=== PATIENT | female | born 1965 | race Caucasian/White ===

== ENCOUNTER 2021-06-24 15:58 | Inpatient (IN) | payer MEDICARE ==
[~2021-06-24] VITALS: Ht 157.5 cm; Wt 73.2 kg
[~2021-06-24 15:58] MED LIST: ETOMIDATE IV SOLN 20 MG/10 ML VIAL IV ONE; ROCURONIUM 10 MG/ML 5 ML SYRINGE IV ONE
[2021-06-24] MEDS ORDERED: LORazepam INJ 2 MG/ML (ATIVAN) VIAL IVP ONE ×3 (16:30→20:45)
[2021-06-24] MEDS ORDERED: LACTATED RINGERS 1,000 ML IV ONE (16:30)
[2021-06-24] MEDS ORDERED: NS IV 1000 ML 1,000 ML IV SCH (16:45)
[2021-06-24] MEDS ORDERED: RT-ALBUTEROL/IPRATROPIUM 3 ML (DUONEB) VIAL INH ONE ×2 (16:45→17:45)
[2021-06-24 16:52] LABS: ALBUMIN 3.7 GM/DL (3.2-4.5); CHLORIDE 104 MMOL/L (98-107); POTASSIUM 4.1 MMOL/L (3.6-5.0); SODIUM 138 MMOL/L (135-145)
[2021-06-24 16:53] LABS: CALCIUM 9.1 MG/DL (8.5-10.1)
[2021-06-24 16:53] LABS: ABG BASE EXCESS 0.5 MMOL/L (-2.5-2.5); ABG OXYGEN SATURATION 94 % (94-100); ABG PCO2 54 MMHG (35-45); ABG PO2 81 MMHG (79-93); ABG TCO2 27.9 MMOL/L (21.0-31.0)
[2021-06-24 16:54] LABS: PROTHROMBIN TIME PATIENT 13.2 SEC (12.2-14.7)
[2021-06-24 16:55] LABS: GLUCOSE 92 MG/DL (70-105); TOTAL PROTEIN 7.7 GM/DL (6.4-8.2)
[2021-06-24 16:56] LABS: BILIRUBIN,TOTAL 0.5 MG/DL (0.1-1.0); CARBON DIOXIDE 20 MMOL/L (21-32)
[2021-06-24] MEDS ORDERED: LORazepam INJ 2 MG/ML (ATIVAN) VIAL ONE (16:57)
[2021-06-24 16:58] LABS: ALKALINE PHOSPHATASE 190 U/L (40-136); CREATININE SERUM 0.55 MG/DL (0.60-1.30); GFR ESTIMATED 116
[2021-06-24 16:59] LABS: BUN/CREATININE RATIO 9
[2021-06-24 17:01] LABS: ALANINE AMINOTRANSFERASE 52 U/L (0-55); CREATINE KINASE 99 U/L (29-168)
[2021-06-24 17:02] LABS: ALLENS TEST POS; INSPIRED O2 2L; PATIENT TEMP 36.6; VENTILATOR NO
--- NOTE | 2021-06-24 17:05 | Diagnostic Imaging Report ---
CHEST 1 VIEW, AP/PA ONLY Indication: Sepsis Comparison: None available. Findings: Ill-defined opacities are present in the right lung base. No pleural effusion or pneumothorax. Normal cardiomediastinal silhouette. Impression: 1. Right basilar ill-defined opacities could be due to pneumonia or aspiration in the appropriate setting. Dictated by: Dictated on workstation # [id number]
[2021-06-24 17:18] LABS: VALPROIC ACID < 2.0 UG/ML (50.0-100.0)
[2021-06-24 17:20] LABS: BASOPHILS # (AUTO) 0.1 10^3/uL (0.0-0.1); BASOPHILS % (AUTO) 0 % (0-10); EOSINOPHILS # (AUTO) 0.1 10^3/uL (0.0-0.3); EOSINOPHILS % (AUTO) 0 % (0-10); HEMATOCRIT 47 % (35-52); LYMPHOCYTES % (AUTO) 7 % (12-44); MEAN CORPUSCULAR HEMOGLOBIN 29 pg (25-34); MEAN CORPUSCULAR HGB CONC 32 g/dL (32-36); MEAN CORPUSCULAR VOLUME 90 fL (80-99); MEAN PLATELET VOLUME 10.4 fL (9.0-12.2); MONOCYTES # (AUTO) 1.6 10^3/uL (0.0-1.0); MONOCYTES % (AUTO) 11 % (0-12); NEUTROPHILS # (AUTO) 11.2 10^3/uL (1.8-7.8); NEUTROPHILS % (AUTO) 80 % (42-75); PLATELET COUNT 358 10^3/uL (130-400); WHITE BLOOD COUNT 13.9 10^3/uL (4.3-11.0)
[2021-06-24] MEDS ORDERED: CEFEPIME INJECTION 1,000 MG in NS (IVPB) 50 ML IV ONE (17:30)
[2021-06-24] MEDS ORDERED: ONDANSETRON 4 MG/2 ML (SDV) Z0FRAN IVP ONE ×2 (17:30→19:45)
[2021-06-24] MEDS ORDERED: RT-ALBUTEROL SULF 2.5 MG/3 ML PRE-MIX VIAL INH STA (17:34)
[2021-06-24] MEDS ORDERED: MEROPENEM 1,000 MG in NS (IVPB) 100 ML IV ONE (17:45)
[2021-06-24] MEDS ORDERED: methylPREDNISolone 125 MG (Solu-MEDROL) VIAL IVP ONE (17:45)
[2021-06-24 18:17] LABS: LYMPHOCYTES % (MANUAL) 8 %; MONOCYTES % (MANUAL) 12 %; NEUTROPHILS % (MANUAL) 80 %; RBC MORPH NORMAL
--- NOTE | 2021-06-24 18:24 | ED General ---
General Chief Complaint: Neurological Problems Stated Complaint: SOB, LETHERGY Nursing Triage Note: ARRIVES VIA EMS FROM [facility]. IS STATES SHE WAS BEING TREATED FOR A RESPIRITORY ILLNESS WHEN SHE BEGAN SEIZING. PATIENT IS KNOWN TO HAVE A HISTORY OF SEIZURE. PATIENT STATES SHE HAS BEEN ILL FOR A WEEK AND A HALF. Source of Information: Patient, EMS, Family, Old Records Exam Limitations: No Limitations (CRISTINA DE LA TORRE MD) History of Present Illness Date Seen by Provider: Jun 24, 2021 Time Seen by Provider: 16:18 Initial Comments This is a 55-year-old woman presents to the emergency department via EMS from the [facility] clinic where she was being seen for shortness of breath, productive cough, and claustrophobia. She has a known history of seizure disorder and has had multiple brief seizures by the time of my examination. reports she has had increasing difficulty with her breathing over the past month. She has also had some type of esophageal issue for which she has seen an ENT recently in [place]. They are not able to elaborate any further on that situation. She does have COPD and smokes. She is quite wheezy on examination and has coarse breath sounds as well. Mental status is waxing and waning due to postictal state after the seizures. Patient has not had any fevers according to her . COVID- 19 and influenza swabs done at the clinic were negative. Reportedly chest x-ray was concerning for pneumonia. Patient complains of nausea. A DuoNeb treatment was given at the clinic but she is still wheezy. (CRISTINA DE LA TORRE MD) Initial Comments PT ALSO HAS HISTORY OF P.E. AND WAS ON A BLOOD THINNER FOR ABOUT A YEAR, BUT HAS BEEN OFF BLOOD THINNERS FOR A COUPLE OF YEARS. PCP: [facility]. OPERATIONS EXAMINER FRANCESCO BRIDGES (ARELIS MONTES DO) Allergies and Home Medications Allergies Coded Allergies: Penicillins (Verified Allergy, Severe, Anaphylaxis, 06/24/21) erythromycin base (Verified Allergy, Unknown, 06/24/21) Patient Home Medication List Home Medication List Reviewed: Yes (CRISTINA DE LA TORRE MD) Review of Systems Review of Systems Constitutional: no symptoms reported EENTM: no symptoms reported Respiratory: see HPI Cardiovascular: no symptoms reported Gastrointestinal: see HPI Genitourinary: no symptoms reported : No Musculoskeletal: no symptoms reported Skin: no symptoms reported Psychiatric/Neurological: See HPI Hematologic/Lymphatic: No Symptoms Reported Immunological/Allergic: no symptoms reported (CRISTINA DE LA TORRE MD) Past Pmuvwky-Eprnac-Frjvvw Hx Patient Social History Tobacco Use?: Yes Tobacco type used: Cigarettes Substance use?: Yes Substance type: Marijuana Alcohol Use?: No (CRISTINA DE LA TORRE MD) Past Medical History Surgeries: Yes Hysterectomy Respiratory: Yes Asthma, COPD Cardiac: Yes Hypertension Neurological: Yes (Reflex sympathetic dystrophy of the right arm) Headaches /Migraines, Seizure Disorder : No Genitourinary: No Gastrointestinal: Yes (Dysphagia) Musculoskeletal: No Endocrine: No HEENT: No Cancer: No Psychosocial: Yes (History of polysubstance abuse) Anxiety, Depression (CRISTINA DE LA TORRE MD) Pulmonary Embolism (ARELIS MONTES DO) Physical Exam Vital Signs Vital Signs - First Documented (ARELIS MONTES DO) Vital Signs Capillary Refill : Less Than 3 Seconds (CRISTINA DE LA TORRE MD) Height, Weight, BMI Height: '" Weight: lbs. oz. kg; 34.00 BMI Method: General Appearance: WD/WN, Mild Distress (Intermittently groaning) HEENT: PERRL/EOMI, Normal ENT Inspection Neck: Normal Inspection Respiratory: No Accessory Muscle Use, No Respiratory Distress, Rhonci, Wheezing Cardiovascular: No Edema, No Murmur, Tachycardia Gastrointestinal: Normal Bowel Sounds, Non Tender, Soft Extremity: Normal Inspection, No Pedal Edema Neurologic/Psychiatric: Other (Intermittently alert and able to answer some questions. Moves all extremities. Several seizures lasting less than 1 minute.) Skin: Normal Color, Warm/Dry (CRISTINA DE LA TORRE MD) Focused Exam Sepsis Stage: Sepsis Possible Source: Pulmonary Lactate Level 06/24/21 17:00: Lactic Acid Level 1.35 (ARELIS MONTES DO) Time of Focused Exam: 19:00 Respiratory: Accessory Muscle Use, Respiratory Distress, Wheezing Cardiovascular: No JVD, No Murmur, Normal Peripheral Pulses, Tachycardia Capillary Refill: Less Than 3 Seconds Skin: normal color, warm/dry Lactic Acid Level Laboratory Tests Test 06/24/21 17:00 Lactic Acid Level 1.35 MMOL/L (0.50-2.00) (ARELIS MONTES DO) Within 3hrs of presentation: Admin fluids, Admin ABX, Blood cultures prior to ABX's, Focus exam, Lactate level (ARELIS MONTES DO) Progress/Results/Core Measures Suspected Sepsis SIRS Temperature: Pulse: 125 Respiratory Rate: 20 Laboratory Tests 06/24/21 17:00: White Blood Count 13.9H Blood Pressure 194 /116 Mean: 142 06/24/21 17:00: Lactic Acid Level 1.35 Laboratory Tests 06/24/21 16:33: Creatinine 0.55L, INR Comment 1.0, Total Bilirubin 0.5 06/24/21 17:00: Platelet Count 358 (CRISTINA DE LA TORRE MD) Results/Orders Lab Results Laboratory Tests Test 06/24/21 16:33 06/24/21 16:50 06/24/21 17:00 06/24/21 20:00 Range/Units Prothrombin Time 13.2 12.2-14.7 SEC INR Comment 1.0 0.8-1.4 Activated Partial Thromboplast Time 27 24-35 SEC D-Dimer 5.03 H 0.00-0.49 UG/ML Sodium Level 138 135-145 MMOL/L Potassium Level 4.1 3.6-5.0 MMOL/L Chloride Level 104 98-107 MMOL/L Carbon Dioxide Level 20 L 21-32 MMOL/L Anion Gap 14 5-14 MMOL/L Blood Urea Nitrogen 5 L 7-18 MG/DL Creatinine 0.55 L 0.60-1.30 MG/DL Estimat Glomerular Filtration Rate 116 BUN/Creatinine Ratio 9 Glucose Level 92 70-105 MG/DL Calcium Level 9.1 8.5-10.1 MG/DL Corrected Calcium 9.3 8.5-10.1 MG/DL Total Bilirubin 0.5 0.1-1.0 MG/DL Aspartate Amino Transf (AST/SGOT) 29 5-34 U/L Alanine Aminotransferase (ALT/SGPT) 52 0-55 U/L Alkaline Phosphatase 190 H 40-136 U/L Total Creatine Kinase 99 29-168 U/L C-Reactive Protein High Sensitivity 11.84 H 0.00-0.50 MG/DL Total Protein 7.7 6.4-8.2 GM/DL Albumin 3.7 3.2-4.5 GM/DL Procalcitonin 0.06 <0.10 NG/ML Valproic Acid (Depakene) Level < 2.0 L 50.0-100.0 UG/ML Serum Alcohol < 10 < 10 <10 MG/DL Influenza Type A (RT-PCR) Not Detected Not Detecte Influenza Type B (RT-PCR) Not Detected Not Detecte SARS-CoV-2 RNA (RT-PCR) Not Detected Not Detecte Blood Gas Puncture Site RRAD Blood Gas Patient Temperature 36.6 Arterial Blood pH 7.30 *L 7.37-7.43 Arterial Blood Partial Pressure CO2 54 H 35-45 MMHG Arterial Blood Partial Pressure O2 81 79-93 MMHG Arterial Blood HCO3 26 23-27 MMOL/L Arterial Blood Total CO2 27.9 21.0-31.0 MMOL/L Arterial Blood Oxygen Saturation 94 94-100 % Arterial Blood Base Excess 0.5 -2.5-2.5 MMOL/L Jim Test POS Blood Gas Ventilator Setting NO Blood Gas Inspired Oxygen 2L White Blood Count 13.9 H 4.3-11.0 10^3/uL Red Blood Count 5.17 H 3.80-5.11 10^6/uL Hemoglobin 15.0 11.5-16.0 g/dL Hematocrit 47 35-52 % Mean Corpuscular Volume 90 80-99 fL Mean Corpuscular Hemoglobin 29 25-34 pg Mean Corpuscular Hemoglobin Concent 32 32-36 g/dL Red Cell Distribution Width 13.7 10.0-14.5 % Platelet Count 358 130-400 10^3/uL Mean Platelet Volume 10.4 9.0-12.2 fL Immature Granulocyte % (Auto) 1 % Neutrophils (%) (Auto) 80 H 42-75 % Lymphocytes (%) (Auto) 7 L 12-44 % Monocytes (%) (Auto) 11 0-12 % Eosinophils (%) (Auto) 0 0-10 % Basophils (%) (Auto) 0 0-10 % Neutrophils # (Auto) 11.2 H 1.8-7.8 10^3/uL Lymphocytes # (Auto) 1.0 1.0-4.0 10^3/uL Monocytes # (Auto) 1.6 H 0.0-1.0 10^3/uL Eosinophils # (Auto) 0.1 0.0-0.3 10^3/uL Basophils # (Auto) 0.1 0.0-0.1 10^3/uL Immature Granulocyte # (Auto) 0.1 0.0-0.1 10^3/uL Neutrophils % (Manual) 80 % Lymphocytes % (Manual) 8 % Monocytes % (Manual) 12 % Blood Morphology Comment NORMAL Lactic Acid Level 1.35 0.50-2.00 MMOL/L Troponin I < 0.028 <0.028 NG/ML B-Type Natriuretic Peptide 14.0 <100.0 PG/ML Triglycerides Level 89 <150 MG/DL Urine Color YELLOW Urine Clarity CLEAR Urine pH 6.0 5-9 Urine Specific [place] <=1.005 1.016-1.022 Urine Protein 1+ H NEGATIVE Urine Glucose (UA) NEGATIVE NEGATIVE Urine Ketones NEGATIVE NEGATIVE Urine Nitrite NEGATIVE NEGATIVE Urine Bilirubin NEGATIVE NEGATIVE Urine Urobilinogen 0.2 < = 1.0 MG/DL Urine Leukocyte Esterase NEGATIVE NEGATIVE Urine RBC (Auto) TRACE-I H NEGATIVE Urine RBC RARE /HPF Urine WBC NONE /HPF Urine Crystals PRESENT H /LPF Urine Amorphous Sediment RARE LOLA URATES H /LPF Urine Bacteria TRACE /HPF Urine Casts NONE /LPF Urine Mucus NEGATIVE /LPF Urine Culture Indicated CULTURE PENDING Urine Opiates Screen NEGATIVE NEGATIVE Urine Oxycodone Screen NEGATIVE NEGATIVE Urine Methadone Screen NEGATIVE NEGATIVE Urine Propoxyphene Screen NEGATIVE NEGATIVE Urine Barbiturates Screen NEGATIVE NEGATIVE Ur Tricyclic Antidepressants Screen NEGATIVE NEGATIVE Urine Phencyclidine Screen NEGATIVE NEGATIVE Urine Amphetamines Screen NEGATIVE NEGATIVE Urine Methamphetamines Screen NEGATIVE NEGATIVE Urine Benzodiazepines Screen POSITIVE H NEGATIVE Urine Cocaine Screen NEGATIVE NEGATIVE Urine Cannabinoids Screen POSITIVE H NEGATIVE Test 06/24/21 20:03 Range/Units Blood Gas Puncture Site L RAD Blood Gas Patient Temperature 36.7 Arterial Blood pH 7.28 *L 7.37-7.43 Arterial Blood Partial Pressure CO2 58 H 35-45 MMHG Arterial Blood Partial Pressure O2 232 H 79-93 MMHG Arterial Blood HCO3 26 23-27 MMOL/L Arterial Blood Total CO2 28.2 21.0-31.0 MMOL/L Arterial Blood Oxygen Saturation 99 94-100 % Arterial Blood Base Excess 0.4 -2.5-2.5 MMOL/L Jim Test YES-POS Blood Gas Ventilator Setting YES Blood Gas Inspired Oxygen 60% (ARA,ARELIS K DO) My Orders Orders - ARA,ARELIS K DO Catheter(Urinary) Insert & Ass (06/24/21 18:59) Arterial Blood Gas (06/24/21 19:39) Ondansetron Injection (Zofran Injectio (06/24/21 19:45) Ondansetron Injection (Zofran Injectio (06/24/21 19:42) Iohexol Injection (Omnipaque 350 Mg/Ml 1 (06/24/21 20:00) Received Contrast (Hold Metformin- Contr (06/24/21 20:00) Ns (Ivpb) (Sodium Chloride 0.9% Ivpb Bag (06/24/21 20:00) Chest 1 View, Ap/Pa Only (06/24/21 19:50) Ng Tube Insert & Assessment (06/24/21 19:50) Propofol Drip (Icu) (Diprivan Drip (Icu) (06/24/21 19:48) Propofol Drip (Icu) (Diprivan Drip (Icu) (06/24/21 20:00) Sedation Communication Q48H (06/24/21 19:51) Alcohol (06/24/21 20:04) (ARELIS MONTES DO) Medications Given in ED Current Medications Medications Dose Ordered Sig/Mary Route Start Time Stop Time Status Last Admin Dose Admin Albuterol/ Ipratropium 3 ml ONCE ONCE INH 06/24/21 16:45 06/24/21 16:46 DC 06/24/21 17:04 3 ML Albuterol/ Ipratropium 3 ml ONCE ONCE INH 06/24/21 17:45 06/24/21 17:46 DC 06/24/21 18:04 3 ML Iohexol 100 ml ONCE ONCE IV 06/24/21 20:00 06/24/21 20:01 DC 06/24/21 19:51 100 ML Lactated Ringer's 1,000 ml @ 0 mls/hr Q0M ONCE IV 06/24/21 16:30 06/24/21 16:31 DC 06/24/21 16:39 1,000 MLS/HR Lorazepam 1 mg ONCE ONCE IVP 06/24/21 16:30 06/24/21 16:31 DC 06/24/21 16:35 1 MG Lorazepam 2 mg STK-MED ONCE .ROUTE 06/24/21 16:57 06/24/21 17:00 DC 06/24/21 17:03 1 MG Meropenem 1000 mg/ Sodium Chloride 100 ml @ 200 mls/hr ONCE ONCE IV 06/24/21 17:45 06/24/21 18:14 DC 06/24/21 17:39 200 MLS/HR Methylprednisolone Sodium Succinate 125 mg ONCE ONCE IVP 06/24/21 17:45 06/24/21 17:46 DC 06/24/21 17:39 125 MG Ondansetron HCl 8 mg ONCE ONCE IVP 06/24/21 17:30 06/24/21 17:31 DC 06/24/21 17:26 8 MG Ondansetron HCl 8 mg ONCE ONCE IVP 06/24/21 19:45 06/24/21 19:46 DC 06/24/21 19:48 8 MG Sodium Chloride 100 ml ONCE ONCE IV 06/24/21 20:00 06/24/21 20:01 DC 06/24/21 19:51 80 ML (ARELIS MONTES DO) Vital Signs/I&O 06/24/21 06/24/21 06/24/21 06/24/21 15:58 15:58 18:06 19:53 Temp 36.6 Pulse 125 121 Resp 20 B/P (MAP) 194/116 (142) 158/92 Pulse Ox 96 96 95 O2 Delivery Nasal Cannula Nasal Cannula Nasal Cannula O2 Flow Rate 2.00 2.00 4.00 06/24/21 20:07 Pulse 125 B/P (MAP) 176/110 (ARELIS MONTES DO) Vital Signs/I&O Capillary Refill : Less Than 3 Seconds (CRISTINA DE LA TORRE MD) Blood Pressure Mean: 142 Progress Note #1: Time: 18:30 Progress Note Patient was treated with Ativan 1 mg x 2 for seizures. This did not completely resolve the seizures and Keppra was also administered and a 500 mg IV bolus. She has not seized since the Keppra infusion. Probable pneumonia was evident on the chest x-ray and antibiotic treatment with meropenem was started. Patient stated she had an anaphylactic reaction to penicillin. Patient has persistent wheezing and increased work of breathing after a DuoNeb treatment. An hour-long treatment is now being administered. I reviewed patient's medical chart from the clinic with Dr. Pascual. There was notation of a PE previously in 2019. A D- dimer was therefore added to her work-up here. D-dimer was significantly elevated and CT angiogram is pending. We are also going to scan her head while in the CT department due to her altered mental status and increasing seizure activity. Repeat Covid and influenza test were performed and were both negative. A liter of IV fluid was infused. Zofran was given for nausea. Progress Note #2: Time: 18:51 Progress Note She has had no further seizures since Keppra. Patient still has significant increased work of breathing and expiratory phase after her hour-long nebulizer treatment. I have instructed staff to try BiPAP when she returns from CT. Patient has not tolerated masks, blood pressure cuffs, etc. and rips them off. She may not tolerate BiPAP. Report has been given to Dr. Montes and care is being transitioned. CT angiogram of the chest is pending. I am including the abdomen due to her history of esophageal problems and dysphagia. (CRISTINA DE LA TORRE MD) Progress Note : Progress Note ASSUMED CARE OF PATIENT AT SHIFT CHANGE. PT IS SEMI-SEDATED AT THIS TIME, WITH LABORED BREATHING. O2 SATS 92-93% ON O2 DISCUSSED WITH PT'S REGARDING TRIAL OF BIPAP--HE DOES NOT THINK SHE WILL TOLERATE IT, SHE DOES NOT LIKE ANYTHING OVER HER FACE AND SHE HAD DIFFICULTY EVEN WITH NEB TREATMENT. HE IS AGREEABLE TO INTUBATION AND GIVES CONSENT. PT HAS RECEIVED MEROPENEM AND SOLU MEDROL PRIOR TO MY ARRIVAL, WELL ATIVAN AND KEPPRA. OF NOTE, PT HAD REPORTED TO NURSE THAT SHE HAD NOT BEEN TAKING HER SEIZURE MEDICATION FOR UNKNOWN LENGTH OF TIME, "JUST DIDN'T FEEL GOOD" SO SHE SIMPLY DID NOT TAKE ANY OF HER MEDICATIONS. REPORTS TO ME THAT SHE TYPICALLY DOES NOT GO TO THE DR AND DOES NOT ALWAYS TAKE HER MEDICATIONS. 1935--ON RETURN FROM CT, PT GOT OUT OF WHEELCHAIR, REFUSED TO GET INTO BED, TRYING TO LEAVE, WALKED TO BATHROOM, HAS RIPPED OUT IV, TAKEN OFF O2, RIPPED OFF BP CUFF AND TELEMETERY LEADS. PT DRY HEAVING. PT ASSISTED BACK TO BED--O2 SAT 70-72% ON ROOM AIR AND PT IS VERY DYSPNEIC AND HAS CIRCUMORAL CYANOSIS. DIFFUSE WHEEZING--RIGHT >> LEFT. PT IS NOT TALKING AND IS COMBATIVE AND NOT FOLLOWING COMMANDS. PLACED ON OXIMASK AT 15L AND O2 SATS UP TO 99%, AND PREPARED FOR INTUBATION GIVEN ZOFRAN FOR DRY HEAVING. 2044--PT WITH SOME AGITATION, BITING TUBE, BP AND HEART RATE UP. ATIVAN GIVEN, WELL FENTANYL AND PROPOFOL DRIP INCREASED. PT SEDATED, BP DOWN TO 120'S/70'S, HR DOWN TO 100. O2 SAT 99-100% ON VENT. . (ARELIS MONTES DO) ECG Initial ECG Impression Date: Jun 24, 2021 Initial ECG Impression Time: 17:44 Initial ECG Rate: 122 Initial ECG Rhythm: S.Tach Comment Sinus tachycardia with no ST elevation or depression. No abnormal intervals or axis deviation. (CRISTINA DE LA TORRE MD) Diagnostic Imaging Diagonstic Imaging: Xray Plain Films/CT/US/NM/MRI: chest Comments Chest x-ray reviewed by me and report reviewed. See report below: NAME: ESSIE CHARLES [facility] REC#: [id number] PT STATUS: REG ER : 1965 PHYSICIAN: CRISTINA DE LA OTRRE MD ADMIT DATE: 06/24/21/ER Signed Date of Exam:06/24/21 CHEST 1 VIEW, AP/PA ONLY Indication: Sepsis Comparison: None available. Findings: Ill-defined opacities are present in the right lung base. No pleural effusion or pneumothorax. Normal cardiomediastinal silhouette. Impression: 1. Right basilar ill-defined opacities could be due to pneumonia or aspiration in the appropriate setting. Dictated by: Dictated on workstation # [id number] Dict: 06/24/211702 Trans: 06/24/211802 [facility] [id number] Interpreted by: URSULA MCGUIRE MD Electronically signed by: URSULA MCGUIRE MD 06/24/211802 (CRISTINA DE LA TORRE MD) Comments CT HEAD---PER RADIOLOGIST REPORT AT 2013 FINDINGS: The exam demonstrates significant motion artifact, and was repeated. There is no midline shift or mass effect. The sulci and ventricles appear normal. No acute intracranial hemorrhage is seen. The calvarium appears intact. There is no CT evidence of acute territorial ischemia. The visualized paranasal sinuses are clear. IMPRESSION: 1. No acute intracranial hemorrhage or CT evidence of acute territorial ischemia. CT CHEST ANGIOGRAM/ABDOMEN-PELVIS--PER RADIOLOGIST REPORT AT 2015-- FINDINGS: CTA CHEST: The pulmonary arteries are suboptimally opacified due to motion artifact and decreased contrast. The pulmonary arteries appear diagnostic centrally and at the proximal lobar level. No filling defect is seen to indicate a pulmonary embolus. The heart is normal in size. There is no evidence of right heart strain. There is mild aortic atherosclerosis but the aorta is normal in caliber. There is no pericardial effusion. There are a few prominent mediastinal lymph nodes, with a marker node in the aortopulmonary window measuring up to 1.5 cm in short axis. No axillary adenopathy is seen. There is a small left pleural effusion. There are airspace opacities in the lungs bilaterally, particularly the anterior lungs. There is a nodular density in the anterior right upper lobe measuring 9 mm (image 56 series 2). There is another somewhat nodular density in the left lower lobe which measures 2 cm (image 74 series 2). These are likely related to infection, but follow-up is recommended. No pneumothorax is seen. No acute osseous abnormality is seen. There are old left-sided rib fractures. CT ABDOMEN: The aorta is normal in caliber. There is mild atherosclerosis with no dissection. The liver, spleen, pancreas, adrenal glands, and kidneys demonstrate no acute abnormality. Visible bowel loops are nondistended without obstruction. No free fluid or free air is seen. No acute osseous abnormality is seen. IMPRESSION: 1. Suboptimal examination but no pulmonary embolus is seen. 2. Bilateral pulmonary opacities, likely due to infection. There are nodular densities bilaterally, which are likely secondary to the infection but neoplasm is not excluded, and follow-up CT 6 weeks following resolution of symptoms is recommended. 3. Small left pleural effusion. 4. Mildly prominent lymph nodes in the mediastinum, likely reactive. 5. No acute abnormality is seen in the abdomen. POST INTUBATION CXR--PER RADIOLOGIST REPORT AT 2104 FINDINGS: The endotracheal tube is about 3.5 cm above the fidel. Cervical spine fusion hardware is noted. An enteric tube is seen crossing the [id number]. There are diffuse bilateral interstitial opacities with bibasilar airspace opacities. The cardiac silhouette is normal in size. There is no significant pleural effusion or pneumothorax. IMPRESSION: 1. The endotracheal tube is about 3.5 cm above the fidel. 2. Bilateral pulmonary opacities, may be due to infection or edema. I ALSO NOTE THAT OG TUBE APPEARS TO BE IN STOMACH Reviewed: Reviewed by Me (ARELIS MONTES DO) Departure Communication (Admissions) 2015--SPOKE WITH DR. PASCUAL, ACCEPTS PT FOR ADMIT. 2020--CALLED E-ICU, PHYSICIAN WILL CALL BACK 2014--SPOKE WITH 3-ICU PHYSICIAN/REPORT GIVEN . RECOMMENDATIONS NOTED. (ARELIS MONTES DO) Impression Primary Impression: Seizures Additional Impressions: Right lower lobe pneumonia Qualified Codes: J18.9 - Pneumonia, unspecified organism COPD exacerbation Elevated d-dimer Acute respiratory failure HTN (hypertension) Non-compliance Sepsis Marijuana use Disposition: ADMITTED INPATIENT Condition: Stable Admissions Decision to Admit Reason: Admit from ER (General) Decision to Admit/Date: Jun 24, 2021 Time/Decision to Admit Time: 20:20 (ARELIS MONTES DO) Copy Copies To 1: HANSA PASCUAL MD, JOSHUA T MD Jun 24, 2021 18:24 ARELIS MONTES DO Jun 24, 2021 19:03
[2021-06-24] MEDS ORDERED: ONDANSETRON 4 MG/2 ML (SDV) Z0FRAN ONE (19:42)
[2021-06-24] MEDS ORDERED: PROPOFOL DRIP (ICU) 100 ML IV ONE (19:48)
[2021-06-24] MEDS: PROPOFOL DRIP (ICU) 100 ML IV SCH ×2 (19:53→23:12)
[2021-06-24] MEDS ORDERED: NS 100 ML (IVPB) BAG IV ONE (20:00)
[2021-06-24] MEDS ORDERED: HOLD METFORMIN - RECEIVED CONTRAST 20 ML VIAL IV SCH (20:00)
[2021-06-24] MEDS ORDERED: IOHEXOL 350 MG/ML 100 ML (OMNIPAQUE 350) VIAL IV ONE (20:00)
[2021-06-24 20:04] LABS: ABG BASE EXCESS 0.4 MMOL/L (-2.5-2.5); ABG OXYGEN SATURATION 99 % (94-100); ABG PCO2 58 MMHG (35-45); ABG PO2 232 MMHG (79-93); ABG TCO2 28.2 MMOL/L (21.0-31.0); ALLENS TEST YES-POS; INSPIRED O2 60%; VENTILATOR YES
[2021-06-24 20:05] LABS: ABG PH 7.28 (7.37-7.43); PATIENT TEMP 36.7
[2021-06-24 20:06] LABS: BILIRUBIN,URINE NEGATIVE (NEGATIVE); CLARITY,URINE CLEAR; COLOR,URINE YELLOW; GLUCOSE, URINE (UA) NEGATIVE (NEGATIVE); KETONES,URINE NEGATIVE (NEGATIVE); LEUKOCYTE ESTERASE ,URINE NEGATIVE (NEGATIVE); NITRITE,URINE NEGATIVE (NEGATIVE); PROTEIN,URINE 1+ (NEGATIVE)
--- NOTE | 2021-06-24 20:08 | Diagnostic Imaging Report ---
PROCEDURE: CT head without contrast. TECHNIQUE: Multiple contiguous axial images were obtained through the brain without the use of intravenous contrast. Auto Exposure Controls were utilized during the CT exam to meet ALARA standards for radiation dose reduction. INDICATION: Altered mental status, seizures. COMPARISON: None FINDINGS: The exam demonstrates significant motion artifact, and was repeated. There is no midline shift or mass effect. The sulci and ventricles appear normal. No acute intracranial hemorrhage is seen. The calvarium appears intact. There is no CT evidence of acute territorial ischemia. The visualized paranasal sinuses are clear. IMPRESSION: 1. No acute intracranial hemorrhage or CT evidence of acute territorial ischemia. Dictated by: Dictated on workstation # [id number]
--- NOTE | 2021-06-24 20:14 | Diagnostic Imaging Report ---
PROCEDURE: CT angiography of the abdomen and chest with and without contrast. TECHNIQUE: After intravenous administration of contrast, thin section axial CT angiography of the abdomen and chest were obtained. 3D MIP reformats were provided. Auto Exposure Controls were utilized during the CT exam to meet ALARA standards for radiation dose reduction. INDICATION: Shortness of air, elevated D-dimer, history of PE. COMPARISON: None FINDINGS: CTA CHEST: The pulmonary arteries are suboptimally opacified due to motion artifact and decreased contrast. The pulmonary arteries appear diagnostic centrally and at the proximal lobar level. No filling defect is seen to indicate a pulmonary embolus. The heart is normal in size. There is no evidence of right heart strain. There is mild aortic atherosclerosis but the aorta is normal in caliber. There is no pericardial effusion. There are a few prominent mediastinal lymph nodes, with a marker node in the aortopulmonary window measuring up to 1.5 cm in short axis. No axillary adenopathy is seen. There is a small left pleural effusion. There are airspace opacities in the lungs bilaterally, particularly the anterior lungs. There is a nodular density in the anterior right upper lobe measuring 9 mm (image 56 series 2). There is another somewhat nodular density in the left lower lobe which measures 2 cm (image 74 series 2). These are likely related to infection, but follow-up is recommended. No pneumothorax is seen. No acute osseous abnormality is seen. There are old left-sided rib fractures. CT ABDOMEN: The aorta is normal in caliber. There is mild atherosclerosis with no dissection. The liver, spleen, pancreas, adrenal glands, and kidneys demonstrate no acute abnormality. Visible bowel loops are nondistended without obstruction. No free fluid or free air is seen. No acute osseous abnormality is seen. IMPRESSION: 1. Suboptimal examination but no pulmonary embolus is seen. 2. Bilateral pulmonary opacities, likely due to infection. There are nodular densities bilaterally, which are likely secondary to the infection but neoplasm is not excluded, and follow-up CT 6 weeks following resolution of symptoms is recommended. 3. Small left pleural effusion. 4. Mildly prominent lymph nodes in the mediastinum, likely reactive. 5. No acute abnormality is seen in the abdomen. Dictated by: Dictated on workstation # [id number]
--- NOTE | 2021-06-24 20:23 | Diagnostic Imaging Report ---
HISTORY: Intubation COMPARISON: Radiograph from the same day. TECHNIQUE: Frontal view of the chest. FINDINGS: The endotracheal tube is about 3.5 cm above the fidel. Cervical spine fusion hardware is noted. An enteric tube is seen crossing the [id number]. There are diffuse bilateral interstitial opacities with bibasilar airspace opacities. The cardiac silhouette is normal in size. There is no significant pleural effusion or pneumothorax. IMPRESSION: 1. The endotracheal tube is about 3.5 cm above the fidel. 2. Bilateral pulmonary opacities, may be due to infection or edema. Dictated by: Dictated on workstation # [id number]
[2021-06-24 20:28] LABS: AMPHETAMINE SCREEN, URINE NEGATIVE (NEGATIVE); BARBITURATE SCREEN URINE NEGATIVE (NEGATIVE); BENZODIAZEPINES SCREEN URINE POSITIVE (NEGATIVE); CANNABINOID SCREEN, URINE POSITIVE (NEGATIVE); COCAINE SCREEN URINE NEGATIVE (NEGATIVE); METHADONE STAT NEGATIVE (NEGATIVE); METHAMPHETAMINE SCREEN URINE S NEGATIVE (NEGATIVE); OPIATE SCREEN URINE NEGATIVE (NEGATIVE); OXYCODONE STAT NEGATIVE (NEGATIVE); PROPOXYPHENE STAT NEGATIVE (NEGATIVE); TRICYCLIC ANTIDEPRESSANTS SCRE NEGATIVE (NEGATIVE)
[2021-06-24] MEDS ORDERED: ENOXAPARIN 40 MG/0.4 ML (LOVENOX) SYR SC ONE (20:30)
[2021-06-24 20:38] LABS: AMORPHOUS SEDIMENT,UR RARE AMOR URATES /LPF; BACTERIA,URINE TRACE /HPF; RBC,URINE RARE /HPF
[2021-06-24] MEDS ORDERED: fentaNYL INJ 100 MCG/2 ML AMP IVP ONE (20:45)
[2021-06-24] MEDS ORDERED: fentaNYL DRIP PRE-MIX 250 ML IV ONE (21:59)
[2021-06-24] MEDS ORDERED: EPINEPHrine 1 MG INJECTION 4 MG in NS (IVPB) 248 ML IV SCH (22:15)
[2021-06-24] MEDS: LACTATED RINGERS 1,000 ML IV SCH (22:51)
[2021-06-24] MEDS: NOREPINEPHRINE 8 MG/250 ML 250 ML IV SCH (23:11)
[2021-06-24] MEDS: VASOPRESSIN INJECTION 20 UNIT in NS (IVPB) 100 ML IV SCH (23:11)
[2021-06-24] MEDS: fentaNYL DRIP PRE-MIX 250 ML IV SCH (23:13)
[2021-06-24] MEDS ORDERED: NS (IVPB) 100 ML ONE (23:20)
[2021-06-24] MEDS: MEROPENEM 500 MG/NS 100 ML IVPB IV SCH ×2 (23:22)
[2021-06-24] MEDS ORDERED: RT-ALBUTEROL/IPRATROPIUM 3 ML (DUONEB) VIAL INH PRN (23:30)
[2021-06-25 00:15] LABS: ABG BASE EXCESS -1.1 MMOL/L (-2.5-2.5); ABG OXYGEN SATURATION 97 % (94-100); ABG PCO2 39 MMHG (35-45); ABG PH 7.39 (7.37-7.43); ABG PO2 90 MMHG (79-93); ABG TCO2 24.6 MMOL/L (21.0-31.0)
[2021-06-25 00:19] LABS: ALLENS TEST YES-POS; INSPIRED O2 35%; PATIENT TEMP 36.4; VENTILATOR YES
[2021-06-25] MEDS: RT-ALBUTEROL/IPRATROPIUM 3 ML (DUONEB) VIAL INH SCH ×6 (02:34→22:25)
[2021-06-25] MEDS: PROPOFOL DRIP (ICU) 100 ML IV SCH ×6 (03:00→22:52)
[2021-06-25] MEDS: LACTATED RINGERS 1,000 ML IV SCH ×4 (05:20→19:58)
[2021-06-25] MEDS: MEROPENEM 500 MG/NS 100 ML IVPB IV SCH ×8 (05:21→23:45)
[2021-06-25 05:50] LABS: BASOPHILS % (AUTO) 0 % (0-10); EOSINOPHILS % (AUTO) 0 % (0-10); HEMATOCRIT 42 % (35-52); HEMOGLOBIN 13.4 g/dL (11.5-16.0); LYMPHOCYTES # (AUTO) 0.7 10^3/uL (1.0-4.0); LYMPHOCYTES % (AUTO) 5 % (12-44); MEAN CORPUSCULAR HEMOGLOBIN 29 pg (25-34); MEAN CORPUSCULAR HGB CONC 32 g/dL (32-36); MEAN CORPUSCULAR VOLUME 90 fL (80-99); MEAN PLATELET VOLUME 11.2 fL (9.0-12.2); MONOCYTES # (AUTO) 0.4 10^3/uL (0.0-1.0); MONOCYTES % (AUTO) 3 % (0-12); NEUTROPHILS # (AUTO) 11.5 10^3/uL (1.8-7.8); NEUTROPHILS % (AUTO) 91 % (42-75); PLATELET COUNT 428 10^3/uL (130-400); WHITE BLOOD COUNT 12.7 10^3/uL (4.3-11.0)
[2021-06-25 06:10] LABS: ALBUMIN 3.2 GM/DL (3.2-4.5); POTASSIUM 4.2 MMOL/L (3.6-5.0)
[2021-06-25 06:11] LABS: CALCIUM 8.9 MG/DL (8.5-10.1)
[2021-06-25 06:12] LABS: TOTAL PROTEIN 6.6 GM/DL (6.4-8.2)
[2021-06-25 06:14] LABS: BILIRUBIN,TOTAL 0.3 MG/DL (0.1-1.0)
[2021-06-25 06:15] LABS: PHOSPHORUS 3.4 MG/DL (2.3-4.7)
[2021-06-25 06:16] LABS: CREATININE SERUM 0.62 MG/DL (0.60-1.30)
[2021-06-25] MEDS: MAGNESIUM 1 GM/100 ML IVPB 100 ML IV SCH (06:16)
[2021-06-25] MEDS: POTASSIUM CL 10MEQ/50ML IVPB 50 ML IV SCH (06:16)
[2021-06-25] MEDS: KCL 20 MEQ TAB (K-DUR) PO SCH (06:17)
[2021-06-25 06:30] VITALS: BP 115/69
[2021-06-25] MEDS: ENOXAPARIN 40 MG/0.4 ML (LOVENOX) SYR SC SCH (08:03)
[2021-06-25] MEDS: PANTOPRAZOLE 40 MG (PROTONIX) VIAL IV SCH (08:03)
[2021-06-25] MEDS: LEVETIRACETAM 1,000 MG/NS 100 ML IVPB IV SCH ×4 (08:03→19:57)
--- NOTE | 2021-06-25 11:24 | Tele-ICU Consult ---
History of Present Illness History of Present Illness Date Seen by Provider: Jun 25, 2021 Time Seen by Provider: 10:02 Date of Admission Allergies and Home Medications Allergies Coded Allergies: Penicillins (Verified Allergy, Severe, Anaphylaxis, 06/24/21) erythromycin base (Verified Allergy, Unknown, 06/24/21) Past Medical/Social/Family Hx Patient Social History Tobacco Use?: Yes Tobacco type used: Cigarettes Smoking Status: Current Everyday Smoker Use of E-Cig and/or Vaping dev: No Substance use?: Yes Substance type: Marijuana Substance frequency: Daily Alcohol Use?: Yes Alcohol type: Beer Alcohol Frequency: Once in a while Pt stated abuse/neglect: Unable to obtain Immunizations Up To Date Influenza Vaccine Up-to-Date: No; Not Current Tetanus Booster (TDap): Unknown Current Status status: No status: No Advance Directives: No Communicates: Verbally Primary Language: Syriac Preferred Spoken Language: Syriac Is interpretation needed?: No Sensory deficits: Vision impairment Implanted or Applied Medical D: Orthopedic hardware Review of Systems Constitutional: see HPI Sepsis Event Evaluation Height, Weight, BMI Height: '" Weight: lbs. oz. kg; 38.37 BMI Method: Exam Exam Patient acknowledged, consented, and participated in this virtual visit which was conducted using real time audio/video Vital Signs Date Time Temp Pulse Resp B/P (MAP) Pulse Ox O2 Delivery O2 Flow Rate FiO2 06/25/21 11:00 65 18 116/67 97 Mechanical Ventilator 35.00 06/25/21 10:00 56 8 113/66 100 Mechanical Ventilator 35.00 06/25/21 09:00 75 17 114/76 94 Mechanical Ventilator 35.00 06/25/21 08:00 71 18 115/69 96 Mechanical Ventilator 35.00 06/25/21 07:10 80 108/63 06/25/21 07:00 69 06/25/21 07:00 78 17 108/64 95 Mechanical Ventilator 35.00 06/25/21 06:30 79 18 96 35 06/25/21 06:00 96 14 127/72 100 Mechanical Ventilator 35.00 06/25/21 05:00 70 17 122/71 95 Mechanical Ventilator 35.00 06/25/21 04:00 Mechanical Ventilator 35 06/25/21 04:00 84 17 98/64 95 Mechanical Ventilator 35.00 06/25/21 04:00 36.5 06/25/21 03:00 85 110/68 06/25/21 03:00 88 17 105/65 96 Mechanical Ventilator 35.00 06/25/21 02:34 76 18 96 35 06/25/21 02:00 73 18 129/76 96 Mechanical Ventilator 35.00 06/25/21 01:00 73 06/25/21 01:00 73 17 127/74 96 Mechanical Ventilator 35.00 06/25/21 00:00 36.4 06/25/21 00:00 68 17 129/74 96 Mechanical Ventilator 35.00 06/25/21 00:00 Mechanical Ventilator 35 06/24/21 23:56 Mechanical Ventilator 35.00 06/24/21 23:45 69 17 127/79 96 Mechanical Ventilator 60.00 06/24/21 23:30 67 17 132/77 97 Mechanical Ventilator 60.00 06/24/21 23:15 69 18 120/75 96 Mechanical Ventilator 60.00 06/24/21 23:12 84 82/51 06/24/21 23:11 84 82/51 06/24/21 23:00 86 17 82/51 96 Mechanical Ventilator 60.00 06/24/21 22:45 86 17 80/62 95 Mechanical Ventilator 60.00 06/24/21 22:38 87 18 95 35 06/24/21 22:32 Mechanical Ventilator 45 06/24/21 22:30 89 18 92/58 95 Mechanical Ventilator 60.00 06/24/21 22:15 91 18 92/60 99 Mechanical Ventilator 60.00 06/24/21 22:08 36.8 100 18 121/72 100 Mechanical Ventilator 60.00 06/24/21 21:59 101 18 99/60 98 Mechanical Ventilator 60.00 06/24/21 21:49 101 10 121/72 92 Mechanical Ventilator 60.00 06/24/21 21:47 100 06/24/21 21:10 36.8 101 13 114/76 100 T Piece 06/24/21 20:34 112 18 100 50 06/24/21 20:07 125 176/110 06/24/21 19:53 121 158/92 06/24/21 18:06 95 Nasal Cannula 4.00 06/24/21 15:58 96 Nasal Cannula 2.00 06/24/21 15:58 36.6 125 20 194/116 (142) 96 Nasal Cannula 2.00 I & O 06/25/21 07:00 Intake Total 3605 ml Output Total 900 ml Balance 2705 ml Height & Weight Height: '" Weight: lbs. oz. kg; 38.37 BMI Method: General Appearance: No Apparent Distress, WD/WN, Mild Distress (Intermittently groaning) HEENT: PERRL/EOMI, Normal ENT Inspection Neck: Normal Inspection Respiratory: No Accessory Muscle Use, No Respiratory Distress, Rhonci, Wheezing Cardiovascular: No Edema, No Murmur, Tachycardia Capillary Refill: Less Than 3 Seconds Extremity: Normal Inspection, No Pedal Edema Neurologic/Psychiatric: Other (Intermittently alert and able to answer some questions. Moves all extremities. Several seizures lasting less than 1 minute.) Skin: Normal Color, Warm/Dry Results Lab Laboratory Tests 06/24/21 16:33 06/24/21 17:00 06/25/21 04:45 Assessment/Plan Assessment/Plan (Tele-ICU Physician , consultation) Available chart/ vitals / labs / Images reviewed H&P is from ER notes Patient's inormation available about PMH, Shx, Fhx allergy reviewed in EMR. ROS as per chart and RN report Now in ICU, hemodynamically stable Video assessment done using teleICU camera, rest of exam as per RN Discussed with RN. 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 take 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 for 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 time ) AECOPD - steroids , nebs PNA - presented with SOB for weeks , productive cough - COVID-19 and influenza swabs were negative - started on Merrem 06/24 -some type of esophageal issue for which she has seen an ENT recently in [facility] - on teroids , start ISS H/o PE 2018 - off AC now - CTA 11/23 - no PE History of polysubstance abuse - positive for cannabinoids CT with lung nodular densities bilaterally, which are likely secondary to the infection but neoplasm is not excluded, - to follow as outpt as per PCP Lines : (Central Line Necessity Reviewed) Carias: 06/24 O/23 Nutrition: to strt 06/24 Analgesia: Anxiety/ dlirium VTE Prophylaxis: best 40 Stress Ulcer Prophylaxis: ppi Glycemic Control: iss Plans in collaboration with bedside consultants and IM MDs. Discussed with RN to reach out if any questions or concerns A total of 40 minutes of critical care time was devoted to this patient today, required to treat and/or prevent further deterioration of critical care condition ( as above ) . PETR NYE MD Jun 25, 2021 11:24
[2021-06-25] MEDS: VASOPRESSIN INJECTION 20 UNIT in NS (IVPB) 100 ML IV SCH ×2 (11:34→19:57)
[2021-06-25] MEDS: NOREPINEPHRINE 8 MG/250 ML 250 ML IV SCH (11:35)
[2021-06-25] MEDS: methylPREDNISolone 40 MG/ML (Solu-MEDROL) VIAL IV SCH ×3 (11:54→23:45)
--- NOTE | 2021-06-25 12:20 | History & Physical ---
JEFALVINA Prashant 06/25/21 1220: HPI History of Present Illness: Dixie is a 55 y/o female with a PMH of COPD, asthma, smoking, previous PE, HTN, migraines, seizure d/o, and dysphasia,who presented to ED via ambulance from [facility] on 06/24 with shortness of breath, cough, and anxiety. She was accompanied by her who states that she has a hx of seizures that are stress induced. ED reported her having multiple small seizures on exam leaving her confused/agitated and post-ictal so Ativan as well as Keppra was administered. states that the last seizure she had was Wednesday due to stress but has not been having them recently due to taking THC gummies which have been helping her with both stress and seizure activity. A chest XR showed right basilar opacities and d-dimer was elevated at 5.[address] angio was ordered which revealed b/l opacities and multifocal nodules without evidence of PE. COVID/Flu/RSV serology is negative x2. Pt was started on oxygen and meropenem but was agitated with the oxygen and proceeded to remove mask and IV access. Oxygen saturation dropped down to 70% during these events so she was sedated and placed on OxyMask 15L followed by intubation. Today she is still sedated on ventilator as she continues to try pulling out tracheal tube and IV access when awake. Her is there today and discussed how Dixie had not been compliant with various medication for a while now. Pt is still sedated today so H&P is per . Source: RN/, old records, spouse Exam Limitations: clinical condition (sedated) Date seen by provider: Jun 25, 2021 Time Seen by Provider: 10:00 Attending Physician Hansa Pascual MD PCP Raquel Self Aprn Consult Date of Admission Jun 24, 2021 at 20:20 Home Medications Home Medications Reviewed patient Home Medication Reconciliation performed by pharmacy medication reconciliations emissions repair technician and/or nursing. Patients Allergies have been reviewed. Allergies Coded Allergies: Penicillins (Verified Allergy, Severe, Anaphylaxis, 06/24/21) erythromycin base (Verified Allergy, Unknown, 06/24/21) [id number] Hx Patient Social History Marrital Status: Smoking Status: Current Everyday Smoker Alcohol Use?: Yes Substance type: Marijuana Tobacco type used: Cigarettes Have you traveled recently?: No Past Medical History Hysterectomy Knee Surgery Cervical Fusion Dysphasia Asthma COPD HTN Migraines Seizure d/o PE Anxiety Depression Review of Systems ([facility]) Constitutional: see HPI EENTM: see HPI Respiratory: see HPI Cardiovascular: see HPI Gastrointestinal: see HPI Genitourinary: see HPI Musculoskeletal: see HPI Skin: see HPI Psychiatric/Neurological: See HPI Reviewed Test Results Reviewed Test Results Radiology CT angio showed no evidence of PE but revealed b/l basilar opacities in lung with multifocal nodules most likely reactive to infection but cannot r/o malignancy. CT head showed no acute abnormalities. Physical Exam-([facility]) Physical Exam Vital Signs VS - Last 72 Hours, by Label 06/24/21 06/24/21 06/24/21 06/24/21 15:58 15:58 18:06 19:53 Temp 36.6 Pulse 125 121 Resp 20 B/P (MAP) 194/116 (142) 158/92 Pulse Ox 96 96 95 O2 Delivery Nasal Cannula Nasal Cannula Nasal Cannula O2 Flow Rate 2.00 2.00 4.00 06/24/21 06/24/21 06/24/21 06/24/21 20:07 20:34 21:10 21:47 Temp 36.8 Pulse 125 112 101 100 Resp 18 13 B/P (MAP) 176/110 114/76 Pulse Ox 100 100 O2 Delivery T Piece FiO2 50 06/24/21 06/24/21 06/24/21 06/24/21 21:49 21:59 22:08 22:15 Temp 36.8 Pulse 101 101 100 91 Resp 10 18 18 18 B/P (MAP) 121/72 99/60 121/72 92/60 Pulse Ox 92 98 100 99 O2 Delivery Mechanical Ventilator Mechanical Ventilator Mechanical Ventilator Mechanical Ventilator O2 Flow Rate 60.00 60.00 60.00 60.00 06/24/21 06/24/21 06/24/21 06/24/21 22:30 22:32 22:38 22:45 Pulse 89 87 86 Resp 18 18 17 B/P (MAP) 92/58 80/62 Pulse Ox 95 95 95 O2 Delivery Mechanical Ventilator Mechanical Ventilator Mechanical Ventilator O2 Flow Rate 60.00 60.00 FiO2 45 35 06/24/21 06/24/21 06/24/21 06/24/21 23:00 23:11 23:12 23:15 Pulse 86 84 84 69 Resp 17 18 B/P (MAP) 82/51 82/51 82/51 120/75 Pulse Ox 96 96 O2 Delivery Mechanical Ventilator Mechanical Ventilator O2 Flow Rate 60.00 60.00 06/24/21 06/24/21 06/24/21 06/25/21 23:30 23:45 23:56 00:00 Pulse 67 69 Resp 17 17 B/P (MAP) 132/77 127/79 Pulse Ox 97 96 O2 Delivery Mechanical Ventilator Mechanical Ventilator Mechanical Ventilator Mechanical Ventilator O2 Flow Rate 60.00 60.00 35.00 FiO2 35 06/25/21 06/25/21 06/25/21 06/25/21 00:00 00:00 01:00 01:00 Temp 36.4 Pulse 68 73 73 Resp 17 17 B/P (MAP) 129/74 127/74 Pulse Ox 96 96 O2 Delivery Mechanical Ventilator Mechanical Ventilator O2 Flow Rate 35.00 35.00 06/25/21 06/25/21 06/25/21 06/25/21 02:00 02:34 03:00 03:00 Pulse 73 76 88 85 Resp 18 18 17 B/P (MAP) 129/76 105/65 110/68 Pulse Ox 96 96 96 O2 Delivery Mechanical Ventilator Mechanical Ventilator O2 Flow Rate 35.00 35.00 FiO2 35 06/25/21 06/25/21 06/25/21 06/25/21 04:00 04:00 04:00 05:00 Temp 36.5 Pulse 84 70 Resp 17 17 B/P (MAP) 98/64 122/71 Pulse Ox 95 95 O2 Delivery Mechanical Ventilator Mechanical Ventilator Mechanical Ventilator O2 Flow Rate 35.00 35.00 FiO2 35 06/25/21 06/25/21 06/25/21 06/25/21 06:00 06:30 07:00 07:00 Pulse 96 79 78 69 Resp 14 18 17 B/P (MAP) 127/72 108/64 Pulse Ox 100 96 95 O2 Delivery Mechanical Ventilator Mechanical Ventilator O2 Flow Rate 35.00 35.00 FiO2 35 06/25/21 06/25/21 06/25/21 06/25/21 07:10 08:00 08:00 09:00 Pulse 80 71 75 Resp 18 17 B/P (MAP) 108/63 115/69 114/76 Pulse Ox 96 94 O2 Delivery Mechanical Ventilator Mechanical Ventilator Mechanical Ventilator O2 Flow Rate 35.00 35.00 FiO2 35 06/25/21 06/25/21 10:00 11:00 Pulse 56 65 Resp 8 18 B/P (MAP) 113/66 116/67 Pulse Ox 100 97 O2 Delivery Mechanical Ventilator Mechanical Ventilator O2 Flow Rate 35.00 35.00 Capillary Refill : Less Than 3 Seconds Respiratory: lungs clear, normal breath sounds, other (on full ventillation ) Cardiovascular: normal peripheral pulses, regular rate, rhythm; No no edema, No no gallop, No no JVD, No no murmur, No JVD, No bradycardia, No tachycardia, No diastolic murmur, No systolic murmur, No gallop/S3, No gallop/S4, No extra beats, No friction rub, No irregularly irregular, No other Neurologic/Psychiatric: other (unconscious) Skin: normal color, warm/dry; No cyanosis, No cool, No diaphoresis Assessment/Plan Assessment/Plan Admission Status: Inpatient Order (span 2 midnights) Reason for Inpatient Admission: Acute Respiratory Distress (1) Acute respiratory failure Status: Acute Assessment & Plan: Continue full ventilator status per Tele-ICU overnight. Reassess in morning. Qualifiers: Qualified Codes: J96.01 - Acute respiratory failure with hypoxia; J96.02 - Acute respiratory failure with hypercapnia (2) Seizures Status: Chronic Assessment & Plan: No seizure activity since admission documented. Continue Keppra (3) COPD exacerbation Status: Acute Assessment & Plan: Consider steroid burst (4) Elevated d-dimer Status: Acute Assessment & Plan: CT Angio showed no evidence of PE. Likely elevated due to inflammatory process with infection (5) Right lower lobe pneumonia Status: Acute Assessment & Plan: Continue Merrem. WBC trending downward at 12.7 today. Qualifiers: Qualified Codes: J18.9 - Pneumonia, unspecified organism (6) HTN (hypertension) Status: Chronic Assessment & Plan: Controlled at the time without medication. Will monitor when not sedated. Qualifiers: Qualified Codes: I10 - Essential (primary) hypertension Clinical Quality Measures Urinary Catheter-Non SCIP Pts: Reason for Catheter Continuanc: Ventilator HANSA PASCUAL MD 06/25/21 2779: Home Medications Allergies Coded Allergies: Penicillins (Verified Allergy, Severe, Anaphylaxis, 06/24/21) erythromycin base (Verified Allergy, Unknown, 06/24/21) Physical Exam-([facility]) Physical Exam General Appearance: other (intubated, sedated) Cardiovascular: regular rate, rhythm, no murmur Peripheral Pulses: 2+ Dorsalis Pedis (R), 2+ Left Dors-Pedis (L), 2+ Radial Pulses (R), 2+ Radial Pulses (L) Gastrointestinal: normal bowel sounds, soft Extremities: no pedal edema Skin: warm/dry Supervisory-Addendum Brief Verification & Attestation Participated in pt care: history, MDM, physical Personally performed: exam, history, MDM Care discussed with: Medical Student Procedures: n/a I personally have seen and evaluated the patient and performed the physical exam, I directed the assessment and plan of care as documented by OMS4 Alvina Jacobson. ALVINA JACOBSON Jun 25, 2021 12:20 HANSA PASCUAL MD Jun 25, 2021 18:49
[2021-06-25] MEDS ORDERED: DIVA-76 PO (13:21)
[2021-06-25] MEDS ORDERED: CLON0.5T4 PO (13:21)
[2021-06-25] MEDS ORDERED: LOSA25TA41 PO (13:21)
[2021-06-25] MEDS ORDERED: TOPI100T11 PO (13:21)
[2021-06-25] MEDS ORDERED: PANT40TA52 PO (13:21)
[2021-06-25] MEDS ORDERED: TOPI50TA13 PO (13:21)
[2021-06-25] MEDS ORDERED: HYDR-3820 PO (13:21)
[2021-06-25] MEDS ORDERED: DIVA500T PO (13:21)
[2021-06-25] MEDS ORDERED: IPRA3AMP31 NEB (13:21)
[2021-06-25] MEDS ORDERED: ARFO15VI3 NEB (13:21)
[2021-06-25] MEDS ORDERED: RT-ALBUINH INH (13:21)
[2021-06-25] MEDS ORDERED: ESCI20TA39 PO (13:21)
[2021-06-25] MEDS ORDERED: GUAN2TAB25 PO (13:21)
[2021-06-25] MEDS ORDERED: THC PO (13:22)
[2021-06-25] MEDS ORDERED: METO5TAB2 PO (13:25)
[2021-06-25 13:59] VITALS: BP 132/83
[2021-06-25] MEDS ORDERED: inSUlin ASPART (NovoLOG) 1 UNIT/0.01 ML (CHARGE PER UNIT) SC SCH (16:00)
[2021-06-25] MEDS: fentaNYL DRIP PRE-MIX 250 ML IV SCH (18:16)
[2021-06-25] MEDS ORDERED: DIVALPROEX 500 MG DELAYED RELEASE (DEPAKOTE) TAB PO SCH (21:00)
[2021-06-25] MEDS: DIVALPROX SPRINKLE 125 MG (DEPAKOTE) CAP PO SCH (22:52)
[2021-06-25] MEDS: inSUlin ASPART (NovoLOG) 1 UNIT/0.01 ML (CHARGE PER UNIT) SC SCH (23:52)
[2021-06-26] MEDS: NOREPINEPHRINE 8 MG/250 ML 250 ML IV SCH ×2 (01:11→14:22)
[2021-06-26] MEDS: PROPOFOL DRIP (ICU) 100 ML IV SCH ×6 (02:26→21:49)
[2021-06-26] MEDS: RT-ALBUTEROL/IPRATROPIUM 3 ML (DUONEB) VIAL INH SCH ×6 (02:45→22:17)
[2021-06-26] MEDS: LACTATED RINGERS 1,000 ML IV SCH ×3 (03:18→17:01)
[2021-06-26 04:06] LABS: ABG BASE EXCESS 1.8 MMOL/L (-2.5-2.5); ABG OXYGEN SATURATION 95 % (94-100); ABG PCO2 51 MMHG (35-45); ABG PO2 85 MMHG (79-93); ABG TCO2 28.5 MMOL/L (21.0-31.0)
[2021-06-26 04:07] LABS: ALLENS TEST POSITIVE; INSPIRED O2 35%; PATIENT TEMP 37.1; VENTILATOR YES
[2021-06-26 04:08] LABS: ABG PH 7.34 (7.37-7.43)
[2021-06-26 05:16] LABS: BASOPHILS % (AUTO) 0 % (0-10); EOSINOPHILS % (AUTO) 0 % (0-10); HEMATOCRIT 43 % (35-52); HEMOGLOBIN 13.3 g/dL (11.5-16.0); LYMPHOCYTES # (AUTO) 0.9 10^3/uL (1.0-4.0); LYMPHOCYTES % (AUTO) 7 % (12-44); MEAN CORPUSCULAR HEMOGLOBIN 29 pg (25-34); MEAN CORPUSCULAR HGB CONC 31 g/dL (32-36); MEAN CORPUSCULAR VOLUME 93 fL (80-99); MEAN PLATELET VOLUME 11.1 fL (9.0-12.2); MONOCYTES # (AUTO) 0.7 10^3/uL (0.0-1.0); MONOCYTES % (AUTO) 5 % (0-12); NEUTROPHILS # (AUTO) 12.6 10^3/uL (1.8-7.8); NEUTROPHILS % (AUTO) 87 % (42-75); PLATELET COUNT 426 10^3/uL (130-400); WHITE BLOOD COUNT 14.4 10^3/uL (4.3-11.0)
[2021-06-26 05:36] LABS: ALBUMIN 2.9 GM/DL (3.2-4.5); POTASSIUM 4.5 MMOL/L (3.6-5.0)
[2021-06-26 05:37] LABS: CALCIUM 8.7 MG/DL (8.5-10.1)
[2021-06-26 05:39] LABS: TOTAL PROTEIN 5.9 GM/DL (6.4-8.2)
[2021-06-26 05:40] LABS: BILIRUBIN,TOTAL 0.2 MG/DL (0.1-1.0)
[2021-06-26 05:42] LABS: CREATININE SERUM 0.61 MG/DL (0.60-1.30); PHOSPHORUS 2.9 MG/DL (2.3-4.7)
[2021-06-26 05:45] LABS: MAGNESIUM 2.2 MG/DL (1.6-2.4)
[2021-06-26] MEDS: methylPREDNISolone 40 MG/ML (Solu-MEDROL) VIAL IV SCH ×3 (06:08→17:00)
[2021-06-26] MEDS: MEROPENEM 500 MG/NS 100 ML IVPB IV SCH ×6 (06:08→17:00)
[2021-06-26] MEDS: MAGNESIUM 1 GM/100 ML IVPB 100 ML IV SCH (06:11)
[2021-06-26] MEDS: KCL 20 MEQ TAB (K-DUR) PO SCH (06:11)
[2021-06-26] MEDS: POTASSIUM CL 10MEQ/50ML IVPB 50 ML IV SCH (06:11)
[2021-06-26] MEDS: inSUlin ASPART (NovoLOG) 1 UNIT/0.01 ML (CHARGE PER UNIT) SC SCH ×4 (06:12→18:14)
[2021-06-26] MEDS: LEVETIRACETAM 1,000 MG/NS 100 ML IVPB IV SCH ×4 (08:58→21:13)
[2021-06-26] MEDS: PANTOPRAZOLE 40 MG (PROTONIX) VIAL IV SCH (08:58)
[2021-06-26] MEDS: ENOXAPARIN 40 MG/0.4 ML (LOVENOX) SYR SC SCH ×2 (08:58→10:40)
[2021-06-26] MEDS ORDERED: DIVALPROEX 500 MG DELAYED RELEASE (DEPAKOTE) TAB PO SCH (09:00)
[2021-06-26] MEDS ORDERED: PANTOPRAZOLE 40 MG (PROTONIX) VIAL IV SCH (09:00)
[2021-06-26] MEDS: fentaNYL DRIP PRE-MIX 250 ML IV SCH ×2 (09:18→21:49)
--- NOTE | 2021-06-26 09:18 | Tele-ICU Progress Note ---
Subjective Date Seen by a Provider: Jun 26, 2021 Time Seen by a Provider: 08:30 Subjective/Events-last exam This virtual visit was conducted using real time audio/video. Thank you for asking us to see this patient for respiratory insufficiency due to AECOPD, PNA and seizures. Recent events: Bradycardias. Agitated w sedation turned down. PE: VSS. O2 sat 94% on 35%/+5 HEENT: No obvious masses, adenopathy or JVD. Chest: clear to auscultation. Decreased. CV: RRR S1 S2 No murmur or added sounds. Abd: Non-tender. Bowel sounds Y. : Unremarkable. Carias Y. DRESS CAP MAKER/psychiatric: Sedated. Grossly intact. No obvious focal findings. Extremities: Trace edema. Capillary refill < 3 seconds. Skin: unremarkable. Results: Elevated WCC 14.4, D-Dimer 5.03. Decreased Alb 2.9. B.34/51/85. CXR: B opacities. Available chart/ vitals / labs / images reviewed. Video assessment done using teleICU camera, rest of exam as per RN. A/P: Respiratory insufficiency: Continue present management with duonebs, medrol. Decrease Propofol slowly. Not ready for an SBT. Monitor for increasing oxygenation needs. Critical Care: critically ill patient. Cont. abx., Depakote, Keri., SSI, PPI. Discussed with ART Arce. Asked RN to reach out to eICU if any questions or concerns later. Time spent with patient/coordination of care with other health professionals (mins): Sepsis Event Evaluation Height, Weight, BMI Height: '" Weight: lbs. oz. kg; 38.37 BMI Method: Focused Exam Lactate Level 06/24/21 17:00: Lactic Acid Level 1.35 Time of Focused Exam: 19:00 Exam Exam Patient acknowledged, consented, and participated in this virtual visit which was conducted using real time audio/video Vital Signs Date Time Temp Pulse Resp B/P (MAP) Pulse Ox O2 Delivery O2 Flow Rate FiO2 06/26/21 08:00 65 17 98/58 94 Mechanical Ventilator 35.00 06/26/21 07:45 54 18 113/65 95 06/26/21 07:30 52 18 112/62 95 06/26/21 07:15 49 17 115/67 98 06/26/21 07:04 53 18 96 35 06/26/21 07:00 55 06/26/21 07:00 53 17 106/62 95 Mechanical Ventilator 35.00 06/26/21 06:45 611 98/69 06/26/21 06:30 62 66 86/54 95 06/26/21 06:15 48 35 113/67 96 06/26/21 06:08 50 116/63 06/26/21 06:00 49 38 116/63 96 Mechanical Ventilator 35.00 06/26/21 05:00 53 35 111/63 96 Mechanical Ventilator 35.00 06/26/21 04:00 Mechanical Ventilator 35 06/26/21 04:00 70 17 106/61 95 Mechanical Ventilator 35.00 06/26/21 03:00 75 17 103/60 93 Mechanical Ventilator 35.00 06/26/21 02:45 75 18 93 35 06/26/21 02:26 56 119/74 06/26/21 02:00 53 27 99/68 96 Mechanical Ventilator 35.00 06/26/21 01:00 53 119/73 96 Mechanical Ventilator 35.00 06/26/21 01:00 52 06/26/21 00:00 Mechanical Ventilator 35 06/26/21 00:00 55 26 115/71 96 Mechanical Ventilator 35.00 06/25/21 23:42 36.4 06/25/21 23:00 81 36 85/56 93 Mechanical Ventilator 35.00 06/25/21 22:52 84 97/66 06/25/21 22:26 73 19 94 35 06/25/21 22:00 71 8 97/66 95 Mechanical Ventilator 35.00 06/25/21 21:00 72 19 96/64 95 Mechanical Ventilator 35.00 06/25/21 20:00 36.8 06/25/21 20:00 Mechanical Ventilator 35 06/25/21 20:00 72 102/68 94 Mechanical Ventilator 35.00 06/25/21 19:00 80 105/72 93 Mechanical Ventilator 35.00 06/25/21 19:00 76 06/25/21 18:34 77 21 93 35 06/25/21 18:15 80 95/64 06/25/21 18:00 83 95/64 92 Mechanical Ventilator 35.00 06/25/21 17:00 73 18 138/70 93 Mechanical Ventilator 35.00 06/25/21 16:00 Mechanical Ventilator 35 06/25/21 16:00 58 18 129/79 96 Mechanical Ventilator 35.00 06/25/21 15:54 36.7 06/25/21 15:00 60 17 137/77 95 Mechanical Ventilator 35.00 06/25/21 14:00 64 17 126/76 94 Mechanical Ventilator 35.00 06/25/21 13:59 62 18 94 35 06/25/21 13:00 43 8 130/83 96 Mechanical Ventilator 35.00 06/25/21 12:50 51 06/25/21 12:00 Mechanical Ventilator 35 06/25/21 12:00 59 18 121/70 97 Mechanical Ventilator 35.00 06/25/21 11:56 57 114/69 06/25/21 11:00 65 18 116/67 97 Mechanical Ventilator 35.00 06/25/21 10:00 56 8 113/66 100 Mechanical Ventilator 35.00 I & O 06/26/21 06:59 Intake Total 1310 ml Output Total 1175 ml Balance 135 ml Height & Weight Height: '" Weight: lbs. oz. kg; 38.37 BMI Method: General Appearance: No Apparent Distress, WD/WN, Mild Distress (Intermittently groaning), Obese (See free text.) HEENT: PERRL/EOMI, Normal ENT Inspection Neck: Normal Inspection Respiratory: No Accessory Muscle Use, No Respiratory Distress, Rhonci, Wheezing Cardiovascular: No Edema, No Murmur, Tachycardia Capillary Refill: Less Than 3 Seconds Peripheral Pulses: 2+ Dorsalis Pedis (R), 2+ Left Dors-Pedis (L), 2+ Radial Pulses (R), 2+ Radial Pulses (L) Gastrointestinal: normal bowel sounds, soft Extremity: Normal Inspection, No Pedal Edema Neurologic/Psychiatric: Other (Intermittently alert and able to answer some questions. Moves all extremities. Several seizures lasting less than 1 minute.) Skin: Normal Color, Warm/Dry Results Lab Laboratory Tests 06/24/21 16:33 06/24/21 17:00 06/25/21 04:45 06/26/21 04:55 Assessment/Plan Assessment/Plan See free text. Critical Care: Ventilator Management JCARLOS YOUNG MD Jun 26, 2021 09:18
[2021-06-26] MEDS: DIVALPROX SPRINKLE 125 MG (DEPAKOTE) CAP PO SCH ×2 (10:40→21:13)
--- NOTE | 2021-06-26 11:49 | Progress Note ---
MARCUS FUCHS 06/26/21 1149: Subjective Subjective/Events-last exam Overnight pt HR dropped to 37 after being turned in bed but recovered to 50-60s. She was weaned from sedation to potentially lower dosing but became agitated again and was put back to sedation. HR was at 50 this morning with BP at 116/63. Ventilation settings are unchanged since yesterday with ABG of 7.34/51/85. She was started in solumedrol IV yesterday and WBC increased to 14.4. Nurses noticed small amount of blood in NG tube today. Focused Exam Sepsis Stage: Ruled Out Lactate Level 06/24/21 17:00: Lactic Acid Level 1.35 Time of Focused Exam: 19:00 Objective Exam Last Set of Vital Signs Vital Signs Date Time Temp Pulse Resp B/P (MAP) Pulse Ox O2 Delivery O2 Flow Rate FiO2 06/26/21 10:19 61 18 93 35 06/26/21 10:00 118/75 Mechanical Ventilator 35.00 06/25/21 23:42 36.4 Capillary Refill : Less Than 3 Seconds I&O Intake and Output 06/26/21 00:00 Intake Total 2610 ml Output Total 1400 ml Balance 1210 ml Intake Oral 0 ml IV Total 2610 ml Output Urine Total 1400 ml Daily Weight Change No General: Other (Sedated and unconscious) HEENT: Atraumatic Neck: Supple, No JVD Lungs: Clear to Auscultation, Normal Air Movement Heart: Regular Rate, Normal S1, Normal S2 Abdomen: Normal Bowel Sounds, Soft, No Masses Extremities: No Clubbing, No Cyanosis, No Edema, Normal Pulses Skin: No Rashes, No Breakdown Results/Procedures Lab Laboratory Tests 06/25/21 17:54: Glucometer 142H 06/25/21 23:41: Glucometer 136H 06/26/21 04:00: Blood Gas Puncture Site LEFT RADIAL, Blood Gas Patient Temperature 37.1, Arterial Blood pH 7.34*L, Arterial Blood Partial Pressure CO2 51H, Arterial Blood Partial Pressure O2 85, Arterial Blood HCO3 27, Arterial Blood Total CO2 28.5, Arterial Blood Oxygen Saturation 95, Arterial Blood Base Excess 1.8, Jim Test POSITIVE, Blood Gas Ventilator Setting YES, Blood Gas Inspired Oxygen 35% 06/26/21 04:55: White Blood Count 14.4H, Red Blood Count 4.64, Hemoglobin 13.3, Hematocrit 43, Mean Corpuscular Volume 93, Mean Corpuscular Hemoglobin 29, Mean Corpuscular Hemoglobin Concent 31L, Red Cell Distribution Width 14.4, Platelet Count 426H, Mean Platelet Volume 11.1, Immature Granulocyte % (Auto) 1, Neutrophils (%) (Auto) 87H, Lymphocytes (%) (Auto) 7L, Monocytes (%) (Auto) 5, Eosinophils (%) (Auto) 0, Basophils (%) (Auto) 0, Neutrophils # (Auto) 12.6H, Lymphocytes # (Auto) 0.9L, Monocytes # (Auto) 0.7, Eosinophils # (Auto) 0.0, Basophils # (Auto) 0.0, Immature Granulocyte # (Auto) 0.1, Sodium Level 141, Potassium Level 4.5, Chloride Level 108H, Carbon Dioxide Level 22, Anion Gap 11, Blood Urea Nitrogen 10, Creatinine 0.61, Estimat Glomerular Filtration Rate 103, BUN/Creatinine Ratio 16, Glucose Level 156H, Calcium Level 8.7, Corrected Calcium 9.6, Phosphorus Level 2.9, Magnesium Level 2.2, Total Bilirubin 0.2, Aspartate Amino Transf (AST/SGOT) 20, Alanine Aminotransferase (ALT/SGPT) 40, Alkaline Phosphatase 148H, Total Protein 5.9L, Albumin 2.9L, Triglycerides Level 249H Microbiology 06/24/21 MRSA Screen - Final, Complete MRSA not isolated 06/24/21 Urine Culture - Final, Complete NO GROWTH 06/24/21 Blood Culture - Preliminary, Resulted No growth Radiology CT angio showed no evidence of PE but revealed b/l basilar opacities in lung with multifocal nodules most likely reactive to infection but cannot r/o malignancy. CT head showed no acute abnormalities. Assessment/Plan Assessment/Plan (1) Acute respiratory failure Status: Acute Assessment & Plan: Continue full ventilator status. Try weaning from sedation in PM or AM. Qualifiers: Qualified Codes: J96.01 - Acute respiratory failure with hypoxia; J96.02 - Acute respiratory failure with hypercapnia (2) Gastritis Status: Acute Assessment & Plan: Blood in NG tube noticed today. Likely due to gastritis. Started on Pantoprazole today. continue to monitor. (3) Seizures Status: Chronic Assessment & Plan: No seizure activity since admission documented. Continue Keppra. Depakote can not be restarted as cannot be administered through NG tube. (4) COPD exacerbation Status: Acute Assessment & Plan: Started on Solumedrol 06/25. (5) Elevated d-dimer Status: Acute Assessment & Plan: CT Angio showed no evidence of PE. Likely elevated due to inflammatory process with infection (6) Right lower lobe pneumonia Status: Acute Assessment & Plan: Continue Merrem. WBC at 14.4 today. Qualifiers: Qualified Codes: J18.9 - Pneumonia, unspecified organism (7) HTN (hypertension) Status: Chronic Assessment & Plan: Controlled at the time without medication. Will monitor when not sedated. Qualifiers: Qualified Codes: I10 - Essential (primary) hypertension Clinical Quality Measures Urinary Catheter-Non SCIP Pts: Reason for Catheter Continuanc: Ventilator YESSI PASCUAL MD 06/26/212056: Supervisory-Addendum Brief Verification & Attestation Participated in pt care: history, MDM, physical Personally performed: exam, history, MDM Care discussed with: Medical Student Procedures: n/a Verification and Attestation of Medical Student E/M Service A medical student performed and documented this service. I reviewed and verified all information documented by the medical student and made modifications to such information, when appropriate. I personally performed the physical exam and medical decision making. Yessi Pascual, Jun 26, 2021,20:57 MARCUS FUCHS Jun 26, 2021 11:49 YESSI PASCUAL MD Jun 26, 2021 20:57
[2021-06-26] MEDS: VASOPRESSIN INJECTION 20 UNIT in NS (IVPB) 100 ML IV SCH ×2 (12:29→17:03)
--- NOTE | 2021-06-27 00:21 | Tele-ICU Progress Note ---
Subjective Date Seen by a Provider: Jun 27, 2021 Time Seen by a Provider: 00:19 Sepsis Event Evaluation Height, Weight, BMI Height: '" Weight: lbs. oz. kg; 38.37 BMI Method: Focused Exam Lactate Level 06/24/21 17:00: Lactic Acid Level 1.35 Time of Focused Exam: 19:00 Exam Exam Patient acknowledged, consented, and participated in this virtual visit which was conducted using real time audio/video Vital Signs Date Time Temp Pulse Resp B/P (MAP) Pulse Ox O2 Delivery O2 Flow Rate FiO2 06/26/21 22:17 75 18 95 35 06/26/21 21:49 80 141/79 06/26/21 20:00 93 Mechanical Ventilator 35 06/26/21 20:00 36.5 35.00 06/26/21 19:00 71 06/26/21 18:22 75 18 95 35 06/26/21 18:00 57 18 127/78 94 Mechanical Ventilator 35.00 06/26/21 17:45 53 17 124/72 94 06/26/21 17:30 57 18 124/72 94 06/26/21 17:15 58 18 123/71 94 06/26/21 17:00 57 17 126/72 94 Mechanical Ventilator 35.00 06/26/21 17:00 59 119/71 06/26/21 16:45 58 17 119/71 94 06/26/21 16:30 65 18 114/70 93 06/26/21 16:15 67 14 113/70 92 06/26/21 16:00 Mechanical Ventilator 35 06/26/21 16:00 68 17 115/70 95 Mechanical Ventilator 35.00 06/26/21 15:45 70 18 126/72 90 06/26/21 15:30 61 18 123/71 93 06/26/21 15:15 64 18 115/70 93 06/26/21 15:00 79 15 116/75 99 Mechanical Ventilator 35.00 06/26/21 14:55 56 18 93 35 06/26/21 14:45 61 17 119/72 93 06/26/21 14:30 75 18 119/71 92 06/26/21 14:15 57 17 122/72 95 06/26/21 14:00 53 17 120/71 94 Mechanical Ventilator 35.00 06/26/21 13:45 56 18 120/73 94 06/26/21 13:30 60 18 119/68 94 06/26/21 13:15 58 17 111/66 94 06/26/21 13:00 65 17 115/68 94 Mechanical Ventilator 35.00 06/26/21 12:56 61 06/26/21 12:45 73 18 115/70 94 06/26/21 12:30 58 17 122/77 94 06/26/21 12:30 59 127/77 06/26/21 12:15 58 18 127/77 94 06/26/21 12:00 36.2 06/26/21 12:00 Mechanical Ventilator 35 06/26/21 12:00 57 17 122/80 94 Mechanical Ventilator 35.00 06/26/21 11:45 62 17 124/76 94 06/26/21 11:30 62 18 124/76 93 06/26/21 11:15 64 18 119/78 93 06/26/21 11:00 60 18 120/76 93 Mechanical Ventilator 35.00 06/26/21 10:45 64 18 121/78 92 06/26/21 10:30 70 18 119/78 92 06/26/21 10:19 61 18 93 35 06/26/21 10:15 63 18 124/77 93 06/26/21 10:00 60 17 118/75 93 Mechanical Ventilator 35.00 06/26/21 09:45 70 18 119/74 93 06/26/21 09:30 58 17 105/57 95 06/26/21 09:18 59 104/60 06/26/21 09:15 56 17 104/60 95 06/26/21 09:00 59 17 103/61 94 Mechanical Ventilator 35.00 06/26/21 08:45 60 18 98/61 94 06/26/21 08:30 61 18 99/58 94 06/26/21 08:15 63 18 96/62 94 06/26/21 08:00 Mechanical Ventilator 35 06/26/21 08:00 65 17 98/58 94 Mechanical Ventilator 35.00 06/26/21 07:45 54 18 113/65 95 06/26/21 07:30 52 18 112/62 95 06/26/21 07:15 49 17 115/67 98 06/26/21 07:04 53 18 96 35 06/26/21 07:00 55 06/26/21 07:00 53 17 106/62 95 Mechanical Ventilator 35.00 06/26/21 06:45 611 98/69 06/26/21 06:30 62 66 86/54 95 06/26/21 06:15 48 35 113/67 96 06/26/21 06:08 50 116/63 06/26/21 06:00 49 38 116/63 96 Mechanical Ventilator 35.00 06/26/21 05:00 53 35 111/63 96 Mechanical Ventilator 35.00 06/26/21 04:00 Mechanical Ventilator 35 06/26/21 04:00 70 17 106/61 95 Mechanical Ventilator 35.00 06/26/21 03:00 75 17 103/60 93 Mechanical Ventilator 35.00 06/26/21 02:45 75 18 93 35 06/26/21 02:26 56 119/74 06/26/21 02:00 53 27 99/68 96 Mechanical Ventilator 35.00 06/26/21 01:00 53 119/73 96 Mechanical Ventilator 35.00 06/26/21 01:00 52 I & O 06/27/21 07:00 Intake Total 1560 ml Output Total 700 ml Balance 860 ml Height & Weight Height: '" Weight: lbs. oz. kg; 38.37 BMI Method: General Appearance: No Apparent Distress, WD/WN, Mild Distress (Intermittently groaning), Obese (See free text.) HEENT: PERRL/EOMI, Normal ENT Inspection Neck: Normal Inspection Respiratory: No Accessory Muscle Use, No Respiratory Distress, Rhonci, Wheezing Cardiovascular: No Edema, No Murmur, Tachycardia Capillary Refill: Less Than 3 Seconds Peripheral Pulses: 2+ Dorsalis Pedis (R), 2+ Left Dors-Pedis (L), 2+ Radial Pulses (R), 2+ Radial Pulses (L) Gastrointestinal: normal bowel sounds, soft Extremity: Normal Inspection, No Pedal Edema Neurologic/Psychiatric: Other (Intermittently alert and able to answer some questions. Moves all extremities. Several seizures lasting less than 1 minute.) Skin: Normal Color, Warm/Dry Results Lab Laboratory Tests 06/25/21 04:45 06/26/21 04:55 Assessment/Plan Assessment/Plan Pt had bradycardia during oral care/ turning, with maintained BP 150/67. VT 10 beats were noticed as well; oxygenation remained stable. we will check K Mg trop ekg ILIESCU-MARTINEZ,PEREZ MD Jun 27, 2021 00:21
[2021-06-27] MEDS: inSUlin ASPART (NovoLOG) 1 UNIT/0.01 ML (CHARGE PER UNIT) SC SCH ×4 (00:38→18:47)
[2021-06-27 01:15] LABS: CHLORIDE 107 MMOL/L (98-107); POTASSIUM 4.1 MMOL/L (3.6-5.0); SODIUM 142 MMOL/L (135-145)
[2021-06-27 01:16] LABS: CALCIUM 8.3 MG/DL (8.5-10.1); GLUCOSE 145 MG/DL (70-105)
[2021-06-27 01:18] LABS: CARBON DIOXIDE 22 MMOL/L (21-32)
[2021-06-27 01:20] LABS: CREATININE SERUM 0.58 MG/DL (0.60-1.30); GFR ESTIMATED 109
[2021-06-27 01:21] LABS: BUN/CREATININE RATIO 26
[2021-06-27 01:23] LABS: MAGNESIUM 2.1 MG/DL (1.6-2.4)
[2021-06-27] MEDS: PROPOFOL DRIP (ICU) 100 ML IV SCH ×5 (02:27→22:41)
[2021-06-27] MEDS: RT-ALBUTEROL/IPRATROPIUM 3 ML (DUONEB) VIAL INH SCH ×7 (02:34→22:30)
[2021-06-27] MEDS: NOREPINEPHRINE 8 MG/250 ML 250 ML IV SCH ×2 (04:32→16:44)
[2021-06-27] MEDS: VASOPRESSIN INJECTION 20 UNIT in NS (IVPB) 100 ML IV SCH ×2 (04:33→16:44)
[2021-06-27 04:56] LABS: BASOPHILS % (AUTO) 0 % (0-10); EOSINOPHILS % (AUTO) 0 % (0-10); HEMATOCRIT 42 % (35-52); HEMOGLOBIN 13.3 g/dL (11.5-16.0); LYMPHOCYTES # (AUTO) 0.7 10^3/uL (1.0-4.0); LYMPHOCYTES % (AUTO) 7 % (12-44); MEAN CORPUSCULAR HEMOGLOBIN 29 pg (25-34); MEAN CORPUSCULAR HGB CONC 32 g/dL (32-36); MEAN CORPUSCULAR VOLUME 91 fL (80-99); MEAN PLATELET VOLUME 10.5 fL (9.0-12.2); MONOCYTES # (AUTO) 0.7 10^3/uL (0.0-1.0); MONOCYTES % (AUTO) 6 % (0-12); NEUTROPHILS # (AUTO) 9.5 10^3/uL (1.8-7.8); NEUTROPHILS % (AUTO) 86 % (42-75); PLATELET COUNT 384 10^3/uL (130-400); WHITE BLOOD COUNT 11.1 10^3/uL (4.3-11.0)
[2021-06-27 05:08] LABS: ALBUMIN 2.7 GM/DL (3.2-4.5); POTASSIUM 4.2 MMOL/L (3.6-5.0)
[2021-06-27 05:09] LABS: CALCIUM 8.3 MG/DL (8.5-10.1)
[2021-06-27 05:11] LABS: TOTAL PROTEIN 5.2 GM/DL (6.4-8.2)
[2021-06-27 05:13] LABS: BILIRUBIN,TOTAL 0.1 MG/DL (0.1-1.0)
[2021-06-27 05:14] LABS: CREATININE SERUM 0.57 MG/DL (0.60-1.30); PHOSPHORUS 3.5 MG/DL (2.3-4.7)
[2021-06-27 05:17] LABS: MAGNESIUM 2.2 MG/DL (1.6-2.4)
[2021-06-27] MEDS: MAGNESIUM 1 GM/100 ML IVPB 100 ML IV SCH (05:29)
[2021-06-27] MEDS: KCL 20 MEQ TAB (K-DUR) PO SCH (05:30)
[2021-06-27] MEDS: POTASSIUM CL 10MEQ/50ML IVPB 50 ML IV SCH (05:30)
[2021-06-27] MEDS: LACTATED RINGERS 1,000 ML IV SCH ×5 (05:41→23:30)
[2021-06-27] MEDS: MEROPENEM 500 MG/NS 100 ML IVPB IV SCH ×8 (05:41→17:22)
[2021-06-27] MEDS: methylPREDNISolone 40 MG/ML (Solu-MEDROL) VIAL IV SCH ×4 (05:41→17:22)
[2021-06-27 06:29] VITALS: BP 143/86
[2021-06-27] MEDS: PANTOPRAZOLE 40 MG (PROTONIX) VIAL IV SCH (08:46)
[2021-06-27] MEDS: ENOXAPARIN 40 MG/0.4 ML (LOVENOX) SYR SC SCH (08:46)
[2021-06-27] MEDS: LEVETIRACETAM 1,000 MG/NS 100 ML IVPB IV SCH ×2 (08:46)
[2021-06-27] MEDS: DIVALPROX SPRINKLE 125 MG (DEPAKOTE) CAP PO SCH ×2 (08:46→21:38)
[2021-06-27] MEDS: fentaNYL DRIP PRE-MIX 250 ML IV SCH ×2 (08:47→21:45)
--- NOTE | 2021-06-27 09:57 | Consultation-Cardiology ---
HPI-Cardiology Cardiology Consultation Date of Consultation 06/27/21 Date of Admission Time Seen by Provider: 09:51 Indication: Bradycardia HPI 55-year-old lady, currently sedated and intubated, unable to provide any history, history was obtained by reviewing her record. She has questionable history of seizure and history of pulmonary embolism, hypertension, migraine COPD. She presented to the emergency room for increasing shortness of breath cough and anxiety. She had few episodes of hypoxemia and wa s not keeping the mask on and having a drop in oxygen saturation to the 70s. Intubation was done to protect her airway, while she is in ICU she had questionable small seizure activities, had episodes of sinus bradycardia and short episode of nonsustained ventricular tachycardia. No previous cardiac history Home Medications & Allergies Allergies: Coded Allergies: Penicillins (Verified Allergy, Severe, Anaphylaxis, 06/24/21) erythromycin base (Verified Allergy, Unknown, 06/24/21) Home Medication List Reviewed: Yes LFT-Kxoojj-Phcowa Hx Patient Social History Marital Status: Smoking Status: Current Everyday Smoker Have you traveled recently?: No Alcohol Use?: Yes Substance type: Marijuana Past Medical History Discussed below Family Medical History Family Medical Hx Noncontributory Review of Systems-General Review of Systems Constitutional: see HPI, other (Unable to provide review of system) EENTM: see HPI Respiratory: see HPI Cardiovascular: see HPI Gastrointestinal: see HPI Genitourinary: see HPI : No Musculoskeletal: see HPI Skin: see HPI Psychiatric/Neurological: See HPI Reviewed Test Results Reviewed Test Results Lab Laboratory Tests Test 06/26/21 12:23 06/26/21 17:32 06/27/21 00:15 06/27/21 00:27 Range/Units Glucometer 146 H 140 H 144 H 70-110 MG/DL Sodium Level 142 135-145 MMOL/L Potassium Level 4.1 3.6-5.0 MMOL/L Chloride Level 107 98-107 MMOL/L Carbon Dioxide Level 22 21-32 MMOL/L Anion Gap 13 5-14 MMOL/L Blood Urea Nitrogen 15 7-18 MG/DL Creatinine 0.58 L 0.60-1.30 MG/DL Estimat Glomerular Filtration Rate 109 BUN/Creatinine Ratio 26 Glucose Level 145 H 70-105 MG/DL Calcium Level 8.3 L 8.5-10.1 MG/DL Magnesium Level 2.1 1.6-2.4 MG/DL Troponin I < 0.028 <0.028 NG/ML Test 06/27/21 04:37 Range/Units White Blood Count 11.1 H 4.3-11.0 10^3/uL Red Blood Count 4.62 3.80-5.11 10^6/uL Hemoglobin 13.3 11.5-16.0 g/dL Hematocrit 42 35-52 % Mean Corpuscular Volume 91 80-99 fL Mean Corpuscular Hemoglobin 29 25-34 pg Mean Corpuscular Hemoglobin Concent 32 32-36 g/dL Red Cell Distribution Width 14.1 10.0-14.5 % Platelet Count 384 130-400 10^3/uL Mean Platelet Volume 10.5 9.0-12.2 fL Immature Granulocyte % (Auto) 1 % Neutrophils (%) (Auto) 86 H 42-75 % Lymphocytes (%) (Auto) 7 L 12-44 % Monocytes (%) (Auto) 6 0-12 % Eosinophils (%) (Auto) 0 0-10 % Basophils (%) (Auto) 0 0-10 % Neutrophils # (Auto) 9.5 H 1.8-7.8 10^3/uL Lymphocytes # (Auto) 0.7 L 1.0-4.0 10^3/uL Monocytes # (Auto) 0.7 0.0-1.0 10^3/uL Eosinophils # (Auto) 0.0 0.0-0.3 10^3/uL Basophils # (Auto) 0.0 0.0-0.1 10^3/uL Immature Granulocyte # (Auto) 0.1 0.0-0.1 10^3/uL Sodium Level 141 135-145 MMOL/L Potassium Level 4.2 3.6-5.0 MMOL/L Chloride Level 108 H 98-107 MMOL/L Carbon Dioxide Level 23 21-32 MMOL/L Anion Gap 10 5-14 MMOL/L Blood Urea Nitrogen 15 7-18 MG/DL Creatinine 0.57 L 0.60-1.30 MG/DL Estimat Glomerular Filtration Rate 111 BUN/Creatinine Ratio 26 Glucose Level 153 H 70-105 MG/DL Calcium Level 8.3 L 8.5-10.1 MG/DL Corrected Calcium 9.3 8.5-10.1 MG/DL Phosphorus Level 3.5 2.3-4.7 MG/DL Magnesium Level 2.2 1.6-2.4 MG/DL Total Bilirubin 0.1 0.1-1.0 MG/DL Aspartate Amino Transf (AST/SGOT) 21 5-34 U/L Alanine Aminotransferase (ALT/SGPT) 35 0-55 U/L Alkaline Phosphatase 121 40-136 U/L Total Protein 5.2 L 6.4-8.2 GM/DL Albumin 2.7 L 3.2-4.5 GM/DL Radiology CT angio showed no evidence of PE but revealed b/l basilar opacities in lung with multifocal nodules most likely reactive to infection but cannot r/o malignancy. CT head showed no acute abnormalities. Physical Exam Physical Exam Vital Signs Vital Signs - First Documented 06/24/21 20:34 FiO2 50 Capillary Refill : Less Than 3 Seconds Height, Weight, BMI Height: '" Weight: lbs. oz. kg; 38.37 BMI Method: General Appearance: No Apparent Distress, WD/WN, Mild Distress (Intermittently groaning), Obese (See free text.), Other (Sedated and intubated) HEENT: Normal ENT Inspection Neck: Normal Inspection Respiratory: No Accessory Muscle Use, No Respiratory Distress, Rhonci, Wheezing Cardiovascular: Regular Rate, Rhythm, No Edema, No Murmur Gastrointestinal: Normal Bowel Sounds, Non Tender, Soft Extremity: Normal Inspection, No Pedal Edema Neurologic/Psychiatric: Other (Intermittently alert and able to answer some questions. Moves all extremities. Several seizures lasting less than 1 minute.) Skin: Normal Color, Warm/Dry A/P-Cardiology Admission Diagnosis Sinus bradycardia Acute respiratory failure Seizure Pneumonia Assessment/Plan Sinus bradycardia, episodes of short nonsustained ventricular tachycardia up to 6 beats. Probably secondary to respiratory failure and hypoxemia. Underlying coronary artery disease cannot be excluded. EKG did not show any acute ischemic changes, troponin level first set was negative, I will repeat troponin level and evaluate 2D echo. Acute respiratory failure, intubated, sedated, managed by medical team Seizure disorder, has questionable multiple mini seizure activities associated with being flushed and anxious followed by agitation. Could be secondary to hypoxemia. I recommend neurology evaluation. Managed by primary care team Acute exacerbation of COPD, respiratory failure. Elevated D-dimer, CT angio of the chest showed no evidence of pulmonary embolism, she has history of PE in the past. Pneumonia, right lower lobe, receiving antibiotics. Hypertension, monitor blood pressure. Obesity, BMI 41. Tobaccoism. Clinical Quality Measures Urinary Catheter-Non SCIP Pts: Reason for Catheter Continuanc: Ventilator LISA CASIANO MD Jun 27, 2021 09:57
[2021-06-27 10:10] VITALS: BP 156/90
--- NOTE | 2021-06-27 10:14 | Progress Note ---
Subjective Subjective/Events-last exam Had episodes of bradycardia followed by short runs of Vtach and desaturations. No movements noted per nursing to indicate seizure activity. Focused Exam Lactate Level 06/24/21 17:00: Lactic Acid Level 1.35 Time of Focused Exam: 19:00 Objective Exam Last Set of Vital Signs Vital Signs Date Time Temp Pulse Resp B/P (MAP) Pulse Ox O2 Delivery O2 Flow Rate FiO2 06/27/21 09:00 51 18 94 Mechanical Ventilator 35.00 06/27/21 08:00 40 06/27/21 00:00 36.7 Capillary Refill : Less Than 3 Seconds I&O Intake and Output 06/27/21 00:00 Intake Total 1560 ml Output Total 1375 ml Balance 185 ml Intake Oral 0 ml IV Total 1560 ml Output Urine Total 1375 ml General: Other (intubated, sedated) Lungs: Other (ronchi) Heart: No Murmurs, Other (bradycardic) Abdomen: Normal Bowel Sounds, Soft Extremities: No Edema Results/Procedures Lab Laboratory Tests 06/26/21 12:23: Glucometer 146H 06/26/21 17:32: Glucometer 140H 06/27/21 00:15: Glucometer 144H 06/27/21 00:27: Sodium Level 142, Potassium Level 4.1, Chloride Level 107, Carbon Dioxide Level 22, Anion Gap 13, Blood Urea Nitrogen 15, Creatinine 0.58L, Estimat Glomerular Filtration Rate 109, BUN/Creatinine Ratio 26, Glucose Level 145H, Calcium Level 8.3L, Magnesium Level 2.1, Troponin I < 0.028 06/27/21 04:37: White Blood Count 11.1H, Red Blood Count 4.62, Hemoglobin 13.3, Hematocrit 42, Mean Corpuscular Volume 91, Mean Corpuscular Hemoglobin 29, Mean Corpuscular Hemoglobin Concent 32, Red Cell Distribution Width 14.1, Platelet Count 384, Mean Platelet Volume 10.5, Immature Granulocyte % (Auto) 1, Neutrophils (%) (Auto) 86H, Lymphocytes (%) (Auto) 7L, Monocytes (%) (Auto) 6, Eosinophils (%) (Auto) 0, Basophils (%) (Auto) 0, Neutrophils # (Auto) 9.5H, Lymphocytes # (Auto) 0.7L, Monocytes # (Auto) 0.7, Eosinophils # (Auto) 0.0, Basophils # (Auto) 0.0, Immature Granulocyte # (Auto) 0.1, Sodium Level 141, Potassium Level 4.2, Chloride Level 108H, Carbon Dioxide Level 23, Anion Gap 10, Blood Urea Nitrogen 15, Creatinine 0.57L, Estimat Glomerular Filtration Rate 111, BUN/Creatinine Ratio 26, Glucose Level 153H, Calcium Level 8.3L, Corrected Calcium 9.3, Phosphorus Level 3.5, Magnesium Level 2.2, Total Bilirubin 0.1, Aspartate Amino Transf (AST/SGOT) 21, Alanine Aminotransferase (ALT/SGPT) 35, Alkaline Phosphatase 121, Total Protein 5.2L, Albumin 2.7L Microbiology 06/24/21 MRSA Screen - Final, Complete MRSA not isolated 06/24/21 Urine Culture - Final, Complete NO GROWTH 06/24/21 Blood Culture - Preliminary, Resulted No growth Radiology CT angio showed no evidence of PE but revealed b/l basilar opacities in lung with multifocal nodules most likely reactive to infection but cannot r/o malignancy. CT head showed no acute abnormalities. Assessment/Plan Assessment/Plan (1) Acute respiratory failure Status: Acute Assessment & Plan: Mechanical ventilator dependent still, appreciate Lois recommendations. Qualifiers: Qualified Codes: J96.01 - Acute respiratory failure with hypoxia; J96.02 - Acute respiratory failure with hypercapnia (2) Gastritis Status: Acute Assessment & Plan: Blood in NG tube noticed today. Likely due to gastritis. Started on Pantoprazole 06/26 and no further blood noted today. Continue to monitor. (3) Seizures Status: Chronic Assessment & Plan: No clear seizure activity since admission documented. Continue Keppra. Depakote can not be restarted as cannot be administered through NG tube. (4) COPD exacerbation Status: Acute Assessment & Plan: Started on Solumedrol 06/25. (5) Elevated d-dimer Status: Acute Assessment & Plan: CT Angio showed no evidence of PE. Likely elevated due to inflammatory process with infection (6) Right lower lobe pneumonia Status: Acute Assessment & Plan: Continue Merrem. Qualifiers: Qualified Codes: J18.9 - Pneumonia, unspecified organism (7) HTN (hypertension) Status: Chronic Assessment & Plan: Trending up, treat as needed. Qualifiers: Qualified Codes: I10 - Essential (primary) hypertension (8) Bradycardia Status: Acute Assessment & Plan: Cardiology consulted, appreciate recommendations. (9) Ventricular tachycardia Status: Acute Assessment & Plan: Cardiology consulted, appreciate recommendations. (10) Sepsis Status: Acute Assessment & Plan: Due to pneumonia, see above for treatment. (11) DVT prophylaxis Status: Acute Assessment & Plan: Enoxaparin Clinical Quality Measures Urinary Catheter-Non SCIP Pts: Reason for Catheter Continuanc: Ventilator HANSA PASCUAL MD Jun 27, 2021 10:14
[2021-06-27] MEDS ORDERED: LORazepam INJ 2 MG/ML (ATIVAN) VIAL IVP PRN (10:30)
--- NOTE | 2021-06-27 10:55 | Tele-ICU Progress Note ---
Progress Note eICU COmpleted rounding with nursing. Admitted 06/24 with hx seizure, COPD and recent exacerbation of coughing, respiratory failure and acute pneumonia. suspected aspiration. Hx of current smoking. SInce being in the hospital, she was treated with Keppra IV and attempted to restart the Depakote per NGT but the 8 capsule dosing has not been given due to clogging of the NGT with the sprinkles. Meanwhile she has had additional partial complex seizures witnessed by nursing, associated with obstruction of vent, desaturations and runs of VT. Cardiology is now seeing pt and has ordered further workup. PMHx PE-in past, used anticoagfor a year, nothing recent, substance abuse, ?seizure disorder UDS + benzodiazepine, cannabinoids, Valproic acid < 2 Pro marvel not elevated, COVD, Flu neg CRP 11.84 BNP 14 , Trop not elev, CK not elev, DDimer was elev 5.03- CTA no PE CBC WBCs 11,100 Hgb 13.3 , Plts 384,000- today Urine, Blood and MRSA screen all neg from 1123 admit Vent settings TV 450 rate 18 FiO2 40% +5. VS HR 55 sinus, sats 94%, BP 156/90 Is receiving Duonebs, meropenem, solumedrol, vent support, sedation with propofol, fentanyl. Prophylaxis with Lovenox, Protonix. Will increase the IV Keppra dosing and treat any breakthrough seziures with Ativan . Continue to monitor. Focused Exam Lactate Level 06/24/21 17:00: Lactic Acid Level 1.35 Height, Weight, BMI Height: '" Weight: lbs. oz. kg; 38.37 BMI Method: Time of Focused Exam: 19:00 HAYDE DUNOG DO Jun 27, 2021 10:55
[2021-06-27 14:31] VITALS: BP 156/90
[2021-06-27 18:51] VITALS: BP 159/88
[2021-06-27] MEDS: NS IV SCH (21:37)
[2021-06-27] MEDS: LEVETIRACETAM IV SCH (21:37)
[2021-06-27 22:21] VITALS: BP 156/88
[2021-06-28] MEDS: methylPREDNISolone 40 MG/ML (Solu-MEDROL) VIAL IV SCH ×5 (01:17→23:45)
[2021-06-28] MEDS: MEROPENEM 500 MG/NS 100 ML IVPB IV SCH ×10 (01:17→23:56)
[2021-06-28] MEDS: inSUlin ASPART (NovoLOG) 1 UNIT/0.01 ML (CHARGE PER UNIT) SC SCH ×4 (01:20→19:53)
[2021-06-28 02:50] VITALS: BP 147/85
[2021-06-28] MEDS: RT-ALBUTEROL/IPRATROPIUM 3 ML (DUONEB) VIAL INH SCH ×5 (02:50→18:59)
[2021-06-28] MEDS: PROPOFOL DRIP (ICU) 100 ML IV SCH ×4 (02:58→20:19)
[2021-06-28] MEDS: VASOPRESSIN INJECTION 20 UNIT in NS (IVPB) 100 ML IV SCH ×2 (04:20→13:46)
[2021-06-28 05:37] LABS: ABG BASE EXCESS 3.1 MMOL/L (-2.5-2.5); ABG OXYGEN SATURATION 94 % (94-100); ABG PCO2 41 MMHG (35-45); ABG PH 7.44 (7.37-7.43); ABG PO2 79 MMHG (79-93); ABG TCO2 28.3 MMOL/L (21.0-31.0); BASOPHILS % (AUTO) 0 % (0-10); EOSINOPHILS % (AUTO) 0 % (0-10); HEMATOCRIT 42 % (35-52); HEMOGLOBIN 13.7 g/dL (11.5-16.0); LYMPHOCYTES # (AUTO) 0.8 10^3/uL (1.0-4.0); LYMPHOCYTES % (AUTO) 6 % (12-44); MEAN CORPUSCULAR HEMOGLOBIN 29 pg (25-34); MEAN CORPUSCULAR HGB CONC 32 g/dL (32-36); MEAN CORPUSCULAR VOLUME 91 fL (80-99); MEAN PLATELET VOLUME 10.3 fL (9.0-12.2); MONOCYTES # (AUTO) 0.8 10^3/uL (0.0-1.0); MONOCYTES % (AUTO) 6 % (0-12); NEUTROPHILS # (AUTO) 10.5 10^3/uL (1.8-7.8); NEUTROPHILS % (AUTO) 84 % (42-75); PLATELET COUNT 409 10^3/uL (130-400); WHITE BLOOD COUNT 12.5 10^3/uL (4.3-11.0)
[2021-06-28 05:43] LABS: ALLENS TEST POSITIVE; INSPIRED O2 18; PATIENT TEMP 37; VENTILATOR YES
[2021-06-28 05:45] LABS: ALBUMIN 2.6 GM/DL (3.2-4.5); POTASSIUM 4.3 MMOL/L (3.6-5.0)
[2021-06-28 05:46] LABS: CALCIUM 8.1 MG/DL (8.5-10.1)
[2021-06-28 05:48] LABS: TOTAL PROTEIN 5.1 GM/DL (6.4-8.2)
[2021-06-28 05:49] LABS: BILIRUBIN,TOTAL 0.2 MG/DL (0.1-1.0)
[2021-06-28 05:51] LABS: CREATININE SERUM 0.61 MG/DL (0.60-1.30); PHOSPHORUS 3.5 MG/DL (2.3-4.7)
[2021-06-28 05:54] LABS: MAGNESIUM 2.3 MG/DL (1.6-2.4)
[2021-06-28] MEDS: POTASSIUM CL 10MEQ/50ML IVPB 50 ML IV SCH (06:19)
[2021-06-28] MEDS: MAGNESIUM 1 GM/100 ML IVPB 100 ML IV SCH (06:19)
[2021-06-28] MEDS: KCL 20 MEQ TAB (K-DUR) PO SCH (06:20)
[2021-06-28] MEDS: NOREPINEPHRINE 8 MG/250 ML 250 ML IV SCH ×2 (06:40→20:21)
[2021-06-28 06:46] VITALS: BP 159/92
--- NOTE | 2021-06-28 06:51 | Progress Note - Hospitalist ---
Subjective HPI/CC On Admission Date Seen by Provider: Jun 28, 2021 Time Seen by Provider: 10:00 Subjective/Events-last exam Patient still intubated Weaning trial will be attempted Keppra maintained Abdominal distention noted Reglan 10 mg IV every 6 hours will be started at bedside Focused Exam Time of Focused Exam: 19:00 Objective Exam Vital Signs Vital Signs Date Time Temp Pulse Resp B/P (MAP) Pulse Ox O2 Delivery O2 Flow Rate FiO2 06/29/21 05:15 81 17 138/79 94 Mechanical Ventilator 65.00 06/29/21 04:00 65 06/29/21 03:36 38.0 Capillary Refill : Less Than 3 Seconds General Appearance: No Apparent Distress, WD/WN, Chronically ill, Other (Comatose and intubated) Respiratory: Lungs Clear, Normal Breath Sounds, Decreased Breath Sounds Cardiovascular: Regular Rate, Rhythm Results/Procedures Lab Laboratory Tests 06/29/21 03:40 Patient resulted labs reviewed. Assessment/Plan Assessment and Plan Assess & Plan/Chief Complaint Assessment: Acute respiratory failure requiring ventilator Episodes of V. tach consulting cardiology Seizure disorder maintained on Keppra Abdominal distention holding tube feeds and initiating Reglan Sepsis Pneumonia Plan: Appreciate vent management IV antibiotics IV Keppra Reglan Hold tube feedings Critical Care Ventilator Management Clinical Quality Measures Urinary Catheter-Non SCIP Pts: Reason for Catheter Continuanc: Ventilator MARY BELL DO Jun 28, 2021 06:51
[2021-06-28] MEDS: LACTATED RINGERS 1,000 ML IV SCH ×2 (07:35→17:14)
--- NOTE | 2021-06-28 09:18 | Tele-ICU Progress Note ---
Progress Note video rounds completed 55 y/o female intubated due to seizures nd PNA, covid negative vent: AC 14/450/40%/5 overall stable, sedated on vent Pulse: 57 regualr NSR BP: 152/85 O2 sat 93% PLAN: continue anti seizur emeds Wean as feasble from vent Focused Exam Height, Weight, BMI Height: '" Weight: lbs. oz. kg; 38.37 BMI Method: Time of Focused Exam: 19:00 Laboratory Tests 06/28/21 05:24 Labs Labs Laboratory Tests 06/27/21 10:20: Troponin I < 0.028 06/27/21 11:35: Glucometer 134H 06/27/21 17:29: Glucometer 128H 06/28/21 01:20: Glucometer 135H 06/28/21 05:24: White Blood Count 12.5H, Red Blood Count 4.67, Hemoglobin 13.7, Hematocrit 42, Mean Corpuscular Volume 91, Mean Corpuscular Hemoglobin 29, Mean Corpuscular Hemoglobin Concent 32, Red Cell Distribution Width 13.8, Platelet Count 409H, Mean Platelet Volume 10.3, Immature Granulocyte % (Auto) 3, Neutrophils (%) (Auto) 84H, Lymphocytes (%) (Auto) 6L, Monocytes (%) (Auto) 6, Eosinophils (%) (Auto) 0, Basophils (%) (Auto) 0, Neutrophils # (Auto) 10.5H, Lymphocytes # (Auto) 0.8L, Monocytes # (Auto) 0.8, Eosinophils # (Auto) 0.0, Basophils # (Auto) 0.0, Immature Granulocyte # (Auto) 0.4H, Blood Gas Puncture Site RIGHT RADIAL, Blood Gas Patient Temperature 37, Arterial Blood pH 7.44H, Arterial Blood Partial Pressure CO2 41, Arterial Blood Partial Pressure O2 79, Arterial Blood HCO3 27, Arterial Blood Total CO2 28.3, Arterial Blood Oxygen Saturation 94, Arterial Blood Base Excess 3.1H, Jim Test POSITIVE, Blood Gas Ventilator Setting YES, Blood Gas Inspired Oxygen 18, Sodium Level 142, Potassium Level 4.3, Chloride Level 107, Carbon Dioxide Level 25, Anion Gap 10, Blood Urea Nitrogen 17, Creatinine 0.61, Estimat Glomerular Filtration Rate 103, BUN/Creatinine Ratio 28, Glucose Level 147H, Calcium Level 8.1L, Corrected Calcium 9.2, Phosphorus Level 3.5, Magnesium Level 2.3, Total Bilirubin 0.2, Aspartate Amino Transf (AST/SGOT) 21, Alanine Aminotransferase (ALT/SGPT) 29, Alkaline Phosphatase 99, Total Protein 5.1L, Albumin 2.6L, Triglycerides Level 448H Microbiology 06/24/21 MRSA Screen - Final, Complete MRSA not isolated 06/24/21 Urine Culture - Final, Complete NO GROWTH 06/24/21 Blood Culture - Preliminary, Resulted No growth RENEE REYES MD Jun 28, 2021 09:18
--- NOTE | 2021-06-28 09:26 | Cardiology Progress Note ---
Subjective Date Seen by Provider: Jun 28, 2021 Time Seen by Provider: 09:23 Subjective/Events-last exam Patient is sedated and intubated. Unable to provide any history Review of Systems General: Other (Unable to provide review of system) Focused Exam Time of Focused Exam: 19:00 Objective-Cardiology Exam Last Set of Vital Signs Vital Signs 06/28/21 06/28/21 06/28/21 07:15 07:58 08:15 Temp 37.2 Pulse 57 Resp 18 B/P (MAP) 158/89 Pulse Ox 91 O2 Delivery Mechanical Ventilator O2 Flow Rate 35.00 FiO2 40 I&O Intake and Output 06/28/21 00:00 Intake Total 470 ml Output Total 1600 ml Balance -1130 ml Intake Oral 0 ml IV Total 470 ml Output Urine Total 1400 ml Gastric Drainage Total 200 ml General: Other (Sedated and intubated) HEENT: Atraumatic Neck: Supple, No JVD Lungs: Other Heart: Regular Rate, No Murmurs, Other Abdomen: Normal Bowel Sounds, Soft Extremities: No Clubbing, No Cyanosis, No Edema Skin: No Rashes, No Breakdown Neuro: Other (Sedated and intubated) Psych/Mental Status: Other (Sedated and intubated) Results Lab Laboratory Tests 06/28/21 05:24 A/P-Cardiology Admission Diagnosis Sinus bradycardia Acute respiratory failure Seizure Pneumonia Assessment/Plan Sinus bradycardia, episodes of short nonsustained ventricular tachycardia up to 6 beats. Probably secondary to respiratory failure and hypoxemia. Underlying coronary artery disease cannot be excluded. EKG did not show any acute ischemic changes, troponin 3 sets were negative. Continue to monitor heart rate at this point. No changes are recommended 2D echo done on June 27, 2021, difficult study. Normal left ventricular size, EF 65 to 70%, trivial aortic regurgitation, normal pulmonary artery pressure of 20 to 25 mmHg. Acute respiratory failure, intubated, sedated, managed by medical team Seizure disorder, has questionable multiple mini seizure activities associated with being flushed and anxious followed by agitation. Could be secondary to hypoxemia. I recommend neurology evaluation. Managed by primary care team Acute exacerbation of COPD, respiratory failure. Elevated D-dimer, CT angio of the chest showed no evidence of pulmonary embolism, she has history of PE in the past. Pneumonia, right lower lobe, receiving antibiotics. Hypertension, monitor blood pressure. Obesity, BMI 41. Tobaccoism. LISA CASIANO MD Jun 28, 2021 09:26
[2021-06-28] MEDS ORDERED: FUROSEMIDE 40 MG/4 ML INJ (LASIX) IVP ONE (09:30)
[2021-06-28] MEDS: PANTOPRAZOLE 40 MG (PROTONIX) VIAL IV SCH (09:37)
[2021-06-28] MEDS: LEVETIRACETAM IV SCH ×2 (09:37→21:58)
[2021-06-28] MEDS: NS IV SCH ×2 (09:37→21:58)
[2021-06-28] MEDS: ENOXAPARIN 40 MG/0.4 ML (LOVENOX) SYR SC SCH (09:38)
[2021-06-28 10:37] VITALS: BP 161/90
[2021-06-28] MEDS: METOCLOPRAMIDE 10 MG (REGLAN) TAB PO SCH ×2 (11:39→15:39)
[2021-06-28] MEDS: fentaNYL DRIP PRE-MIX 250 ML IV SCH ×2 (12:04→20:19)
[2021-06-28 15:27] VITALS: BP 122/73
[2021-06-28] MEDS: DexMEDEtomidine 250 ML DRIP 250 ML IV SCH (15:40)
--- NOTE | 2021-06-28 15:59 | Diagnostic Imaging Report ---
INDICATION: Postintubation. EXAMINATION: Chest, 06/28/2021. COMPARISON: 06/24/2021. FINDINGS: ET tube unremarkable. There is a right PICC line with the tip in the distal SVC. Heart is stable. Pulmonary vasculature is unremarkable. There is a likely infiltrate in left mid and lower lung with patchy infiltrates in the right lung base. No pneumothorax. No significant effusions. IMPRESSION: 1. Tubes and lines as above. 2. Bilateral infiltrates, left worse than right. Dictated by: Dictated on workstation # [id number]
[2021-06-28] MEDS: METOCLOPRAMIDE INJ 10 MG/2 ML (REGLAN) IVP SCH ×2 (17:15→23:45)
[2021-06-28 19:00] VITALS: BP 149/77
[2021-06-28] MEDS: DIVALPROX SPRINKLE 125 MG (DEPAKOTE) CAP PO SCH (21:57)
[2021-06-28 22:30] VITALS: BP 205/121
[2021-06-28] MEDS: hydrALAZINE (APESOLINE) 20 MG/ML VIAL IV PRN (23:26)
[2021-06-29] MEDS: inSUlin ASPART (NovoLOG) 1 UNIT/0.01 ML (CHARGE PER UNIT) SC SCH ×4 (00:47→17:36)
[2021-06-29] MEDS: LACTATED RINGERS 1,000 ML IV SCH ×4 (00:50→23:11)
[2021-06-29] MEDS: DexMEDEtomidine 250 ML DRIP 250 ML IV SCH ×4 (01:56→21:39)
[2021-06-29] MEDS: fentaNYL DRIP PRE-MIX 250 ML IV SCH ×4 (01:58→21:41)
[2021-06-29 02:44] VITALS: BP 205/121
[2021-06-29] MEDS: RT-ALBUTEROL/IPRATROPIUM 3 ML (DUONEB) VIAL INH SCH ×6 (02:44→22:42)
[2021-06-29] MEDS: VASOPRESSIN INJECTION 20 UNIT in NS (IVPB) 100 ML IV SCH ×2 (03:05→11:54)
[2021-06-29 03:53] LABS: BASOPHILS # (AUTO) 0.1 10^3/uL (0.0-0.1); BASOPHILS % (AUTO) 0 % (0-10); EOSINOPHILS % (AUTO) 0 % (0-10); HEMATOCRIT 47 % (35-52); HEMOGLOBIN 15.4 g/dL (11.5-16.0); LYMPHOCYTES # (AUTO) 0.9 10^3/uL (1.0-4.0); LYMPHOCYTES % (AUTO) 5 % (12-44); MEAN CORPUSCULAR HEMOGLOBIN 29 pg (25-34); MEAN CORPUSCULAR HGB CONC 33 g/dL (32-36); MEAN CORPUSCULAR VOLUME 88 fL (80-99); MONOCYTES # (AUTO) 1.2 10^3/uL (0.0-1.0); MONOCYTES % (AUTO) 7 % (0-12); NEUTROPHILS # (AUTO) 14.2 10^3/uL (1.8-7.8); NEUTROPHILS % (AUTO) 82 % (42-75); PLATELET COUNT 387 10^3/uL (130-400); WHITE BLOOD COUNT 17.2 10^3/uL (4.3-11.0)
[2021-06-29 04:05] LABS: ABG BASE EXCESS 4.5 MMOL/L (-2.5-2.5); ABG OXYGEN SATURATION 94 % (94-100); ABG PCO2 43 MMHG (35-45); ABG PH 7.44 (7.37-7.43); ABG PO2 87 MMHG (79-93); ABG TCO2 29.6 MMOL/L (21.0-31.0)
[2021-06-29 04:06] LABS: ALBUMIN 3.1 GM/DL (3.2-4.5); POTASSIUM 4.1 MMOL/L (3.6-5.0)
[2021-06-29] MEDS: POTASSIUM CL 10MEQ/50ML IVPB 50 ML IV SCH (04:06)
[2021-06-29 04:07] LABS: CALCIUM 8.1 MG/DL (8.5-10.1)
[2021-06-29 04:07] LABS: ALLENS TEST NEGATIVE; INSPIRED O2 65%; VENTILATOR YES
[2021-06-29] MEDS: MAGNESIUM 1 GM/100 ML IVPB 100 ML IV SCH (04:07)
[2021-06-29] MEDS: KCL 20 MEQ TAB (K-DUR) PO SCH (04:07)
[2021-06-29 04:09] LABS: TOTAL PROTEIN 5.8 GM/DL (6.4-8.2)
[2021-06-29 04:10] LABS: BILIRUBIN,TOTAL 0.3 MG/DL (0.1-1.0)
[2021-06-29 04:12] LABS: CREATININE SERUM 0.6 MG/DL (0.60-1.30); PHOSPHORUS 3.1 MG/DL (2.3-4.7)
[2021-06-29 04:15] LABS: MAGNESIUM 2.3 MG/DL (1.6-2.4)
[2021-06-29] MEDS: hydrALAZINE (APESOLINE) 20 MG/ML VIAL IV PRN ×3 (04:59→20:34)
[2021-06-29] MEDS: METOCLOPRAMIDE INJ 10 MG/2 ML (REGLAN) IVP SCH ×3 (05:01→17:36)
[2021-06-29] MEDS: methylPREDNISolone 40 MG/ML (Solu-MEDROL) VIAL IV SCH ×3 (05:01→23:11)
[2021-06-29] MEDS: PROPOFOL DRIP (ICU) 100 ML IV SCH (05:02)
[2021-06-29 07:18] VITALS: BP 171/94
--- NOTE | 2021-06-29 07:33 | Cardiology Progress Note ---
Subjective Date Seen by Provider: Jun 29, 2021 Time Seen by Provider: 07:33 Subjective/Events-last exam Patient is sedated and intubated Failed weaning yesterday. Was hypertensive Review of Systems General: Other (Unable to provide review of system) Focused Exam Time of Focused Exam: 19:00 Objective-Cardiology Exam Last Set of Vital Signs Vital Signs 06/29/21 06/29/21 06/29/21 03:36 06:30 07:18 Temp 38.0 Pulse 72 Resp 18 B/P (MAP) 162/89 Pulse Ox 94 O2 Delivery Mechanical Ventilator O2 Flow Rate 65.00 FiO2 65 I&O Intake and Output 06/29/21 00:00 Intake Total 775.0 ml Output Total 1750 ml Balance -975.0 ml Intake Oral 0 ml IV Total 775.0 ml Output Urine Total 1750 ml General: Other (Sedated and intubated) HEENT: Atraumatic Neck: Supple, No JVD Lungs: Other Heart: Regular Rate, No Murmurs, Other Abdomen: Normal Bowel Sounds, Soft Extremities: No Clubbing, No Cyanosis, No Edema Skin: No Rashes, No Breakdown Neuro: Other (Sedated and intubated) Psych/Mental Status: Other (Sedated and intubated) Results Lab Laboratory Tests 06/29/21 03:40 A/P-Cardiology Admission Diagnosis Sinus bradycardia Acute respiratory failure Seizure Pneumonia Assessment/Plan Sinus bradycardia, episodes of short nonsustained ventricular tachycardia up to 6 beats. Probably secondary to respiratory failure and hypoxemia. Underlying coronary artery disease cannot be excluded. EKG did not show any acute ischemic changes, troponin 3 sets were negative. Continue to monitor heart rate at this point. No changes are recommended 2D echo done on June 27, 2021, difficult study. Normal left ventricular size, EF 65 to 70%, trivial aortic regurgitation, normal pulmonary artery pressure of 20 to 25 mmHg. Acute respiratory failure, intubated, sedated, managed by medical team Seizure disorder, has questionable multiple mini seizure activities associated with being flushed and anxious followed by agitation. Could be secondary to hypoxemia. I recommend neurology evaluation. Managed by primary care team Acute exacerbation of COPD, respiratory failure. Elevated D-dimer, CT angio of the chest showed no evidence of pulmonary embolism, she has history of PE in the past. Pneumonia, right lower lobe, receiving antibiotics. Hypertension, had episodes of severe hypertension last night, she was started on hydralazine IV. I will start low-dose beta-eli and monitor her heart rate and blood pressure response Obesity, BMI 41. Tobaccoism. LISA CASIANO MD Jun 29, 2021 07:33
[2021-06-29] MEDS ORDERED: LORazepam INJ 2 MG/ML (ATIVAN) VIAL IV SCH (09:00)
[2021-06-29] MEDS: ENOXAPARIN 40 MG/0.4 ML (LOVENOX) SYR SC SCH (09:27)
[2021-06-29] MEDS: LEVETIRACETAM IV SCH ×2 (09:27→20:18)
[2021-06-29] MEDS: NS IV SCH ×2 (09:27→20:18)
[2021-06-29] MEDS: NOREPINEPHRINE 8 MG/250 ML 250 ML IV SCH ×2 (09:31→23:11)
[2021-06-29] MEDS: PANTOPRAZOLE 40 MG (PROTONIX) VIAL IV SCH (09:31)
[2021-06-29] MEDS: LORazepam INJECTION FOR DRIP 20 MG in D5W 100 ML IVPB 90 ML IV SCH ×2 (09:37→19:01)
[2021-06-29 09:42] VITALS: BP 169/97
--- NOTE | 2021-06-29 09:45 | Diagnostic Imaging Report ---
INDICATION: ET tube placement. Acute respiratory failure. Pneumonia EXAMINATION: Chest 06/29/2021 COMPARISON: 06/28/2021 FINDINGS: The heart is stable. Pulmonary vasculature is minimally prominent. There are bibasal infiltrates right greater than left with a small right effusion suspected. There is no pneumothorax. ET tube unremarkable in positioning. There is a feeding tube coursing beneath the diaphragm. IMPRESSION: 1. Bibasal infiltrates right greater than left with right effusion. 2. Pulmonary vascular congestion. 3. Tubes as above. Dictated by: Dictated on workstation # [id number]
--- NOTE | 2021-06-29 10:32 | Diagnostic Imaging Report ---
INDICATION: Abdominal distention EXAMINATION: Abdomen 06/29/2021 FINDINGS: Single view abdomen There is a feeding tube tip in the right mid abdomen. Scattered air and stool seen throughout colon. No dilated loops of bowel. No free air with the upper abdomen excluded from evaluation. There are likely clips in the right upper quadrant IMPRESSION: 1. Incidental findings with a nonobstructive nonspecific bowel gas pattern. Dictated by: Dictated on workstation # [id number]
--- NOTE | 2021-06-29 11:03 | Tele-ICU Progress Note ---
Subjective Date Seen by a Provider: Jun 29, 2021 Time Seen by a Provider: 10:01 Sepsis Event Evaluation Height, Weight, BMI Height: '" Weight: lbs. oz. kg; 38.37 BMI Method: Focused Exam Time of Focused Exam: 19:00 Exam Exam Patient acknowledged, consented, and participated in this virtual visit which was conducted using real time audio/video Vital Signs Date Time Temp Pulse Resp B/P (MAP) Pulse Ox O2 Delivery O2 Flow Rate FiO2 06/29/21 10:58 Mechanical Ventilator 40.00 06/29/21 10:00 68 18 170/95 95 Mechanical Ventilator 65.00 06/29/21 09:45 68 17 170/97 96 06/29/21 09:42 69 18 95 40 06/29/21 09:37 63 17 169/97 06/29/21 09:30 61 16 169/97 95 06/29/21 09:27 61 172/93 06/29/21 09:15 64 23 172/93 95 06/29/21 09:00 65 17 172/94 98 Mechanical Ventilator 65.00 06/29/21 08:45 68 18 172/96 96 06/29/21 08:30 70 17 168/92 98 06/29/21 08:15 70 17 167/90 94 06/29/21 08:00 73 18 167/93 94 Mechanical Ventilator 65.00 06/29/21 08:00 36.6 06/29/21 07:45 74 17 165/92 94 06/29/21 07:30 75 17 166/91 93 06/29/21 07:18 72 18 94 65 06/29/21 07:15 70 17 171/94 94 06/29/21 07:00 70 19 168/92 93 Mechanical Ventilator 65.00 06/29/21 07:00 71 06/29/21 06:45 74 24 164/89 93 06/29/21 06:30 162/89 Mechanical Ventilator 65.00 06/29/21 06:15 76 27 158/89 Mechanical Ventilator 65.00 06/29/21 06:00 79 18 152/85 Mechanical Ventilator 65.00 06/29/21 05:45 80 22 144/85 94 Mechanical Ventilator 65.00 06/29/21 05:30 138/82 Mechanical Ventilator 65.00 06/29/21 05:15 81 17 138/79 94 Mechanical Ventilator 65.00 06/29/21 05:02 60 205/121 06/29/21 05:00 69 10 185/101 94 Mechanical Ventilator 65.00 06/29/21 05:00 104 34 91 06/29/21 04:45 71 17 185/100 94 Mechanical Ventilator 65.00 06/29/21 04:30 73 17 180/98 Mechanical Ventilator 65.00 06/29/21 04:15 76 18 180/99 Mechanical Ventilator 65.00 06/29/21 04:00 81 17 177/98 93 Mechanical Ventilator 65.00 06/29/21 04:00 92 Mechanical Ventilator 65 06/29/21 03:45 170/94 Mechanical Ventilator 65.00 06/29/21 03:36 38.0 06/29/21 03:30 173/98 Mechanical Ventilator 65.00 06/29/21 03:15 91 19 173/95 91 Mechanical Ventilator 65.00 06/29/21 03:00 90 19 169/94 92 Mechanical Ventilator 65.00 06/29/21 02:45 85 20 175/98 94 Mechanical Ventilator 65.00 06/29/21 02:44 60 18 97 65 06/29/21 02:30 86 19 177/101 94 Mechanical Ventilator 65.00 06/29/21 02:15 87 18 168/98 93 Mechanical Ventilator 65.00 06/29/21 02:00 84 16 182/101 93 Mechanical Ventilator 65.00 06/29/21 01:56 60 205/121 06/29/21 01:45 84 18 190/107 93 Mechanical Ventilator 65.00 06/29/21 01:30 85 18 190/105 93 Mechanical Ventilator 65.00 06/29/21 01:15 85 18 182/107 93 Mechanical Ventilator 65.00 06/29/21 01:00 88 06/29/21 01:00 89 18 180/103 93 Mechanical Ventilator 65.00 06/29/21 00:45 88 18 170/95 92 Mechanical Ventilator 65.00 06/29/21 00:30 88 18 161/97 92 Mechanical Ventilator 65.00 06/29/21 00:15 85 18 179/103 90 Mechanical Ventilator 65.00 06/29/21 00:00 85 18 170/99 92 Mechanical Ventilator 65.00 06/29/21 00:00 37.2 06/29/21 00:00 93 Mechanical Ventilator 65 06/28/21 23:45 86 20 183/105 93 Mechanical Ventilator 65.00 06/28/21 23:30 76 17 193/108 95 Mechanical Ventilator 65.00 06/28/21 23:15 65 17 205/112 95 Mechanical Ventilator 65.00 06/28/21 23:15 65 17 205/112 Mechanical Ventilator 65.00 06/28/21 23:00 64 18 203/114 Mechanical Ventilator 65.00 06/28/21 22:45 62 17 204/113 97 Mechanical Ventilator 65.00 06/28/21 22:30 61 18 205/121 97 Mechanical Ventilator 65.00 06/28/21 22:30 60 18 97 65 06/28/21 22:15 60 18 203/112 Mechanical Ventilator 65.00 06/28/21 22:00 59 17 210/114 96 Mechanical Ventilator 65.00 06/28/21 21:45 58 17 210/114 96 Mechanical Ventilator 65.00 06/28/21 21:30 58 18 210/114 95 Mechanical Ventilator 65.00 06/28/21 21:15 58 17 212/114 95 Mechanical Ventilator 65.00 06/28/21 21:00 57 18 213/113 Mechanical Ventilator 65.00 06/28/21 20:45 56 18 95 Mechanical Ventilator 65.00 06/28/21 20:30 58 17 213/111 95 Mechanical Ventilator 65.00 06/28/21 20:21 60 149/77 06/28/21 20:19 60 149/77 06/28/21 20:15 56 17 208/113 94 Mechanical Ventilator 65.00 06/28/21 20:00 37.1 06/28/21 20:00 97 Mechanical Ventilator 65 06/28/21 20:00 56 18 202/108 94 Mechanical Ventilator 65.00 06/28/21 20:00 57 17 208/106 95 Mechanical Ventilator 65.00 06/28/21 19:45 57 17 202/108 94 Mechanical Ventilator 65.00 06/28/21 19:30 57 17 204/106 93 Mechanical Ventilator 65.00 06/28/21 19:15 57 17 197/108 94 Mechanical Ventilator 65.00 06/28/21 19:00 56 18 94 65 06/28/21 19:00 60 06/28/21 19:00 56 18 201/108 94 Mechanical Ventilator 65.00 06/28/21 18:00 51 17 186/96 95 06/28/21 17:30 51 18 173/90 94 06/28/21 17:15 50 18 171/87 93 06/28/21 17:00 51 18 160/84 92 Mechanical Ventilator 65.00 06/28/21 16:45 54 18 149/80 91 06/28/21 16:30 58 17 140/76 91 06/28/21 16:15 61 17 130/75 91 06/28/21 16:11 36.7 06/28/21 16:08 90 Mechanical Ventilator 65 06/28/21 16:00 62 17 125/74 90 Mechanical Ventilator 65.00 06/28/21 15:45 97 124/72 06/28/21 15:40 66 127/86 06/28/21 15:30 57 17 127/76 95 06/28/21 15:27 58 18 97 65 06/28/21 15:15 56 18 122/73 06/28/21 15:00 18 127/74 96 Mechanical Ventilator 65.00 06/28/21 14:45 18 135/81 96 Mechanical Ventilator 65.00 06/28/21 14:30 60 160/91 96 Mechanical Ventilator 65.00 06/28/21 14:15 17 142/83 93 Mechanical Ventilator 65.00 06/28/21 14:13 72 140/78 06/28/21 14:00 17 135/77 93 Mechanical Ventilator 65.00 06/28/21 13:51 92 Mechanical Ventilator 65.00 06/28/21 13:45 72 17 140/78 89 06/28/21 13:30 73 17 162/88 90 06/28/21 13:15 76 14 166/97 89 06/28/21 13:00 97 06/28/21 13:00 79 18 159/93 Mechanical Ventilator 35.00 06/28/21 12:45 83 18 153/88 88 06/28/21 12:30 96 18 157/91 88 06/28/21 12:15 112 18 162/100 88 06/28/21 12:12 116 18 168/101 91 06/28/21 12:00 91 Mechanical Ventilator 40 06/28/21 12:00 116 18 168/101 91 Mechanical Ventilator 35.00 06/28/21 11:45 109 20 197/104 91 06/28/21 11:25 37.0 06/28/21 11:15 105 58 170/134 92 I & O 06/29/21 07:00 Intake Total 775.0 ml Output Total 4700 ml Balance -3925.0 ml Height & Weight Height: '" Weight: lbs. oz. kg; 38.37 BMI Method: General Appearance: No Apparent Distress, WD/WN, Chronically ill, Other (Comato se and intubated) HEENT: Normal ENT Inspection Neck: Normal Inspection Respiratory: Lungs Clear, Normal Breath Sounds, Decreased Breath Sounds Cardiovascular: Regular Rate, Rhythm Capillary Refill: Less Than 3 Seconds Peripheral Pulses: 2+ Dorsalis Pedis (R), 2+ Left Dors-Pedis (L), 2+ Radial Pulses (R), 2+ Radial Pulses (L) Gastrointestinal: normal bowel sounds, soft Extremity: Normal Inspection, No Pedal Edema Neurologic/Psychiatric: Other (Intermittently alert and able to answer some questions. Moves all extremities. Several seizures lasting less than 1 minute.) Skin: Normal Color, Warm/Dry Results Lab Laboratory Tests 06/28/21 05:24 06/29/21 03:40 Assessment/Plan Assessment/Plan (Tele-ICU Physician , Progress Note ) Available chart/ vitals / labs / Images reviewed Video assessment done using teleICU camera, rest of exam as per RN Discussed with RN , EXAM PER RN Events overnight : FEBRILE 38 FiO2 - 65% I/O = NEG Drips: Pressors: , hemodynamically stable Sedation gtt: ( RASS ) - 3 propofol almost off , precedex 1.5 , fentanyl , ativan gtt VENT SETTINGS and ABG reviewed Not candidate for SBT today REVIEWED Cardiovascular Stability / Sedation Score / FI02/PEEP / ABG / CXR Consultants: cards Hospital course: 06/24 - to ER with SOB - INTUBATED for ARF / wheezing ( also watson sz - were controlled with keppra 06/28 - failed SBT 40% - changed tp precedex / ativan gtt 06/29 - weaning off propofol, on fentanyl gtt , ativn gtt A/P Acute respiratory failure 9 bronchospam , PNA , no PE on CT -Intubated 06/24 in ER with progresive wheezing and ?WOB -AC 14 450 + 5 65% -Full vent support Seizure ( with sz dz) - in er had multiple brief seizures lasting less than 1 minute- resolved after load of Keppra - cont Kepra , depakote - ( as per notes - 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 ) Encephalopathy - CTH neg 06/23 - no neneingeal symptoms AECOPD - steroids to cut down - 40 q 8 h - nebs , ++ secretions PNA- WORSENING CXR ON LEFT - presented with SOB for weeks , productive cough - COVID-19 and influenza swabs were negative - started on Merrem given -some type of esophageal issue for which she has seen an ENT recently in [place] FEVER - cx blood neg 06/24, urine beg 06/24 - Merrem 06/24- given - sputum cx pending - firm abdomen - check lipase - no meningeal symptoms - Dental hygiene poor - Will start empiric AZTREONAM - follow Abd distention - no BS - check KUB Hyperglycemia - on steroids , start ISS H/o PE 2019 - off AC now - CTA 06/24 - no PE Sinus bradycardia ( also on precedex) = as per cards - monitor -ECHO 06/27/21- EF 65 to 70%, RVSP 20 History of polysubstance abuse - positive for cannabinoids CT with lung nodular densities bilaterally, which are likely secondary to the infection but neoplasm is not excluded, - to follow as outpt as per PCP Obesity, BMI 41 Lines : PICC 06/27 right (Central Line Necessity Reviewed) Carias: 06/24 O/23 Nutrition: to strt Analgesia: Anxiety/ dlirium VTE Prophylaxis: best 40 Stress Ulcer Prophylaxis: ppi Glycemic Control: iss Plans in collaboration with bedside consultants and IM MDs. Discussed with RN to reach out if any questions or concerns A total of 45 minutes of critical care time was devoted to this patient today, required to treat and/or prevent further deterioration of critical care condition ( as above ) . PETR NYE MD Jun 29, 2021 11:03
--- NOTE | 2021-06-29 12:00 | Progress Note - Hospitalist ---
Subjective HPI/CC On Admission Date Seen by Provider: Jun 29, 2021 Time Seen by Provider: 11:30 Subjective/Events-last exam Patient still intubated at bedside Fever of unknown origin at this current time Blood cultures will be obtained if runs another fever White count 17.2 Discontinued propofol now on fentanyl Ativan and Precedex No bowel sounds and KUB will be assessed Review of Systems General: Fatigue, Malaise Focused Exam Time of Focused Exam: 19:00 Objective Exam Vital Signs Vital Signs Date Time Temp Pulse Resp B/P (MAP) Pulse Ox O2 Delivery O2 Flow Rate FiO2 06/30/21 04:00 96 Mechanical Ventilator 55 06/30/21 03:35 77 158/96 06/30/21 03:00 17 55.00 06/29/21 20:01 36.2 Capillary Refill : Less Than 3 Seconds General Appearance: No Apparent Distress, WD/WN, Chronically ill Respiratory: Lungs Clear, Normal Breath Sounds Cardiovascular: Regular Rate, Rhythm Neurologic/Psychiatric: Alert, Oriented x3, No Motor/Sensory Deficits, Normal Mood/Affect Results/Procedures Lab Laboratory Tests 06/30/21 03:55 Patient resulted labs reviewed. Assessment/Plan Assessment and Plan Assess & Plan/Chief Complaint Assessment: Acute respiratory failure requiring ventilator Episodes of V. tach consulting cardiology Seizure disorder maintained on Keppra Abdominal distention holding tube feeds and initiating Reglan Sepsis Pneumonia Plan: Appreciate vent management IV antibiotics IV Keppra Reglan Hold tube feedings 06/29/2021: Reglan for ileus IV antibiotics Ventilator management Critical Care Ventilator Management Clinical Quality Measures Urinary Catheter-Non SCIP Pts: Reason for Catheter Continuanc: Ventilator MARY BELL DO Jun 29, 2021 12:00
[2021-06-29] MEDS: AZTREONAM INJECTION 2,000 MG in NS (IVPB) 100 ML IV SCH ×2 (13:08→23:11)
[2021-06-29] MEDS: meTOprolol 5 MG/5 ML (LOPRESSOR) VIAL IV SCH ×2 (13:08→17:36)
[2021-06-29] MEDS ORDERED: APAP 325 MG/10.15 ML LIQ (TYLENOL) UDC PO PRN (14:00)
[2021-06-29 14:51] VITALS: BP 138/86
[2021-06-29 19:16] VITALS: BP 182/101
[2021-06-29] MEDS: DIVALPROX SPRINKLE 125 MG (DEPAKOTE) CAP PO SCH (20:19)
[2021-06-29 22:43] VITALS: BP 146/90
[2021-06-30] MEDS: METOCLOPRAMIDE INJ 10 MG/2 ML (REGLAN) IVP SCH ×4 (00:14→17:42)
[2021-06-30] MEDS: meTOprolol 5 MG/5 ML (LOPRESSOR) VIAL IV SCH ×4 (00:14→17:42)
[2021-06-30] MEDS: inSUlin ASPART (NovoLOG) 1 UNIT/0.01 ML (CHARGE PER UNIT) SC SCH ×4 (00:15→17:42)
[2021-06-30] MEDS: LORazepam INJECTION FOR DRIP 20 MG in D5W 100 ML IVPB 90 ML IV SCH ×2 (00:25→23:03)
[2021-06-30] MEDS: VASOPRESSIN INJECTION 20 UNIT in NS (IVPB) 100 ML IV SCH ×2 (01:55→11:02)
[2021-06-30 02:25] VITALS: BP 160/96
[2021-06-30] MEDS: RT-ALBUTEROL/IPRATROPIUM 3 ML (DUONEB) VIAL INH SCH ×6 (02:25→21:06)
[2021-06-30] MEDS: LACTATED RINGERS 1,000 ML IV SCH ×3 (03:33→18:21)
[2021-06-30] MEDS: DexMEDEtomidine 250 ML DRIP 250 ML IV SCH ×3 (03:35→19:51)
[2021-06-30 04:16] LABS: BASOPHILS # (AUTO) 0.1 10^3/uL (0.0-0.1); BASOPHILS % (AUTO) 0 % (0-10); EOSINOPHILS % (AUTO) 0 % (0-10); HEMATOCRIT 49 % (35-52); HEMOGLOBIN 15.9 g/dL (11.5-16.0); LYMPHOCYTES # (AUTO) 0.8 10^3/uL (1.0-4.0); LYMPHOCYTES % (AUTO) 6 % (12-44); MEAN CORPUSCULAR HEMOGLOBIN 29 pg (25-34); MEAN CORPUSCULAR HGB CONC 33 g/dL (32-36); MEAN CORPUSCULAR VOLUME 88 fL (80-99); MEAN PLATELET VOLUME 9.9 fL (9.0-12.2); MONOCYTES # (AUTO) 0.8 10^3/uL (0.0-1.0); MONOCYTES % (AUTO) 6 % (0-12); NEUTROPHILS # (AUTO) 10.8 10^3/uL (1.8-7.8); NEUTROPHILS % (AUTO) 83 % (42-75); PLATELET COUNT 357 10^3/uL (130-400)
[2021-06-30 04:25] LABS: ABG OXYGEN SATURATION 96 % (94-100); ABG PCO2 42 MMHG (35-45); ABG PH 7.44 (7.37-7.43); ABG PO2 88 MMHG (79-93); ABG TCO2 29.3 MMOL/L (21.0-31.0)
[2021-06-30 04:27] LABS: ALBUMIN 2.9 GM/DL (3.2-4.5); POTASSIUM 4.1 MMOL/L (3.6-5.0)
[2021-06-30 04:27] LABS: ALLENS TEST POSITIVE; PATIENT TEMP 37; VENTILATOR YES
[2021-06-30 04:28] LABS: CALCIUM 8.2 MG/DL (8.5-10.1)
[2021-06-30 04:29] LABS: TOTAL PROTEIN 5.6 GM/DL (6.4-8.2)
[2021-06-30 04:31] LABS: BILIRUBIN,TOTAL 0.4 MG/DL (0.1-1.0)
[2021-06-30] MEDS: fentaNYL DRIP PRE-MIX 250 ML IV SCH (04:31)
[2021-06-30 04:32] LABS: PHOSPHORUS 3.3 MG/DL (2.3-4.7)
[2021-06-30 04:33] LABS: CREATININE SERUM 0.52 MG/DL (0.60-1.30)
[2021-06-30 04:36] LABS: MAGNESIUM 2.4 MG/DL (1.6-2.4)
[2021-06-30] MEDS: POTASSIUM CL 10MEQ/50ML IVPB 50 ML IV SCH (04:47)
[2021-06-30] MEDS: MAGNESIUM 1 GM/100 ML IVPB 100 ML IV SCH (04:47)
[2021-06-30] MEDS: KCL 20 MEQ TAB (K-DUR) PO SCH (04:47)
[2021-06-30] MEDS: methylPREDNISolone 40 MG/ML (Solu-MEDROL) VIAL IV SCH ×2 (05:08→19:53)
[2021-06-30] MEDS: AZTREONAM INJECTION 2,000 MG in NS (IVPB) 100 ML IV SCH ×3 (05:08→21:44)
[2021-06-30 06:41] VITALS: BP 187/104
--- NOTE | 2021-06-30 06:54 | Occ Therapy Progress Note ---
Therapy Progress Note OT orders received. Pt is currently intubated. OT will continue to monitor pt status and initiate treatment when pt is medically stable and able to actively participate in skilled therapy. KIRK ZIMMERMAN Jun 30, 2021 06:54
--- NOTE | 2021-06-30 07:52 | Physical Therapy Progress Note ---
Therapy Progress Note Order for PT evaluation received. Patient is currently intubated and sedated. Will monitor patient and start when appropriate. KAYLEIGH BAIRES PT Jun 30, 2021 07:52
--- NOTE | 2021-06-30 08:31 | Cardiology Progress Note ---
Subjective Date Seen by Provider: Jun 30, 2021 Time Seen by Provider: 08:30 Subjective/Events-last exam Patient is sedated, ventilator dependent Review of Systems General: Other (Unable to provide review of system) Focused Exam Time of Focused Exam: 19:00 Objective-Cardiology Exam Last Set of Vital Signs Vital Signs 06/30/21 06/30/21 06/30/21 06/30/21 06:00 06:41 07:00 07:54 Temp 35.4 Pulse 67 Resp 18 B/P (MAP) 176/101 Pulse Ox 95 O2 Delivery Mechanical Ventilator O2 Flow Rate 55.00 FiO2 50 I&O Intake and Output 06/30/21 00:00 Intake Total 1312.5 ml Output Total 6275 ml Balance -4962.5 ml Intake Oral 0 ml IV Total 1312.5 ml Output Urine Total 6275 ml General: Other (Sedated and intubated) HEENT: Atraumatic Neck: Supple, No JVD Lungs: Other Heart: Regular Rate, No Murmurs, Other Abdomen: Normal Bowel Sounds, Soft Extremities: No Clubbing, No Cyanosis, No Edema Skin: No Rashes, No Breakdown Neuro: Other (Sedated and intubated) Psych/Mental Status: Other (Sedated and intubated) Results Lab Laboratory Tests 06/30/21 03:55 A/P-Cardiology Admission Diagnosis Sinus bradycardia Acute respiratory failure Seizure Pneumonia Assessment/Plan Sinus bradycardia, episodes of short nonsustained ventricular tachycardia up to 6 beats. Probably secondary to respiratory failure and hypoxemia. Underlying coronary artery disease cannot be excluded. EKG did not show any acute ischemic changes, troponin 3 sets were negative. Continue to monitor heart rate at this point. No changes are recommended 2D echo done on June 27, 2021, difficult study. Normal left ventricular size, EF 65 to 70%, trivial aortic regurgitation, normal pulmonary artery pr essure of 20 to 25 mmHg. Acute respiratory failure, intubated, sedated, managed by medical team Seizure disorder, has questionable multiple mini seizure activities associated with being flushed and anxious followed by agitation. Could be secondary to hypoxemia. I recommend neurology evaluation. Managed by primary care team Acute exacerbation of COPD, respiratory failure. Elevated D-dimer, CT angio of the chest showed no evidence of pulmonary embolism, she has history of PE in the past. Pneumonia, right lower lobe, receiving antibiotics. Hypertension, had episodes of severe hypertension last night, she was started on hydralazine IV. I will start low-dose beta-eli and monitor her heart rate and blood pressure response Obesity, BMI 41. Tobaccoism. LISA CASIANO MD Jun 30, 2021 08:30
[2021-06-30] MEDS: PANTOPRAZOLE 40 MG (PROTONIX) VIAL IV SCH (08:35)
[2021-06-30] MEDS: LEVETIRACETAM IV SCH ×2 (08:35→19:53)
[2021-06-30] MEDS: ENOXAPARIN 40 MG/0.4 ML (LOVENOX) SYR SC SCH (08:35)
[2021-06-30] MEDS: NS IV SCH ×2 (08:35→19:53)
[2021-06-30] MEDS: hydrALAZINE (APESOLINE) 20 MG/ML VIAL IV PRN (09:26)
--- NOTE | 2021-06-30 09:50 | Tele-ICU Progress Note ---
Subjective Date Seen by a Provider: Jun 30, 2021 Time Seen by a Provider: 09:50 Sepsis Event Evaluation Height, Weight, BMI Height: '" Weight: lbs. oz. kg; 38.37 BMI Method: Focused Exam Time of Focused Exam: 19:00 Exam Exam Patient acknowledged, consented, and participated in this virtual visit which was conducted using real time audio/video Vital Signs Date Time Temp Pulse Resp B/P (MAP) Pulse Ox O2 Delivery O2 Flow Rate FiO2 06/30/21 09:15 67 19 193/108 Mechanical Ventilator 55.00 06/30/21 09:00 192/111 06/30/21 08:45 69 19 203/116 94 Mechanical Ventilator 55.00 06/30/21 08:30 64 17 185/109 Mechanical Ventilator 55.00 06/30/21 08:15 64 17 185/104 94 Mechanical Ventilator 55.00 06/30/21 08:00 64 17 185/104 Mechanical Ventilator 55.00 06/30/21 07:54 35.4 06/30/21 07:45 63 17 180/104 Mechanical Ventilator 55.00 06/30/21 07:30 66 18 181/101 94 Mechanical Ventilator 55.00 06/30/21 07:15 66 18 185/104 94 Mechanical Ventilator 55.00 06/30/21 07:00 67 17 187/107 Mechanical Ventilator 55.00 06/30/21 07:00 67 06/30/21 06:41 65 18 95 50 06/30/21 06:00 68 17 176/101 95 Mechanical Ventilator 55.00 06/30/21 05:00 71 17 161/97 95 Mechanical Ventilator 55.00 06/30/21 04:00 96 Mechanical Ventilator 55 06/30/21 04:00 76 17 153/95 95 Mechanical Ventilator 55.00 06/30/21 03:35 77 158/96 06/30/21 03:00 77 17 158/96 94 Mechanical Ventilator 55.00 06/30/21 02:25 76 18 94 50 06/30/21 02:00 77 17 157/95 94 Mechanical Ventilator 55.00 06/30/21 01:00 83 06/30/21 01:00 83 17 144/91 94 Mechanical Ventilator 55.00 06/30/21 00:25 80 18 146/90 06/30/21 00:00 86 17 141/88 92 Mechanical Ventilator 55.00 06/30/21 00:00 93 Mechanical Ventilator 55 06/29/21 23:26 Mechanical Ventilator 55.00 06/29/21 23:00 83 18 146/91 90 Mechanical Ventilator 50.00 06/29/21 22:43 80 18 90 50 06/29/21 22:00 80 18 141/88 91 Mechanical Ventilator 50.00 06/29/21 21:39 72 181/99 06/29/21 21:00 79 17 144/87 93 Mechanical Ventilator 50.00 06/29/21 20:01 36.2 72 18 181/99 94 Mechanical Ventilator 50.00 06/29/21 20:00 94 Mechanical Ventilator 50 06/29/21 19:36 36.1 06/29/21 19:16 65 18 93 50 06/29/21 19:01 67 17 172/97 06/29/21 19:00 66 06/29/21 19:00 66 18 178/98 93 Mechanical Ventilator 50.00 06/29/21 18:00 67 17 172/97 94 Mechanical Ventilator 50.00 06/29/21 17:45 66 18 171/97 94 06/29/21 17:30 70 17 167/94 93 06/29/21 17:15 72 18 169/92 93 06/29/21 17:00 73 17 163/93 93 Mechanical Ventilator 50.00 06/29/21 16:45 74 17 161/92 92 06/29/21 16:30 76 17 160/89 92 06/29/21 16:15 79 17 157/90 92 06/29/21 16:00 18 154/88 92 Mechanical Ventilator 50.00 06/29/21 16:00 36.4 06/29/21 15:45 82 17 146/86 92 06/29/21 15:30 14 145/86 92 06/29/21 15:24 84 139/82 06/29/21 15:23 92 Mechanical Ventilator 50 06/29/21 15:15 84 18 139/82 92 06/29/21 15:00 81 18 140/85 92 Mechanical Ventilator 50.00 06/29/21 14:57 Mechanical Ventilator 50.00 06/29/21 14:51 80 18 92 40 06/29/21 14:45 80 17 138/86 92 06/29/21 14:30 81 18 138/82 92 06/29/21 14:15 82 17 137/82 92 06/29/21 14:00 81 18 140/84 92 Mechanical Ventilator 40.00 06/29/21 13:45 74 18 158/94 92 06/29/21 13:40 67 17 178/98 93 06/29/21 13:30 60 17 197/105 94 06/29/21 13:15 192/105 94 06/29/21 13:00 61 17 190/103 94 Mechanical Ventilator 40.00 06/29/21 12:45 63 17 192/104 93 06/29/21 12:43 63 06/29/21 12:30 62 17 194/102 93 06/29/21 12:15 63 18 191/104 94 06/29/21 12:00 63 17 189/101 94 Mechanical Ventilator 40.00 06/29/21 11:45 61 17 187/99 94 06/29/21 11:30 61 17 185/101 94 06/29/21 11:23 92 Mechanical Ventilator 50 06/29/21 11:20 36.3 06/29/21 11:15 63 18 182/100 92 06/29/21 11:00 65 180/97 Mechanical Ventilator 40.00 06/29/21 10:58 Mechanical Ventilator 40.00 06/29/21 10:45 65 179/102 06/29/21 10:30 66 17 179/97 06/29/21 10:15 73 18 187/105 06/29/21 10:00 68 18 170/95 95 Mechanical Ventilator 65.00 I & O 06/30/21 07:00 Intake Total 2762.5 ml Output Total 7675 ml Balance -4912.5 ml Height & Weight Height: '" Weight: lbs. oz. kg; 38.37 BMI Method: General Appearance: No Apparent Distress, WD/WN, Chronically ill HEENT: Normal ENT Inspection Neck: Normal Inspection Respiratory: Lungs Clear, Normal Breath Sounds Cardiovascular: Regular Rate, Rhythm Capillary Refill: Less Than 3 Seconds Peripheral Pulses: 2+ Dorsalis Pedis (R), 2+ Left Dors-Pedis (L), 2+ Radial Pulses (R), 2+ Radial Pulses (L) Gastrointestinal: normal bowel sounds, soft Extremity: Normal Inspection, No Pedal Edema Neurologic/Psychiatric: Alert, Oriented x3, No Motor/Sensory Deficits, Normal Mood/Affect Skin: Normal Color, Warm/Dry Results Lab Laboratory Tests 06/29/21 03:40 06/30/21 03:55 Assessment/Plan Assessment/Plan (Tele-ICU Physician , Progress Note ) Available chart/ vitals / labs / Images reviewed Video assessment done using teleICU camera, rest of exam as per RN Discussed with RN , EXAM PER RN Events overnight : Afebrile FiO2 - 55% I/O = NEG 4L Drips: Pressors: , hemodynamically stable Sedation gtt: ( RASS ) - 3 propofol almost off , precedex 1.5 , fentanyl , ativan gtt VENT SETTINGS and ABG reviewed Not candidate for SBT today REVIEWED Cardiovascular Stability / Sedation Score / FI02/PEEP / ABG / CXR Consultants: yvonne Hospital course: 06/24 - to ER with SOB - INTUBATED for ARF / wheezing ( also watson sz - were controlled with keppra 06/28 - failed SBT 40% - changed tp precedex / ativan gtt 06/29 - weaning off propofol, on fentanyl gtt , ativn gtt 06/30 -AC 18 450 + 5 55% PAP 27 A/P Acute respiratory failure with bronchospam , PNA , no PE on CT -Intubated 06/24 in ER with progresive wheezing and ?WOB -AC 18 450 + 5 55% PAP 27 -Full vent support ATTEMPTS to wean sedation down - precedex 1.2 . off ativan gtt and fentanyl gtt As per RN - toungue is " swollwn " - need to monotor Seizure ( with sz dz) - in er had multiple brief seizures lasting less than 1 minute- resolved after load of Keppra - NO CLINICAL SIGNS of SZ on vent - cont Kepra , depakote - ( as per notes - did nt take [employer] for some time ) Encephalopathy - CTH neg 06/23 - no meneingeal symptoms as per RN exam AECOPD - steroids to cut down - 40 q 8 h - PAP 27 , ++ wheezing reported by RN - nebs , ++ secretions PNA - presented with SOB for weeks , productive cough - COVID-19 and influenza swabs were negative - started on Merrem 06/24- - new FEVER 06/29 - recultured . empiric Aztreonam strted -some type of esophageal issue for which she has seen an ENT recently in [facility] - cx blood neg 06/24, urine beg 06/24 - Merrem 06/24- , 06/29 - recultured . empiric Aztreonam strted - sputum cx - 06/28 - negative - firm abdomen - neg lipase, KUB reviewed - no meningeal symptoms - Dental hygiene poor Abd distention - no BS - KUB with suspected ileus Hyperglycemia - on steroids , start ISS H/o PE 2018 - off AC now - CTA 06/24 - no PE Sinus bradycardia ( also on precedex) = as per cards - monitor -ECHO 06/27/21- EF 65 to 70%, RVSP 20 Nutritions - will try TF at 10 cc - considr TPN if not tolearating - not fed since History of polysubstance abuse - positive for cannabinoids CT with lung nodular densities bilaterally, which are likely secondary to the infection but neoplasm is not excluded, - to follow as outpt as per PCP Obesity, BMI 41 Lines : PICC 06/27 right (Central Line Necessity Reviewed) Carias: 06/24 O/23 Nutrition: to strt Analgesia: Anxiety/ dlirium VTE Prophylaxis: best 40 Stress Ulcer Prophylaxis: ppi Glycemic Control: iss Plans in collaboration with bedside consultants and IM MDs. Discussed with RN to reach out if any questions or concerns A total of 45 minutes of critical care time was devoted to this patient today, required to treat and/or prevent further deterioration of critical care condition ( as above ) . PETR NYE MD Jun 30, 2021 09:50
[2021-06-30] MEDS: PROPOFOL DRIP (ICU) 100 ML IV SCH ×2 (09:52→18:02)
[2021-06-30 10:05] VITALS: BP 140/90
--- NOTE | 2021-06-30 11:42 | Progress Note - Hospitalist ---
MORENOJOHN Danielle 06/30/21 1141: Subjective HPI/CC On Admission Date Seen by Provider: Jun 30, 2021 Time Seen by Provider: 08:26 Subjective/Events-last exam Ms. Vernon is still intubated and sedated this morning. Nursing staff reported that sedation was stopped at 0500 this morning but patient was still unresponsive during round. Nursing also reported she had 4 L of urine overnight which is a greater than normal amount for her. Her WBC is trending down today at 13.0. ROS and further history was unobtainable d/t patient status. Focused Exam Time of Focused Exam: 19:00 Objective Exam Vital Signs Vital Signs Date Time Temp Pulse Resp B/P (MAP) Pulse Ox O2 Delivery O2 Flow Rate FiO2 06/30/21 10:58 85 136/91 06/30/21 10:05 18 94 55 06/30/21 09:15 Mechanical Ventilator 55.00 06/30/21 07:54 35.4 Capillary Refill : Less Than 3 Seconds General Appearance: No Apparent Distress, Obese Respiratory: No Accessory Muscle Use, No Respiratory Distress, Wheezing (Slight wheezes anteriorly. Patient on ventilator.) Cardiovascular: Regular Rate, Rhythm Gastrointestinal: Abnormal Bowel Sounds (Decreased) Skin: Normal Color, Warm/Dry Results/Procedures Lab Laboratory Tests 06/30/21 03:55 Patient resulted labs reviewed. Assessment/Plan Assessment and Plan Assess & Plan/Chief Complaint Assessment Acute respiratory failure - On ventilator Episodes of V. tach - Consulting cardiology Seizure disorder - Maintained on levetiracetam Abdominal distention - Holding tube feeds - Initiating metoclopramide Sepsis Pneumonia Plan Ventilator management Cardiology consult IV aztreonam IV levetiracetam Metoclopramide Hold tube feedings Clinical Quality Measures Urinary Catheter-Non SCIP Pts: Reason for Catheter Continuanc: Ventilator JULIANNA ROWLAND DO 07/01/21 0558: Subjective Subjective/Events-last exam Pt remains intubated 4 liters of urinary output noted Weaning trial off sedation since 5:00 and no arousing Hypertension is still noted at 176/101 WC is down to 13 ABG show pH of 7.44 Objective Exam General Appearance: No Apparent Distress, Chronically ill, Obese, Other (Intubated and sedated) Respiratory: Lungs Clear, Normal Breath Sounds Cardiovascular: Regular Rate, Rhythm Assessment/Plan Assessment and Plan Assess & Plan/Chief Complaint Vent management Monitor closely Supervisory-Addendum Brief Verification & Attestation Participated in pt care: history, MDM, physical Personally performed: exam, history, MDM, supervision of care Care discussed with: Medical Student Procedures: n/a Results interpretation: Verified all documentation Verification and Attestation of Medical Student E/M Service A medical student performed and documented this service in my presence. I reviewed and verified all information documented by the medical student and made modifications to such information, when appropriate. I personally performed the physical exam and medical decision making. Julianna Rowland, Jul 01, 2021,05:57 JOHN MAYER Jun 30, 2021 11:41 JULIANNA ROWLAND DO Jul 01, 2021 05:58
[2021-06-30] MEDS: NOREPINEPHRINE 8 MG/250 ML 250 ML IV SCH (12:13)
[2021-06-30 14:14] VITALS: BP 135/93
[2021-06-30 17:58] VITALS: BP 143/98
[2021-06-30] MEDS: DIVALPROX SPRINKLE 125 MG (DEPAKOTE) CAP PO SCH (19:53)
[2021-06-30 21:06] VITALS: BP 166/100
[2021-06-30] MEDS: LORazepam INJ 2 MG/ML (ATIVAN) VIAL IVP PRN (22:08)
[2021-07-01] MEDS: meTOprolol 5 MG/5 ML (LOPRESSOR) VIAL IV SCH ×5 (00:42→23:04)
[2021-07-01] MEDS: METOCLOPRAMIDE INJ 10 MG/2 ML (REGLAN) IVP SCH ×5 (00:42→23:04)
[2021-07-01] MEDS: VASOPRESSIN INJECTION 20 UNIT in NS (IVPB) 100 ML IV SCH ×3 (00:43→21:04)
[2021-07-01 02:04] VITALS: BP 170/105
[2021-07-01] MEDS: RT-ALBUTEROL/IPRATROPIUM 3 ML (DUONEB) VIAL INH SCH ×6 (02:04→21:19)
[2021-07-01] MEDS: DexMEDEtomidine 250 ML DRIP 250 ML IV SCH ×4 (02:16→21:53)
[2021-07-01] MEDS: LACTATED RINGERS 1,000 ML IV SCH ×5 (02:17→23:03)
[2021-07-01] MEDS: inSUlin ASPART (NovoLOG) 1 UNIT/0.01 ML (CHARGE PER UNIT) SC SCH ×4 (02:17→17:53)
[2021-07-01] MEDS: NOREPINEPHRINE 8 MG/250 ML 250 ML IV SCH ×2 (02:17→14:20)
[2021-07-01] MEDS: hydrALAZINE (APESOLINE) 20 MG/ML VIAL IV PRN ×2 (03:06→20:29)
[2021-07-01 06:03] LABS: BASOPHILS % (AUTO) 0 % (0-10); EOSINOPHILS % (AUTO) 0 % (0-10); HEMATOCRIT 44 % (35-52); HEMOGLOBIN 14.4 g/dL (11.5-16.0); LYMPHOCYTES # (AUTO) 0.8 10^3/uL (1.0-4.0); LYMPHOCYTES % (AUTO) 7 % (12-44); MEAN CORPUSCULAR HEMOGLOBIN 29 pg (25-34); MEAN CORPUSCULAR HGB CONC 33 g/dL (32-36); MEAN CORPUSCULAR VOLUME 88 fL (80-99); MEAN PLATELET VOLUME 10.2 fL (9.0-12.2); MONOCYTES # (AUTO) 0.6 10^3/uL (0.0-1.0); MONOCYTES % (AUTO) 5 % (0-12); NEUTROPHILS # (AUTO) 9.5 10^3/uL (1.8-7.8); NEUTROPHILS % (AUTO) 85 % (42-75); PLATELET COUNT 293 10^3/uL (130-400); WHITE BLOOD COUNT 11.1 10^3/uL (4.3-11.0)
[2021-07-01 06:18] LABS: ALBUMIN 2.5 GM/DL (3.2-4.5); POTASSIUM 3.6 MMOL/L (3.6-5.0)
[2021-07-01 06:20] LABS: CALCIUM 7.1 MG/DL (8.5-10.1)
[2021-07-01 06:20] LABS: ABG BASE EXCESS 3.4 MMOL/L (-2.5-2.5); ABG OXYGEN SATURATION 97 % (94-100); ABG PCO2 34 MMHG (35-45); ABG PO2 93 MMHG (79-93); ABG TCO2 27.9 MMOL/L (21.0-31.0)
[2021-07-01 06:21] LABS: TOTAL PROTEIN 4.8 GM/DL (6.4-8.2)
[2021-07-01 06:21] LABS: ALLENS TEST YES-POS; INSPIRED O2 50%; PATIENT TEMP 36.1; VENTILATOR YES
[2021-07-01 06:22] LABS: LYMPHOCYTES % (MANUAL) 5 %; MONOCYTES % (MANUAL) 3 %; NEUTROPHILS % (MANUAL) 92 %
[2021-07-01 06:23] LABS: BILIRUBIN,TOTAL 0.5 MG/DL (0.1-1.0); RBC MORPH NORMAL
[2021-07-01 06:24] LABS: PHOSPHORUS 2.9 MG/DL (2.3-4.7)
[2021-07-01 06:25] LABS: CREATININE SERUM 0.43 MG/DL (0.60-1.30)
[2021-07-01] MEDS: KCL 20 MEQ TAB (K-DUR) PO SCH (06:25)
[2021-07-01 06:26] VITALS: BP 138/93
[2021-07-01 06:27] LABS: MAGNESIUM 1.9 MG/DL (1.6-2.4)
[2021-07-01] MEDS: AZTREONAM INJECTION 2,000 MG in NS (IVPB) 100 ML IV SCH ×3 (06:32→23:05)
[2021-07-01] MEDS: MAGNESIUM 1 GM/100 ML IVPB 100 ML IV SCH (06:35)
[2021-07-01] MEDS: POTASSIUM CL 10MEQ/50ML IVPB 50 ML IV SCH ×3 (06:35→08:59)
--- NOTE | 2021-07-01 06:44 | Occ Therapy Progress Note ---
Therapy Progress Note Pt is currently intubated. OT will continue to monitor pt status and initiate treatment when pt is medically stable and able to actively participate in skilled therapy. KIRK ZIMMERMAN Jul 01, 2021 06:44
--- NOTE | 2021-07-01 07:31 | Physical Therapy Progress Note ---
Therapy Progress Note Order for PT evaluation received. Patient is currently intubated and sedated. Will monitor patient and start when appropriate. RACHEL STEIN PT Jul 01, 2021 07:31
[2021-07-01] MEDS: methylPREDNISolone 40 MG/ML (Solu-MEDROL) VIAL IV SCH ×2 (08:59→20:57)
[2021-07-01] MEDS: ENOXAPARIN 40 MG/0.4 ML (LOVENOX) SYR SC SCH (08:59)
[2021-07-01] MEDS: PANTOPRAZOLE 40 MG (PROTONIX) VIAL IV SCH (08:59)
[2021-07-01] MEDS: LEVETIRACETAM IV SCH ×2 (09:05→20:59)
[2021-07-01] MEDS: NS IV SCH ×2 (09:05→20:59)
[2021-07-01 10:11] VITALS: BP 139/99
--- NOTE | 2021-07-01 10:37 | Cardiology Progress Note ---
Subjective Date Seen by Provider: Jul 01, 2021 Time Seen by Provider: 10:36 Subjective/Events-last exam Patient was seen at bedside, sedated and intubated, failed weaning Review of Systems General: Other (sedated and intubated) Focused Exam Time of Focused Exam: 19:00 Objective-Cardiology Exam Last Set of Vital Signs Vital Signs 07/01/21 07/01/21 07/01/21 07/01/21 08:00 08:30 09:05 10:11 Temp 35.9 Pulse 71 Resp 18 B/P (MAP) 127/100 Pulse Ox 96 O2 Delivery Mechanical Ventilator O2 Flow Rate 45.00 FiO2 45 I&O Intake and Output 07/01/21 00:00 Intake Total 2177.5 ml Output Total 6900 ml Balance -4722.5 ml Intake Oral 0 ml IV Total 2012.5 ml Tube Feeding 40 ml Other 125 ml Output Urine Total 6900 ml General: Other (Sedated and intubated) HEENT: Atraumatic Neck: Supple, No JVD Lungs: Other Heart: Regular Rate, No Murmurs, Other Abdomen: Normal Bowel Sounds, Soft Extremities: No Clubbing, No Cyanosis, No Edema Skin: No Rashes, No Breakdown Neuro: Other (Sedated and intubated) Psych/Mental Status: Other (Sedated and intubated) Results Lab Laboratory Tests 07/01/21 05:52 A/P-Cardiology Admission Diagnosis Sinus bradycardia Acute respiratory failure Seizure Pneumonia Assessment/Plan Sinus bradycardia, episodes of short nonsustained ventricular tachycardia up to 6 beats. Probably secondary to respiratory failure and hypoxemia. Underlying c oronary artery disease cannot be excluded. EKG did not show any acute ischemic changes, troponin 3 sets were negative. Continue to monitor heart rate at this point. No changes are recommended 2D echo done on June 27, 2021, difficult study. Normal left ventricular size, EF 65 to 70%, trivial aortic regurgitation, normal pulmonary artery pressure of 20 to 25 mmHg. Acute respiratory failure, intubated, sedated, managed by medical team Seizure disorder, has questionable multiple mini seizure activities associated with being flushed and anxious followed by agitation. Could be secondary to hypoxemia. I recommend neurology evaluation. Managed by primary care team Acute exacerbation of COPD, respiratory failure. Elevated D-dimer, CT angio of the chest showed no evidence of pulmonary embolism, she has history of PE in the past. Pneumonia, right lower lobe, receiving antibiotics. Hypertension, had episodes of severe hypertension last night, she was started on hydralazine IV. I will start low-dose beta-eli and monitor her heart rate and blood pressure response Obesity, BMI 41. Tobaccoism. LISA CASIANO MD Jul 01, 2021 10:37
--- NOTE | 2021-07-01 12:32 | Progress Note - Hospitalist ---
JOHN MAYER 07/01/21 1232: Subjective HPI/CC On Admission Date Seen by Provider: Jul 01, 2021 Time Seen by Provider: 07:49 Subjective/Events-last exam Ms. Vernon is still intubated and sedated this morning. Nursing staff reported that sedation was stopped at 0600 this morning but patient was still unresponsive during rounds. ROS and further history was unable to be obtained d/t patient status. Working on transfer to [facility] in [place], [place]. Focused Exam Time of Focused Exam: 19:00 Objective Exam Vital Signs Vital Signs Date Time Temp Pulse Resp B/P (MAP) Pulse Ox O2 Delivery O2 Flow Rate FiO2 07/01/21 11:20 35.9 07/01/21 10:11 71 18 96 45 07/01/21 09:05 127/100 07/01/21 08:30 Mechanical Ventilator 45.00 Capillary Refill : Less Than 3 Seconds General Appearance: No Apparent Distress, Chronically ill, Obese Respiratory: Chest Non Tender, Lungs Clear, Normal Breath Sounds (Ventilator), No Accessory Muscle Use, No Respiratory Distress Cardiovascular: Regular Rate, Rhythm, No Murmur, Normal Peripheral Pulses Neurologic/Psychiatric: No Alert (Intubated and sedated), No Oriented x3 Skin: Normal Color, Other (Hirsutism) Results/Procedures Lab Laboratory Tests 07/01/21 05:52 Patient resulted labs reviewed. Assessment/Plan Assessment and Plan Assess & Plan/Chief Complaint Assessment Acute respiratory failure - On ventilator Episodes of V. tach - Consulting cardiology Seizure disorder - Maintained on levetiracetam Abdominal distention - Tube feeding being done today Sepsis Pneumonia Plan Ventilator management Cardiology consult IV aztreonam IV levetiracetam Metoclopramide Tube feeding today Possible transfer to [facility] Clinical Quality Measures Urinary Catheter-Non SCIP Pts: Reason for Catheter Continuanc: Ventilator JULIANNA ROWLAND DO 07/02/21 0608: Subjective Subjective/Events-last exam Pt remains intubated Sedation off this morning, still no purposeful movements BP is stable, much improved [facility] discussed with at the bedside Tube feeding going at 20 mLs per hour Review of Systems General: Fatigue, Malaise Objective Exam General Appearance: No Apparent Distress, WD/WN, Chronically ill, Obese, Other (Sedated and intubated) Respiratory: No Accessory Muscle Use, No Respiratory Distress, Decreased Breath Sounds Cardiovascular: Regular Rate, Rhythm Assessment/Plan Assessment and Plan Assess & Plan/Chief Complaint [facility] referral Tube feedings Vent management appreciated Supervisory-Addendum Brief Verification & Attestation Participated in pt care: history, MDM, physical Personally performed: exam, history, MDM, supervision of care Care discussed with: Medical Student Procedures: n/a Results interpretation: Verified all documentation Verification and Attestation of Medical Student E/M Service A medical student performed and documented this service in my presence. I reviewed and verified all information documented by the medical student and made modifications to such information, when appropriate. I personally performed the physical exam and medical decision making. Julianna Rowland Jul 02, 2021,06:07 JOHN MAYER Jul 01, 2021 12:32 JULIANNA ROWLAND DO Jul 02, 2021 06:08
[2021-07-01 14:48] VITALS: BP 134/103
--- NOTE | 2021-07-01 18:05 | Tele-ICU Progress Note ---
Subjective Date Seen by a Provider: Jul 01, 2021 Time Seen by a Provider: 09:12 Sepsis Event Evaluation Height, Weight, BMI Height: '" Weight: lbs. oz. kg; 38.37 BMI Method: Focused Exam Time of Focused Exam: 19:00 Exam Exam Patient acknowledged, consented, and participated in this virtual visit which was conducted using real time audio/video Vital Signs Date Time Temp Pulse Resp B/P (MAP) Pulse Ox O2 Delivery O2 Flow Rate FiO2 07/01/21 16:15 77 18 153/91 Mechanical Ventilator 07/01/21 16:15 77 18 153/91 Mechanical Ventilator 40.00 07/01/21 16:00 78 19 148/91 94 07/01/21 16:00 78 19 148/91 94 Mechanical Ventilator 40.00 07/01/21 16:00 95 Mechanical Ventilator 40 07/01/21 16:00 36.3 07/01/21 15:50 79 20 152/91 Mechanical Ventilator 07/01/21 15:46 79 07/01/21 15:45 79 19 Mechanical Ventilator 07/01/21 15:30 84 21 Mechanical Ventilator 40.00 07/01/21 15:15 85 21 Mechanical Ventilator 40.00 07/01/21 15:00 82 22 Mechanical Ventilator 40.00 07/01/21 14:48 77 20 93 40 07/01/21 14:45 74 19 134/103 Mechanical Ventilator 40.00 07/01/21 14:30 71 17 139/105 Mechanical Ventilator 40.00 07/01/21 14:15 145/107 07/01/21 14:00 Mechanical Ventilator 40.00 07/01/21 14:00 74 19 149/112 95 07/01/21 13:45 72 19 145/105 95 Mechanical Ventilator 45.00 07/01/21 13:30 74 20 138/103 07/01/21 13:15 68 18 145/103 07/01/21 13:00 71 18 146/104 95 Mechanical Ventilator 45.00 07/01/21 13:00 69 07/01/21 13:00 Mechanical Ventilator 40.00 07/01/21 12:45 68 18 144/107 07/01/21 12:30 68 17 152/110 07/01/21 12:15 72 19 157/111 07/01/21 12:00 95 Mechanical Ventilator 40 07/01/21 12:00 Mechanical Ventilator 40.00 07/01/21 12:00 73 19 156/111 94 Mechanical Ventilator 45.00 07/01/21 11:45 76 19 146/105 Mechanical Ventilator 45.00 07/01/21 11:30 71 18 138/101 Mechanical Ventilator 45.00 07/01/21 11:20 35.9 07/01/21 11:15 73 17 142/103 93 Mechanical Ventilator 45.00 07/01/21 11:00 73 17 146/106 93 Mechanical Ventilator 45.00 07/01/21 11:00 40.00 07/01/21 10:45 78 19 141/105 92 Mechanical Ventilator 45.00 07/01/21 10:30 134/93 07/01/21 10:15 76 33 139/99 07/01/21 10:11 71 18 96 45 07/01/21 10:00 67 17 152/110 97 Mechanical Ventilator 45.00 07/01/21 09:45 70 18 07/01/21 09:30 73 17 07/01/21 09:15 71 18 Mechanical Ventilator 45.00 07/01/21 09:05 71 127/100 07/01/21 09:00 73 17 96 Mechanical Ventilator 45.00 07/01/21 08:45 71 17 140/97 07/01/21 08:30 72 16 135/99 96 Mechanical Ventilator 45.00 07/01/21 08:15 73 17 135/94 Mechanical Ventilator 45.00 07/01/21 08:00 35.9 07/01/21 08:00 74 18 127/94 96 Mechanical Ventilator 45.00 07/01/21 08:00 95 Mechanical Ventilator 45 07/01/21 07:45 75 17 121/91 Mechanical Ventilator 45.00 07/01/21 07:30 75 18 124/96 Mechanical Ventilator 45.00 07/01/21 07:15 129/89 07/01/21 07:04 76 17 97 Mechanical Ventilator 45.00 07/01/21 07:00 76 17 131/93 07/01/21 07:00 75 07/01/21 06:26 76 18 96 50 07/01/21 06:00 78 17 131/90 96 Mechanical Ventilator 50.00 07/01/21 05:00 82 18 115/81 97 Mechanical Ventilator 50.00 07/01/21 04:00 94 Mechanical Ventilator 60 07/01/21 04:00 89 22 98/66 95 Mechanical Ventilator 50.00 07/01/21 04:00 36.1 Mechanical Ventilator 50.00 07/01/21 03:00 80 18 177/107 94 Mechanical Ventilator 55.00 07/01/21 02:18 94 Mechanical Ventilator 55.00 07/01/21 02:16 84 161/102 07/01/21 02:04 83 19 94 55 07/01/21 02:00 82 19 170/105 94 Mechanical Ventilator 60.00 07/01/21 01:00 86 20 155/99 94 Mechanical Ventilator 60.00 07/01/21 01:00 86 07/01/21 00:00 94 Mechanical Ventilator 60 07/01/21 00:00 88 20 149/93 94 Mechanical Ventilator 60.00 07/01/21 00:00 35.8 06/30/21 23:03 87 148/94 06/30/21 23:00 87 21 148/94 91 Mechanical Ventilator 60.00 06/30/21 22:55 86 20 91 Mechanical Ventilator 60.00 06/30/21 22:00 83 22 170/97 91 Mechanical Ventilator 50.00 06/30/21 21:06 79 18 95 50 06/30/21 21:00 80 18 166/100 95 Mechanical Ventilator 50.00 06/30/21 20:30 94 Mechanical Ventilator 50.00 06/30/21 20:00 84 18 147/97 96 Mechanical Ventilator 55.00 06/30/21 20:00 35.9 06/30/21 19:51 86 128/85 06/30/21 19:45 94 Mechanical Ventilator 55 06/30/21 19:00 86 06/30/21 19:00 86 21 136/87 87 Mechanical Ventilator 55.00 06/30/21 18:15 85 21 129/90 I & O 07/01/21 07:00 Intake Total 1307.5 ml Output Total 5200 ml Balance -3892.5 ml Height & Weight Height: '" Weight: lbs. oz. kg; 38.37 BMI Method: General Appearance: No Apparent Distress, Chronically ill, Obese HEENT: Normal ENT Inspection Neck: Normal Inspection Respiratory: Chest Non Tender, Lungs Clear, Normal Breath Sounds (Ventilator), No Accessory Muscle Use, No Respiratory Distress Cardiovascular: Regular Rate, Rhythm, No Murmur, Normal Peripheral Pulses Capillary Refill: Less Than 3 Seconds Peripheral Pulses: 2+ Dorsalis Pedis (R), 2+ Left Dors-Pedis (L), 2+ Radial Pulses (R), 2+ Radial Pulses (L) Gastrointestinal: normal bowel sounds, soft Extremity: Normal Inspection, No Pedal Edema Neurologic/Psychiatric: No Alert (Intubated and sedated), No Oriented x3 Skin: Normal Color, Other (Hirsutism) Results Lab Laboratory Tests 06/30/21 03:55 07/01/21 05:52 Assessment/Plan Assessment/Plan (Tele-ICU Physician , Progress Note ) Available chart/ vitals / labs / Images reviewed Video assessment done using teleICU camera, rest of exam as per RN Discussed with RN , EXAM PER RN Events overnight : Afebrile FiO2 - 55% I/O = NEG 4L Drips: Pressors: , hemodynamically stable Sedation gtt: ( RASS ) - 3 propofol almost off , precedex 1.5 , fentanyl , ativan gtt VENT SETTINGS and ABG reviewed Not candidate for SBT today REVIEWED Cardiovascular Stability / Sedation Score / FI02/PEEP / ABG / CXR Consultants: yvonne Hospital course: 06/24 - to ER with SOB - INTUBATED for ARF / wheezing ( also watson sz - were controlled with keppra 06/28 - failed SBT 40% - changed tp precedex / ativan gtt 06/29 - weaning off propofol, on fentanyl gtt , ativn gtt 06/30 -AC 18 450 + 5 50% PAP 27- precedex 1.5 fent 50 - not follow commands ( ? hr/ rr with weaninf down 07/01 - 50% A/P Acute respiratory failure with bronchospam , PNA , no PE on CT -Intubated 06/24 in ER with progresive wheezing and ?WOB -AC 18 450 + 5 50% PAP 22 -Full vent suppor ATTEMPTS to wean sedation down - precedex 1.2 . off ativan gtt , back to fentanyl gtt with ? HR and RR As per RN - toungue is " swollwn " - need to monotor CANDIDATE FOR SBT IF MENTAL STTUS BETTER - BUT WILL NOT BE EXTUBATED WITH ENLARGED TOUNGUE ( ? 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 empiric Aztreonam strted - FEVER SUBSIDED< SPUTUM CX NEGTIVE _ CONSIDER D/C ABX ON JULY 03 -some type of esophageal issue for which she has seen an ENT recently in [place] FEVER, subsided - cx blood neg 06/24, urine beg 06/24 - Merrem 06/24- , 06/29 - recultured . empiric Aztreonam strted - sputum cx - 06/28 - negative - firm abdomen - neg lipase, KUB reviewed - no meningeal symptoms - Dental hygiene poor Abd distention - no BS - KUB with suspected ileus - startd TF Hyperglycemia - on steroids , start ISS H/o PE 2018 - off AC now - CTA 06/24 - no PE Sinus bradycardia ( also on precedex) = as per cards - monitor -ECHO 06/27/21- EF 65 to 70%, RVSP 20 Nutritions - will try TF at 10 cc - considr TPN if not tolearating - not fed since History of polysubstance abuse - positive for cannabinoids CT with lung nodular densities bilaterally, which are likely secondary to the infection but neoplasm is not excluded, - to follow as outpt as per PCP Obesity, BMI 41 Lines : PICC 06/27 right (Central Line Necessity Reviewed) Carias: 06/24 O/23 Nutrition: to strt Analgesia: Anxiety/ dlirium VTE Prophylaxis: best 40 Stress Ulcer Prophylaxis: ppi Glycemic Control: iss Plans in collaboration with bedside consultants and IM MDs. Discussed with RN to reach out if any questions or concerns A total of 45 minutes of critical care time was devoted to this patient today, required to treat and/or prevent further deterioration of critical care condition ( as above ) . PETR NYE MD Jul 01, 2021 18:05
[2021-07-01 18:39] VITALS: BP 200/109
[2021-07-01] MEDS: DIVALPROX SPRINKLE 125 MG (DEPAKOTE) CAP PO SCH (20:57)
[2021-07-01 21:19] VITALS: BP 121/82
[2021-07-01] MEDS: LORazepam INJ 2 MG/ML (ATIVAN) VIAL IVP PRN (23:04)
[2021-07-02] MEDS: RT-ALBUTEROL/IPRATROPIUM 3 ML (DUONEB) VIAL INH SCH ×6 (02:42→22:05)
[2021-07-02 02:43] VITALS: BP 131/83
[2021-07-02 05:33] LABS: ABG BASE EXCESS 1.5 MMOL/L (-2.5-2.5); ABG OXYGEN SATURATION 96 % (94-100); ABG PCO2 32 MMHG (35-45); ABG PO2 81 MMHG (79-93); ABG TCO2 25.4 MMOL/L (21.0-31.0)
[2021-07-02 05:34] LABS: BASOPHILS % (AUTO) 0 % (0-10); EOSINOPHILS % (AUTO) 0 % (0-10); HEMATOCRIT 47 % (35-52); HEMOGLOBIN 15.3 g/dL (11.5-16.0); LYMPHOCYTES # (AUTO) 1.2 10^3/uL (1.0-4.0); LYMPHOCYTES % (AUTO) 9 % (12-44); MEAN CORPUSCULAR HEMOGLOBIN 28 pg (25-34); MEAN CORPUSCULAR HGB CONC 32 g/dL (32-36); MEAN CORPUSCULAR VOLUME 87 fL (80-99); MEAN PLATELET VOLUME 10.6 fL (9.0-12.2); MONOCYTES # (AUTO) 1.1 10^3/uL (0.0-1.0); MONOCYTES % (AUTO) 8 % (0-12); NEUTROPHILS # (AUTO) 10.8 10^3/uL (1.8-7.8); NEUTROPHILS % (AUTO) 81 % (42-75); PLATELET COUNT 361 10^3/uL (130-400); WHITE BLOOD COUNT 13.3 10^3/uL (4.3-11.0)
[2021-07-02 05:37] LABS: ALLENS TEST YES-POS; INSPIRED O2 40%; PATIENT TEMP 37.3; VENTILATOR YES
[2021-07-02] MEDS: inSUlin ASPART (NovoLOG) 1 UNIT/0.01 ML (CHARGE PER UNIT) SC SCH ×5 (05:38→23:15)
[2021-07-02] MEDS: NOREPINEPHRINE 8 MG/250 ML 250 ML IV SCH ×2 (05:39→15:22)
[2021-07-02 05:47] LABS: ALBUMIN 2.9 GM/DL (3.2-4.5); POTASSIUM 4.2 MMOL/L (3.6-5.0)
[2021-07-02 05:48] LABS: CALCIUM 8.4 MG/DL (8.5-10.1)
[2021-07-02 05:49] LABS: TOTAL PROTEIN 5.7 GM/DL (6.4-8.2)
[2021-07-02 05:51] LABS: BILIRUBIN,TOTAL 0.6 MG/DL (0.1-1.0)
[2021-07-02 05:52] LABS: PHOSPHORUS 3.3 MG/DL (2.3-4.7)
[2021-07-02] MEDS: KCL 20 MEQ TAB (K-DUR) PO SCH (05:52)
[2021-07-02] MEDS: POTASSIUM CL 10MEQ/50ML IVPB 50 ML IV SCH (05:52)
[2021-07-02 05:53] LABS: CREATININE SERUM 0.49 MG/DL (0.60-1.30)
[2021-07-02 05:56] LABS: MAGNESIUM 2.3 MG/DL (1.6-2.4)
[2021-07-02] MEDS: METOCLOPRAMIDE INJ 10 MG/2 ML (REGLAN) IVP SCH ×4 (06:15→23:15)
[2021-07-02] MEDS: MAGNESIUM 1 GM/100 ML IVPB 100 ML IV SCH (06:15)
[2021-07-02] MEDS: AZTREONAM INJECTION 2,000 MG in NS (IVPB) 100 ML IV SCH ×3 (06:15→22:22)
[2021-07-02] MEDS: meTOprolol 5 MG/5 ML (LOPRESSOR) VIAL IV SCH ×5 (06:15→23:15)
--- NOTE | 2021-07-02 06:45 | Occ Therapy Progress Note ---
Therapy Progress Note Pt is currently intubated. OT will continue to monitor pt status and initiate treatment when pt is medically stable and able to actively participate in skilled therapy. KIRK ZIMMERMAN Jul 02, 2021 06:45
[2021-07-02 07:09] VITALS: BP 122/74
--- NOTE | 2021-07-02 07:54 | Physical Therapy Progress Note ---
Therapy Progress Note Patient currently intubated and sedated. Will monitor and start when appropriate. KAYLEIGH BAIRES PT Jul 02, 2021 07:54
[2021-07-02 08:10] VITALS: BP 154/96
[2021-07-02] MEDS: DexMEDEtomidine 250 ML DRIP 250 ML IV SCH (08:15)
[2021-07-02] MEDS: VASOPRESSIN INJECTION 20 UNIT in NS (IVPB) 100 ML IV SCH ×2 (08:17→19:30)
[2021-07-02] MEDS: PANTOPRAZOLE 40 MG (PROTONIX) VIAL IV SCH (08:18)
[2021-07-02] MEDS: ENOXAPARIN 40 MG/0.4 ML (LOVENOX) SYR SC SCH (08:18)
[2021-07-02] MEDS: methylPREDNISolone 40 MG/ML (Solu-MEDROL) VIAL IV SCH ×2 (08:18→19:56)
--- NOTE | 2021-07-02 08:36 | Tele-ICU Progress Note ---
Subjective Date Seen by a Provider: Jul 02, 2021 Time Seen by a Provider: 07:45 Subjective/Events-last exam This virtual visit was conducted using real time audio/video. Thank you for asking us to see this patient for respiratory insufficiency due to AECOPD, pna, sepsis, seizures. Recent events: FiO2 down to 35% PE: Obese. Comfortable, following commands. VSS. O2 sat 96% on 35%/+5 HEENT: No obvious masses, adenopathy or JVD. Chest: Dimished CV: RRR S1 S2 No murmur or added sounds. Abd: Non-tender. Bowel sounds Y. : Unremarkable. Carias Y. 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 No obvious focal findings. Extremities: No edema. Capillary refill < 3 seconds. Skin: unremarkable. Results: Elevated WCC 13.3. Decreased Alb 2.9. B.5/32/81. CXR: No. Available chart/ vitals / labs / images reviewed. Video assessment done using teleICU camera, rest of exam as per RN. A/P: Respiratory insufficiency: Continue present management with Duonebs. SBT today. Monitor for increasing oxygenation needs if extubated. Critical Care: critically ill patient. Cont. PPI, Keppra, empiric Axtreonam, Depakote, Keri., SSI. Discussed with RN RAY. Asked RN to reach out to eICU if any questions or concerns later. Time spent with patient/coordination of care with other health professionals (mins): 20. Sepsis Event Evaluation Height, Weight, BMI Height: '" Weight: lbs. oz. kg; 38.37 BMI Method: Focused Exam Time of Focused Exam: 19:00 Exam Exam Patient acknowledged, consented, and participated in this virtual visit which was conducted using real time audio/video Vital Signs Date Time Temp Pulse Resp B/P (MAP) Pulse Ox O2 Delivery O2 Flow Rate FiO2 07/02/21 08:15 137 134/96 07/02/21 08:10 137 35 96 35 07/02/21 07:47 37.3 07/02/21 07:09 118 25 95 35 07/02/21 06:00 109 21 125/80 96 Mechanical Ventilator 40.00 07/02/21 05:19 95 Mechanical Ventilator 35.00 07/02/21 05:00 81 21 121/80 96 Mechanical Ventilator 40.00 07/02/21 04:00 80 23 145/90 96 Mechanical Ventilator 40.00 07/02/21 04:00 37.3 07/02/21 04:00 95 Mechanical Ventilator 40 07/02/21 03:00 82 22 134/83 96 Mechanical Ventilator 40.00 07/02/21 02:43 81 26 95 40 07/02/21 02:00 80 23 129/77 94 Mechanical Ventilator 40.00 07/02/21 01:00 80 22 132/81 94 Mechanical Ventilator 40.00 07/02/21 01:00 70 07/02/21 00:00 81 23 124/77 93 Mechanical Ventilator 40.00 07/02/21 00:00 95 Mechanical Ventilator 40 07/01/21 23:00 95 27 148/90 94 Mechanical Ventilator 40.00 07/01/21 22:00 80 18 143/87 94 Mechanical Ventilator 40.00 07/01/21 21:53 80 138/88 07/01/21 21:19 82 21 94 40 07/01/21 21:00 82 23 133/86 95 Mechanical Ventilator 40.00 07/01/21 20:00 77 18 193/111 95 Mechanical Ventilator 40.00 07/01/21 20:00 95 Mechanical Ventilator 40 07/01/21 19:46 36.7 07/01/21 19:00 78 07/01/21 19:00 78 19 165/101 95 Mechanical Ventilator 40.00 07/01/21 18:39 68 18 96 40 07/01/21 18:15 71 17 198/113 Mechanical Ventilator 40.00 07/01/21 18:00 73 18 /114 Mechanical Ventilator 40.00 07/01/21 17:45 75 21 Mechanical Ventilator 40.00 07/01/21 17:30 75 20 Mechanical Ventilator 40.00 07/01/21 17:15 76 19 Mechanical Ventilator 40.00 07/01/21 17:00 77 20 166/97 Mechanical Ventilator 40.00 07/01/21 16:45 72 18 164/94 Mechanical Ventilator 40.00 07/01/21 16:30 73 18 157/91 Mechanical Ventilator 40.00 07/01/21 16:15 77 18 153/91 Mechanical Ventilator 07/01/21 16:15 77 18 153/91 Mechanical Ventilator 40.00 07/01/21 16:00 78 19 148/91 94 07/01/21 16:00 78 19 148/91 94 Mechanical Ventilator 40.00 07/01/21 16:00 95 Mechanical Ventilator 40 07/01/21 16:00 36.3 07/01/21 15:50 79 20 152/91 Mechanical Ventilator 07/01/21 15:46 79 07/01/21 15:45 79 19 Mechanical Ventilator 07/01/21 15:30 84 21 Mechanical Ventilator 40.00 07/01/21 15:15 85 21 Mechanical Ventilator 40.00 07/01/21 15:00 82 22 Mechanical Ventilator 40.00 07/01/21 14:48 77 20 93 40 07/01/21 14:45 74 19 134/103 Mechanical Ventilator 40.00 07/01/21 14:30 71 17 139/105 Mechanical Ventilator 40.00 07/01/21 14:15 145/107 07/01/21 14:00 Mechanical Ventilator 40.00 07/01/21 14:00 74 19 149/112 95 07/01/21 13:45 72 19 145/105 95 Mechanical Ventilator 45.00 07/01/21 13:30 74 20 138/103 07/01/21 13:15 68 18 145/103 07/01/21 13:00 71 18 146/104 95 Mechanical Ventilator 45.00 07/01/21 13:00 69 07/01/21 13:00 Mechanical Ventilator 40.00 07/01/21 12:45 68 18 144/107 07/01/21 12:30 68 17 152/110 07/01/21 12:15 72 19 157/111 07/01/21 12:00 95 Mechanical Ventilator 40 07/01/21 12:00 Mechanical Ventilator 40.00 07/01/21 12:00 73 19 156/111 94 Mechanical Ventilator 45.00 07/01/21 11:45 76 19 146/105 Mechanical Ventilator 45.00 07/01/21 11:30 71 18 138/101 Mechanical Ventilator 45.00 07/01/21 11:20 35.9 07/01/21 11:15 73 17 142/103 93 Mechanical Ventilator 45.00 07/01/21 11:00 73 17 146/106 93 Mechanical Ventilator 45.00 07/01/21 11:00 40.00 07/01/21 10:45 78 19 141/105 92 Mechanical Ventilator 45.00 07/01/21 10:30 134/93 07/01/21 10:15 76 33 139/99 07/01/21 10:11 71 18 96 45 07/01/21 10:00 67 17 152/110 97 Mechanical Ventilator 45.00 07/01/21 09:45 70 18 07/01/21 09:30 73 17 07/01/21 09:15 71 18 Mechanical Ventilator 45.00 07/01/21 09:05 71 127/100 07/01/21 09:00 73 17 96 Mechanical Ventilator 45.00 07/01/21 08:45 71 17 140/97 07/01/21 08:30 72 16 135/99 96 Mechanical Ventilator 45.00 I & O 07/02/21 07:00 Intake Total 4125.0 ml Output Total 6350 ml Balance -2225.0 ml Height & Weight Height: '" Weight: lbs. oz. kg; 38.37 BMI Method: General Appearance: No Apparent Distress, WD/WN, Chronically ill, Obese, Other (Sedated and intubated) HEENT: Normal ENT Inspection Neck: Normal Inspection Respiratory: No Accessory Muscle Use, No Respiratory Distress, Decreased Breath Sounds Cardiovascular: Regular Rate, Rhythm Capillary Refill: Less Than 3 Seconds Peripheral Pulses: 2+ Dorsalis Pedis (R), 2+ Left Dors-Pedis (L), 2+ Radial Pulses (R), 2+ Radial Pulses (L) Gastrointestinal: normal bowel sounds, soft Extremity: Normal Inspection, No Pedal Edema Neurologic/Psychiatric: No Alert (Intubated and sedated), No Oriented x3 Skin: Normal Color, Other (Hirsutism) Results Lab Laboratory Tests 07/01/21 05:52 07/02/21 05:16 Assessment/Plan Assessment/Plan See free text. Critical Care: Ventilator Management JCARLOS YOUNG MD Jul 02, 2021 08:36
[2021-07-02 08:51] LABS: ABG BASE EXCESS 1.1 MMOL/L (-2.5-2.5); ABG OXYGEN SATURATION 95 % (94-100); ABG PCO2 33 MMHG (35-45); ABG PH 7.48 (7.37-7.43); ABG PO2 82 MMHG (79-93); ABG TCO2 25.4 MMOL/L (21.0-31.0)
[2021-07-02 08:52] LABS: ALLENS TEST YES-POS; INSPIRED O2 35%
[2021-07-02 08:53] LABS: PATIENT TEMP 37.1; VENTILATOR YES
[2021-07-02 09:21] VITALS: BP 185/115
[2021-07-02] MEDS: LEVETIRACETAM IV SCH ×2 (09:52→19:56)
[2021-07-02] MEDS: NS IV SCH ×2 (09:52→19:56)
--- NOTE | 2021-07-02 09:54 | Progress Note - Hospitalist ---
Subjective HPI/CC On Admission Date Seen by Provider: Jul 02, 2021 Time Seen by Provider: 09:45 Subjective/Events-last exam Pt is extubated ABG is 7.48/33/82 May very well require re-intubation at the bedside Checked meds and labs Heart rate is 134 unsure if that can be sustained - she may have to be re- intubated Review of Systems General: Fatigue Focused Exam Time of Focused Exam: 19:00 Objective Exam Vital Signs Vital Signs Date Time Temp Pulse Resp B/P (MAP) Pulse Ox O2 Delivery O2 Flow Rate FiO2 07/03/21 04:17 37.0 94 Nasal Cannula 3.00 07/03/21 03:00 129 27 157/94 07/02/21 19:45 25 Capillary Refill : Less Than 3 Seconds General Appearance: No Apparent Distress, WD/WN, Chronically ill Respiratory: No Accessory Muscle Use, No Respiratory Distress, Decreased Breath Sounds Cardiovascular: Tachycardia Neurologic/Psychiatric: Alert, Oriented x3, No Motor/Sensory Deficits, Normal Mood/Affect Results/Procedures Lab Laboratory Tests 07/02/21 05:16 Patient resulted labs reviewed. Assessment/Plan Assessment and Plan Assess & Plan/Chief Complaint Assessment Acute respiratory failure -Now extubated Episodes of V. tach - Consulting cardiology Seizure disorder - Maintained on levetiracetam Sepsis Pneumonia Plan: Possible [place] if reintubated Proceed on with recovery Critical Care Ventilator Management Clinical Quality Measures Urinary Catheter-Non SCIP Pts: Reason for Catheter Continuanc: Ventilator MARY BELL DO Jul 02, 2021 09:54
[2021-07-02] MEDS: LACTATED RINGERS 1,000 ML IV SCH ×2 (11:07→15:02)
[2021-07-02] MEDS: hydrALAZINE (APESOLINE) 20 MG/ML VIAL IV PRN ×3 (11:11→21:55)
--- NOTE | 2021-07-02 12:25 | Cardiology Progress Note ---
Subjective Date Seen by Provider: Jul 02, 2021 Time Seen by Provider: 12:23 Subjective/Events-last exam Patient is extubated, on oxygen last. Still lethargic. No chest pain. Review of Systems General: No Chills, No Night Sweats; Fatigue, Malaise; No Appetite, No Other HEENT: No Head Aches, No Visual Changes, No Eye Pain, No Ear Pain, No Dysphasia, No Sinus Congestion, No Post Nasal Drip, No Sore Throat, No Other Pulmonary: Dyspnea; No Cough, No Pleuritic Chest Pain, No Other Cardiovascular: No: Chest Pain, Palpitations, Orthopnea, Paroxysmal Noc. Dyspnea, Edema, Lt Headedness, Other Focused Exam Time of Focused Exam: 19:00 Objective-Cardiology Exam Last Set of Vital Signs Vital Signs 07/02/21 07/02/21 07/02/21 07/02/21 07/02/21 08:10 08:45 09:00 09:21 12:00 Temp 36.6 Pulse 134 Resp 31 B/P (MAP) 174/99 Pulse Ox 94 O2 Delivery NIV Bilevel O2 Flow Rate 25.00 FiO2 35 I&O Intake and Output 07/02/21 00:00 Intake Total 4255.0 ml Output Total 5650 ml Balance -1395.0 ml Intake Oral 0 ml IV Total 3225.0 ml Tube Feeding 280 ml Other 750 ml Output Urine Total 5650 ml General: Alert, Cooperative, Moderate Distress HEENT: Atraumatic Neck: Supple, No JVD Lungs: Other Heart: Normal S1, Normal S2, No Murmurs, Other (Tachycardia) Abdomen: Normal Bowel Sounds, Soft Extremities: No Clubbing, No Cyanosis, No Edema Skin: No Rashes, No Breakdown Psych/Mental Status: Mental Status NL Results Lab Laboratory Tests 07/02/21 05:16 A/P-Cardiology Admission Diagnosis Sinus bradycardia Acute respiratory failure Seizure Pneumonia Assessment/Plan Sinus bradycardia, episodes of short nonsustained ventricular tachycardia up to 6 beats. Probably secondary to respiratory failure and hypoxemia. Underlying coronary artery disease cannot be excluded. EKG did not show any acute ischemic changes, troponin 3 sets were negative. Currently in sinus tachycardia after extubation, continue to monitor heart rate, continue on beta-blockers as needed. Extubated on July 02, 2021, maintained on BiPAP at this time. Continue to monitor 2D echo done on June 27, 2021, difficult study. Normal left ventricular si ze, EF 65 to 70%, trivial aortic regurgitation, normal pulmonary artery pressure of 20 to 25 mmHg. Acute respiratory failure, extubated this morning. managed by medical team Seizure disorder, has questionable multiple mini seizure activities associated with being flushed and anxious followed by agitation. Could be secondary to hypoxemia, managed by medical team Acute exacerbation of COPD, respiratory failure. Elevated D-dimer, CT angio of the chest showed no evidence of pulmonary embolism, she has history of PE in the past. Pneumonia, right lower lobe, receiving antibiotics. Hypertension, had episodes of severe hypertension last night, she was started on hydralazine IV. I will start low-dose beta-eli and monitor her heart rate and blood pressure response Obesity, BMI 41. Tobaccoism. LISA CASIANO MD Jul 02, 2021 12:25
[2021-07-02 14:48] VITALS: BP 191/110
--- NOTE | 2021-07-02 15:28 | Pulmonary Progress Note ---
Subjective Time Seen by a Provider: 13:30 Subjective/Events-last exam The patient is extubated and on BiPAP. She is nonverbal and not oriented to person, place, or time. She denies any pain at this time. Exam Exam Patient acknowledged, consented, and participated in this virtual visit which was conducted using real time audio/video Vital Signs Date Time Temp Pulse Resp B/P (MAP) Pulse Ox O2 Delivery O2 Flow Rate FiO2 07/02/21 14:48 130 32 96 25.00 07/02/21 13:45 133 24 181/120 NIV Bilevel 25.00 07/02/21 13:30 126 32 187/110 NIV Bilevel 25.00 07/02/21 13:15 122 32 168/97 NIV Bilevel 25.00 07/02/21 13:00 118 07/02/21 13:00 123 43 175/113 NIV Bilevel 25.00 07/02/21 12:00 95 NIV Bilevel 25 07/02/21 12:00 36.6 07/02/21 11:45 130 30 167/98 95 NIV Bilevel 25.00 07/02/21 11:30 128 31 160/99 95 NIV Bilevel 25.00 07/02/21 11:15 120 29 152/101 07/02/21 11:04 126 23 181/106 93 NIV Bilevel 25.00 07/02/21 11:01 133 22 07/02/21 11:00 131 43 NIV Bilevel 25.00 07/02/21 10:30 129 35 07/02/21 10:15 128 28 197/118 95 NIV Bilevel 25.00 07/02/21 10:00 125 28 196/109 NIV Bilevel 25.00 07/02/21 09:30 134 28 NIV Bilevel 25.00 07/02/21 09:23 185/115 07/02/21 09:21 134 31 94 25.00 07/02/21 09:00 NIV Bilevel 25.00 07/02/21 09:00 134 29 155/101 07/02/21 08:45 134 32 174/99 Mechanical Ventilator 40.00 07/02/21 08:30 138 37 Mechanical Ventilator 40.00 07/02/21 08:15 137 34 Mechanical Ventilator 40.00 07/02/21 08:15 137 134/96 07/02/21 08:10 137 35 96 35 07/02/21 08:00 134 25 154/96 96 Mechanical Ventilator 40.00 07/02/21 08:00 95 Mechanical Ventilator 35 07/02/21 07:47 37.3 07/02/21 07:45 134 30 166/98 99 Mechanical Ventilator 40.00 07/02/21 07:30 130 28 165/95 96 Mechanical Ventilator 40.00 07/02/21 07:15 118 24 95 Mechanical Ventilator 40.00 07/02/21 07:09 118 25 95 35 07/02/21 07:00 106 24 122/74 95 Mechanical Ventilator 40.00 07/02/21 07:00 130 07/02/21 06:00 109 21 125/80 96 Mechanical Ventilator 40.00 07/02/21 05:19 95 Mechanical Ventilator 35.00 07/02/21 05:00 81 21 121/80 96 Mechanical Ventilator 40.00 07/02/21 04:00 80 23 145/90 96 Mechanical Ventilator 40.00 07/02/21 04:00 37.3 07/02/21 04:00 95 Mechanical Ventilator 40 07/02/21 03:00 82 22 134/83 96 Mechanical Ventilator 40.00 07/02/21 02:43 81 26 95 40 07/02/21 02:00 80 23 129/77 94 Mechanical Ventilator 40.00 07/02/21 01:00 80 22 132/81 94 Mechanical Ventilator 40.00 07/02/21 01:00 70 07/02/21 00:00 81 23 124/77 93 Mechanical Ventilator 40.00 07/02/21 00:00 95 Mechanical Ventilator 40 07/01/21 23:00 95 27 148/90 94 Mechanical Ventilator 40.00 07/01/21 22:00 80 18 143/87 94 Mechanical Ventilator 40.00 07/01/21 21:53 80 138/88 07/01/21 21:19 82 21 94 40 07/01/21 21:00 82 23 133/86 95 Mechanical Ventilator 40.00 07/01/21 20:00 77 18 193/111 95 Mechanical Ventilator 40.00 07/01/21 20:00 95 Mechanical Ventilator 40 07/01/21 19:46 36.7 07/01/21 19:00 78 07/01/21 19:00 78 19 165/101 95 Mechanical Ventilator 40.00 07/01/21 18:39 68 18 96 40 07/01/21 18:15 71 17 198/113 Mechanical Ventilator 40.00 07/01/21 18:00 73 18 /114 Mechanical Ventilator 40.00 07/01/21 17:45 75 21 Mechanical Ventilator 40.00 07/01/21 17:30 75 20 Mechanical Ventilator 40.00 07/01/21 17:15 76 19 Mechanical Ventilator 40.00 07/01/21 17:00 77 20 166/97 Mechanical Ventilator 40.00 07/01/21 16:45 72 18 164/94 Mechanical Ventilator 40.00 07/01/21 16:30 73 18 157/91 Mechanical Ventilator 40.00 07/01/21 16:15 77 18 153/91 Mechanical Ventilator 07/01/21 16:15 77 18 153/91 Mechanical Ventilator 40.00 07/01/21 16:00 78 19 148/91 94 07/01/21 16:00 78 19 148/91 94 Mechanical Ventilator 40.00 07/01/21 16:00 95 Mechanical Ventilator 40 07/01/21 16:00 36.3 07/01/21 15:50 79 20 152/91 Mechanical Ventilator 07/01/21 15:46 79 07/01/21 15:45 79 19 Mechanical Ventilator 07/01/21 15:30 84 21 Mechanical Ventilator 40.00 07/01/21 15:15 85 21 Mechanical Ventilator 40.00 I & O 07/02/21 07:00 Intake Total 4125.0 ml Output Total 6350 ml Balance -2225.0 ml Height & Weight Height: '" Weight: lbs. oz. kg; 38.37 BMI Method: General Appearance: No Apparent Distress, WD/WN, Chronically ill, Obese, Other (Sedated and intubated) HEENT: Normal ENT Inspection Neck: Normal Inspection Respiratory: No Accessory Muscle Use, No Respiratory Distress, Decreased Breath Sounds Cardiovascular: Regular Rate, Rhythm Capillary Refill: Less Than 3 Seconds Peripheral Pulses: 2+ Dorsalis Pedis (R), 2+ Left Dors-Pedis (L), 2+ Radial Pulses (R), 2+ Radial Pulses (L) Gastrointestinal: normal bowel sounds, soft Extremity: Normal Inspection, No Pedal Edema Neurologic/Psychiatric: No Alert (Intubated and sedated), No Oriented x3 Skin: Normal Color, Other (Hirsutism) Results Lab Laboratory Tests 07/01/21 05:52 12/1/21 05:16 Assessment/Plan Assessment/Plan 55 year old F with AECOPD, sepsis, and bilateral pneumonia Neuro (& Psych): * Slow to respond and not oriented to person, place, or time. * Continue Keppra for Hx of seizures Endocrine: * SSI Cardiovascular: * Hypertensive on 3 pressors Pulm / Resp: * Patient extubated and currently on BiPAP, saturating well Gastrointestinal: * PPI Genitourinary: * Carias in place Hematologic: * Lovenox DVT ppx Infectious Disease: * Continue Aztreonam Musculoskeletal Dermatology: FEN: * Tube feeding Critical Care: Critically Ill Patient BORIS EDMOND Jul 02, 2021 15:28
[2021-07-02] MEDS ORDERED: meTOprolol 5 MG/5 ML (LOPRESSOR) VIAL ONE (16:27)
[2021-07-02] MEDS: DIVALPROX SPRINKLE 125 MG (DEPAKOTE) CAP PO SCH (19:56)
[2021-07-02] MEDS ORDERED: morphine INJ 10 MG/ML 1ML (SYR OR VIAL) IVP STA (20:47)
[2021-07-02] MEDS: LORazepam INJ 2 MG/ML (ATIVAN) VIAL IVP PRN (22:40)
[2021-07-03] MEDS ORDERED: niCARdipine IV FOR DRIP 50 MG KIT ONE (00:42)
[2021-07-03] MEDS ORDERED: NS (IVPB) 250 ML ONE (00:44)
[2021-07-03] MEDS: niCARdipine IV 50 MG in NS (IVPB) 230 ML IV SCH ×4 (00:50→20:22)
[2021-07-03] MEDS: LACTATED RINGERS 1,000 ML IV SCH ×4 (01:19→21:53)
[2021-07-03] MEDS: RT-ALBUTEROL/IPRATROPIUM 3 ML (DUONEB) VIAL INH SCH ×6 (02:50→22:13)
[2021-07-03 05:18] LABS: BASOPHILS % (AUTO) 0 % (0-10); EOSINOPHILS % (AUTO) 0 % (0-10); HEMATOCRIT 48 % (35-52); HEMOGLOBIN 15.5 g/dL (11.5-16.0); LYMPHOCYTES # (AUTO) 1.8 10^3/uL (1.0-4.0); LYMPHOCYTES % (AUTO) 9 % (12-44); MEAN CORPUSCULAR HEMOGLOBIN 28 pg (25-34); MEAN CORPUSCULAR HGB CONC 32 g/dL (32-36); MEAN CORPUSCULAR VOLUME 88 fL (80-99); MEAN PLATELET VOLUME 10.8 fL (9.0-12.2); MONOCYTES # (AUTO) 2.3 10^3/uL (0.0-1.0); MONOCYTES % (AUTO) 11 % (0-12); NEUTROPHILS # (AUTO) 16.2 10^3/uL (1.8-7.8); NEUTROPHILS % (AUTO) 79 % (42-75); PLATELET COUNT 457 10^3/uL (130-400); WHITE BLOOD COUNT 20.6 10^3/uL (4.3-11.0)
[2021-07-03 05:25] LABS: ALBUMIN 3.3 GM/DL (3.2-4.5)
[2021-07-03 05:26] LABS: POTASSIUM 3.2 MMOL/L (3.6-5.0)
[2021-07-03 05:27] LABS: CALCIUM 8.1 MG/DL (8.5-10.1)
[2021-07-03 05:28] LABS: TOTAL PROTEIN 6.4 GM/DL (6.4-8.2)
[2021-07-03 05:31] LABS: PHOSPHORUS 2.6 MG/DL (2.3-4.7)
[2021-07-03 05:32] LABS: CREATININE SERUM 0.51 MG/DL (0.60-1.30)
[2021-07-03] MEDS: meTOprolol 5 MG/5 ML (LOPRESSOR) VIAL IV SCH ×6 (05:33→20:20)
[2021-07-03] MEDS: LORazepam INJ 2 MG/ML (ATIVAN) VIAL IVP PRN (05:33)
[2021-07-03] MEDS: AZTREONAM INJECTION 2,000 MG in NS (IVPB) 100 ML IV SCH ×3 (05:33→21:47)
[2021-07-03] MEDS: inSUlin ASPART (NovoLOG) 1 UNIT/0.01 ML (CHARGE PER UNIT) SC SCH ×3 (05:58→18:02)
[2021-07-03] MEDS: KCL 20 MEQ TAB (K-DUR) PO SCH (05:58)
[2021-07-03] MEDS: MAGNESIUM 1 GM/100 ML IVPB 100 ML IV SCH (05:58)
[2021-07-03] MEDS: METOCLOPRAMIDE INJ 10 MG/2 ML (REGLAN) IVP SCH (05:58)
[2021-07-03] MEDS: POTASSIUM CL 10MEQ/50ML IVPB 50 ML IV SCH ×5 (06:51→09:54)
[2021-07-03] MEDS: VASOPRESSIN INJECTION 20 UNIT in NS (IVPB) 100 ML IV SCH ×2 (06:52→17:58)
--- NOTE | 2021-07-03 07:31 | Physician Query Clarification ---
PQ-Uncertain Diagnosis Admission/Discharge Admission Date: Jun 24, 2021 at 20:20 Discharge Date: Dr. Rowland, The medical record reflects the following clinical scenario: History/Risk Factors: pneumonia, acute respiratory failure, COPDAE, seizure disorder Clinical Findings: WBC 13.9, T 36.6, P 125, R 20, Lactic acid 1.35 Treatment: IV Cefepime, IV Meropenem Question: Is sepsis a clinically valid diagnosis? Sepsis was documented in the ER record with no further documentation in the medical record. Please document a response in Progress Note or Discharge Summary. 1. Yes, clinically valid, condition resolved. 2. No, condition ruled out. 3. Other, with explanation of clinical findings. 4. Undetermined, no explanation for clinical findings. PHYSICIAN RESPONSE Diagnosis clinically valid: Yes, Conditon resolved Please remember a lack of response to the above will prompt a phone page by CDI/Coding staff. In responding to this query, please exercise your independent professional judgment. The purpose of this communication is to more accurately reflect the complexity of your patients condition. The fact that a question is asked does not imply that any particular answer is desired or expected. Thank you for your timely response to this clarification. Requestors name: Graeme THIS PHYSICIAN QUERY FORM IS A PERMANENT PART OF THE MEDICAL RECORD GRAEME WILSON Jul 03, 2021 07:31 MARY ROWLAND DO Jul 03, 2021 21:10
[2021-07-03] MEDS: NOREPINEPHRINE 8 MG/250 ML 250 ML IV SCH ×2 (07:52→20:19)
--- NOTE | 2021-07-03 08:29 | ST Dysphagia Evaluation ---
Speech Evaluation-General Medical Diagnosis COPD, Dysphagia, Seizures Onset Date: Jun 24, 2021 Therapy Diagnosis Therapy Diagnosis: Oropharyngeal Dysphagia Precautions Precautions: Aspiration Referral Referring Physician: Dr. Perla Medical History Pertinent Medical History: COPD, Smoking Reviewed History: Yes Social History Current Living Status: Spouse Speech PLF/Current-Dysphagia Prior Level of Function Patient lives with her . He assists by her with her daily needs due to multiple health diagnosis. Subjective Patient was cooperative with the Bedside Dysphagia Evaluation. She verbally communicates appropriately with y/n. Oral Motor Skills Dentition: Natural, Tumbled, Stained Ability to Follow Directions: Good Patient is NPO pending BDE. Oral Expression Ability: Severe Impairment Voice Voice Phonatory-Based Quality: Breathy, Hoarse, Weak Voice Pitch: Mildly Low Voice Loudness: Moderately Soft/Quiet Face Facial Symmetry: Symmetrical Oral-Facial Assessment Oral-Facial Dentition: Normal Labial Seal Description: Reduced ROM, Weak Lingual Protrusion: Abnormal Lingual ROM: Abnormal Lingual Strength: Abnormal Pharynx Velopharyngeal Move.: Normal Volitional Dry Swallow: No Voluntary Cough: Yes Can Clear Throat Volitionally: Yes Difficult for patient Productive Cough: Yes Dysphagia Evaluation Consistencies Presented: Thin Liquid, Flora Thick Liquid, Pureed Oral Phase: Unable to Suck Straw Oral stasis with puree, required sip of nectar to clear. Swallow onset is delayed with all consistencies. Pharyngeal Phase: Decreased A/P Bolus Transit, Delayed Swallow Funct. Velo/Pharyngeal Symptom: Cough After Swallow with thin liquids Dietary Recommendations: Pureed Liquid Recommendations: Flora Consistancy Swallowing Precautions: Alternate Liquids/Solids, Double Swallow, Decreased Bolus 1/4 Tsp, Decreased Rate of Oral Intake, Liquids from Spoon, No Straw, Oral Supervision Staff, Oral Supervision Caregiver, Small Bites and Sips, Sitting Upright 90 Degrees, Sitting 90 Degrees 30 Post Intake Dysphagia Evaluation Summary Patient is a 55 y/o female who was admitted to ICU via ED due to seizures and SOB. Patient has stress induced seizure per 's report. Patient was intubated initially and was extubated this date. She was referred for BDE upon extubation. Patient is noted to be very weak. She communicates appropriately with y/n. Vocal quality is very poor and strained. Patient was cooperative with the BDE. She was presented with a 1/2 tsp thin with significant delay of swallow onset. She choked after swallow with coughing. She was able to clear. She was presented straw for liquids which she was too weak to utilize. The patient was provided 1/2 tsp of nectar consistency which she swallowed after a delay in onset. She did not choke/cough on the nectar consistency. She was given 1/2 tsp of puree which she swallowed, however she did exhibit oral stasis. Another 1/2 of nectar consistency was presented with oral clearing. The patient is recommended for nectar consistency and Dysphagia I diet as tolerated. She will require total assistance with all oral intake and compensatory strategies to be utilized 100%. Patient will receive services for diet/intake continued assessment for least restrictive diet level. This information was communicated with her nurse, Ne. Barriers to Learning Patient's medical status Speech Short Term Goals Short Term Goals Short Term Goals 1) Patient will tolerate least restrictive diet level with 75% or greater. 2) Patient/caregiver will utilize compensatory strategies as trained with 100% for safe intake. Speech Telephone Sterilizer Goals [facility] Goals Patient will maintain adequate nutrition/hydration via safe effective swallow function. Speech-Plan Patient/Family Goals Patient/Family Goals: Patient plans on returning to her home where she lives with her . Treatment Plan Speech Therapy Treatment Plan: Continue Plan of Care Treatment Duration: Jul 17, 2021 Frequency: 3 times per week Estimated Hrs Per Day: .25 hour per day Rehab Potential: Fair Barriers to Learning: Patient's medical status Pt/Family Agrees to Plan: Yes Safety Risks/Education Teaching Recipient: Patient Teaching Methods: Discussion Response to Teaching: Verbalize Understanding Education Topics Provided: Diet level, compensatory strategies for safe intake Time Speech Therapy Time In: 08:05 Speech Therapy Time Out: 08:25 Total Billed Time: 20 Billed Treatment Time 1, DYSEVS, DYST CICI Mchugh Jul 03, 2021 08:29
[2021-07-03] MEDS: ENOXAPARIN 40 MG/0.4 ML (LOVENOX) SYR SC SCH (09:34)
[2021-07-03] MEDS: PANTOPRAZOLE 40 MG (PROTONIX) VIAL IV SCH (09:35)
[2021-07-03] MEDS: NS IV SCH ×2 (09:35→20:20)
[2021-07-03] MEDS: methylPREDNISolone 40 MG/ML (Solu-MEDROL) VIAL IV SCH ×2 (09:35→20:20)
[2021-07-03] MEDS: LEVETIRACETAM IV SCH ×2 (09:35→20:20)
[2021-07-03] MEDS: cloNIDine 0.1 MG PATCH (CATAPRES TTS) TDSY TD SCH (09:47)
[2021-07-03] MEDS ORDERED: METOCLOPRAMIDE INJ 10 MG/2 ML (REGLAN) IVP PRN (10:15)
--- NOTE | 2021-07-03 11:47 | Physical Therapy Evaluation ---
PT Evaluation-General Medical Diagnosis Admission Date Jun 24, 2021 at 20:20 Medical Diagnosis: COPD, Dysphagia, Seizures Onset Date: Jun 24, 2021 Therapy Diagnosis Therapy Diagnosis: Gait deficit, strength deficit Precautions Precautions/Isolations: Airborne Isolation, Seizure, Fall Prevention, Standard Precautions Referral Physician: Dr. Rowland Reason for Referral: Evaluation/Treatment Medical History Pertinent Medical History: COPD, Smoking Reviewed History: Yes Social History Home: Single Level Current Living Status: Spouse Entry Into Home: Stairs With Railing PT Steps Into Home: 2 Prior Prior Level of Function SCALE: Activities may be completed with or without assistive devices. 3-Hajsjmrffd-nchophi completes the activity by him/herself with no assistance from a helper. 5-Set-up or Clean-up Assistance-helper sets up or cleans up; patient completes a ctivity. [place] assists only prior to or following the activity. 4-Supervision or Touching Assistance-helper provides verbal cues and/or touching/steadying and/or contact guard assistance as patient completes activity. Assistance may be provided throughout the activity or intermittently. 3-Partial/Moderate Assistance-helper does LESS THAN HALF the effort. [place] lifts, holds or supports trunk or limbs, but provides less than half the effort. 2-Substantial/Maximal Assistance-helper does MORE THAN HALF the effort. [place] lifts or holds trunk or limbs and provides more than half the effort. 7-Eqnrtclvi-pesfsj does ALL the effort. Patient does none of the effort to complete the activity. Or, the assistance of 2 or more helpers is required for the patient to complete the activity. If activity was not attempted, code reason: 7-Patient Refused. 9-Not Applicable-not attempted and the patient did not perform the activity before the current illness, exacerbation or injury. 10-Not Attempted due to Environmental Limitations-(lack of equipment, weather restraints, etc.). 88-Not Attempted due to Medical Conditions or Safety Concerns. Bed Mobility: 6 Transfers (B,C,W/C): 6 Gait: 6 Stairs: 6 Indoor Mobility (Ambulation): Independent Stairs: Independent Prior Devices Use: None Patients reports prior to onset of illness patient was independent with all ADLs PT Evaluation-Current Subjective Patient nods her head "yes" to most questions, but is unable to verbalize words well at this time. at bedside upon PT arrival. He provides all subjective information. Objective Patient Orientation: Person ROM/Strength ROM Lower Extremities PROM WFLs, however no AROM occurs in bilateral LEs. Strength Lower Extremities No traceable muscle contractions in bilateral LEs at this time. Sensory Vision: Functional Hearing: Functional Sensation Right Lower Extremit: Intact Sensation Left Lower Extremity: Intact Transfers Roll Left to Right (QC): 1 Sit to Lying (QC): 1 Lying to Sitting/Side of Bed(Q: 1 Sit to Stand (QC): 1 Chair/Rmi-sq-Uyika Xfer(QC): 1 Gait Does the Patient Walk?: No and Walking Goal IS indicated Mode of Locomotion: Walk Anticipated Mode of Locomotion: Walk Walk 10 feet (QC): 88 Balance Sitting Static: Poor Sitting Dynamic: Poor Standing Static: Poor Standing Dynamic: Poor Assessment/Needs Patient lying supine in bed upon PT arrival, at bedside. Patient demonstrates difficulty verbalizing words, however shakes her head yes in response to questions. Patient asked to move her BLEs in any manner possible, she is unable to do so. Upon closer observation, at this time, there is no palpable or visible muscle contractions in bilateral LEs. Patient is able to make a fist, open fingers, and squeeze around PTs fingers. Patient requires total assistance for all observed bed mobility and transfers. Patient was transferred to the chair with total assistance. Patient setup in chair with call light in reach, all needs met, UEs propped on pillows and in the room. Discussed patient with nurse and patients comes out of the room with report patient needs to have a BM. Patient transferred from chair to bed with total assistance and placed on the bedpan. Patient on bedpan post treatment with in the room, all needs met, call light in reach and all needs met, Rehab Potential: Guarded Equipment Needs FWW, w/c, BSC, kathleen lift, at this time if patient were to return home. PT Short Term Goals Short Term Goals Time Frame: Jul 17, 2021 Roll Left & Right: 3 Sit to lyin Lying to sitting on side of be: 3 Sit to stand: 3 Chair/dzw-hj-jgvci transfer: 3 Toilet transfer: 3 Wheel 50ft w/2 turns: 2 Wheel 150 feet: 2 PT Welder Setter Resistance Machine Goals Welder Setter Resistance Machine Goals PT Welder Setter Resistance Machine Goals Time Frame: Aug 01, 2021 Roll Left & Right (QC): 4 Sit to Lying (QC): 4 Lying-Sitting on Side/Bed(QC): 4 Sit to Stand (QC): 4 Chair/Yhx-nq-Srhsc Xfer(QC): 4 Toilet Transfer (QC): 4 Car Transfer (QC): 4 Does the Patient Walk: Yes Walk 10 feet (QC): 2 Walk 50ft with 2 Turns (QC): 2 Does the Pt use WC or Scooter?: Yes Wheel 50 feet with 2 turns (QC: 3 Type: Manual Wheel 150 feet: 3 Type: Manual PT Plan Problem List Problem List: Activity Tolerance, Functional Strength, Safety, Balance, Gait, Transfer, Bed Mobility, ROM Treatment/Plan Treatment Plan: Continue Plan of Care Treatment Plan: Bed Mobility, Education, Functional Activity Iveth, Functional Strength, Group Therapy, Gait, Safety, Therapeutic Exercise, Transfers Treatment Duration: Aug 27, 2021 Frequency: 6 times per week Patient and/or Family Agrees t: Yes Safety Risks/Education Patient Education: Transfer Techniques, Reviewed Precautions Teaching Recipient: Patient, Family Teaching Methods: Demonstration, Discussion Response to Teaching: Reinforcement Needed Discharge Recommendations Target Placement Post Acute placement recommended. Time/GCodes Time In: 945 Time Out: 1015 Total Billed Treatment Time: 30 Total Billed Treatment Visit, NIKOLAI Anand JOHN A PT Jul 03, 2021 11:47
--- NOTE | 2021-07-03 11:54 | Occupational Therapy Eval ---
OT Evaluation-General/PLF Medical Diagnosis Admission Date Jun 24, 2021 at 20:20 Medical Diagnosis: COPD, Dysphagia, Seizures Onset Date: Jun 24, 2021 Therapy Diagnosis Therapy Diagnosis: decreased ADL status, weakness Precautions Precautions/Isolations: Seizure, Fall Prevention, Standard Precautions Referral Physician: Pan Referral Reason: Evaluation/Treatment Medical History Pertinent Medical History: COPD, Smoking Additional Medical History COPD, asthma, PE, HTN, Migraines, seizure, dysphagia, knee surgery, cervical fusion, anxiety/depression Current History ED via EMS from [facility] 06/24/21 with c/o SOB, cough, anxiety. Pt intubated rufina to O2 saturation at 70% after 15L [place]. Pt extubated 07/03/21 Social History Home: Single Level Current Living Status: Spouse Entry Into Home: Stairs With Railing Steps Into Home: 2 ADL-Prior Level of Function SCALE: Activities may be completed with or without assistive devices. 6-Dhdnzybxda-gdrpscn completes the activity by him/herself with no assistance from a helper. 5-Set-up or Clean-up Assistance-helper sets up or cleans up; patient completes activity. [place] assists only prior to or following the activity. 4-Supervision or Touching Assistance-helper provides verbal cues and/or touching/steadying and/or contact guard assistance as patient completes activity. Assistance may be provided throughout the activity or intermittently. 3-Partial/Moderate Assistance-helper does LESS THAN HALF the effort. [place] lifts, holds or supports trunk or limbs, but provides less than half the effort. 2-Substantial/Maximal Assistance-helper does MORE THAN HALF the effort. [place] lifts or holds trunk or limbs and provides more than half the effort. 6-Xlhsmccei-epmdjh does ALL the effort. Patient does none of the effort to complete the activity. Or, the assistance of 2 or more helpers is required for the patient to complete the activity. If activity was not attempted, code reason: 7-Patient Refused. 9-Not Applicable-not attempted and the patient did not perform the activity before the current illness, exacerbation or injury. 10-Not Attempted due to Environmental Limitations-(lack of equipment, weather restraints, etc.). 88-Not Attempted due to Medical Conditions or Safety Concerns. ADL PLOF Comments Pt unable to provide information. Per report, pt was independent with ADLs at PLOF. Self Care: Independent Functional Cognition: Independent OT Current Status Subjective Pt laying in bed, agreeable to OT Tx. Pt able to nod/shake head in order to answer questions but unable to verbalize due to very hoarse voice Mental Status/Objective Patient Orientation: Person, Place, Situation Attachments: Oxygen Current Upper Extremity ROM Severely impaired. Pt has some finger movement, able to flex finger/extend fingers. Unable to lift arms off of bed due to weakness. WFL PROM Upper Extremity Coordination Decreased ADL-Treatment Eating (QC): 2 (Per clincial judgment and nurse/MACHINE MILKER report, pt requires assistance with getting food/drink to mouth. Pt unable to use straw to drink due to weakness) Oral Hygiene (QC): 1 (per clinical judgment.) Shower/Bathe Self (QC): 1 (per clinical judgment.) Upper Body Dressing (QC): 1 (per clinical judgment.) Lower Body Dressing (QC): 1 (per clinical judgment.) On/Off Footwear (QC): 1 (per clinical judgment.) Toileting Hygiene (QC): 1 Other Treatments Pt laying in bed, rolled side to side at bed level in order to place bed aiken, assist x2. Pt completed toileting, then assist x2 to roll side to side for cleaning. Assist x2 to scoot up towards HOB. Pt positioned to comfort. Pt educated on attempting UE movements as able in order to begin restrengthening the muscles, she nodded in understanding. Post tx, pt in bed, call light in reach and all needs met. present at bedside. Education OT Patient Education: Correct positioning, Modified ADL techniques, Progress toward Goal/Update tx plan, Purpose of tx/functional activities Teaching Recipient: Patient Teaching Methods: Discussion Response to Teaching: Verbalize Understanding, Reinforcement Needed OT Residential Goals Sample Stitcher Goals Time Frame: Jul 25, 2021 Eating (QC): 3 Oral Hygiene (QC): 3 Toileting Hygiene (QC): 2 Shower/Bathe Self (QC): 2 Upper Body Dressing (QC): 3 Lower Body Dressing (QC): 2 On/Off Footwear (QC): 2 Additional Goals: 1-Demonstrate ADL Tasks, 2-Verbalize Understanding, 3- ImproveStrength/Iveth 1=Demonstrate adherence to instructed precautions during ADL tasks. 2=Patient will verbalize/demonstrate understanding of assistive devices/modifications for ADL. 3=Patient will improve strength/tolerance for activity to enable patient to perform ADL's. OT Education/Plan Problem List/Assessment Assessment: Decreased Activ Tolerance, Decreased UE Strength, Dependent Transfers, Impaired Bed Mobility, Impaired Coordination, Impaired Funct Balance, Impaired I ADL's, Impaired Self-Care Skills, Restricted Funct UE ROM Pt would benefit from skilled OT services in order to increase BUE Strength and activity tolerance and increase safety and independence with ADLs Discharge Recommendations Plan/Recommendations: Continue POC Treatment Plan/Plan of Care Patient would benefit from OT for education, treatment and training to promote independence in ADL's, mobility, safety and/or upper extremity function for ADL's. Plan of Care: ADL Retraining, Functional Mobility, UE Funct Exercise/Act Treatment Duration: Jul 25, 2021 Frequency: 3 times per week (3-5 times a week) Estimated Hrs Per Day: .25 hour per day Rehab Potential: Guarded Time/GCodes Start Time: 11:22 Stop Time: 11:33 Total Time Billed (hr/min): 11 Billed Treatment Time 1, MOISES ALVAREZ OT Jul 03, 2021 11:54
--- NOTE | 2021-07-03 11:56 | Progress Note - Hospitalist ---
Subjective HPI/CC On Admission Date Seen by Provider: Jul 03, 2021 Time Seen by Provider: 11:00 Subjective/Events-last exam Pt continues to be extubated Clonidine patch and Cardene drip initiated WBC of 20,000 Potassium 3.2 Having diarrhea so will [facility] Review of Systems General: Fatigue, Malaise Pulmonary: Dyspnea Neurological: Weakness Focused Exam Time of Focused Exam: 19:00 Objective Exam Vital Signs Vital Signs Date Time Temp Pulse Resp B/P (MAP) Pulse Ox O2 Delivery O2 Flow Rate FiO2 07/04/21 04:00 96 Nasal Cannula 3.00 07/04/21 03:42 36.4 07/04/21 01:00 105 07/04/21 01:00 27 139/76 07/02/21 19:45 25 Capillary Refill : Less Than 3 Seconds General Appearance: Anxious, Chronically ill, Obese Respiratory: No Accessory Muscle Use, No Respiratory Distress, Decreased Breath Sounds Cardiovascular: Regular Rate, Rhythm Neurologic/Psychiatric: Alert, Oriented x3, Depressed Affect, Motor Weakness (generalized) Results/Procedures Lab Laboratory Tests 07/03/21 05:00 Patient resulted labs reviewed. Assessment/Plan Assessment and Plan Assess & Plan/Chief Complaint Assessment Acute respiratory failure -Now extubated Episodes of V. tach - Consulting cardiology Seizure disorder - Maintained on levetiracetam Sepsis Pneumonia Plan: Possible Liv[place] if reintubated Proceed on with recovery 07/03/21: Monitor closely PT OT IRF Critical Care Critically Ill Patient Clinical Quality Measures Urinary Catheter-Non SCIP Pts: Reason for Catheter Continuanc: Ventilator MARY BELL DO Jul 03, 2021 11:56
--- NOTE | 2021-07-03 12:15 | Tele-ICU Progress Note ---
Subjective Date Seen by a Provider: Jul 03, 2021 Time Seen by a Provider: 12:10 Subjective/Events-last exam 1. Acute hypoxic and hypercarbic respiratory failure 2. COPD exacerbation 3. Underlying possible pneumonia. 4. Septic shock improved. 5. Acute kidney injury improving. Recommendations 1. We have tried SBT today but she did not tolerate hence we put back on assist control 2. We will decrease steroids 3. Continue sedation 4. DVT prophylaxis and ulcer prophylaxis. 5. Discussed with the POLE PEELING MACHINE OPERATOR KT Review of Systems ROS per attending. Sepsis Event Evaluation Height, Weight, BMI Height: '" Weight: lbs. oz. kg; 38.37 BMI Method: Focused Exam Time of Focused Exam: 19:00 Exam Exam Patient acknowledged, consented, and participated in this virtual visit which was conducted using real time audio/video Vital Signs Date Time Temp Pulse Resp B/P (MAP) Pulse Ox O2 Delivery O2 Flow Rate FiO2 07/03/21 12:07 37.2 07/03/21 11:00 124 36 169/90 80 Nasal Cannula 3.00 07/03/21 10:06 96 Nasal Cannula 3.00 07/03/21 10:00 125 35 94 Nasal Cannula 3.00 07/03/21 09:00 134 18 151/96 94 Nasal Cannula 3.00 07/03/21 08:00 123 36 151/85 94 Nasal Cannula 3.00 07/03/21 08:00 37.3 07/03/21 08:00 96 Nasal Cannula 3.00 07/03/21 07:10 93 Nasal Cannula 3.00 07/03/21 07:00 122 36 162/92 93 Nasal Cannula 3.00 07/03/21 07:00 119 07/03/21 06:00 108 34 138/79 95 Nasal Cannula 3.00 07/03/21 05:00 130 48 171/85 93 Nasal Cannula 3.00 07/03/21 04:17 37.0 94 Nasal Cannula 3.00 07/03/21 04:00 96 Nasal Cannula 3.00 07/03/21 04:00 134 37 151/112 95 Nasal Cannula 3.00 07/03/21 03:00 129 27 157/94 96 Nasal Cannula 3.00 07/03/21 02:50 94 Nasal Cannula 3.00 07/03/21 02:00 128 32 189/108 95 Nasal Cannula 3.00 07/03/21 01:00 122 12/2/21 01:00 122 20 196/107 96 Nasal Cannula 3.00 07/03/21 00:00 118 28 196/119 96 Nasal Cannula 3.00 07/02/21 23:28 96 Nasal Cannula 3.00 07/02/21 23:21 Nasal Cannula 3.00 07/02/21 23:15 36.6 07/02/21 23:00 129 32 198/117 96 Nasal Cannula 4.00 07/02/21 22:19 Nasal Cannula 4.00 07/02/21 22:05 114 25 94 25.00 07/02/21 22:00 112 211/115 94 NIV Bilevel 21.00 07/02/21 21:30 110 18 94 NIV Bilevel 21.00 07/02/21 21:00 104 178/106 96 NIV Bilevel 25.00 07/02/21 20:00 99 162/102 95 NIV Bilevel 25.00 07/02/21 19:51 36.8 07/02/21 19:45 96 NIV Bilevel 25 07/02/21 19:00 87 07/02/21 19:00 82 22 119/86 95 NIV Bilevel 25.00 07/02/21 18:59 87 26 95 25.00 07/02/21 18:00 111 31 150/93 NIV Bilevel 25.00 07/02/21 17:45 108 172/118 07/02/21 17:30 156/106 07/02/21 17:15 112 27 159/103 96 NIV Bilevel 25.00 07/02/21 17:00 109 30 147/98 96 NIV Bilevel 25.00 07/02/21 16:45 108 151 NIV Bilevel 25.00 07/02/21 16:30 133 81 NIV Bilevel 25.00 07/02/21 16:15 137 17 175/95 NIV Bilevel 25.00 07/02/21 16:00 96 NIV Bilevel 25 07/02/21 16:00 142 30 186/99 NIV Bilevel 25.00 07/02/21 16:00 36.5 07/02/21 15:15 135 20 210/118 96 NIV Bilevel 25.00 07/02/21 15:00 188/113 07/02/21 14:48 130 32 96 25.00 07/02/21 14:45 131 64 NIV Bilevel 25.00 07/02/21 14:30 130 31 189/111 NIV Bilevel 25.00 07/02/21 14:15 129 18 180/110 NIV Bilevel 25.00 07/02/21 14:00 128 28 173/109 NIV Bilevel 25.00 07/02/21 13:45 133 24 181/120 NIV Bilevel 25.00 07/02/21 13:30 126 32 187/110 NIV Bilevel 25.00 07/02/21 13:15 122 32 168/97 NIV Bilevel 25.00 07/02/21 13:00 118 07/02/21 13:00 123 43 175/113 NIV Bilevel 25.00 I & O 07/03/21 07:00 Intake Total 165 ml Output Total 6875 ml Balance -6710 ml Height & Weight Height: '" Weight: lbs. oz. kg; 38.37 BMI Method: General Appearance: No Apparent Distress, WD/WN, Chronically ill HEENT: Normal ENT Inspection Neck: Normal Inspection Respiratory: No Accessory Muscle Use, No Respiratory Distress, Decreased Breath Sounds Cardiovascular: Tachycardia Capillary Refill: Less Than 3 Seconds Peripheral Pulses: 2+ Dorsalis Pedis (R), 2+ Left Dors-Pedis (L), 2+ Radial Pulses (R), 2+ Radial Pulses (L) Gastrointestinal: normal bowel sounds, soft Extremity: Normal Inspection, No Pedal Edema Neurologic/Psychiatric: Alert, Oriented x3, No Motor/Sensory Deficits, Normal Mood/Affect Skin: Normal Color, Other (Hirsutism) Other comments PE PER ATTENDING Results Lab Laboratory Tests 07/02/21 05:16 07/03/21 05:00 Assessment/Plan Assessment/Plan 1. Acute hypoxic respiratory failure improved and extubated on 07/02/2021. 2. Seizure disorder under control 3. COPD exacerbation improving. 4. Encephalopathy improving. CT head negative. No signs of meningitis present. 5. Fever resolved. So far all the cultures are negative. 6. Hypertension uncontrolled. Recommendations 1. Continue Cardene and wean as tolerated. Once she is able to take oral pills will start on oral antihypertensive medications. 2. Continue IV antibiotics 3. Will wean IV steroids. 4. Continue ulcer prophylaxis and DVT prophylaxis. 5. Reviewed with the POLE PEELING MACHINE OPERATOR via video visit and phone. Critical Care: Critically Ill Patient Time spent with patient (mins): 25 TAE RANDOLPH MD Jul 03, 2021 12:15
--- NOTE | 2021-07-03 12:46 | Cardiology Progress Note ---
Subjective Date Seen by Provider: Jul 03, 2021 Time Seen by Provider: 08:00 Subjective/Events-last exam Patient is awake, still lethargic, still having generalized fatigue and weakness. Review of Systems General: Fatigue, Malaise Pulmonary: Dyspnea Focused Exam Time of Focused Exam: 19:00 Objective-Cardiology Exam Last Set of Vital Signs Vital Signs 07/02/21 07/03/21 07/03/21 19:45 12:00 12:07 Temp 37.2 Pulse 123 Resp 33 B/P (MAP) 166/86 Pulse Ox 96 O2 Delivery Nasal Cannula O2 Flow Rate 3.00 FiO2 25 I&O Intake and Output 07/03/21 00:00 Intake Total 615 ml Output Total 5575 ml Balance -4960 ml Intake Oral 0 ml IV Total 100 ml Tube Feeding 140 ml Other 375 ml Output Urine Total 5575 ml # Bowel Movements 3 General: Alert, Cooperative, Moderate Distress HEENT: Atraumatic Neck: Supple, No JVD Lungs: Other Heart: Normal S1, Normal S2, No Murmurs, Other (Tachycardia) Abdomen: Normal Bowel Sounds, Soft Extremities: No Clubbing, No Cyanosis, No Edema Skin: No Rashes, No Breakdown Psych/Mental Status: Mental Status NL Results Lab Laboratory Tests 07/03/21 05:00 A/P-Cardiology Admission Diagnosis Sinus bradycardia Acute respiratory failure Seizure Pneumonia Assessment/Plan Sinus tachycardia, had episode of sinus bradycardia and short nonsustained ventricular tachycardia in the past while on the ventilator. Currently in sinus tachycardia since extubated on July 02, 2021, she is maintained on oxygen I increased her beta-eli dose, she was started on Cardene secondary to severe hypertension last night. Start taking Catapres patch until patient can tolerate oral medication Labile hypertension, had episode of severe hypertension last night requiring Cardene drip. Starting Catapres patch and evaluate tolerance and response 2D echo done on June 27, 2021, difficult study. Normal left ventricular size, EF 65 to 70%, trivial aortic regurgitation, normal pulmonary artery pressure of 20 to 25 mmHg. Acute respiratory failure, extubated on July 02, 2021, still lethargic, currently on nasal cannula, doing better. Managed by primary care team Seizure disorder, has questionable multiple mini seizure activities associated with being flushed and anxious followed by agitation. Could be secondary to hypoxemia, managed by medical team Acute exacerbation of COPD, respiratory failure. Elevated D-dimer, CT angio of the chest showed no evidence of pulmonary embolism, she has history of PE in the past. Pneumonia, right lower lobe, receiving antibiotics. Hypertension, had episodes of severe hypertension last night, she was started on hydralazine IV. I will start low-dose beta-eli and monitor her heart rate and blood pressure response Obesity, BMI 41. Tobaccoism. LISA CASIANO MD Jul 03, 2021 12:46
[2021-07-03] MEDS: HYDROcodone/APAP 5 MG/325 MG (LORTAB) TAB PO PRN (13:37)
[2021-07-03] MEDS: fentaNYL INJ 100 MCG/2 ML AMP IVP PRN ×2 (17:51→22:00)
[2021-07-03] MEDS: DIVALPROX SPRINKLE 125 MG (DEPAKOTE) CAP PO SCH (20:20)
[2021-07-04] MEDS: meTOprolol 5 MG/5 ML (LOPRESSOR) VIAL IV SCH ×9 (00:15→23:36)
[2021-07-04] MEDS: HYDROcodone/APAP 5 MG/325 MG (LORTAB) TAB PO PRN ×3 (00:22→20:26)
[2021-07-04] MEDS: niCARdipine IV 50 MG in NS (IVPB) 230 ML IV SCH ×2 (02:10→08:36)
[2021-07-04] MEDS: RT-ALBUTEROL/IPRATROPIUM 3 ML (DUONEB) VIAL INH SCH ×6 (02:23→22:23)
[2021-07-04] MEDS: VASOPRESSIN INJECTION 20 UNIT in NS (IVPB) 100 ML IV SCH ×2 (03:44→15:40)
[2021-07-04] MEDS: fentaNYL INJ 100 MCG/2 ML AMP IVP PRN ×2 (03:50→10:23)
[2021-07-04] MEDS: AZTREONAM INJECTION 2,000 MG in NS (IVPB) 100 ML IV SCH ×3 (05:07→21:57)
[2021-07-04 05:18] LABS: BASOPHILS % (AUTO) 0 % (0-10); EOSINOPHILS % (AUTO) 0 % (0-10); HEMATOCRIT 47 % (35-52); HEMOGLOBIN 15.5 g/dL (11.5-16.0); LYMPHOCYTES # (AUTO) 0.8 10^3/uL (1.0-4.0); LYMPHOCYTES % (AUTO) 4 % (12-44); MEAN CORPUSCULAR HEMOGLOBIN 29 pg (25-34); MEAN CORPUSCULAR HGB CONC 33 g/dL (32-36); MEAN CORPUSCULAR VOLUME 88 fL (80-99); MEAN PLATELET VOLUME 10.6 fL (9.0-12.2); MONOCYTES # (AUTO) 0.9 10^3/uL (0.0-1.0); MONOCYTES % (AUTO) 4 % (0-12); NEUTROPHILS # (AUTO) 20.7 10^3/uL (1.8-7.8); NEUTROPHILS % (AUTO) 91 % (42-75); PLATELET COUNT 393 10^3/uL (130-400); WHITE BLOOD COUNT 22.8 10^3/uL (4.3-11.0)
[2021-07-04 05:28] LABS: ALBUMIN 3.5 GM/DL (3.2-4.5); POTASSIUM 3.6 MMOL/L (3.6-5.0)
[2021-07-04 05:30] LABS: CALCIUM 8.5 MG/DL (8.5-10.1)
[2021-07-04 05:31] LABS: TOTAL PROTEIN 6.7 GM/DL (6.4-8.2)
[2021-07-04 05:33] LABS: BILIRUBIN,TOTAL 0.9 MG/DL (0.1-1.0)
[2021-07-04 05:34] LABS: PHOSPHORUS 2.8 MG/DL (2.3-4.7)
[2021-07-04 05:35] LABS: CREATININE SERUM 0.5 MG/DL (0.60-1.30)
[2021-07-04 05:37] LABS: MAGNESIUM 2.1 MG/DL (1.6-2.4)
[2021-07-04] MEDS: inSUlin ASPART (NovoLOG) 1 UNIT/0.01 ML (CHARGE PER UNIT) SC SCH ×4 (06:01→20:45)
[2021-07-04] MEDS: MAGNESIUM 1 GM/100 ML IVPB 100 ML IV SCH (06:01)
[2021-07-04] MEDS: KCL 20 MEQ TAB (K-DUR) PO SCH (06:01)
[2021-07-04] MEDS: POTASSIUM CL 10MEQ/50ML IVPB 50 ML IV SCH ×3 (06:02→08:33)
--- NOTE | 2021-07-04 07:49 | Diagnostic Imaging Report ---
Indication: Pneumonia AP view of chest is obtained with comparison made to study of 07/29/2021. Heart size and pulmonary vascularity are within normal limits. There is no evidence of pneumothorax or consolidation. There is improved aeration of the lungs. There may be mild residual infiltrate in the left lung base. Right upper extremity PICC is in place with catheter tip reaching the right atrium. IMPRESSION: Mild residual left basilar density which may represent mild infiltrate although overall aeration of lungs has improved since previous study. No new abnormality is seen. Dictated by: Dictated on workstation # [id number]
[2021-07-04] MEDS: methylPREDNISolone 40 MG/ML (Solu-MEDROL) VIAL IV SCH (08:33)
[2021-07-04] MEDS: LEVETIRACETAM IV SCH ×2 (08:33→20:26)
[2021-07-04] MEDS: PANTOPRAZOLE 40 MG (PROTONIX) VIAL IV SCH (08:33)
[2021-07-04] MEDS: NS IV SCH ×2 (08:33→20:26)
[2021-07-04] MEDS: ENOXAPARIN 40 MG/0.4 ML (LOVENOX) SYR SC SCH (08:36)
[2021-07-04 08:40] VITALS: BP 138/79
[2021-07-04] MEDS: LACTATED RINGERS 1,000 ML IV SCH ×3 (08:40→23:37)
[2021-07-04] MEDS: NOREPINEPHRINE 8 MG/250 ML 250 ML IV SCH (09:43)
--- NOTE | 2021-07-04 10:26 | Physical Therapy Daily Note ---
PT Daily Note-Current Subjective Patient more verbal this date. Reports she feels nauseated, but that passes after a few minutes. Patient moderately inappropriate with content of speech at times. Mental Status Patient Orientation: Person Attachments: Oxygen, Carias Catheter, IV Transfers SCALE: Activities may be completed with or without assistive devices. 2-Llaeouwsku-tnsufxk completes the activity by him/herself with no assistance from a helper. 5-Set-up or Clean-up Assistance-helper sets up or cleans up; patient completes activity. [place] assists only prior to or following the activity. 4-Supervision or Touching Assistance-helper provides verbal cues and/or touching/steadying and/or contact guard assistance as patient completes activity. Assistance may be provided throughout the activity or intermittently. 3-Partial/Moderate Assistance-helper does LESS THAN HALF the effort. [place]ford lifts, holds or supports trunk or limbs, but provides less than half the effort. 2-Substantial/Maximal Assistance-helper does MORE THAN HALF the effort. [place] lifts or holds trunk or limbs and provides more than half the effort. 3-Qjcpwhepx-iknvwo does ALL the effort. Patient does none of the effort to complete the activity. Or, the assistance of 2 or more helpers is required for the patient to complete the activity. If activity was not attempted, code reason: 7-Patient Refused. 9-Not Applicable-not attempted and the patient did not perform the activity before the current illness, exacerbation or injury. 10-Not Attempted due to Environmental Limitations-(lack of equipment, weather restraints, etc.). 88-Not Attempted due to Medical Conditions or Safety Concerns. Roll Left & Right (QC): 2 Sit to Lying (QC): 2 Lying to Sitting/Side of Bed(Q: 2 Sit to Stand (QC): 2 Chair/Sqq-pr-Etltl Xfer(QC): 2 Weight Bearing Right Lower Extremity: Right Full Weight Bearing Left Lower Extremity: Left Full Weight Bearing Patient is cleared to bear full weight through BLEs, however is unable to do so at this time. Gait Training Does the Patient Walk?: No and Walking Goal IS indicated Exercises Supine Ex: Ankle pumps, Quad Set, Glut sets, Heel Slides, Short Arc Quads, Straight leg raise, Hip abd/add Supine Reps: 10 Assessment Current Status: Fair Progress Patient lying supine in bed upon PT arrival with nurse and BUILDING SUPPLIES SALESPERSON RETAIL in room having just cleaned the patient, all parties agreeable to treatment. Performs BLE AAROM/AROM exercises as listed above. Patient performs all observed bed mobility and transfers with max A, however patient is able to initiate significantly more movement than yesterday. Patient able to move LEs off the bed to initiate supine to sitting, however trunk twisting and turning in bed she requires max A. Patient requires mod A to maintain sitting at edge of bed due to being retropulsive. Patient requires max a for sit to stand and transfer to the chair. Patient able to minimally bear weight through LEs, however they only support her body weight a few seconds. Patient in chair post treatment with all attachments replaced, all needs met, nursing notified, call light in reach. PT Short Term Goals Short Term Goals Time Frame: Jul 17, 2021 Roll Left & Right: 3 Sit to lyin Lying to sitting on side of be: 3 Sit to stand: 3 Chair/hak-yw-rkcto transfer: 3 Toilet transfer: 3 Wheel 50ft w/2 turns: 2 Wheel 150 feet: 2 PT [facility] Goals [facility] Goals PT Spa Attendant Goals Time Frame: Aug 01, 2021 Roll Left & Right (QC): 4 Sit to Lying (QC): 4 Lying-Sitting on Side/Bed(QC): 4 Sit to Stand (QC): 4 Chair/Bbl-yw-Manww Xfer(QC): 4 Toilet Transfer (QC): 4 Car Transfer (QC): 4 Does the Patient Walk: Yes Walk 10 feet (QC): 2 Walk 50ft with 2 Turns (QC): 2 Does the Pt use WC or Scooter?: Yes Wheel 50 feet with 2 turns (QC: 3 Type: Manual Wheel 150 feet: 3 Type: Manual PT Plan Treatment/Plan Treatment Plan: Continue Plan of Care Treatment Plan: Bed Mobility, Education, Functional Activity Iveth, Functional Strength, Group Therapy, Gait, Safety, Therapeutic Exercise, Transfers Treatment Duration: Aug 27, 2021 Frequency: 6 times per week Patient and/or Family Agrees t: Yes Safety Risks/Education Patient Education: Transfer Techniques, Safety Issues Teaching Recipient: Patient Teaching Methods: Demonstration, Discussion Response to Teaching: Reinforcement Needed Time/GCodes Time In: 0825 Time Out: 0850 Total Billed Treatment Time: 25 Total Billed Treatment Visit, NIKOLAI, SERAFIN Braun PT Jul 04, 2021 10:26
--- NOTE | 2021-07-04 10:33 | Tele-ICU Progress Note ---
Subjective Date Seen by a Provider: Jul 04, 2021 Time Seen by a Provider: 10:32 Subjective/Events-last exam Patient today is sitting in the chair. She is still on a Cardene drip for blood pressure control.. Speech therapy advised her that she may take pills with applesauce. Apparently she has a have oral thrush for RN. Video visit made and discussed with the patient and her family she is in no acute respiratory distr ess. Review of Systems ROS per attending. Sepsis Event Evaluation Height, Weight, BMI Height: '" Weight: lbs. oz. kg; 38.37 BMI Method: Focused Exam Time of Focused Exam: 19:00 Exam Exam Patient acknowledged, consented, and participated in this virtual visit which was conducted using real time audio/video Vital Signs Date Time Temp Pulse Resp B/P (MAP) Pulse Ox O2 Delivery O2 Flow Rate FiO2 07/04/21 09:15 96 26 137/76 Nasal Cannula 3.50 07/04/21 09:00 124/74 07/04/21 08:49 95 Nasal Cannula 3.00 07/04/21 08:45 95 24 137/80 Nasal Cannula 3.50 07/04/21 08:40 37.1 102 93 36 07/04/21 08:15 109 34 159/95 Nasal Cannula 07/04/21 08:00 37.1 07/04/21 08:00 108 23 149/95 Nasal Cannula 3.50 07/04/21 07:45 113 25 96 Nasal Cannula 3.50 07/04/21 07:30 105 23 148/97 97 Nasal Cannula 3.50 07/04/21 07:15 105 30 147/99 97 Nasal Cannula 3.50 07/04/21 07:00 101 27 154/86 94 Nasal Cannula 3.50 07/04/21 07:00 113 07/04/21 06:45 93 Nasal Cannula 4.00 07/04/21 06:15 101 22 138/79 07/04/21 06:00 101 25 138/79 96 Nasal Cannula 3.50 07/04/21 05:45 101 27 142/85 96 07/04/21 05:30 100 18 145/82 93 07/04/21 05:15 96 23 143/78 94 07/04/21 05:00 108 23 143/78 95 Nasal Cannula 3.50 07/04/21 04:45 137/80 07/04/21 04:30 105 14 141/85 96 07/04/21 04:15 106 14 134/87 99 07/04/21 04:00 113 23 134/87 95 Nasal Cannula 3.50 07/04/21 04:00 96 Nasal Cannula 3.00 07/04/21 03:45 105 27 146/77 93 07/04/21 03:42 36.4 07/04/21 03:30 105 14 124/73 95 07/04/21 03:15 101 8 124/71 94 07/04/21 03:00 99 18 124/71 95 Nasal Cannula 3.50 07/04/21 02:45 134/75 07/04/21 02:30 146/78 07/04/21 02:24 96 Nasal Cannula 4.00 07/04/21 02:15 138/74 07/04/21 02:00 104 25 138/74 93 Nasal Cannula 3.50 07/04/21 01:45 126/82 07/04/21 01:15 101 27 139/76 07/04/21 01:00 105 07/04/21 01:00 105 27 139/76 95 Nasal Cannula 3.50 07/04/21 00:45 98 25 131/84 94 07/04/21 00:30 96 27 145/87 94 07/04/21 00:15 36.8 07/04/21 00:15 93 26 122/70 94 07/04/21 00:00 96 Nasal Cannula 3.00 07/04/21 00:00 113 19 122/70 96 Nasal Cannula 3.50 07/03/21 23:45 111 28 138/72 96 07/03/21 23:30 114 20 134/84 96 07/03/21 23:15 113 27 139/81 96 07/03/21 23:00 107 26 139/81 96 Nasal Cannula 3.50 07/03/21 22:45 108 27 146/78 95 07/03/21 22:30 108 26 135/72 94 07/03/21 22:15 109 27 143/82 94 07/03/21 22:13 96 Nasal Cannula 3.00 07/03/21 22:00 105 26 143/82 94 Nasal Cannula 3.00 07/03/21 21:45 107 29 134/77 07/03/21 21:30 106 30 146/81 94 07/03/21 21:15 107 30 135/73 96 07/03/21 21:00 105 29 135/73 95 Nasal Cannula 3.00 07/03/21 20:45 101 27 140/84 93 07/03/21 20:30 116 27 151/85 95 07/03/21 20:18 37.8 07/03/21 20:15 116 24 158/84 96 07/03/21 20:00 96 Nasal Cannula 3.00 07/03/21 20:00 116 20 158/84 95 Nasal Cannula 3.00 07/03/21 19:45 116 26 150/86 96 07/03/21 19:30 116 31 152/79 95 07/03/21 19:15 153/82 07/03/21 19:00 112 07/03/21 19:00 112 23 153/82 95 Nasal Cannula 3.00 07/03/21 18:38 96 Nasal Cannula 3.00 07/03/21 18:00 100 28 146/86 94 Nasal Cannula 3.00 07/03/21 17:00 117 14 154/89 96 Nasal Cannula 3.00 07/03/21 16:00 112 20 153/88 94 Nasal Cannula 3.00 07/03/21 16:00 96 Nasal Cannula 3.00 07/03/21 15:00 120 32 156/81 98 Nasal Cannula 3.00 07/03/21 14:24 95 Nasal Cannula 3.00 07/03/21 14:00 117 25 136/79 96 Nasal Cannula 3.00 07/03/21 13:00 110 35 153/90 98 Nasal Cannula 3.00 07/03/21 13:00 110 07/03/21 12:07 37.2 07/03/21 12:00 96 Nasal Cannula 3.00 07/03/21 12:00 123 33 166/86 96 Nasal Cannula 3.00 07/03/21 11:00 124 36 169/90 80 Nasal Cannula 3.00 I & O 07/04/21 06:59 Intake Total 1932.5 ml Output Total 7075 ml Balance -5142.5 ml Height & Weight Height: '" Weight: lbs. oz. kg; 38.37 BMI Method: General Appearance: Anxious, Chronically ill, Obese HEENT: Normal ENT Inspection Neck: Normal Inspection Respiratory: No Accessory Muscle Use, No Respiratory Distress, Decreased Breath Sounds Cardiovascular: Regular Rate, Rhythm Capillary Refill: Less Than 3 Seconds Peripheral Pulses: 2+ Dorsalis Pedis (R), 2+ Left Dors-Pedis (L), 2+ Radial Pulses (R), 2+ Radial Pulses (L) Gastrointestinal: normal bowel sounds, soft Extremity: Normal Inspection, No Pedal Edema Neurologic/Psychiatric: Alert, Oriented x3, Depressed Affect, Motor Weakness (generalized) Skin: Normal Color, Other (Hirsutism) Other comments PE PER ATTENDING PHYSICIAN Results Lab Laboratory Tests 07/03/21 05:00 07/04/21 05:00 Assessment/Plan Assessment/Plan 1. Acute hypoxic respiratory failure improved and extubated on 07/02/2021. 2. Seizure disorder under control 3. COPD exacerbation improving. 4. Encephalopathy improving. CT head negative. No signs of meningitis present. 5. Fever resolved. So far all the cultures are negative. 6. Hypertension uncontrolled. 7. oral thrush Recommendations 1. Continue Cardene and wean as tolerated.Try oral coreg with apple sauce 2. Continue IV antibiotics 3. Will wean IV steroids. 4. Continue ulcer prophylaxis and DVT prophylaxis. 5. Reviewed with the HIDE HOUSE SUPERVISOR via video visit and phone. 6. oral nystatin Critical Care: Critically Ill Patient Time spent with patient (mins): 25 TAE RANDOLPH MD Jul 04, 2021 10:32
--- NOTE | 2021-07-04 10:46 | Cardiology Progress Note ---
Subjective Date Seen by Provider: Jul 04, 2021 Time Seen by Provider: 10:45 Subjective/Events-last exam Patient is sitting in bed, lethargic. No chest pain Review of Systems General: No Chills, No Night Sweats; Fatigue, Malaise; No Appetite, No Other HEENT: No Head Aches, No Visual Changes, No Eye Pain, No Ear Pain, No Dysphasia, No Sinus Congestion, No Post Nasal Drip, No Sore Throat, No Other Pulmonary: Dyspnea; No Cough, No Pleuritic Chest Pain, No Other Cardiovascular: No: Chest Pain, Palpitations, Orthopnea, Paroxysmal Noc. Dyspnea, Edema, Lt Headedness, Other Focused Exam Time of Focused Exam: 19:00 Objective-Cardiology Exam Last Set of Vital Signs Vital Signs 07/04/21 07/04/21 07/04/21 08:40 08:49 09:15 Temp 37.1 Pulse 96 Resp 26 B/P (MAP) 137/76 Pulse Ox 95 O2 Delivery Nasal Cannula O2 Flow Rate 3.50 FiO2 36 I&O Intake and Output 07/04/21 00:00 Intake Total 1582.5 ml Output Total 8900 ml Balance -7317.5 ml Intake Oral 120 ml IV Total 1462.5 ml Output Urine Total 8900 ml # Bowel Movements 11 General: Alert, Cooperative, Moderate Distress HEENT: Atraumatic Neck: Supple, No JVD Lungs: Other Heart: Normal S1, Normal S2, No Murmurs, Other (Tachycardia) Abdomen: Normal Bowel Sounds, Soft Extremities: No Clubbing, No Cyanosis, No Edema Skin: No Rashes, No Breakdown Psych/Mental Status: Mental Status NL Results Lab Laboratory Tests 07/04/21 05:00 A/P-Cardiology Admission Diagnosis Sinus bradycardia Acute respiratory failure Seizure Pneumonia Assessment/Plan Sinus tachycardia, had episode of sinus bradycardia and short nonsustained ventricular tachycardia in the past while on the ventilator. Currently in sinus tachycardia since extubated on July 02, 2021, she is maintained on oxygen Heart rate is better after increasing beta-blockers. Doing well. Labile hypertension, had episode of severe hypertension, started on Cardene drip until she can take oral medication. I added Catapres patch, blood pressure appears to be better, will try to wean her off the Cardene drip 2D echo done on June 27, 2021, difficult study. Normal left ventricular size, EF 65 to 70%, trivial aortic regurgitation, normal pulmonary artery pressure of 20 to 25 mmHg. Acute respiratory failure, extubated on July 02, 2021, still lethargic, currently on nasal cannula, doing better. Managed by primary care team Seizure disorder, has questionable multiple mini seizure activities associated with being flushed and anxious followed by agitation. Could be secondary to hypoxemia, managed by medical team Acute exacerbation of COPD, respiratory failure. Elevated D-dimer, CT angio of the chest showed no evidence of pulmonary embolism, she has history of PE in the past. Pneumonia, right lower lobe, receiving antibiotics. Hypertension, had episodes of severe hypertension last night, she was started on hydralazine IV. I will start low-dose beta-eli and monitor her heart rate and blood pressure response Obesity, BMI 41. Tobaccoism. LISA CASIANO MD Jul 04, 2021 10:46
--- NOTE | 2021-07-04 11:24 | Progress Note - Hospitalist ---
Subjective HPI/CC On Admission Date Seen by Provider: Jul 04, 2021 Time Seen by Provider: 11:00 Subjective/Events-last exam Pt doing a lot better Very difficult to motivate Inpatient rehab could be an option if she would participate Checked meds and labs at the bedside Review of Systems General: Fatigue, Malaise Pulmonary: Dyspnea Focused Exam Time of Focused Exam: 19:00 Objective Exam Vital Signs Vital Signs Date Time Temp Pulse Resp B/P (MAP) Pulse Ox O2 Delivery O2 Flow Rate FiO2 07/05/21 06:00 73 21 162/76 93 Nasal Cannula 3.00 07/04/21 23:36 36.6 07/04/21 08:40 36 Capillary Refill : Less Than 3 Seconds General Appearance: No Apparent Distress, WD/WN, Chronically ill, Other (Lethargic) Respiratory: No Accessory Muscle Use, No Respiratory Distress, Decreased Breath Sounds Cardiovascular: Regular Rate, Rhythm Neurologic/Psychiatric: Alert, Depressed Affect Results/Procedures Lab Patient resulted labs reviewed. Assessment/Plan Assessment and Plan Assess & Plan/Chief Complaint Assessment Acute respiratory failure -Now extubated Episodes of V. tach - Consulting cardiology Seizure disorder - Maintained on levetiracetam Sepsis Pneumonia Plan: Possible [place] if reintubated Proceed on with recovery 07/03/21: Monitor closely PT OT IRF 07/04/2021: PT OT Moved to floor likely tomorrow Critical Care Critically Ill Patient Clinical Quality Measures Urinary Catheter-Non SCIP Pts: Reason for Catheter Continuanc: Ventilator MARY BELL DO Jul 04, 2021 11:24
--- NOTE | 2021-07-04 13:57 | Occupational Ther Daily Note ---
OT Current Status-Daily Note Subjective Pt lying in bed, drifting in/out of sleep. present in room. Pt stated that she had just had a seizure. Discussed this with nrsg and nrsg approved working with pt while in bed and not to sit her up. Mental Status/Objective Patient Orientation: Person, Place, Time, Situation Attachments: Carias Catheter, IV, Oxygen, Telemetry ADL-Treatment Therapy Code Descriptions/Definitions Functional [place] Measure: 0=Not Assessed/NA 4=Minimal Assistance 1=Total Assistance 5=Supervision or Setup 2=Maximal Assistance 6=Modified [place] 3=Moderate Assistance 7=Complete IndependenceSCALE: Activities may be completed with or without assistive devices. 3-Qykttlbhdq-urwbwof completes the activity by him/herself with no assistance from a helper. 5-Set-up or Clean-up Assistance-helper sets up or cleans up; patient completes activity. [place] assists only prior to or following the activity. 4-Supervision or Touching Assistance-helper provides verbal cues and/or touching/steadying and/or contact guard assistance as patient completes activity. Assistance may be provided throughout the activity or intermittently. 3-Partial/Moderate Assistance-helper does LESS THAN HALF the effort. [place] lifts, holds or supports trunk or limbs, but provides less than half the effort. 2-Substantial/Maximal Assistance-helper does MORE THAN HALF the effort. [place] lifts or holds trunk or limbs and provides more than half the effort. 6-Irittijcj-wpzbop does ALL the effort. Patient does none of the effort to complete the activity. Or, the assistance of 2 or more helpers is required for the patient to complete the activity. If activity was not attempted, code reason: 7-Patient Refused. 9-Not Applicable-not attempted and the patient did not perform the activity before the current illness, exacerbation or injury. 10-Not Attempted due to Environmental Limitations-(lack of equipment, weather restraints, etc.). 88-Not Attempted due to Medical Conditions or Safety Concerns. Other Treatment Edema in B UE's have decreased. Pt tolerated AAROM with B UE's. Pt able to use fair strength to push or pull during bicep flex/ext and shldr ext. Pt stated th at she has RSD with R UE though was able to complete full AROM without discomfort. Pt fell asleep AAROM completed. After session, pt lying in bed with call light/phone in reach. present in room. OT Care Home Goals Care Home Goals Time Frame: Jul 25, 2021 Eating (QC): 3 Oral Hygiene (QC): 3 Toileting Hygiene (QC): 2 Shower/Bathe Self (QC): 2 Upper Body Dressing (QC): 3 Lower Body Dressing (QC): 2 On/Off Footwear (QC): 2 Additional Goals: 1-Demonstrate ADL Tasks, 2-Verbalize Understanding, 3- ImproveStrength/Iveth 1=Demonstrate adherence to instructed precautions during ADL tasks. 2=Patient will verbalize/demonstrate understanding of assistive devices/modific ations for ADL. 3=Patient will improve strength/tolerance for activity to enable patient to perform ADL's. OT Education/Plan Problem List/Assessment Assessment: Decreased Activ Tolerance, Decreased UE Strength, Impaired Bed Mobility, Impaired Cognition, Impaired Self-Care Skills, Restricted Funct UE ROM Pt would benefit from skilled OT services in order to increase BUE Strength and activity tolerance and increase safety and independence with ADLs Discharge Recommendations Plan/Recommendations: Continue POC Treatment Plan/Plan of Care Patient would benefit from OT for education, treatment and training to promote independence in ADL's, mobility, safety and/or upper extremity function for ADL's. Plan of Care: ADL Retraining, Functional Mobility, UE Funct Exercise/Act Treatment Duration: Jul 25, 2021 Frequency: 3 times per week (3-5 times a week) Estimated Hrs Per Day: .25 hour per day Rehab Potential: Guarded Time/GCodes Start Time: 13:18 Stop Time: 13:28 Total Time Billed (hr/min): 10 Billed Treatment Time 1 visit-EX 1 (10 min) KIRK ZIMMERMAN Jul 04, 2021 13:57
--- NOTE | 2021-07-04 14:16 | Speech Therapy Daily Note ---
Speech Daily Progress Note Subjective Date Seen by Provider: Jul 04, 2021 Time Seen by Provider: 00:12 Patient able to verbalize more this date, not always appropriate. Objective Patient demo swallow of a few presented sips of thickened liquids at 1/2 tsp increments without s/s of aspiration noted. Assessment Assessment Current Status: Fair Progress Treatment Plan Continue Plan of Care Speech Short Term Goals Short Term Goals Short Term Goals 1) Patient will tolerate least restrictive diet level with 75% or greater. 2) Patient/caregiver will utilize compensatory strategies as trained with 100% for safe intake. Speech Skilled Nursing Goals [employer] Goals Patient will maintain adequate nutrition/hydration via safe effective swallow function. Speech-Plan Patient/Family Goals Patient/Family Goals: Patient plans to discharge to her home where she lives with her . Treatment Plan Speech Therapy Treatment Plan: Continue Plan of Care Treatment Duration: Jul 17, 2021 Frequency: 3 times per week Estimated Hrs Per Day: .25 hour per day Rehab Potential: Guarded Barriers to Learning: Patient's complex medical situation, decreased cognition Pt/Family Agrees to Plan: Yes Safety Risks/Education Teaching Recipient: Patient Teaching Methods: Demonstration, Discussion Response to Teaching: Verbalize Understanding, Return Demonstration Education Topics Provided: Continued safety with oral intake Time Speech Therapy Time In: 14:00 Speech Therapy Time Out: 14:12 Total Billed Time: 12 Billed Treatment Time 1, CICI Marx Jul 04, 2021 14:16
[2021-07-04] MEDS: NYSTATIN ORAL SUSP 5 ML UDC PO SCH ×3 (15:16→23:36)
[2021-07-04] MEDS: DIVALPROX SPRINKLE 125 MG (DEPAKOTE) CAP PO SCH (20:26)
[2021-07-05] MEDS: VASOPRESSIN INJECTION 20 UNIT in NS (IVPB) 100 ML IV SCH (01:59)
[2021-07-05] MEDS: fentaNYL INJ 100 MCG/2 ML AMP IVP PRN ×2 (02:09→13:10)
[2021-07-05] MEDS: meTOprolol 5 MG/5 ML (LOPRESSOR) VIAL IV SCH ×3 (02:09→09:06)
[2021-07-05] MEDS: RT-ALBUTEROL/IPRATROPIUM 3 ML (DUONEB) VIAL INH SCH ×6 (02:42→21:02)
[2021-07-05] MEDS: AZTREONAM INJECTION 2,000 MG in NS (IVPB) 100 ML IV SCH ×3 (05:41→21:33)
[2021-07-05] MEDS: NYSTATIN ORAL SUSP 5 ML UDC PO SCH ×4 (05:41→23:10)
[2021-07-05 05:57] LABS: BASOPHILS % (AUTO) 0 % (0-10); EOSINOPHILS % (AUTO) 0 % (0-10); HEMATOCRIT 50 % (35-52); HEMOGLOBIN 16.3 g/dL (11.5-16.0); LYMPHOCYTES # (AUTO) 1.8 10^3/uL (1.0-4.0); LYMPHOCYTES % (AUTO) 8 % (12-44); MEAN CORPUSCULAR HEMOGLOBIN 29 pg (25-34); MEAN CORPUSCULAR HGB CONC 33 g/dL (32-36); MEAN CORPUSCULAR VOLUME 88 fL (80-99); MEAN PLATELET VOLUME 11.1 fL (9.0-12.2); MONOCYTES # (AUTO) 2.6 10^3/uL (0.0-1.0); MONOCYTES % (AUTO) 11 % (0-12); NEUTROPHILS # (AUTO) 18.8 10^3/uL (1.8-7.8); NEUTROPHILS % (AUTO) 80 % (42-75); PLATELET COUNT 404 10^3/uL (130-400); WHITE BLOOD COUNT 23.5 10^3/uL (4.3-11.0)
[2021-07-05 06:25] LABS: ALBUMIN 3.7 GM/DL (3.2-4.5); POTASSIUM 3.8 MMOL/L (3.6-5.0)
[2021-07-05 06:26] LABS: CALCIUM 9.3 MG/DL (8.5-10.1)
[2021-07-05 06:27] LABS: TOTAL PROTEIN 7.1 GM/DL (6.4-8.2)
[2021-07-05 06:29] LABS: BILIRUBIN,TOTAL 0.9 MG/DL (0.1-1.0)
[2021-07-05 06:30] LABS: PHOSPHORUS 3.1 MG/DL (2.3-4.7)
[2021-07-05 06:31] LABS: CREATININE SERUM 0.54 MG/DL (0.60-1.30)
[2021-07-05 06:34] LABS: MAGNESIUM 2.3 MG/DL (1.6-2.4)
[2021-07-05] MEDS: MAGNESIUM 1 GM/100 ML IVPB 100 ML IV SCH (06:37)
[2021-07-05] MEDS: inSUlin ASPART (NovoLOG) 1 UNIT/0.01 ML (CHARGE PER UNIT) SC SCH ×4 (06:37→20:46)
[2021-07-05] MEDS: POTASSIUM CL 10MEQ/50ML IVPB 50 ML IV SCH (06:37)
[2021-07-05] MEDS: KCL 20 MEQ TAB (K-DUR) PO SCH (06:37)
[2021-07-05] MEDS: PANTOPRAZOLE 40 MG (PROTONIX) VIAL IV SCH (09:06)
[2021-07-05] MEDS: ENOXAPARIN 40 MG/0.4 ML (LOVENOX) SYR SC SCH (09:07)
--- NOTE | 2021-07-05 09:10 | Tele-ICU Progress Note ---
Progress Note video rounds completed 55 y/o female who ws originally intubated for AMS and drug intoxication and hypoxemic resp failure. Extubated appers comfortable in bed Pulse: 82 NSR BP: 159/97 O2 sat: 93% Overall doing better WBC still 23,000 Continue to monitor Focused Exam Height, Weight, BMI Height: '" Weight: lbs. oz. kg; 38.37 BMI Method: Time of Focused Exam: 19:00 Laboratory Tests 07/05/21 05:40 Labs Laboratory Tests 07/05/21 05:40 Results Labs Labs Laboratory Tests 07/04/21 11:54: Glucometer 160H 07/04/21 16:10: Glucometer 145H 07/04/21 20:37: Glucometer 192H 07/05/21 05:40: White Blood Count 23.5H, Red Blood Count 5.68H, Hemoglobin 16.3H, Hematocrit 50, Mean Corpuscular Volume 88, Mean Corpuscular Hemoglobin 29, Mean Corpuscular Hemoglobin Concent 33, Red Cell Distribution Width 13.8, Platelet Count 404H, Mean Platelet Volume 11.1, Immature Granulocyte % (Auto) 1, Neutrophils (%) (Auto) 80H, Lymphocytes (%) (Auto) 8L, Monocytes (%) (Auto) 11, Eosinophils (%) (Auto) 0, Basophils (%) (Auto) 0, Neutrophils # (Auto) 18.8H, Lymphocytes # (Auto) 1.8, Monocytes # (Auto) 2.6H, Eosinophils # (Auto) 0.0, Basophils # (Auto) 0.0, Immature Granulocyte # (Auto) 0.2H, Sodium Level 139, Potassium Level 3.8, Chloride Level 103, Carbon Dioxide Level 26, Anion Gap 10, Blood Urea Nitrogen 15, Creatinine 0.54L, Estimat Glomerular Filtration Rate 118, BUN/Creatinine Ratio 28, Glucose Level 122H, Calcium Level 9.3, Corrected Calcium 9.5, Phosphorus Level 3.1, Magnesium Level 2.3, Total Bilirubin 0.9, Aspartate Amino Transf (AST/SGOT) 41H, Alanine Aminotransferase (ALT/SGPT) 97H, Alkaline Phosphatase 206H, Total Protein 7.1, Albumin 3.7 Microbiology 06/28/21 Gram Stain - Final, Complete 06/28/21 Sputum Culture - Final, Complete No growth 06/24/21 Urine Culture - Final, Complete NO GROWTH 06/24/21 Blood Culture - Final, Complete No growth RENEE REYES MD Jul 05, 2021 09:09
[2021-07-05] MEDS: NS IV SCH (09:13)
[2021-07-05] MEDS: LEVETIRACETAM IV SCH (09:13)
[2021-07-05] MEDS: methylPREDNISolone 40 MG/ML (Solu-MEDROL) VIAL IV SCH (09:13)
--- NOTE | 2021-07-05 09:19 | Progress Note - Hospitalist ---
Subjective HPI/CC On Admission Date Seen by Provider: Jul 05, 2021 Time Seen by Provider: 11:00 Subjective/Events-last exam Patient doing very well White blood cell count 23.5 Transferred to the floor Had a pseudoseizure earlier because she was mad at her Review of Systems General: Fatigue, Malaise Focused Exam Time of Focused Exam: 19:00 Objective Exam Vital Signs Vital Signs Date Time Temp Pulse Resp B/P (MAP) Pulse Ox O2 Delivery O2 Flow Rate FiO2 07/06/21 04:00 36.4 91 16 147/95 (112) 93 Room Air 07/06/21 02:22 1.00 07/04/21 08:40 36 Capillary Refill : Less Than 3 Seconds General Appearance: No Apparent Distress, WD/WN, Chronically ill Respiratory: No Accessory Muscle Use, No Respiratory Distress, Decreased Breath Sounds Cardiovascular: Regular Rate, Rhythm Neurologic/Psychiatric: Alert, Oriented x3 Results/Procedures Lab Patient resulted labs reviewed. Assessment/Plan Assessment and Plan Assess & Plan/Chief Complaint Assessment Acute respiratory failure -Now extubated Episodes of V. tach - Consulting cardiology Seizure disorder - Maintained on levetiracetam Sepsis Pneumonia Plan: Possible [place] if reintubated Proceed on with recovery 07/03/21: Monitor closely PT OT IRF 07/04/2021: PT OT Moved to floor likely tomorrow 07/05/2021: Transfer to fourth floor Continue rehab Critical Care Critically Ill Patient Clinical Quality Measures Urinary Catheter-Non SCIP Pts: Reason for Catheter Continuanc: Ventilator MARY BELL DO Jul 05, 2021 09:19
--- NOTE | 2021-07-05 10:13 | Physical Therapy Daily Note ---
PT Daily Note-Current Subjective Patient agrees to PT. Family present. Mental Status Patient Orientation: Confused Attachments: Oxygen, Carias Catheter, IV Transfers SCALE: Activities may be completed with or without assistive devices. 0-Aiyufxmkhq-cenhpln completes the activity by him/herself with no assistance from a helper. 5-Set-up or Clean-up Assistance-helper sets up or cleans up; patient completes activity. [place] assists only prior to or following the activity. 4-Supervision or Touching Assistance-helper provides verbal cues and/or touching/steadying and/or contact guard assistance as patient completes activity. Assistance may be provided throughout the activity or intermittently. 3-Partial/Moderate Assistance-helper does LESS THAN HALF the effort. [place] lifts, holds or supports trunk or limbs, but provides less than half the effort. 2-Substantial/Maximal Assistance-helper does MORE THAN HALF the effort. [place] lifts or holds trunk or limbs and provides more than half the effort. 8-Drlimywcr-aesvhz does ALL the effort. Patient does none of the effort to complete the activity. Or, the assistance of 2 or more helpers is required for the patient to complete the activity. If activity was not attempted, code reason: 7-Patient Refused. 9-Not Applicable-not attempted and the patient did not perform the activity before the current illness, exacerbation or injury. 10-Not Attempted due to Environmental Limitations-(lack of equipment, weather restraints, etc.). 88-Not Attempted due to Medical Conditions or Safety Concerns. Lying to Sitting/Side of Bed(Q: 2 Sit to Stand (QC): 2 Chair/Tmr-ey-Gzkpj Xfer(QC): 2 Weight Bearing Right Lower Extremity: Right Full Weight Bearing Left Lower Extremity: Left Full Weight Bearing Patient is cleared to bear full weight through BLEs, however is unable to do so at this time. Exercises Seated Therapy Exercises: Ankle pumps, Long arc quads Seated Reps: 15 (AAROM) Assessment Patient up in recliner with breakfast in situ and family present. PT to increase activity as tolerated by patient. PT Short Term Goals Short Term Goals Time Frame: Jul 17, 2021 Roll Left & Right: 3 Sit to lyin Lying to sitting on side of be: 3 Sit to stand: 3 Chair/orw-nb-ydyev transfer: 3 Toilet transfer: 3 Wheel 50ft w/2 turns: 2 Wheel 150 feet: 2 PT Emr Specialist Goals Emr Specialist Goals PT Shelter Goals Time Frame: Aug 01, 2021 Roll Left & Right (QC): 4 Sit to Lying (QC): 4 Lying-Sitting on Side/Bed(QC): 4 Sit to Stand (QC): 4 Chair/Rrp-fi-Kgpgw Xfer(QC): 4 Toilet Transfer (QC): 4 Car Transfer (QC): 4 Does the Patient Walk: Yes Walk 10 feet (QC): 2 Walk 50ft with 2 Turns (QC): 2 Does the Pt use WC or Scooter?: Yes Wheel 50 feet with 2 turns (QC: 3 Type: Manual Wheel 150 feet: 3 Type: Manual PT Plan Treatment/Plan Treatment Plan: Continue Plan of Care Treatment Plan: Bed Mobility, Education, Functional Activity [place], Functional Strength, Group Therapy, Gait, Safety, Therapeutic Exercise, Transfers Treatment Duration: Aug 27, 2021 Frequency: 6 times per week Patient and/or Family Agrees t: Yes Time/GCodes Time In: 940 Time Out: 950 Total Billed Treatment Time: 10 Total Billed Treatment 1 visit FA 10 min RACHEL STEIN PT Jul 05, 2021 10:13
[2021-07-05] MEDS: LACTATED RINGERS 1,000 ML IV SCH (10:37)
--- NOTE | 2021-07-05 11:43 | Progress Note - Cardiology ---
Cardiology SOAP Progress Note Objective: I&O/Vital Signs 07/05/21 07/05/21 07/05/21 07/05/21 00:00 00:00 01:00 01:00 Pulse 75 79 79 Resp 21 22 B/P (MAP) 143/86 146/90 Pulse Ox 94 95 93 O2 Delivery Nasal Cannula Nasal Cannula Nasal Cannula O2 Flow Rate 3.00 3.00 3.00 07/05/21 07/05/21 07/05/21 07/05/21 02:00 02:42 03:00 04:00 Pulse 78 70 Resp 22 17 B/P (MAP) 139/85 149/87 Pulse Ox 94 94 92 94 O2 Delivery Nasal Cannula Nasal Cannula Nasal Cannula Nasal Cannula O2 Flow Rate 3.00 2.00 3.00 3.00 07/05/21 07/05/21 07/05/21 07/05/21 04:00 05:00 05:35 06:00 Pulse 71 71 73 Resp 18 18 21 B/P (MAP) 144/90 160/90 162/76 Pulse Ox 92 94 93 O2 Delivery Nasal Cannula Nasal Cannula Room Air Nasal Cannula O2 Flow Rate 3.00 3.00 3.00 07/05/21 07/05/21 07/05/21 07/05/21 06:32 06:39 07:00 07:00 Pulse 76 76 Resp 21 B/P (MAP) 162/96 Pulse Ox 93 92 O2 Delivery Nasal Cannula Room Air Nasal Cannula O2 Flow Rate 1.00 3.00 07/05/21 07/05/21 07/05/21 07/05/21 07:55 08:00 08:00 08:00 Temp 36.7 Pulse 86 Resp 21 B/P (MAP) 177/100 Pulse Ox 89 O2 Delivery Nasal Cannula Room Air Nasal Cannula O2 Flow Rate 1.00 1.00 07/05/21 07/05/21 07/05/21 07/05/21 09:00 09:00 10:00 10:45 Pulse 80 84 Resp 22 27 B/P (MAP) 159/97 150/101 Pulse Ox 93 90 93 93 O2 Delivery Room Air Nasal Cannula Nasal Cannula Nasal Cannula O2 Flow Rate 3.00 1.00 1.00 1.00 07/05/21 00:00 Intake Total 1462.5 ml Output Total 2200 ml Balance -737.5 ml Skin: normal color, warm/dry Results/Procedures: Labs Laboratory Tests 07/04/21 11:54: Glucometer 160H 07/04/21 16:10: Glucometer 145H 07/04/21 20:37: Glucometer 192H 07/05/21 05:40: White Blood Count 23.5H, Red Blood Count 5.68H, Hemoglobin 16.3H, Hematocrit 50, Mean Corpuscular Volume 88, Mean Corpuscular Hemoglobin 29, Mean Corpuscular Hemoglobin Concent 33, Red Cell Distribution Width 13.8, Platelet Count 404H, Mean Platelet Volume 11.1, Immature Granulocyte % (Auto) 1, Neutrophils (%) (Auto) 80H, Lymphocytes (%) (Auto) 8L, Monocytes (%) (Auto) 11, Eosinophils (%) (Auto) 0, Basophils (%) (Auto) 0, Neutrophils # (Auto) 18.8H, Lymphocytes # (Auto) 1.8, Monocytes # (Auto) 2.6H, Eosinophils # (Auto) 0.0, Basophils # (Auto) 0.0, Immature Granulocyte # (Auto) 0.2H, Sodium Level 139, Potassium Level 3.8, Chloride Level 103, Carbon Dioxide Level 26, Anion Gap 10, Blood Urea Nitrogen 15, Creatinine 0.54L, Estimat Glomerular Filtration Rate 118, BUN/Creatinine Ratio 28, Glucose Level 122H, Calcium Level 9.3, Corrected Calcium 9.5, Phosphorus Level 3.1, Magnesium Level 2.3, Total Bilirubin 0.9, Aspartate Amino Transf (AST/SGOT) 41H, Alanine Aminotransferase (ALT/SGPT) 97H, Alkaline Phosphatase 206H, Total Protein 7.1, Albumin 3.7 Microbiology 06/28/21 Gram Stain - Final, Complete 06/28/21 Sputum Culture - Final, Complete No growth 06/24/21 Urine Culture - Final, Complete NO GROWTH 06/24/21 Blood Culture - Final, Complete No growth A/P: Assessment: Ac resp failure due to ac exac of COPD due to pneumonia, extubated on 07/02/21 - Elevated D-dimer, CT angio of the chest showed no evidence of pulmonary embolism, she has history of PE in the past Severe, albeit labile, hypertension - Echo 06/27/21: difficult study, normal left ventricular size, EF 65 to 70%, trivial aortic regurgitation, normal pulmonary artery pressure of 20 to 25 mmHg. Seizure disorder - multiple, questionable mini-seizure associated with being flushed and anxious, followed by agitation Tobaccoism. Plan: * I interviewed and examined the patient and reviewed the records * Continue current antihypertensive regimen * Monitor labs closely Clinical Quality Measures Urinary Catheter-Non SCIP Pts: Reason for Catheter Continuanc: Ventilator [facility]LA NEGRON [facility] Jul 05, 2021 11:43
[2021-07-05] MEDS: HYDROcodone/APAP 5 MG/325 MG (LORTAB) TAB PO PRN (13:10)
[2021-07-05] MEDS ORDERED: ACETAMINOPHEN 325 MG TABLET PO PRN (13:15)
[2021-07-05] MEDS: hydrALAZINE (APESOLINE) 20 MG/ML VIAL IV PRN ×2 (15:41→23:09)
[2021-07-05] MEDS: METOCLOPRAMIDE 5 MG (REGLAN) TAB PO SCH (15:56)
[2021-07-05 16:02] VITALS: BP 163/101
[2021-07-05] MEDS ORDERED: LORazepam INJ 2 MG/ML (ATIVAN) VIAL ONE (16:41)
[2021-07-05] MEDS ORDERED: LORazepam INJ 2 MG/ML (ATIVAN) VIAL IVP PRN (16:45)
[2021-07-05 20:04] VITALS: BP 168/104
[2021-07-05] MEDS: toPIRamate 100 MG (TOPAMAX) TAB PO SCH (20:47)
[2021-07-05] MEDS: toPIRamate 25 MG (TOPAMAX) TAB PO SCH (20:48)
[2021-07-05] MEDS: DIVALPROX SPRINKLE 125 MG (DEPAKOTE) CAP PO SCH (20:48)
[2021-07-05] MEDS: clonazePAM 0.5 MG (KlonoPIN) TAB PO SCH (20:53)
[2021-07-05] MEDS ORDERED: cloNIDine 0.1 MG (CATAPRES) TAB PO PRN (22:15)
[2021-07-06] VITALS (9 sets, daily range): BP systolic 89–156; BP diastolic 61–109
[2021-07-06] MEDS: RT-ALBUTEROL/IPRATROPIUM 3 ML (DUONEB) VIAL INH SCH ×4 (02:21→21:18)
[2021-07-06] MEDS: METOCLOPRAMIDE 5 MG (REGLAN) TAB PO SCH ×2 (05:26→17:36)
[2021-07-06] MEDS: AZTREONAM INJECTION 2,000 MG in NS (IVPB) 100 ML IV SCH ×3 (05:26→21:14)
[2021-07-06] MEDS: NYSTATIN ORAL SUSP 5 ML UDC PO SCH ×4 (05:26→23:49)
[2021-07-06] MEDS: inSUlin ASPART (NovoLOG) 1 UNIT/0.01 ML (CHARGE PER UNIT) SC SCH ×4 (05:32→20:44)
[2021-07-06] MEDS: PANTOPRAZOLE 40 MG (PROTONIX) TAB PO SCH (08:59)
[2021-07-06] MEDS: toPIRamate 100 MG (TOPAMAX) TAB PO SCH ×2 (08:59→19:55)
[2021-07-06] MEDS: toPIRamate 25 MG (TOPAMAX) TAB PO SCH ×2 (08:59→19:55)
[2021-07-06] MEDS: LOSARTAN 25 MG (COZAAR) TAB PO SCH (09:00)
[2021-07-06] MEDS ORDERED: PANTOPRAZOLE 40 MG (PROTONIX) TAB PO SCH (09:00)
[2021-07-06] MEDS: ENOXAPARIN 40 MG/0.4 ML (LOVENOX) SYR SC SCH (09:00)
[2021-07-06] MEDS: methylPREDNISolone 40 MG/ML (Solu-MEDROL) VIAL IV SCH (09:00)
[2021-07-06 11:06] LABS: BASOPHILS % (AUTO) 0 % (0-10); EOSINOPHILS % (AUTO) 0 % (0-10); HEMATOCRIT 53 % (35-52); HEMOGLOBIN 17.4 g/dL (11.5-16.0); LYMPHOCYTES # (AUTO) 0.8 10^3/uL (1.0-4.0); LYMPHOCYTES % (AUTO) 4 % (12-44); MEAN CORPUSCULAR HEMOGLOBIN 29 pg (25-34); MEAN CORPUSCULAR HGB CONC 33 g/dL (32-36); MEAN CORPUSCULAR VOLUME 89 fL (80-99); MEAN PLATELET VOLUME 11.3 fL (9.0-12.2); MONOCYTES # (AUTO) 1.7 10^3/uL (0.0-1.0); MONOCYTES % (AUTO) 8 % (0-12); NEUTROPHILS # (AUTO) 17.7 10^3/uL (1.8-7.8); NEUTROPHILS % (AUTO) 87 % (42-75); PLATELET COUNT 468 10^3/uL (130-400); WHITE BLOOD COUNT 20.4 10^3/uL (4.3-11.0)
[2021-07-06 11:24] LABS: CALCIUM 9.6 MG/DL (8.5-10.1); CREATININE SERUM 0.81 MG/DL (0.60-1.30); POTASSIUM 4.1 MMOL/L (3.6-5.0)
--- NOTE | 2021-07-06 12:20 | Progress Note - Hospitalist ---
Subjective HPI/CC On Admission Date Seen by Provider: Jul 06, 2021 Time Seen by Provider: 11:00 Subjective/Events-last exam Patient doing well since rapid response managed in acute seizure Maintain on Topamax, Leobardo Depakote reports she has a seizure every third day at home Otherwise doing very well Review of Systems General: Fatigue, Malaise Focused Exam Time of Focused Exam: 19:00 Objective Exam Vital Signs Vital Signs Date Time Temp Pulse Resp B/P (MAP) Pulse Ox O2 Delivery O2 Flow Rate FiO2 07/06/21 14:24 95 Nasal Cannula 3.00 07/06/21 12:57 36.6 78 20 105/71 (82) 07/04/21 08:40 36 Capillary Refill : Less Than 3 Seconds General Appearance: No Apparent Distress, WD/WN, Chronically ill Respiratory: Lungs Clear, Normal Breath Sounds Cardiovascular: Regular Rate, Rhythm Neurologic/Psychiatric: Alert, Oriented x3, No Motor/Sensory Deficits, Normal Mood/Affect Results/Procedures Lab Laboratory Tests 07/06/21 10:57 Patient resulted labs reviewed. Assessment/Plan Assessment and Plan Assess & Plan/Chief Complaint Assessment Acute respiratory failure -Now extubated Episodes of V. tach - Consulting cardiology Seizure disorder - Maintained on levetiracetam Sepsis Pneumonia Plan: Possible [place] if reintubated Proceed on with recovery 07/03/21: Monitor closely PT OT IRF 07/04/2021: PT OT Moved to floor likely tomorrow 07/05/2021: Transfer to fourth floor Continue rehab 07/06/2021: Supportive care Seizure management Critical Care Critically Ill Patient Clinical Quality Measures Urinary Catheter-Non SCIP Pts: Reason for Catheter Continuanc: Ventilator MARY BELL DO Jul 06, 2021 12:20
--- NOTE | 2021-07-06 14:24 | Progress Note - Cardiology ---
Cardiology SOAP Progress Note Subjective: Sleeping after recent seizure activity and not reponsive to questions Objective: I&O/Vital Signs 07/06/21 07/06/21 07/06/21 07/06/21 02:22 04:00 07:10 07:15 Temp 36.4 36.1 Pulse 91 101 Resp 16 18 B/P (MAP) 147/95 (112) 149/91 (110) Pulse Ox 93 93 93 96 O2 Delivery Nasal Cannula Room Air Nasal Cannula Room Air O2 Flow Rate 1.00 1.00 07/06/21 07/06/21 07/06/21 10:46 10:48 12:57 Temp 36.2 36.6 Pulse 76 78 Resp 20 20 B/P (MAP) 89/61 (70) 101/69 (80) 105/71 (82) Pulse Ox 92 95 O2 Delivery Nasal Cannula Nasal Cannula O2 Flow Rate 3.00 3.00 07/06/21 00:00 Intake Total 962.5 ml Output Total 1575 ml Balance -612.5 ml Constitutional: other (Post-ictal sleep) Respiratory: No accessory muscle use; other (fair to goo air entry) Cardiovascular: regular rate-rhythm, S1 and S2, systolic murmur (soft MARIELA at card base) Gastrointestional: No tender; soft; No guarding, No rebound; audible bowel sounds Extremities: No clubbing, No cyanosis, No significant edema Neurologic/Psychiatric: other (unable to cooperate with a neuro exam) Skin: normal color, warm/dry Results/Procedures: Labs Laboratory Tests 07/05/21 15:31: Glucometer 137H 07/05/21 19:27: Glucometer 148H 07/06/21 05:31: Glucometer 105 07/06/21 10:46: Glucometer 199H 07/06/21 10:57: White Blood Count 20.4H, Red Blood Count 6.01H, Hemoglobin 17.4H, Hematocrit 53H , Mean Corpuscular Volume 89, Mean Corpuscular Hemoglobin 29, Mean Corpuscular Hemoglobin Concent 33, Red Cell Distribution Width 14.0, Platelet Count 468H, Mean Platelet Volume 11.3, Immature Granulocyte % (Auto) 1, Neutrophils (%) (Auto) 87H, Lymphocytes (%) (Auto) 4L, Monocytes (%) (Auto) 8, Eosinophils (%) (Auto) 0, Basophils (%) (Auto) 0, Neutrophils # (Auto) 17.7H, Lymphocytes # (Auto) 0.8L, Monocytes # (Auto) 1.7H, Eosinophils # (Auto) 0.0, Basophils # (Auto) 0.0, Immature Granulocyte # (Auto) 0.2H, Sodium Level 140, Potassium Level 4.1, Chloride Level 108H, Carbon Dioxide Level 18L, Anion Gap 14, Blood Urea Nitrogen 29H, Creatinine 0.81, Estimat Glomerular Filtration Rate 74, BUN/Creatinine Ratio 36, Glucose Level 176H, Calcium Level 9.6 Microbiology 06/28/21 Gram Stain - Final, Complete 06/28/21 Sputum Culture - Final, Complete No growth 06/24/21 Urine Culture - Final, Complete NO GROWTH 06/24/21 Blood Culture - Final, Complete No growth Laboratory Tests 07/05/21 05:40 07/06/21 10:57 A/P: Assessment: Ac resp failure due to ac exac of COPD due to pneumonia, extubated on 07/02/21 - Elevated D-dimer, CT angio of the chest showed no evidence of pulmonary embol ism, she has history of PE in the past Severe, albeit labile, hypertension (low bp in the post-ictal state) - Echo 06/27/21: difficult study, normal left ventricular size, EF 65 to 70%, trivial aortic regurgitation, normal pulmonary artery pressure of 20 to 25 mmHg. Seizure disorder - chronic, last episode on 07/06/21 Tobaccoism. Plan: * Continue current antihypertensive regimen. Hold if bp low * Monitor labs closely Clinical Quality Measures Urinary Catheter-Non SCIP Pts: Reason for Catheter Continuanc: Ventilator ADELA NEGRON MD FACP [facility] Jul 06, 2021 14:24
[2021-07-06] MEDS: clonazePAM 0.5 MG (KlonoPIN) TAB PO SCH (19:55)
[2021-07-06] MEDS: DIVALPROX SPRINKLE 125 MG (DEPAKOTE) CAP PO SCH (19:55)
[2021-07-07] MEDS: RT-ALBUTEROL/IPRATROPIUM 3 ML (DUONEB) VIAL INH SCH ×6 (02:41→21:54)
[2021-07-07 03:57] VITALS: BP 138/86
[2021-07-07] MEDS: inSUlin ASPART (NovoLOG) 1 UNIT/0.01 ML (CHARGE PER UNIT) SC SCH ×4 (05:28→21:58)
[2021-07-07] MEDS: NYSTATIN ORAL SUSP 5 ML UDC PO SCH ×4 (05:28→23:04)
[2021-07-07] MEDS: METOCLOPRAMIDE 5 MG (REGLAN) TAB PO SCH ×2 (05:28→18:08)
[2021-07-07] MEDS: AZTREONAM INJECTION 2,000 MG in NS (IVPB) 100 ML IV SCH ×3 (05:28→23:04)
[2021-07-07] MEDS: predniSONE 20 MG TAB PO SCH (05:29)
[2021-07-07 05:41] LABS: BASOPHILS % (AUTO) 0 % (0-10); EOSINOPHILS % (AUTO) 0 % (0-10); HEMATOCRIT 50 % (35-52); HEMOGLOBIN 15.9 g/dL (11.5-16.0); LYMPHOCYTES # (AUTO) 1.1 10^3/uL (1.0-4.0); LYMPHOCYTES % (AUTO) 6 % (12-44); MEAN CORPUSCULAR HEMOGLOBIN 28 pg (25-34); MEAN CORPUSCULAR HGB CONC 32 g/dL (32-36); MEAN CORPUSCULAR VOLUME 89 fL (80-99); MEAN PLATELET VOLUME 11.5 fL (9.0-12.2); MONOCYTES # (AUTO) 1.8 10^3/uL (0.0-1.0); MONOCYTES % (AUTO) 11 % (0-12); NEUTROPHILS # (AUTO) 13.8 10^3/uL (1.8-7.8); NEUTROPHILS % (AUTO) 82 % (42-75); PLATELET COUNT 402 10^3/uL (130-400); WHITE BLOOD COUNT 16.9 10^3/uL (4.3-11.0)
[2021-07-07 05:56] LABS: ALBUMIN 3.6 GM/DL (3.2-4.5)
[2021-07-07 05:57] LABS: POTASSIUM 3.7 MMOL/L (3.6-5.0)
[2021-07-07 05:58] LABS: CALCIUM 9.3 MG/DL (8.5-10.1)
[2021-07-07 05:59] LABS: TOTAL PROTEIN 6.8 GM/DL (6.4-8.2)
[2021-07-07 06:01] LABS: BILIRUBIN,TOTAL 0.8 MG/DL (0.1-1.0)
[2021-07-07 06:03] LABS: CREATININE SERUM 0.6 MG/DL (0.60-1.30)
[2021-07-07 06:33] LABS: LYMPHOCYTES % (MANUAL) 7 %; NEUTROPHILS % (MANUAL) 81 %
[2021-07-07 06:34] LABS: MONOCYTES % (MANUAL) 12 %
[2021-07-07 07:54] VITALS: BP 133/89
[2021-07-07] MEDS: LOSARTAN 25 MG (COZAAR) TAB PO SCH (08:09)
[2021-07-07] MEDS: toPIRamate 100 MG (TOPAMAX) TAB PO SCH ×2 (08:09→21:47)
[2021-07-07] MEDS: toPIRamate 25 MG (TOPAMAX) TAB PO SCH ×2 (08:09→21:47)
[2021-07-07] MEDS: PANTOPRAZOLE 40 MG (PROTONIX) TAB PO SCH (08:09)
[2021-07-07] MEDS: ENOXAPARIN 40 MG/0.4 ML (LOVENOX) SYR SC SCH (08:11)
[2021-07-07 10:25] VITALS: BP 142/87
--- NOTE | 2021-07-07 10:36 | Physical Therapy Daily Note ---
PT Daily Note-Current Subjective Patient initially refused PT. However, after much encouragement, patient agrees. Mental Status Patient Orientation: Person Attachments: Oxygen, Carias Catheter Transfers SCALE: Activities may be completed with or without assistive devices. 0-Tuhfqxmfwn-cxolqwk completes the activity by him/herself with no assistance from a helper. 5-Set-up or Clean-up Assistance-helper sets up or cleans up; patient completes activity. [place] assists only prior to or following the activity. 4-Supervision or Touching Assistance-helper provides verbal cues and/or touching/steadying and/or contact guard assistance as patient completes activity. Assistance may be provided throughout the activity or intermittently. 3-Partial/Moderate Assistance-helper does LESS THAN HALF the effort. [place] lifts, holds or supports trunk or limbs, but provides less than half the effort. 2-Substantial/Maximal Assistance-helper does MORE THAN HALF the effort. [place] lifts or holds trunk or limbs and provides more than half the effort. 9-Pgwmmccgr-kmqndc does ALL the effort. Patient does none of the effort to complete the activity. Or, the assistance of 2 or more helpers is required for the patient to complete the activity. If activity was not attempted, code reason: 7-Patient Refused. 9-Not Applicable-not attempted and the patient did not perform the activity before the current illness, exacerbation or injury. 10-Not Attempted due to Environmental Limitations-(lack of equipment, weather restraints, etc.). 88-Not Attempted due to Medical Conditions or Safety Concerns. Lying to Sitting/Side of Bed(Q: 2 Sit to Stand (QC): 3 (mod assist) Chair/Zbg-yg-Dkeba Xfer(QC): 3 (mod assist) Weight Bearing Right Lower Extremity: Right Full Weight Bearing Left Lower Extremity: Left Full Weight Bearing Patient is cleared to bear full weight through BLEs, however is unable to do so at this time. Gait Training Distance: 25' Walk 10 feet (QC): 3 Gait Assistive Device: FWW very slow, occasional scissor gait sequence/diminished proprioception and coordination Exercises Supine Ex: Ankle pumps, Heel Slides, Straight leg raise Supine Reps: 12 (AAROM) Seated Therapy Exercises: Ankle pumps, Long arc quads Seated Reps: 12 Assessment Patient requires time to complete all functional tasks. PT to increase activity as tolerated by patient. Patient ambulated to shower with MEDICAL INFORMATION OFFICER present to perform shower. PT Short Term Goals Short Term Goals Time Frame: Jul 17, 2021 Roll Left & Right: 3 Sit to lyin Lying to sitting on side of be: 3 Sit to stand: 3 Chair/xqh-qs-tmowu transfer: 3 Toilet transfer: 3 Wheel 50ft w/2 turns: 2 Wheel 150 feet: 2 PT Assisted Goals Bale Piler Goals PT Bale Piler Goals Time Frame: Aug 01, 2021 Roll Left & Right (QC): 4 Sit to Lying (QC): 4 Lying-Sitting on Side/Bed(QC): 4 Sit to Stand (QC): 4 Chair/Abh-pb-Dxcvf Xfer(QC): 4 Toilet Transfer (QC): 4 Car Transfer (QC): 4 Does the Patient Walk: Yes Walk 10 feet (QC): 2 Walk 50ft with 2 Turns (QC): 2 Does the Pt use WC or Scooter?: Yes Wheel 50 feet with 2 turns (QC: 3 Type: Manual Wheel 150 feet: 3 Type: Manual PT Plan Treatment/Plan Treatment Plan: Continue Plan of Care Treatment Plan: Bed Mobility, Education, Functional Activity Iveth, Functional Strength, Group Therapy, Gait, Safety, Therapeutic Exercise, Transfers Treatment Duration: Aug 27, 2021 Frequency: 6 times per week Patient and/or Family Agrees t: Yes Time/GCodes Time In: 922 Time Out: 946 Total Billed Treatment Time: 24 Total Billed Treatment 1 visit EX 13 mi GT 11 min RACHEL STEIN PT Jul 07, 2021 10:36
--- NOTE | 2021-07-07 10:57 | Progress Note ---
CELINE FLROES 07/07/21 1057: Progress Note Subjective: Dixie Vernon is a 55 year old female that was admitted 06/24 for pneumonia and acute respiratory failure. This morning she is pleasant and has no complaints. Just wanting to get this thrush under control. She feels that she needs to work on getting stronger. Per nursing, Dixie had an episode of syncope yesterday morning while on the commode and a rapid response was initiated. Was unsure if this was a seizure, pseudoseizure, or vasovagal event. She became acutely pale and hypotensive with weak pulses during this event. Team of 4 helped her get back to bed. Dixie denies any pain, shortness of breath, chest pain, palpitations, headaches, nausea/vomiting. Her last bowel movement was this morning. Physical Exam: Cardiovascular: regular rate and rhythm, no murmur Respiratory: Lungs clear to auscultation bilaterally Abdomen: soft, non-distended, no pain Extremities: No lower extremity edema. CAMILLE MCDANIEL MD 07/07/212027: Supervisory-Addendum Brief Verification & Attestation Participated in pt care: history Personally performed: history Care discussed with: Medical Student Procedures: n/a Verification and Attestation of Medical Student E/M Service A medical student performed and documented this service in my presence. I reviewed and verified all information documented by the medical student and made modifications to such information, when appropriate. I personally performed the physical exam and medical decision making. Camille Mcdaniel, Jul 07, 2021,20:28 CELINE FLORES Jul 07, 2021 10:57 CAMILLE MCDANIEL MD Jul 07, 2021 20:28
--- NOTE | 2021-07-07 11:03 | Progress Note - Cardiology ---
Cardiology SOAP Progress Note Subjective: Episode of unresponsiveness earlier this morning while in the shower Lethargic post episode, but appropriate conversation Objective: I&O/Vital Signs 07/06/21 07/07/21 07/07/21 07/07/21 23:58 02:41 03:57 07:20 Temp 36.6 36.4 Pulse 85 84 Resp 20 20 B/P (MAP) 148/96 (113) 138/86 (103) Pulse Ox 96 93 92 96 O2 Delivery Nasal Cannula Nasal Cannula Nasal Cannula Nasal Cannula O2 Flow Rate 1.00 1.00 2.00 2.00 07/07/21 07/07/21 07/07/21 07:54 08:49 10:25 Temp 36.8 Pulse 84 83 Resp 18 16 B/P (MAP) 133/89 (104) 142/87 (105) Pulse Ox 96 99 O2 Delivery Nasal Cannula Nasal Cannula Nasal Cannula O2 Flow Rate 2.00 2.00 07/07/21 00:00 Intake Total 610 ml Output Total 650 ml Balance -40 ml Constitutional: other (Post-ictal sleep) Respiratory: No accessory muscle use; other (fair to goo air entry) Cardiovascular: regular rate-rhythm, S1 and S2, systolic murmur (soft MARIELA at card base) Gastrointestional: No tender; soft; No guarding, No rebound; audible bowel sounds Extremities: No clubbing, No cyanosis, No significant edema Neurologic/Psychiatric: other (unable to cooperate with a neuro exam) Skin: normal color, warm/dry Results/Procedures: Labs Laboratory Tests 07/06/21 16:59: Glucometer 141H 07/06/21 20:24: Glucometer 133H 07/07/21 05:27: Glucometer 121H 07/07/21 05:31: White Blood Count 16.9H, Red Blood Count 5.60H, Hemoglobin 15.9, Hematocrit 50, Mean Corpuscular Volume 89, Mean Corpuscular Hemoglobin 28, Mean Corpuscular Hemoglobin Concent 32, Red Cell Distribution Width 14.1, Platelet Count 402H, Me an Platelet Volume 11.5, Immature Granulocyte % (Auto) 1, Neutrophils (%) (Auto) 82H, Lymphocytes (%) (Auto) 6L, Monocytes (%) (Auto) 11, Eosinophils (%) (Auto) 0, Basophils (%) (Auto) 0, Neutrophils # (Auto) 13.8H, Lymphocytes # (Auto) 1.1, Monocytes # (Auto) 1.8H, Eosinophils # (Auto) 0.0, Basophils # (Auto) 0.0, Immature Granulocyte # (Auto) 0.1, Neutrophils % (Manual) 81, Lymphocytes % (Manual) 7, Monocytes % (Manual) 12, Sodium Level 143, Potassium Level 3.7, Chloride Level 111H, Carbon Dioxide Level 20L, Anion Gap 12, Blood Urea Nitrogen 36H, Creatinine 0.60, Estimat Glomerular Filtration Rate 105, BUN/Creatinine Ratio 60, Glucose Level 113H, Calcium Level 9.3, Corrected Calcium 9.6, Total Bilirubin 0.8, Aspartate Amino Transf (AST/SGOT) 50H, Alanine Aminotransferase (ALT/SGPT) 159H, Alkaline Phosphatase 205H, Total Protein 6.8, Albumin 3.6 Microbiology 06/28/21 Gram Stain - Final, Complete 06/28/21 Sputum Culture - Final, Complete No growth 06/24/21 Urine Culture - Final, Complete NO GROWTH 06/24/21 Blood Culture - Final, Complete No growth A/P: Assessment: Ac resp failure due to ac exac of COPD due to pneumonia, extubated on 07/02/21 - Elevated D-dimer, CT angio of the chest showed no evidence of pulmonary embolism, she has history of PE in the past Severe, albeit labile, hypertension (low bp in the post-ictal state) - Echo 06/27/21: difficult study, normal left ventricular size, EF 65 to 70%, trivial aortic regurgitation, normal pulmonary artery pressure of 20 to 25 mmHg. Seizure disorder - chronic, last episode on 07/07/21 Tobaccoism. Liver enzyme elevation of undetermined etiology - management per medical services Plan: * Continue current antihypertensive regimen. Hold if bp low * Monitor labs closely * Management of elevated liver enzymes per medical services Clinical Quality Measures Urinary Catheter-Non SCIP Pts: Reason for Catheter Continuanc: Ventilator HALI LIZARRAGA INDEX CLERK Jul 07, 2021 11:03
--- NOTE | 2021-07-07 11:20 | Progress Note - Hospitalist ---
CELINE FLORES 07/07/21 1120: Subjective HPI/CC On Admission pneumonia, shortness of breath Subjective/Events-last exam Dixie is pleasant this morning. No acute events overnight. She wants to get case of thrush under control and feels that she needs to get stronger. No complaints otherwise. Per nursing, she did have a syncopal episode yesterday morning around 10:45a while on the commode. Unsure if this was a vasovagal event, seizure, or pseudoseizure. During the event, patient became acutely hypotensive, pale, and had weak peripheral pulses. Team of 4 helped patient back to bed. Patient denies any pain, shortness of breath, chest pain, palpitations, headache, nausea/vomiting. Most recent bowel movement was this morning. Review of Systems HEENT: No Head Aches Pulmonary: No Dyspnea Cardiovascular: No: Chest Pain, Palpitations, Edema Gastrointestinal: No: Nausea, Vomiting, Abdominal Pain Neurological: Weakness Focused Exam Time of Focused Exam: 19:00 Respiratory: Chest Non Tender, Lungs Clear, Normal Breath Sounds, No Accessory Muscle Use, No Respiratory Distress Cardiovascular: Regular Rate, Rhythm, No Edema, No Murmur Skin: normal color, warm/dry Objective Exam Vital Signs Vital Signs Date Time Temp Pulse Resp B/P (MAP) Pulse Ox O2 Delivery O2 Flow Rate FiO2 07/07/21 11:52 36.8 79 20 141/83 (102) 97 Nasal Cannula 2.00 07/04/21 08:40 36 Capillary Refill : Less Than 3 Seconds General Appearance: No Apparent Distress, Obese Neck: Normal Inspection, Supple Respiratory: Chest Non Tender, Lungs Clear, Normal Breath Sounds, No Accessory Muscle Use, No Respiratory Distress Cardiovascular: Regular Rate, Rhythm, No Edema, No Gallop, No JVD, No Murmur Gastrointestinal: Non Tender, Soft Rectal: Deferred Back: Normal Inspection Extremity: No Pedal Edema Skin: Normal Color, Warm/Dry Results/Procedures Lab Laboratory Tests 07/07/21 05:31 Patient resulted labs reviewed. Assessment/Plan Assessment and Plan Assess & Plan/Chief Complaint Pneumonia, shortness of breath, asthma, COPD exacerbation, sepsis * Right lobe basilar pneumonia * Intubated 06/24, extubated 07/02 * Elevated d-dimer on presentation, no evidence of PE on CTA. H/o of PE in past * ECHO 06/27: EF 65-70% * No growth on blood, urine, and sputum cultures * Sepsis resolved. WBC count improving. 16.9 on 07/07 * Plan: Continue Duoneb, Prednisone, and Aztreonam Seizure disorder * reports seizures every third day at home * Unspecified quality/type of seizure * Elevated AST (50), ALT (159), ALK PHOS (205). Could be due to hepatotoxic effects from valproic acid. * Plan: Continue Levitiracetam, Topiramate, depakote. Check valproic acid levels. V-Tac Episodes, syncopal episodes, DVT prophylaxis * Cardiology consulted, no signs of ischemic changes on EKG * Syncope 07/07 in shower and 07/06 on commode. Rapid responses initiated both times * Plan: Telemetry to monitor if V-tac is associated with syncope. Lovenox for anticoagulation. Oral Thrush * Continue Oral Nystatin Elevated BUN * As of today, 07/07 levels were 36. Levels were WNL until yesterday 07/06 * Possibly due to dehydration * Plan: Oral hydration as tolerated. Weakness, dysphagia * Swallow assessment 07/03 showed reduced transit. Patient is improving. * STAFF DEVELOPER/PT/OT following. Assistance when transferring. Hypertension * Continue carvedilol and losartan Diabetes, type II * Hold insulin if patient is not eating. When PO intake improves, continue basal/bolus + sliding scale insulin Depression * Continue Citalopram GERD * Continue Pantoprazole Diagnosis/Problems Diagnosis/Problems (1) Sepsis Onset Date: ~ 07/24/2020 Status: Resolved Assessment & Plan: No growth on blood, urine, and sputum cultures * Sepsis resolved. WBC count improving. 16.9 on 07/07 Plan: Continue Aztreonam. Monitor vital signs. Daily CBC and CMP. Qualifiers: Qualified Codes: A41.9 - Sepsis, unspecified organism; R65.20 - Severe sepsis without septic shock; J96.00 - Acute respiratory failure, unspecified whether with hypoxia or hypercapnia Resolution Date/Time: 07/02/21 @ 17:41 (2) DVT prophylaxis Status: Acute Assessment & Plan: Subcutaneous Lovenox (3) COPD exacerbation Onset Date: ~ 07/24/2020 Status: Resolved Assessment & Plan: * Patient h/o smoking * Right basilar opacities on chest x-ray upon admission Continue Duoneb and Prednisone Resolution Date/Time: 07/02/21 @ 17:44 (4) Right lower lobe pneumonia Onset Date: ~ 07/24/2020 Status: Acute Assessment & Plan: Right lobe basilar pneumonia * Intubated 06/24, extubated 07/02 * Elevated d-dimer on presentation, no evidence of PE on CTA. H/o of PE in past * ECHO 06/27: EF 65-70% * No growth on blood, urine, and sputum cultures * Sepsis resolved. WBC count improving. 16.9 on 07/07 * Plan: Continue Duoneb, Prednisone, and Aztreonam Qualifiers: Qualified Codes: J18.9 - Pneumonia, unspecified organism (5) Acute respiratory failure Status: Resolved Qualifiers: Qualified Codes: J96.01 - Acute respiratory failure with hypoxia; J96.02 - Acute respiratory failure with hypercapnia Resolution Date/Time: 07/02/21 @ 17:47 (6) Seizures Onset Date: Unknown Status: Chronic Assessment & Plan: * Seizures every third day reported by . * Unknown type/quality of seizure. Plan: Continue Levitiracetam, topiramate, and depakote sprinkles. Check valproic acid levels due to mildly elevated liver enzymes. (7) HTN (hypertension) Onset Date: Unknown Status: Chronic Assessment & Plan: Plan: Continue treatment with carvedilol and losartan. Qualifiers: Qualified Codes: I10 - Essential (primary) hypertension (8) Ventricular tachycardia Onset Date: Unknown Status: Acute Assessment & Plan: * Cardiology has been following. * Episodes of ventricular tachycardia for ~ 6 beats. * No ischemic changes on EKG/troponins * ECHO displayed normal ejection fraction * Syncopal episodes 07/06 and 07/07 Plan: Defer to cardiology. Would like to put patient on telemetry to answer question if syncope is related to V-tach episodes. Clinical Quality Measures Urinary Catheter-Non SCIP Pts: Reason for Catheter Continuanc: Ventilator CAMILLE MCDANIEL MD 07/07/212032: Subjective HPI/CC On Admission Date Seen by Provider: Jul 07, 2021 Time Seen by Provider: 10:00 Review of Systems General: Malaise HEENT: No Head Aches, No Visual Changes, No Eye Pain; Dysphasia, Sore Throat Pulmonary: No Dyspnea; Cough Cardiovascular: No: Chest Pain, Palpitations, Edema Gastrointestinal: No: Nausea, Vomiting, Abdominal Pain, Diarrhea, Constipation Neurological: Weakness, Incoordination Objective Exam General Appearance: No Apparent Distress, WD/WN, Obese Neck: Full Range of Motion, Normal Inspection Respiratory: Chest Non Tender, Lungs Clear, Normal Breath Sounds, No Accessory Muscle Use, No Respiratory Distress Cardiovascular: Regular Rate, Rhythm, No Edema, No Murmur Gastrointestinal: Normal Bowel Sounds, Non Tender, Soft; No Distended, No Guarding Extremity: Normal Capillary Refill, Normal Inspection, Normal Range of Motion, No Calf Tenderness, No Pedal Edema Neurologic/Psychiatric: Other (Post ictal as she was seen during rapid response) Skin: Normal Color, Warm/Dry Lymphatic: No Adenopathy Assessment/Plan Assessment and Plan Assess & Plan/Chief Complaint Agree with above including Debilty: IRF is evaluating patient for intensive therapies with goal of returning home independent Supervisory-Addendum Brief Verification & Attestation Participated in pt care: history, physical Personally performed: exam, history Care discussed with: Medical Student Procedures: n/a Verification and Attestation of Medical Student E/M Service A medical student performed and documented this service in my presence. I reviewed and verified all information documented by the medical student and made modifications to such information, when appropriate. I personally performed the physical exam and medical decision making. Camille Mcdaniel, Jul 07, 2021,20:32 CELINE FLORES Jul 07, 2021 11:20 CAMILLE MCDANIEL MD Jul 07, 2021 20:33
[2021-07-07 11:52] VITALS: BP 141/83
--- NOTE | 2021-07-07 11:54 | Occupational Ther Daily Note ---
OT Current Status-Daily Note Subjective Pt laying in bed, agreeable to OT Tx. Pt states she had a seizure this morning while showering. Mental Status/Objective Patient Orientation: Person, Place, Situation Attachments: Oxygen ADL-Treatment Therapy Code Descriptions/Definitions Functional [place] Measure: 0=Not Assessed/NA 4=Minimal Assistance 1=Total Assistance 5=Supervision or Setup 2=Maximal Assistance 6=Modified [place] 3=Moderate Assistance 7=Complete IndependenceSCALE: Activities may be completed with or without assistive devices. 6-Qjymzcdizs-maxpnzd completes the activity by him/herself with no assistance from a helper. 5-Set-up or Clean-up Assistance-helper sets up or cleans up; patient completes activity. [place] assists only prior to or following the activity. 4-Supervision or Touching Assistance-helper provides verbal cues and/or touching/steadying and/or contact guard assistance as patient completes activity. Assistance may be provided throughout the activity or intermittently. 3-Partial/Moderate Assistance-helper does LESS THAN HALF the effort. [place] lifts, holds or supports trunk or limbs, but provides less than half the effort. 2-Substantial/Maximal Assistance-helper does MORE THAN HALF the effort. [place] lifts or holds trunk or limbs and provides more than half the effort. 9-Xyaspxrzd-qmlpez does ALL the effort. Patient does none of the effort to complete the activity. Or, the assistance of 2 or more helpers is required for the patient to complete the activity. If activity was not attempted, code reason: 7-Patient Refused. 9-Not Applicable-not attempted and the patient did not perform the activity before the current illness, exacerbation or injury. 10-Not Attempted due to Environmental Limitations-(lack of equipment, weather restraints, etc.). 88-Not Attempted due to Medical Conditions or Safety Concerns. Eating (QC): 3 (Pt requires assistance to bring water cup to her mouth. Pt able to bring small piece of finger food to her mouth with increased time.) Oral Hygiene (QC): 3 (Per clinical judgment.) Shower/Bathe Self (QC): 1 (Per pt report, total assist in shower this AM with nursing staff.) Upper Body Dressing (QC): 3 ([facility] gown.) Lower Body Dressing (QC): 1 (based on clincial judgment) On/Off Footwear: 1 (Total assist with gripper socks.) Other Treatment Pt laying in bed, agreeable to OT Tx. Pt states she had a seizure in the shower this morning. Nursing staff provided total assist for shower. Pt doffed/donned hospital gown, requiring increased time with task. Pt attempted to complete button on hospital gown, after several minutes was unsuccessful, requiring assistance. Pt able to manage gown up past elbows, required AAROM to flex shoulder in order for pt to manage up the rest of the way. Pt eating small bites of finger foods, able to bring to her lips and place on her tongue using LUE with increased time. Post tx, pt in bed, call light in reach and all needs met, present. Education OT Patient Education: Correct positioning, Energy conservation, Exercise program, Modified ADL techniques, Progress toward Goal/Update tx plan, Purpose of tx/functional activities, Safety issues, Transfer techniques, Use of adapted equipment Teaching Recipient: Patient Teaching Methods: Discussion Response to Teaching: Verbalize Understanding OT Fdc Goals Benefits Specialist Goals Time Frame: Jul 25, 2021 Eating (QC): 3 Oral Hygiene (QC): 3 Toileting Hygiene (QC): 2 Shower/Bathe Self (QC): 2 Upper Body Dressing (QC): 3 Lower Body Dressing (QC): 2 On/Off Footwear (QC): 2 Additional Goals: 1-Demonstrate ADL Tasks, 2-Verbalize Understanding, 3- ImproveStrength/Iveth 1=Demonstrate adherence to instructed precautions during ADL tasks. 2=Patient will verbalize/demonstrate understanding of assistive devices/modifications for ADL. 3=Patient will improve strength/tolerance for activity to enable patient to perform ADL's. OT Education/Plan Problem List/Assessment Assessment: Decreased Activ Tolerance, Decreased UE Strength, Impaired Funct Balance, Impaired I ADL's, Impaired Self-Care Skills Pt would benefit from skilled OT services in order to increase BUE Strength and activity tolerance and increase safety and independence with ADLs Discharge Recommendations Plan/Recommendations: Continue POC Therapy Discharge Recommendati: Post Acute OT Treatment Plan/Plan of Care Patient would benefit from OT for education, treatment and training to promote independence in ADL's, mobility, safety and/or upper extremity function for ADL's. Plan of Care: ADL Retraining, Functional Mobility, UE Funct Exercise/Act Treatment Duration: Jul 25, 2021 Frequency: 3 times per week (3-5 times a week) Estimated Hrs Per Day: .25 hour per day Rehab Potential: Guarded Time/GCodes Start Time: 11:22 Stop Time: 11:40 Total Time Billed (hr/min): 18 Billed Treatment Time 1, ADL MOISES MCDONOUGH OT Jul 07, 2021 11:54
[2021-07-07 16:00] VITALS: BP 135/84
--- NOTE | 2021-07-07 16:30 | Progress Note - Cardiology ---
Cardiology SOAP Progress Note Subjective: Somnolent Does not communicate much and does not report symptoms Objective: I&O/Vital Signs 07/07/21 07/07/21 07/07/21 07/07/21 07:20 07:54 08:49 10:25 Temp 36.8 Pulse 84 83 Resp 18 16 B/P (MAP) 133/89 (104) 142/87 (105) Pulse Ox 96 96 99 O2 Delivery Nasal Cannula Nasal Cannula Nasal Cannula Nasal Cannula O2 Flow Rate 2.00 2.00 2.00 07/07/21 07/07/21 11:18 11:52 Temp 36.8 Pulse 79 Resp 20 B/P (MAP) 141/83 (102) Pulse Ox 97 O2 Delivery Nasal Cannula Nasal Cannula O2 Flow Rate 2.00 2.00 07/07/21 00:00 Intake Total 610 ml Output Total 650 ml Balance -40 ml Constitutional: other (Post-ictal sleep) Respiratory: No accessory muscle use; other (fair to goo air entry) Cardiovascular: regular rate-rhythm, S1 and S2, systolic murmur (soft MARIELA at card base) Gastrointestional: No tender; soft; No guarding, No rebound; audible bowel sounds Extremities: No clubbing, No cyanosis, No significant edema Neurologic/Psychiatric: other (unable to cooperate with a neuro exam) Skin: normal color, warm/dry Results/Procedures: Labs Laboratory Tests 07/06/21 16:59: Glucometer 141H 07/06/21 20:24: Glucometer 133H 07/07/21 05:27: Glucometer 121H 07/07/21 05:31: White Blood Count 16.9H, Red Blood Count 5.60H, Hemoglobin 15.9, Hematocrit 50, Mean Corpuscular Volume 89, Mean Corpuscular Hemoglobin 28, Mean Corpuscular Hemoglobin Concent 32, Red Cell Distribution Width 14.1, Platelet Count 402H, Mean Platelet Volume 11.5, Immature Granulocyte % (Auto) 1, Neutrophils (%) (Auto) 82H, Lymphocytes (%) (Auto) 6L, Monocytes (%) (Auto) 11, Eosinophils (%) (Auto) 0, Basophils (%) (Auto) 0, Neutrophils # (Auto) 13.8H, Lymphocytes # (Auto) 1.1, Monocytes # (Auto) 1.8H, Eosinophils # (Auto) 0.0, Basophils # ( Auto) 0.0, Immature Granulocyte # (Auto) 0.1, Neutrophils % (Manual) 81, Lymphocytes % (Manual) 7, Monocytes % (Manual) 12, Sodium Level 143, Potassium Level 3.7, Chloride Level 111H, Carbon Dioxide Level 20L, Anion Gap 12, Blood Urea Nitrogen 36H, Creatinine 0.60, Estimat Glomerular Filtration Rate 105, BUN/Creatinine Ratio 60, Glucose Level 113H, Calcium Level 9.3, Corrected Calcium 9.6, Total Bilirubin 0.8, Aspartate Amino Transf (AST/SGOT) 50H, Alanine Aminotransferase (ALT/SGPT) 159H, Alkaline Phosphatase 205H, Total Protein 6.8, Albumin 3.6 Microbiology 06/28/21 Gram Stain - Final, Complete 06/28/21 Sputum Culture - Final, Complete No growth 06/24/21 Urine Culture - Final, Complete NO GROWTH 06/24/21 Blood Culture - Final, Complete No growth Laboratory Tests 07/06/21 10:57 07/07/21 05:31 A/P: Assessment: Ac resp failure due to ac exac of COPD due to pneumonia, extubated on 07/02/21 - Elevated D-dimer, CT angio of the chest showed no evidence of pulmonary embolism, she has history of PE in the past Severe, albeit labile, hypertension (low bp in the post-ictal state) - Echo 06/27/21: difficult study, normal left ventricular size, EF 65 to 70%, trivial aortic regurgitation, normal pulmonary artery pressure of 20 to 25 mmHg. Seizure disorder - chronic, last episode on 07/07/21 Tobaccoism. Liver enzyme elevation of undetermined etiology - management per Medical services Plan: * Continue current antihypertensive regimen. Hold if bp low * Monitor labs closely * Management of elevated liver enzymes per medical services Clinical Quality Measures Urinary Catheter-Non SCIP Pts: Reason for Catheter Continuanc: Ventilator ADELA NEGRON MD [facility] CCDS Jul 07, 2021 16:30
[2021-07-07 20:39] VITALS: BP 104/57
[2021-07-07] MEDS: clonazePAM 0.5 MG (KlonoPIN) TAB PO SCH (21:47)
[2021-07-07] MEDS: DIVALPROX SPRINKLE 125 MG (DEPAKOTE) CAP PO SCH (21:48)
[2021-07-08] VITALS (8 sets, daily range): BP systolic 115–135; BP diastolic 64–91
[2021-07-08] MEDS: RT-ALBUTEROL/IPRATROPIUM 3 ML (DUONEB) VIAL INH SCH ×6 (02:33→22:16)
[2021-07-08] MEDS: NYSTATIN ORAL SUSP 5 ML UDC PO SCH ×3 (06:11→18:30)
[2021-07-08] MEDS: AZTREONAM INJECTION 2,000 MG in NS (IVPB) 100 ML IV SCH ×2 (06:11→14:17)
[2021-07-08] MEDS: inSUlin ASPART (NovoLOG) 1 UNIT/0.01 ML (CHARGE PER UNIT) SC SCH ×4 (06:12→21:15)
[2021-07-08 06:31] LABS: BASOPHILS % (AUTO) 0 % (0-10); EOSINOPHILS # (AUTO) 0.1 10^3/uL (0.0-0.3); EOSINOPHILS % (AUTO) 0 % (0-10); HEMATOCRIT 47 % (35-52); HEMOGLOBIN 15.1 g/dL (11.5-16.0); LYMPHOCYTES # (AUTO) 1.5 10^3/uL (1.0-4.0); LYMPHOCYTES % (AUTO) 12 % (12-44); MEAN CORPUSCULAR HEMOGLOBIN 29 pg (25-34); MEAN CORPUSCULAR HGB CONC 32 g/dL (32-36); MEAN CORPUSCULAR VOLUME 90 fL (80-99); MEAN PLATELET VOLUME 11.5 fL (9.0-12.2); MONOCYTES # (AUTO) 1.3 10^3/uL (0.0-1.0); MONOCYTES % (AUTO) 11 % (0-12); NEUTROPHILS # (AUTO) 9.5 10^3/uL (1.8-7.8); NEUTROPHILS % (AUTO) 76 % (42-75); PLATELET COUNT 348 10^3/uL (130-400); WHITE BLOOD COUNT 12.5 10^3/uL (4.3-11.0)
[2021-07-08 06:40] LABS: ALBUMIN 3.3 GM/DL (3.2-4.5)
[2021-07-08 06:41] LABS: POTASSIUM 3.8 MMOL/L (3.6-5.0)
[2021-07-08 06:42] LABS: CALCIUM 8.7 MG/DL (8.5-10.1)
[2021-07-08 06:43] LABS: TOTAL PROTEIN 6.1 GM/DL (6.4-8.2)
[2021-07-08 06:45] LABS: BILIRUBIN,TOTAL 0.7 MG/DL (0.1-1.0)
[2021-07-08 06:47] LABS: CREATININE SERUM 0.56 MG/DL (0.60-1.30)
[2021-07-08] MEDS: predniSONE 20 MG TAB PO SCH (06:58)
[2021-07-08] MEDS: METOCLOPRAMIDE 5 MG (REGLAN) TAB PO SCH ×2 (06:58→17:31)
[2021-07-08] MEDS: LOSARTAN 25 MG (COZAAR) TAB PO SCH (09:06)
[2021-07-08] MEDS: PANTOPRAZOLE 40 MG (PROTONIX) TAB PO SCH (09:06)
[2021-07-08] MEDS: ENOXAPARIN 40 MG/0.4 ML (LOVENOX) SYR SC SCH (09:07)
[2021-07-08] MEDS: toPIRamate 100 MG (TOPAMAX) TAB PO SCH ×2 (09:07→20:38)
[2021-07-08] MEDS: toPIRamate 25 MG (TOPAMAX) TAB PO SCH ×2 (09:07→20:38)
--- NOTE | 2021-07-08 09:58 | Cardiology Progress Note ---
Subjective Date Seen by Provider: Jul 08, 2021 Time Seen by Provider: 08:40 Subjective/Events-last exam Patient is sitting up in chair, eating breakfast. Denies any chest pain or increased dyspnea. Review of Systems General: No Chills, No Night Sweats; Fatigue, Malaise; No Appetite, No Other HEENT: No Head Aches, No Visual Changes, No Eye Pain, No Ear Pain, No Dyspha jose luis, No Sinus Congestion, No Post Nasal Drip, No Sore Throat, No Other Pulmonary: Dyspnea; No Cough, No Pleuritic Chest Pain, No Other Cardiovascular: No: Chest Pain, Palpitations, Orthopnea, Paroxysmal Noc. Dyspnea, Edema, Lt Headedness, Other Focused Exam Time of Focused Exam: 19:00 Objective-Cardiology Exam Last Set of Vital Signs Vital Signs 07/04/21 07/08/21 07/08/21 07/08/21 08:40 07:49 11:00 11:21 Temp 37.2 Pulse 78 Resp 21 B/P (MAP) 116/76 (89) Pulse Ox 92 O2 Delivery Room Air O2 Flow Rate 1.00 FiO2 36 I&O Intake and Output 07/08/21 00:00 Intake Total 1470 ml Output Total 1000 ml Balance 470 ml Intake Oral 1070 ml IV Total 400 ml Output Urine Total 1000 ml General: Alert, Cooperative, Moderate Distress HEENT: Atraumatic Neck: Supple, No JVD Lungs: Other Heart: Regular Rate, Normal S1, Normal S2, No Murmurs Abdomen: Normal Bowel Sounds, Soft Extremities: No Clubbing, No Cyanosis, No Edema Skin: No Rashes, No Breakdown Psych/Mental Status: Mental Status NL Results Lab Laboratory Tests 07/08/21 06:20 A/P-Cardiology Admission Diagnosis Sinus bradycardia Acute respiratory failure Seizure Pneumonia Assessment/Plan Ac resp failure due to AECOPD due to pneumonia, extubated on 07/02/21. Elevated D-dimer, CT angio of the chest showed no evidence of pulmonary embolism, history of PE in the past. Short episode NSVT while on ventilator. No further episode, will continue to montior. Labile hypertension (low bp in the post-ictal state)/ Echo 06/27/21: difficult study, normal left ventricular size, EF 65 to 70%, trivial aortic regurgitation, normal pulmonary artery pressure of 20 to 25 mmHg. Seizure disorder - chronic, last episode on 07/07/21. Follows with Dr. Albert Hermosillo in [place]. Will need f/u as outpatient. Tobaccoism. Liver enzyme elevation of undetermined etiology - management per Medical services Patient was seen and evaluated with Yelena, examination performed, management plan was discussed, agree with the current scribed note, I made few changes to the note using Italic font Patient was seen and evaluated bedside sitting by her Eating breakfast Denies any chest pain, starting to have seizure activities again, has been following with a neurologist, Dr. Hermosillo, in [place]. Has been titrating her seizure medication Monitor blood pressure Noted to have elevation in liver enzymes. Unknown etiology. Continue to monitor YELENA KARIMI Jul 08, 2021 09:58 LISA CASIANO MD Jul 08, 2021 11:56
--- NOTE | 2021-07-08 10:06 | Physical Therapy Daily Note ---
PT Daily Note-Current Subjective Patient agrees to PT. Spouse present. Mental Status Patient Orientation: Normal For Age Attachments: Oxygen, Carias Catheter Transfers SCALE: Activities may be completed with or without assistive devices. 0-Ogfhiovhfw-jmhsxmq completes the activity by him/herself with no assistance from a helper. 5-Set-up or Clean-up Assistance-helper sets up or cleans up; patient completes activity. [place] assists only prior to or following the activity. 4-Supervision or Touching Assistance-helper provides verbal cues and/or touching/steadying and/or contact guard assistance as patient completes activity. Assistance may be provided throughout the activity or intermittently. 3-Partial/Moderate Assistance-helper does LESS THAN HALF the effort. [place] lifts, holds or supports trunk or limbs, but provides less than half the effort. 2-Substantial/Maximal Assistance-helper does MORE THAN HALF the effort. [place] lifts or holds trunk or limbs and provides more than half the effort. 4-Ayigturga-ivabkk does ALL the effort. Patient does none of the effort to complete the activity. Or, the assistance of 2 or more helpers is required for the patient to complete the activity. If activity was not attempted, code reason: 7-Patient Refused. 9-Not Applicable-not attempted and the patient did not perform the activity before the current illness, exacerbation or injury. 10-Not Attempted due to Environmental Limitations-(lack of equipment, weather restraints, etc.). 88-Not Attempted due to Medical Conditions or Safety Concerns. Sit to Stand (QC): 4 (CGA) Weight Bearing Right Lower Extremity: Right Full Weight Bearing Left Lower Extremity: Left Full Weight Bearing Patient is cleared to bear full weight through BLEs, however is unable to do so at this time. Gait Training Distance: 50' Walk 10 feet (QC): 4 Walk 50 ft with 2 Turns(QC): 4 Gait Assistive Device: FWW slow, steady with no deviation Exercises Seated Therapy Exercises: Ankle pumps, Long arc quads Seated Reps: 15 Treatments BP at rest in recliner prior to ambulate 112/84/after activity 143/91 (RN notified) Assessment Patient tolerated treatment well and remains up in recliner with needs met. Increase activity as tolerated by patient. PT Short Term Goals Short Term Goals Time Frame: Jul 17, 2021 Roll Left & Right: 3 Sit to lyin Lying to sitting on side of be: 3 Sit to stand: 3 Chair/otv-qx-qquuy transfer: 3 Toilet transfer: 3 Wheel 50ft w/2 turns: 2 Wheel 150 feet: 2 PT Longterm Goals Guidance Services Coordinator Goals PT Longterm Goals Time Frame: Aug 01, 2021 Roll Left & Right (QC): 4 Sit to Lying (QC): 4 Lying-Sitting on Side/Bed(QC): 4 Sit to Stand (QC): 4 Chair/Dfh-kz-Xgedl Xfer(QC): 4 Toilet Transfer (QC): 4 Car Transfer (QC): 4 Does the Patient Walk: Yes Walk 10 feet (QC): 2 Walk 50ft with 2 Turns (QC): 2 Does the Pt use WC or Scooter?: Yes Wheel 50 feet with 2 turns (QC: 3 Type: Manual Wheel 150 feet: 3 Type: Manual PT Plan Treatment/Plan Treatment Plan: Continue Plan of Care Treatment Plan: Bed Mobility, Education, Functional Activity Iveth, Functional Strength, Group Therapy, Gait, Safety, Therapeutic Exercise, Transfers Treatment Duration: Aug 27, 2021 Frequency: 6 times per week Patient and/or Family Agrees t: Yes Time/GCodes Time In: 918 Time Out: 936 Total Billed Treatment Time: 18 Total Billed Treatment 1 visit FA 18 min RACHEL STEIN PT Jul 08, 2021 10:06
--- NOTE | 2021-07-08 12:29 | Progress Note ---
CELINE FLORES 07/08/21 1229: Subjective Date Seen by a Provider: Jul 08, 2021 Time Seen by a Provider: 10:30 Subjective/Events-last exam Patient is laying in bed, resting, arousable to voice, post-ictal. is at bedside. History acquired from due to patient condition. Patient had seizure this morning after physical therapy. recognized patient's telling signs that a seizure may be imminent so had her lay in bed. Shortly after, she began having a seizure with small amplitude convulsions. Event occurred prior to provider/medical student being in the room. Patient has been having seizures for 6 years now. describes them as periods of convulsion s that last anywhere between 1 and 15 minutes. Sometimes she does remember having the seizure. Typically does not lose control of bladder or bowels. Patient follows with a neurologist in [place], [place]. Seizures are well controlled with OP anti-seizure medications and THC gummies, per . Unsure when most recent EEG was done, but thinks it was during hospitalization 3 years ago in [place]. There may be a family history component to seizure disorder. Patient's daughter has seizures, and thinks that patient's mother had seizures too. Patient's appetite has been improving, and she has been getting stronger daily. Unable to assess review of systems due to patient's condition. Focused Exam Time of Focused Exam: 19:00 Objective Exam Last Set of Vital Signs Vital Signs Date Time Temp Pulse Resp B/P (MAP) Pulse Ox O2 Delivery O2 Flow Rate FiO2 07/08/21 11:21 78 21 116/76 (89) 92 Room Air 07/08/21 11:00 1.00 07/08/21 07:49 37.2 07/04/21 08:40 36 Capillary Refill : Less Than 3 Seconds I&O Intake and Output 07/08/21 00:00 Intake Total 1470 ml Output Total 1000 ml Balance 470 ml Intake Oral 1070 ml IV Total 400 ml Output Urine Total 1000 ml General: Other (Post-ictal. Resting in bed comfortably. Arousable by voice. ) Neck: Supple Lungs: Clear to Auscultation, Normal Air Movement Heart: Regular Rate, Normal S1, Normal S2, No Murmurs Abdomen: Normal Bowel Sounds, Soft Extremities: No Edema, Normal Pulses Skin: No Rashes Results Lab Laboratory Tests 07/07/21 16:29: Glucometer 128H 07/07/21 20:22: Glucometer 146H 07/08/21 05:48: Glucometer 101 07/08/21 06:20: White Blood Count 12.5H, Red Blood Count 5.27H, Hemoglobin 15.1, Hematocrit 47, Mean Corpuscular Volume 90, Mean Corpuscular Hemoglobin 29, Mean Corpuscular Hemoglobin Concent 32, Red Cell Distribution Width 14.2, Platelet Count 348, Mean Platelet Volume 11.5, Immature Granulocyte % (Auto) 1, Neutrophils (%) (Auto) 76H, Lymphocytes (%) (Auto) 12, Monocytes (%) (Auto) 11, Eosinophils (%) (Auto) 0, Basophils (%) (Auto) 0, Neutrophils # (Auto) 9.5H, Lymphocytes # (Auto) 1.5, Monocytes # (Auto) 1.3H, Eosinophils # (Auto) 0.1, Basophils # (Auto) 0.0, Immature Granulocyte # (Auto) 0.1, Sodium Level 142, Potassium Level 3.8, Chloride Level 110H, Carbon Dioxide Level 21, Anion Gap 11, Blood Urea Nitrogen 30H, Creatinine 0.56L, Estimat Glomerular Filtration Rate 113, BUN/Creatinine Ratio 54, Glucose Level 104, Calcium Level 8.7, Corrected Calcium 9.3, Total Bilirubin 0.7, Aspartate Amino Transf (AST/SGOT) 74H, Alanine Aminotransferase (ALT/SGPT) 168H, Alkaline Phosphatase 204H, Total Protein 6.1L, Albumin 3.3 07/08/21 11:16: Glucometer 343H Microbiology 06/28/21 Gram Stain - Final, Complete 06/28/21 Sputum Culture - Final, Complete No growth 06/24/21 Urine Culture - Final, Complete NO GROWTH 06/24/21 Blood Culture - Final, Complete No growth Assessment/Plan Assessment/Plan Assess & Plan/Chief Complaint Pneumonia, shortness of breath, asthma, COPD exacerbation, sepsis * Right lobe basilar pneumonia * Intubated 06/24, extubated 07/02 * Elevated d-dimer on presentation, no evidence of PE on CTA. H/o of PE in past * ECHO 06/27: EF 65-70% * No growth on blood, urine, and sputum cultures * Sepsis resolved. WBC count improving. 12.5 on 07/08 * Plan: Continue Duoneb, Prednisone, and Aztreonam Seizure disorder * reports seizures every third day at home * Unspecified quality/type of seizure * Follows with neurologist in [place]. * Seizure events in hospital previous 3 days. * Plan: Continue Levitiracetam, Topiramate, depakote. Goal of seizure management, not elimination due to baseline at home. V-Tac Episodes, syncopal episodes, DVT prophylaxis * Cardiology consulted, no signs of ischemic changes on EKG * Syncope 07/07 in shower and 07/06 on commode. Rapid responses initiated both t imes * Plan: Telemetry to monitor if V-tac is associated with syncope. Lovenox for anticoagulation. Oral Thrush * Continue Oral Nystatin Elevated BUN * As of today, 07/07 levels were 36. Levels were WNL until yesterday 07/06 * Possibly due to dehydration * Plan: Oral hydration as tolerated. Weakness, dysphagia * Swallow assessment 07/03 showed reduced transit. Patient is improving. * FISCAL ACCOUNTANT/PT/OT following. Assistance when transferring. Hypertension * Continue carvedilol and losartan Diabetes, type II * Hold insulin if patient is not eating. When PO intake improves, continue basal/bolus + sliding scale insulin Depression * Continue Citalopram GERD * Continue Pantoprazole Diagnosis/Problems Diagnosis/Problems (1) Sepsis Onset Date: ~ 07/24/2020 Status: Resolved Assessment & Plan: Plan: Continue Aztreonam. Monitor vital signs. Daily CBC and CMP. Qualifiers: Qualified Codes: A41.9 - Sepsis, unspecified organism; R65.20 - Severe sepsis without septic shock; J96.00 - Acute respiratory failure, unspecified whether with hypoxia or hypercapnia Resolution Date/Time: 07/02/21 @ 17:41 (2) Seizures Onset Date: Unknown Status: Chronic Assessment & Plan: Plan: Continue Levitiracetam, topiramate, and depakote sprinkles (3) COPD exacerbation Onset Date: ~ 07/24/2020 Status: Resolved Assessment & Plan: Continue Duoneb and Prednisone Resolution Date/Time: 07/02/21 @ 17:44 (4) Acute respiratory failure Status: Resolved Qualifiers: Qualified Codes: J96.01 - Acute respiratory failure with hypoxia; J96.02 - Acute respiratory failure with hypercapnia Resolution Date/Time: 07/02/21 @ 17:47 (5) Right lower lobe pneumonia Onset Date: ~ 07/24/2020 Status: Acute Assessment & Plan: Plan: Continue Duoneb, Prednisone, and Aztreonam Qualifiers: Qualified Codes: J18.9 - Pneumonia, unspecified organism (6) Ventricular tachycardia Onset Date: Unknown Status: Acute Assessment & Plan: Plan: Defer to cardiology. Would like to put patient on telemetry to answer question if syncope is related to V-tach episodes. (7) HTN (hypertension) Onset Date: Unknown Status: Chronic Assessment & Plan: Plan: Continue treatment with carvedilol and losartan. Qualifiers: Qualified Codes: I10 - Essential (primary) hypertension (8) DVT prophylaxis Status: Acute Assessment & Plan: Subcutaneous Lovenox Clinical Quality Measures Urinary Catheter-Non SCIP Pts: Reason for Catheter Continuanc: Ventilator CAMILLE MCDANIEL MD 07/08/211935: Subjective Review of Systems Pulmonary: No Dyspnea, No Cough Cardiovascular: No: Chest Pain, Palpitations Gastrointestinal: No: Nausea, Vomiting, Abdominal Pain Neurological: Weakness, Confusion Objective Exam General: Other (Post-ictal. Resting in bed comfortably. Arousable by voice, answers simple questions) Lungs: Clear to Auscultation, Normal Air Movement Heart: Regular Rate, No Murmurs Abdomen: Normal Bowel Sounds, Soft, No Tenderness, No Masses Extremities: No Edema, No Tenderness/Swelling Neuro: Other (strength 3/5 LE bilaterally) Assessment/Plan Assessment/Plan Assess & Plan/Chief Complaint Agree with above Will d/c antibiotics and continue to monitor off antibiotics IRF accepted, waiting on insurance approval .Sapna Supervisory-Addendum Brief Verification & Attestation Participated in pt care: history, physical Personally performed: exam, history Care discussed with: Medical Student Procedures: n/a Verification and Attestation of Medical Student E/M Service A medical student performed and documented this service in my presence. I reviewed and verified all information documented by the medical student and made modifications to such information, when appropriate. I personally performed the physical exam and medical decision making. Camille Mcdaniel, Jul 08, 2021,19:36 CELINE FLORES Jul 08, 2021 12:29 CAMILLE MCDANIEL MD Jul 08, 2021 19:36
--- NOTE | 2021-07-08 15:03 | Occupational Ther Daily Note ---
OT Current Status-Daily Note Subjective [place] [facility] agreeable to OT Tx. Pt required several verbal cues throughout tx for initiation. Pt states she is unable to focus on multiple things at one time. Mental Status/Objective Patient Orientation: Person, Place, Situation Attachments: Oxygen ADL-Treatment Therapy Code Descriptions/Definitions Functional [place] Measure: 0=Not Assessed/NA 4=Minimal Assistance 1=Total Assistance 5=Supervision or Setup 2=Maximal Assistance 6=Modified [place] 3=Moderate Assistance 7=Complete IndependenceSCALE: Activities may be completed with or without assistive devices. 1-Mfnqhuoedb-uolbogl completes the activity by him/herself with no assistance from a helper. 5-Set-up or Clean-up Assistance-helper sets up or cleans up; patient completes activity. [place] assists only prior to or following the activity. 4-Supervision or Touching Assistance-helper provides verbal cues and/or touching/steadying and/or contact guard assistance as patient completes activity. Assistance may be provided throughout the activity or intermittently. 3-Partial/Moderate Assistance-helper does LESS THAN HALF the effort. [place] lifts, holds or supports trunk or limbs, but provides less than half the effort. 2-Substantial/Maximal Assistance-helper does MORE THAN HALF the effort. [place] lifts or holds trunk or limbs and provides more than half the effort. 3-Lvzottpav-rluoyj does ALL the effort. Patient does none of the effort to complete the activity. Or, the assistance of 2 or more helpers is required for the patient to complete the activity. If activity was not attempted, code reason: 7-Patient Refused. 9-Not Applicable-not attempted and the patient did not perform the activity before the current illness, exacerbation or injury. 10-Not Attempted due to Environmental Limitations-(lack of equipment, weather restraints, etc.). 88-Not Attempted due to Medical Conditions or Safety Concerns. Toileting Hygiene (QC): 3 (Min A with hygiene for thoroughness) Toilet Transfer (QC): 4 (CGA from [facility]. ) Other Treatment Pt seated on [facility], completed toileting. Pt handed a bath wipe for hygiene, she held it in her hand and continued watching other things around her room and talking with her . OT and instructed pt to wipe, pt continued to be distracted by the environment. After several verbal cues, pt completed sit to stand transfer, CGA, and completed hygiene. OT assisted, min A for thoroughness. Pt transferred to EOB using FWW, CGA with verbal cues. Pt transferred supine, able to bring BLEs into bed with SBA, increased time. Post tx, pt in bed, call light in reach and all needs met. Education OT Patient Education: Correct positioning, Modified ADL techniques, Progress toward Goal/Update tx plan, Purpose of tx/functional activities, Rehab process Teaching Recipient: Patient Teaching Methods: Discussion Response to Teaching: Verbalize Understanding OT Diamond Grinder Goals Diamond Grinder Goals Time Frame: Jul 25, 2021 Eating (QC): 3 Oral Hygiene (QC): 3 Toileting Hygiene (QC): 2 (met) Shower/Bathe Self (QC): 2 Upper Body Dressing (QC): 3 Lower Body Dressing (QC): 2 On/Off Footwear (QC): 2 Additional Goals: 1-Demonstrate ADL Tasks, 2-Verbalize Understanding, 3-ImproveStrength/Iveth 1=Demonstrate adherence to instructed precautions during ADL tasks. 2=Patient will verbalize/demonstrate understanding of assistive devices/modifications for ADL. 3=Patient will improve strength/tolerance for activity to enable patient to perform ADL's. OT Education/Plan Problem List/Assessment Assessment: Decreased Activ Tolerance, Decreased UE Strength, Impaired Funct Balance, Impaired I ADL's, Impaired Self-Care Skills Pt would benefit from skilled OT services in order to increase BUE Strength and activity tolerance and increase safety and independence with ADLs Discharge Recommendations Plan/Recommendations: Continue POC Treatment Plan/Plan of Care Patient would benefit from OT for education, treatment and training to promote independence in ADL's, mobility, safety and/or upper extremity function for ADL's. Plan of Care: ADL Retraining, Functional Mobility, UE Funct Exercise/Act Treatment Duration: Jul 25, 2021 Frequency: 3 times per week (3-5 times a week) Estimated Hrs Per Day: .25 hour per day Rehab Potential: Guarded Time/GCodes Start Time: 13:57 Stop Time: 14:15 Total Time Billed (hr/min): 18 Billed Treatment Time 1, ADL MOISES MCDONOUGH OT Jul 08, 2021 15:02
[2021-07-08] MEDS: DIVALPROX SPRINKLE 125 MG (DEPAKOTE) CAP PO SCH (20:38)
[2021-07-08] MEDS: clonazePAM 0.5 MG (KlonoPIN) TAB PO SCH (20:38)
[2021-07-09 00:23] VITALS: BP 109/72
[2021-07-09] MEDS: NYSTATIN ORAL SUSP 5 ML UDC PO SCH ×3 (00:24→11:31)
[2021-07-09] MEDS: RT-ALBUTEROL/IPRATROPIUM 3 ML (DUONEB) VIAL INH SCH ×6 (02:32→22:24)
[2021-07-09 04:00] VITALS: BP 117/70
[2021-07-09 05:32] LABS: BASOPHILS % (AUTO) 0 % (0-10); EOSINOPHILS # (AUTO) 0.1 10^3/uL (0.0-0.3); EOSINOPHILS % (AUTO) 1 % (0-10); HEMATOCRIT 48 % (35-52); HEMOGLOBIN 15.6 g/dL (11.5-16.0); LYMPHOCYTES # (AUTO) 2.2 10^3/uL (1.0-4.0); LYMPHOCYTES % (AUTO) 17 % (12-44); MEAN CORPUSCULAR HEMOGLOBIN 29 pg (25-34); MEAN CORPUSCULAR HGB CONC 33 g/dL (32-36); MEAN CORPUSCULAR VOLUME 89 fL (80-99); MEAN PLATELET VOLUME 11.7 fL (9.0-12.2); MONOCYTES # (AUTO) 1.2 10^3/uL (0.0-1.0); MONOCYTES % (AUTO) 9 % (0-12); NEUTROPHILS # (AUTO) 9.6 10^3/uL (1.8-7.8); NEUTROPHILS % (AUTO) 73 % (42-75); PLATELET COUNT 381 10^3/uL (130-400); WHITE BLOOD COUNT 13.2 10^3/uL (4.3-11.0)
[2021-07-09] MEDS: METOCLOPRAMIDE 5 MG (REGLAN) TAB PO SCH ×2 (05:41→16:36)
[2021-07-09] MEDS: predniSONE 20 MG TAB PO SCH (05:41)
[2021-07-09 05:46] LABS: ALBUMIN 3.5 GM/DL (3.2-4.5); POTASSIUM 3.9 MMOL/L (3.6-5.0)
[2021-07-09 05:49] LABS: TOTAL PROTEIN 6.5 GM/DL (6.4-8.2)
[2021-07-09] MEDS: inSUlin ASPART (NovoLOG) 1 UNIT/0.01 ML (CHARGE PER UNIT) SC SCH ×4 (05:49→21:08)
[2021-07-09 05:50] LABS: BILIRUBIN,TOTAL 0.6 MG/DL (0.1-1.0)
[2021-07-09 05:52] LABS: CREATININE SERUM 0.6 MG/DL (0.60-1.30)
[2021-07-09 08:00] VITALS: BP 114/66
--- NOTE | 2021-07-09 08:37 | Speech Therapy Progress Note ---
Therapy Progress Note Patient is being discharged from [facility] for dysphagia therapy due to advancing to a regular diet without difficulty. CICI HENRY Jul 09, 2021 08:37
[2021-07-09] MEDS: LOSARTAN 25 MG (COZAAR) TAB PO SCH (09:18)
[2021-07-09] MEDS: PANTOPRAZOLE 40 MG (PROTONIX) TAB PO SCH (09:18)
[2021-07-09] MEDS: toPIRamate 100 MG (TOPAMAX) TAB PO SCH ×2 (09:18→21:08)
[2021-07-09] MEDS: ENOXAPARIN 40 MG/0.4 ML (LOVENOX) SYR SC SCH (09:19)
[2021-07-09] MEDS: toPIRamate 25 MG (TOPAMAX) TAB PO SCH ×2 (09:19→21:08)
--- NOTE | 2021-07-09 09:24 | Cardiology Progress Note ---
Subjective Date Seen by Provider: Jul 09, 2021 Time Seen by Provider: 09:22 Subjective/Events-last exam Patient is asleep in bed, easily awakens to answer questions. Denies any chest pain. Focused Exam Time of Focused Exam: 19:00 Objective-Cardiology Exam Last Set of Vital Signs Vital Signs 07/04/21 07/08/21 07/09/21 08:40 11:00 15:21 Temp 37.0 Pulse 82 Resp 18 B/P (MAP) 111/71 (84) Pulse Ox 94 O2 Delivery Room Air O2 Flow Rate 1.00 FiO2 36 I&O Intake and Output 07/09/21 00:00 Intake Total 900 ml Output Total 1050 ml Balance -150 ml Intake Oral 900 ml Output Urine Total 1050 ml # Bowel Movements 3 General: Other (Post-ictal. Resting in bed comfortably. Arousable by voice, answers simple questions) HEENT: Atraumatic Neck: Supple Lungs: Clear to Auscultation, Normal Air Movement Heart: Regular Rate, No Murmurs Abdomen: Normal Bowel Sounds, Soft, No Tenderness, No Masses Extremities: No Edema, No Tenderness/Swelling Skin: No Rashes Neuro: Other (strength 3/5 LE bilaterally) Psych/Mental Status: Mental Status NL Results Lab Laboratory Tests 07/09/21 05:15 A/P-Cardiology Admission Diagnosis Sinus bradycardia Acute respiratory failure Seizure Pneumonia Assessment/Plan Ac resp failure due to AECOPD due to pneumonia, extubated on 07/02/21. Elevated D-dimer, CT angio of the chest showed no evidence of pulmonary embolism, history of PE in the past. Short episode NSVT while on ventilator. No further episode, will continue to [facility]. Labile hypertension (low bp in the post-ictal state)/ Echo 06/27/21: difficult study, normal left ventricular size, EF 65 to 70%, trivial aortic regurgitation, normal pulmonary artery pressure of 20 to 25 mmHg. Seizure disorder - chronic, last episode on 07/07/21. Follows with Dr. Albert Hermosillo in [place]. Will need f/u as outpatient. Tobaccoism. Liver enzyme elevation of undetermined etiology - management per Medical services Supervisory-Addendum Brief Supervisory Addendum Participated in pt care: history, MDM, physical Personally performed: exam, history, MDM Care discussed with: MARTINA Results interpretation: Verified all documentation Notes: Patient was seen and evaluated with Yelena, examination performed, management plan was discussed, agree with the current scribed note, I made few changes to the note using Italic font Patient was seen at bedside, laying down comfortably, is by her side. Breathing is better Continue to monitor blood pressure No changes from cardiology standpoint are recommended YELENA KARIMI Jul 09, 2021 09:24 LISA CASIANO MD Jul 09, 2021 16:17
--- NOTE | 2021-07-09 09:44 | Progress Note - Hospitalist ---
CELINE FLORES 07/09/21 0944: Subjective HPI/CC On Admission Date Seen by Provider: Jul 09, 2021 Time Seen by Provider: 10:30 pneumonia, shortness of breath Subjective/Events-last exam Patient was awake, sitting upright in chair next to . Just finished working with PT. No acute events overnight or this morning. Continuing to get stronger with PT. Denies any pain, except in mouth due to oral thrush. and patient met with social work this morning. Their insurance denied in-house rehabilitation. They need to discuss best option moving forward. Plan to move to [place] to live with son and receive assistance form home health. Denies headache, chest pain, shortness of breath, nausea, vomiting. Review of Systems HEENT: No Head Aches Pulmonary: No Dyspnea Cardiovascular: No: Chest Pain Gastrointestinal: No: Nausea, Vomiting, Abdominal Pain Focused Exam Time of Focused Exam: 19:00 Objective Exam Vital Signs Vital Signs Date Time Temp Pulse Resp B/P (MAP) Pulse Ox O2 Delivery O2 Flow Rate FiO2 07/09/21 15:21 37.0 82 18 111/71 (84) 94 Room Air 07/08/21 11:00 1.00 07/04/21 08:40 36 Capillary Refill : Less Than 3 Seconds General Appearance: No Apparent Distress HEENT: Moist Mucous Membranes, Other (Oral thrush on tongue) Neck: Normal Inspection Respiratory: Chest Non Tender, Lungs Clear, Normal Breath Sounds Cardiovascular: Regular Rate, Rhythm, No Edema, No Murmur Gastrointestinal: Normal Bowel Sounds, Non Tender, Soft Neurologic/Psychiatric: Other (flat affect) Skin: Normal Color, Warm/Dry Results/Procedures Lab Laboratory Tests 07/09/21 05:15 Patient resulted labs reviewed. Imaging: Reviewed Imaging Report Assessment/Plan Assessment and Plan Assess & Plan/Chief Complaint Pneumonia, shortness of breath, asthma, COPD exacerbation, sepsis * Right lobe basilar pneumonia * Intubated 06/24, extubated 07/02 * Elevated d-dimer on presentation, no evidence of PE on CTA. H/o of PE in past * ECHO 06/27: EF 65-70% * No growth on blood, urine, and sputum cultures * Sepsis resolved. WBC count improving. 13.2 on 07/09 * Plan: Continue Duoneb, Prednisone, and Aztreonam. Transition to oral antibiotics on discharge. Seizure disorder * reports seizures every third day at home * Unspecified quality/type of seizure * Plan: Continue Levitiracetam, Topiramate, depakote, clonazepam V-Tac Episodes, syncopal episodes, DVT prophylaxis * Cardiology consulted, no signs of ischemic changes on EKG * Seizures 07/06, 07/07, 07/08 * Plan: Continue lovenox for anticoagulation and DVT prophylaxis. Oral Thrush * Continue Oral Nystatin Elevated BUN * As of today, 07/07 levels were 36. Levels were WNL until yesterday 07/06 * Possibly due to dehydration * Plan: Oral hydration as tolerated. Weakness, dysphagia * Swallow assessment 07/03 showed reduced transit. Patient is improving. * CUSTOMER LIAISON/PT/OT following. Assistance when transferring. Hypertension * Continue carvedilol and losartan Diabetes, type II * Hold insulin if patient is not eating. When PO intake improves, continue basal/bolus + sliding scale insulin Depression * Continue Citalopram GERD * Continue Pantoprazole Time spent with patient (mins): 15 Diagnosis/Problems Diagnosis/Problems (1) Sepsis Onset Date: ~ 07/24/2020 Status: Resolved Assessment & Plan: Plan: Continue Aztreonam. Monitor vital signs. Daily CBC and CMP. Qualifiers: Qualified Codes: A41.9 - Sepsis, unspecified organism; R65.20 - Severe sepsis without septic shock; J96.00 - Acute respiratory failure, unspecified whether with hypoxia or hypercapnia Resolution Date/Time: 07/02/21 @ 17:41 (2) Seizures Onset Date: Unknown Status: Chronic Assessment & Plan: Plan: Continue Levitiracetam, topiramate, depakote sprinkles, and clonazepam. (3) COPD exacerbation Onset Date: ~ 07/24/2020 Status: Resolved Assessment & Plan: Continue Duoneb and Prednisone Resolution Date/Time: 07/02/21 @ 17:44 (4) Acute respiratory failure Status: Resolved Qualifiers: Qualified Codes: J96.01 - Acute respiratory failure with hypoxia; J96.02 - Acute respiratory failure with hypercapnia Resolution Date/Time: 07/02/21 @ 17:47 (5) Right lower lobe pneumonia Onset Date: ~ 07/24/2020 Status: Acute Assessment & Plan: Plan: Continue Duoneb, Prednisone, and Aztreonam Qualifiers: Qualified Codes: J18.9 - Pneumonia, unspecified organism (6) Ventricular tachycardia Onset Date: Unknown Status: Acute Assessment & Plan: Plan: Defer to cardiology. (7) HTN (hypertension) Onset Date: Unknown Status: Chronic Assessment & Plan: Plan: Continue treatment with carvedilol and losartan. Qualifiers: Qualified Codes: I10 - Essential (primary) hypertension (8) DVT prophylaxis Status: Acute Assessment & Plan: Subcutaneous Lovenox Clinical Quality Measures Urinary Catheter-Non SCIP Pts: Reason for Catheter Continuanc: Ventilator CAMILLE MCDANIEL MD 07/09/212052: Objective Exam General Appearance: No Apparent Distress, Other (sedated) HEENT: Moist Mucous Membranes Neck: Full Range of Motion, Normal Inspection Respiratory: Chest Non Tender, Lungs Clear, Normal Breath Sounds, No Accessory Muscle Use, No Respiratory Distress Cardiovascular: Regular Rate, Rhythm, No Edema, No Murmur Gastrointestinal: Normal Bowel Sounds, Non Tender, Soft; No Distended, No Guarding Back: No CVA Tenderness, No Vertebral Tenderness Extremity: Normal Capillary Refill, Non Tender, No Calf Tenderness, No Pedal Edema Neurologic/Psychiatric: Alert, Other (flat affect) Skin: Normal Color, Warm/Dry Lymphatic: No Adenopathy Assessment/Plan Assessment and Plan Assess & Plan/Chief Complaint Agree with above, in addition Elevated LFTs: Will order US, reviewed meds Discharge planning: They would like to go to son's house with HH, checking with [employer] in the area [facility] Supervisory-Addendum Brief Verification & Attestation Participated in pt care: history, physical Personally performed: exam, history Care discussed with: Medical Student Procedures: n/a Verification and Attestation of Medical Student E/M Service A medical student performed and documented this service in my presence. I reviewed and verified all information documented by the medical student and made modifications to such information, when appropriate. I personally performed the physical exam and medical decision making. Camille Mcdaniel, Jul 09, 2021,20:53 CELINE FLORES Jul 09, 2021 09:44 CAMILLE MCDANIEL MD Jul 09, 2021 20:53
--- NOTE | 2021-07-09 09:55 | Physical Therapy Daily Note ---
PT Daily Note-Current Subjective Patient in bed pre tx, agrees to PT reluctantly, has no complaints of pain, states she needs to use the restroom. Appearance Patient in recliner post tx with nurse call, phone, tray, all needs met. Mental Status Patient Orientation: Person, Place, Situation Attachments: Carias Catheter Transfers SCALE: Activities may be completed with or without assistive devices. 7-Xkysjswgdi-nzecvzz completes the activity by him/herself with no assistance from a helper. 5-Set-up or Clean-up Assistance-helper sets up or cleans up; patient completes activity. [place] assists only prior to or following the activity. 4-Supervision or Touching Assistance-helper provides verbal cues and/or touching/steadying and/or contact guard assistance as patient completes activity. Assistance may be provided throughout the activity or intermittently. 3-Partial/Moderate Assistance-helper does LESS THAN HALF the effort. [place] lifts, holds or supports trunk or limbs, but provides less than half the effort. 2-Substantial/Maximal Assistance-helper does MORE THAN HALF the effort. [place] lifts or holds trunk or limbs and provides more than half the effort. 1-Emusrckva-jznkxq does ALL the effort. Patient does none of the effort to complete the activity. Or, the assistance of 2 or more helpers is required for the patient to complete the activity. If activity was not attempted, code reason: 7-Patient Refused. 9-Not Applicable-not attempted and the patient did not perform the activity be fore the current illness, exacerbation or injury. 10-Not Attempted due to Environmental Limitations-(lack of equipment, weather restraints, etc.). 88-Not Attempted due to Medical Conditions or Safety Concerns. Roll Left & Right (QC): 3 Lying to Sitting/Side of Bed(Q: 3 Sit to Stand (QC): 4 Chair/Iqc-rs-Omgso Xfer(QC): 4 Weight Bearing Right Lower Extremity: Right Full Weight Bearing Left Lower Extremity: Left Full Weight Bearing Patient is cleared to bear full weight through BLEs, however is unable to do so at this time. Gait Training Distance: 20'x2 Walk 10 feet (QC): 4 Gait Persons Needed: 1 Gait Assistive Device: FWW needs cues for safety and positioning, adjusting walker position. Patient had a BM, helped her wipe. Treatments bed mobility and transfers, ambulation, toileting Assessment Current Status: Fair Progress slow progress with functional mobility PT Short Term Goals Short Term Goals Time Frame: Jul 17, 2021 Roll Left & Right: 3 Sit to lyin Lying to sitting on side of be: 3 Sit to stand: 3 Chair/nao-xe-ycqcd transfer: 3 Toilet transfer: 3 Wheel 50ft w/2 turns: 2 Wheel 150 feet: 2 PT Residential Goals Platform Inspector Goals PT Platform Inspector Goals Time Frame: Aug 01, 2021 Roll Left & Right (QC): 4 Sit to Lying (QC): 4 Lying-Sitting on Side/Bed(QC): 4 Sit to Stand (QC): 4 Chair/Pzb-ip-Vgiel Xfer(QC): 4 Toilet Transfer (QC): 4 Car Transfer (QC): 4 Does the Patient Walk: Yes Walk 10 feet (QC): 2 Walk 50ft with 2 Turns (QC): 2 Does the Pt use WC or Scooter?: Yes Wheel 50 feet with 2 turns (QC: 3 Type: Manual Wheel 150 feet: 3 Type: Manual PT Plan Problem List Problem List: Activity Tolerance, Functional Strength, Safety, Balance, Gait, Transfer, Bed Mobility, ROM Treatment/Plan Treatment Plan: Continue Plan of Care Treatment Plan: Bed Mobility, Education, Functional Activity Iveth, Functional Strength, Group Therapy, Gait, Safety, Therapeutic Exercise, Transfers Treatment Duration: Aug 27, 2021 Frequency: 6 times per week Patient and/or Family Agrees t: Yes Safety Risks/Education Patient Education: Gait Training, Transfer Techniques, Correct Positioning, Safety Issues Teaching Recipient: Patient Teaching Methods: Demonstration, Discussion Response to Teaching: Reinforcement Needed Time/GCodes Time In: 917 Time Out: 936 Total Billed Treatment Time: 19 Total Billed Treatment 1 visit FA 19' KAYLEIGH BAIRES PT Jul 09, 2021 09:55
[2021-07-09 12:00] VITALS: BP 112/63
--- NOTE | 2021-07-09 14:29 | Occupational Ther Daily Note ---
OT Current Status-Daily Note Subjective Pt returning to bed from bathroom with , agreeable to OT Tx. Mental Status/Objective Patient Orientation: Person, Place, Situation Attachments: Carias Catheter ADL-Treatment Therapy Code Descriptions/Definitions Functional Parsons Measure: 0=Not Assessed/NA 4=Minimal Assistance 1=Total Assistance 5=Supervision or Setup 2=Maximal Assistance 6=Modified Parsons 3=Moderate Assistance 7=Complete IndependenceSCALE: Activities may be completed with or without assistive devices. 3-Dmzycnpjxt-nsdxupr completes the activity by him/herself with no assistance from a helper. 5-Set-up or Clean-up Assistance-helper sets up or cleans up; patient completes activity. [place] assists only prior to or following the activity. 4-Supervision or Touching Assistance-helper provides verbal cues and/or touching/steadying and/or contact guard assistance as patient completes activity. Assistance may be provided throughout the activity or intermittently. 3-Partial/Moderate Assistance-helper does LESS THAN HALF the effort. [place] lifts, holds or supports trunk or limbs, but provides less than half the effort. 2-Substantial/Maximal Assistance-helper does MORE THAN HALF the effort. [place] lifts or holds trunk or limbs and provides more than half the effort. 7-Ydqrfeoyq-alzsst does ALL the effort. Patient does none of the effort to complete the activity. Or, the assistance of 2 or more helpers is required for the patient to complete the activity. If activity was not attempted, code reason: 7-Patient Refused. 9-Not Applicable-not attempted and the patient did not perform the activity before the current illness, exacerbation or injury. 10-Not Attempted due to Environmental Limitations-(lack of equipment, weather restraints, etc.). 88-Not Attempted due to Medical Conditions or Safety Concerns. Other Treatment Pt returning to bed with using FWW, SBA-CGA. Pt sat EOB. In order to increase BUE strength and activity tolerance, pt completed the following BUE exercises: x10 reps AAROM shoulder flexion, AROM elbow flexion/extension and AROM finger flexion/extension. Pt educated to complete exercises throughout the day, increasing reps as tolerated, she verbalized understanding. Post tx, pt in bed, call light in reach and all needs met, at bedside. Education OT Patient Education: Correct positioning, Energy conservation, Modified ADL techniques, Progress toward Goal/Update tx plan, Purpose of tx/functional activities, Rehab process Teaching Recipient: Patient Teaching Methods: Discussion Response to Teaching: Verbalize Understanding OT Detention Goals Detention Goals Time Frame: Jul 25, 2021 Eating (QC): 3 Oral Hygiene (QC): 3 Toileting Hygiene (QC): 2 Shower/Bathe Self (QC): 2 Upper Body Dressing (QC): 3 Lower Body Dressing (QC): 2 On/Off Footwear (QC): 2 Additional Goals: 1-Demonstrate ADL Tasks, 2-Verbalize Understanding, 3- ImproveStrength/Iveth 1=Demonstrate adherence to instructed precautions during ADL tasks. 2=Patient will verbalize/demonstrate understanding of assistive devices/modifications for ADL. 3=Patient will improve strength/tolerance for activity to enable patient to perform ADL's. OT Education/Plan Problem List/Assessment Assessment: Decreased Activ Tolerance, Decreased UE Strength, Impaired Funct Balance, Impaired I ADL's, Impaired Self-Care Skills Pt would benefit from skilled OT services in order to increase BUE Strength and activity tolerance and increase safety and independence with ADLs Discharge Recommendations Plan/Recommendations: Continue POC Treatment Plan/Plan of Care Patient would benefit from OT for education, treatment and training to promote independence in ADL's, mobility, safety and/or upper extremity function for ADL's. Plan of Care: ADL Retraining, Functional Mobility, UE Funct Exercise/Act Treatment Duration: Jul 25, 2021 Frequency: 3 times per week (3-5 times a week) Estimated Hrs Per Day: .25 hour per day Rehab Potential: Guarded Time/GCodes Start Time: 13:43 Stop Time: 14:01 Total Time Billed (hr/min): 18 Billed Treatment Time 1, EX MOISES MCDONOUGH OT Jul 09, 2021 14:29
[2021-07-09 15:21] VITALS: BP 111/71
[2021-07-09 19:38] VITALS: BP 117/74
[2021-07-09] MEDS: DIVALPROX SPRINKLE 125 MG (DEPAKOTE) CAP PO SCH (21:07)
[2021-07-09] MEDS: clonazePAM 0.5 MG (KlonoPIN) TAB PO SCH (21:08)
[2021-07-10] VITALS: BP 109/65
[2021-07-10] MEDS: RT-ALBUTEROL/IPRATROPIUM 3 ML (DUONEB) VIAL INH SCH ×6 (02:17→22:44)
[2021-07-10 04:51] VITALS: BP 115/71
[2021-07-10] MEDS: inSUlin ASPART (NovoLOG) 1 UNIT/0.01 ML (CHARGE PER UNIT) SC SCH ×4 (05:22→21:28)
[2021-07-10] MEDS: METOCLOPRAMIDE 5 MG (REGLAN) TAB PO SCH ×2 (06:23→15:54)
[2021-07-10] MEDS: predniSONE 20 MG TAB PO SCH (06:23)
[2021-07-10 07:48] LABS: BASOPHILS % (AUTO) 0 % (0-10); NEUTROPHILS # (AUTO) 6.4 10^3/uL (1.8-7.8)
[2021-07-10 07:49] LABS: EOSINOPHILS # (AUTO) 0.2 10^3/uL (0.0-0.3); EOSINOPHILS % (AUTO) 2 % (0-10); HEMATOCRIT 46 % (35-52); LYMPHOCYTES % (AUTO) 21 % (12-44); MEAN CORPUSCULAR HEMOGLOBIN 29 pg (25-34); MEAN CORPUSCULAR HGB CONC 32 g/dL (32-36); MEAN CORPUSCULAR VOLUME 89 fL (80-99); MEAN PLATELET VOLUME 12.3 fL (9.0-12.2); MONOCYTES % (AUTO) 10 % (0-12); NEUTROPHILS % (AUTO) 66 % (42-75); PLATELET COUNT 226 10^3/uL (130-400); WHITE BLOOD COUNT 9.7 10^3/uL (4.3-11.0)
[2021-07-10 07:54] VITALS: BP 118/73
[2021-07-10 07:54] LABS: SMEAR SCAN COMMENT YES
[2021-07-10 07:56] LABS: ALBUMIN 3.2 GM/DL (3.2-4.5); BILIRUBIN,TOTAL 0.6 MG/DL (0.1-1.0); CREATININE SERUM 0.55 MG/DL (0.60-1.30); POTASSIUM 3.8 MMOL/L (3.6-5.0)
--- NOTE | 2021-07-10 08:28 | Cardiology Progress Note ---
Subjective Date Seen by Provider: Jul 10, 2021 Time Seen by Provider: 08:27 Subjective/Events-last exam Patient is laying down in bed, feeling better today. No new complaint Review of Systems General: No Chills, No Night Sweats; Fatigue; No Malaise, No Appetite, No Other HEENT: No Head Aches, No Visual Changes, No Eye Pain, No Ear Pain, No Dysphasia, No Sinus Congestion, No Post Nasal Drip, No Sore Throat, No Other Pulmonary: Dyspnea; No Cough, No Pleuritic Chest Pain, No Other Cardiovascular: No: Chest Pain, Palpitations, Orthopnea, Paroxysmal Noc. Dyspnea, Edema, Lt Headedness, Other Focused Exam Time of Focused Exam: 19:00 Objective-Cardiology Exam Last Set of Vital Signs Vital Signs 07/04/21 07/08/21 07/10/21 08:40 11:00 07:54 Temp 36.7 Pulse 67 Resp 18 B/P (MAP) 118/73 (88) Pulse Ox 93 O2 Delivery Room Air O2 Flow Rate 1.00 FiO2 36 I&O Intake and Output 07/10/21 00:00 Intake Total 1460 ml Output Total 900 ml Balance 560 ml Intake Oral 1460 ml Output Urine Total 900 ml # Bowel Movements 2 General: Alert, Oriented X3, Cooperative HEENT: Atraumatic Neck: Supple Lungs: Clear to Auscultation, Normal Air Movement Heart: Regular Rate, Normal S1, Normal S2, No Murmurs Abdomen: Normal Bowel Sounds, Soft, No Tenderness, No Masses Extremities: No Clubbing, No Cyanosis, No Edema, No Tenderness/Swelling Skin: No Rashes Neuro: Normal Speech, Other (strength 3/5 LE bilaterally) Psych/Mental Status: Mental Status NL, Mood NL Results Lab Laboratory Tests 07/10/21 07:15 A/P-Cardiology Admission Diagnosis Sinus bradycardia Acute respiratory failure Seizure Pneumonia Assessment/Plan Status post acute respiratory failure due to exacerbation of COPD and pneumonia, extubated on 07/02/21. Elevated D-dimer, CT angio of the chest showed no evidence of pulmonary embolism, history of PE in the past. Short episode NSVT while on ventilator. No further episode, [facility] to [facility]. Labile hypertension (low bp in the post-ictal state)/ Echo 06/27/21: difficult study, normal left ventricular size, EF 65 to 70%, trivial aortic regurgitation, normal pulmonary artery pressure of 20 to 25 mmHg. Seizure disorder - chronic, last episode on 07/07/21. Follows with Dr. Albert Hermosillo in [place]. Will need f/u as outpatient. Tobaccoism. Liver enzyme elevation of undetermined etiology - management per Medical services LISA CASIANO MD Jul 10, 2021 08:28
--- NOTE | 2021-07-10 08:36 | Diagnostic Imaging Report ---
PROCEDURE: US Abdomen, limited. TECHNIQUE: Multiple realtime grayscale images were obtained over the abdomen in various projections. INDICATION: Elevated LFTs. COMPARISON: 06/24/2021 FINDINGS: Liver is borderline prominent in size, as it measures 17.7 cm in length. No focal mass is seen. There is no sonographic evidence of intra or extra hepatic biliary ductal dilatation. Liver parenchyma however is diffusely hyperechoic. Gallbladder is surgically absent. Common bile duct is mildly prominent, as it measures 7 mm in diameter, but this may be related previous cholecystectomy. Head and proximal body of pancreas are grossly unremarkable. Distal body and tail are not well visualized secondary to overlying bowel gas. The visualized portions of the abdominal aorta and IVC are unremarkable as well. There is no ascites. Right kidney measures 12.7 cm in length. Cortical thickness and cortical medullary differentiation are maintained. There is benign anechoic simple appearing cyst in the mid region that measures 1.7 x 1.1 x 1.7 cm. There is no evidence of hydronephrosis or calculus. IMPRESSION: 1. Probable hepatic steatosis. 2. Mild prominence of the common bile duct. Again however this may be related to previous cholecystectomy. Dictated by: Dictated on workstation # [id number]
[2021-07-10] MEDS: PANTOPRAZOLE 40 MG (PROTONIX) TAB PO SCH (08:54)
[2021-07-10] MEDS: toPIRamate 25 MG (TOPAMAX) TAB PO SCH ×2 (08:54→20:58)
[2021-07-10] MEDS: cloNIDine 0.1 MG PATCH (CATAPRES TTS) TDSY TD SCH (08:54)
[2021-07-10] MEDS: LOSARTAN 25 MG (COZAAR) TAB PO SCH (08:54)
[2021-07-10] MEDS: ENOXAPARIN 40 MG/0.4 ML (LOVENOX) SYR SC SCH (08:54)
[2021-07-10] MEDS: toPIRamate 100 MG (TOPAMAX) TAB PO SCH ×2 (08:54→20:58)
[2021-07-10] MEDS ORDERED: cloNIDine 0.1 MG PATCH (CATAPRES TTS) TDSY TD SCH (09:00)
--- NOTE | 2021-07-10 11:34 | Physical Therapy Daily Note ---
PT Daily Note-Current Subjective Patient in bed pre tx, agrees to PT, has no complaints of pain. Appearance Patient sitting EOB post tx, would like to sit for a while, states her helps her lay down. Mental Status Patient Orientation: Person, Place, Situation Attachments: Carias Catheter Transfers SCALE: Activities may be completed with or without assistive devices. 4-Cvhlpnwoel-phchjpo completes the activity by him/herself with no assistance from a helper. 5-Set-up or Clean-up Assistance-helper sets up or cleans up; patient completes activity. [place] assists only prior to or following the activity. 4-Supervision or Touching Assistance-helper provides verbal cues and/or touching/steadying and/or contact guard assistance as patient completes activity. Assistance may be provided throughout the activity or intermittently. 3-Partial/Moderate Assistance-helper does LESS THAN HALF the effort. [place] lifts, holds or supports trunk or limbs, but provides less than half the effort. 2-Substantial/Maximal Assistance-helper does MORE THAN HALF the effort. [place] lifts or holds trunk or limbs and provides more than half the effort. 4-Ttaznnbgj-kuwakm does ALL the effort. Patient does none of the effort to complete the activity. Or, the assistance of 2 or more helpers is required for the patient to complete the activity. If activity was not attempted, code reason: 7-Patient Refused. 9-Not Applicable-not attempted and the patient did not perform the activity before the current illness, exacerbation or injury. 10-Not Attempted due to Environmental Limitations-(lack of equipment, weather restraints, etc.). 88-Not Attempted due to Medical Conditions or Safety Concerns. Roll Left & Right (QC): 6 Lying to Sitting/Side of Bed(Q: 3 Sit to Stand (QC): 4 Chair/Zow-ey-Otvfh Xfer(QC): 4 Weight Bearing Right Lower Extremity: Right Full Weight Bearing Left Lower Extremity: Left Full Weight Bearing Patient is cleared to bear full weight through BLEs, however is unable to do so at this time. Gait Training Distance: 100' Walk 10 feet (QC): 4 Walk 50 ft with 2 Turns(QC): 4 Gait Persons Needed: 1 Gait Assistive Device: FWW CGA, very slow ambulation but steady, no rest breaks Treatments bed mobility and transfers, ambulation Assessment Current Status: Fair Progress improving ambulation and endurance PT Short Term Goals Short Term Goals Time Frame: Jul 17, 2021 Roll Left & Right: 3 Sit to lyin Lying to sitting on side of be: 3 Sit to stand: 3 Chair/vtu-wp-tuvjo transfer: 3 Toilet transfer: 3 Wheel 50ft w/2 turns: 2 Wheel 150 feet: 2 PT Health And Wellness Advisor Goals Health And Wellness Advisor Goals PT Custodial Goals Time Frame: Aug 01, 2021 Roll Left & Right (QC): 4 Sit to Lying (QC): 4 Lying-Sitting on Side/Bed(QC): 4 Sit to Stand (QC): 4 Chair/Apv-nx-Kzryn Xfer(QC): 4 Toilet Transfer (QC): 4 Car Transfer (QC): 4 Does the Patient Walk: Yes Walk 10 feet (QC): 2 Walk 50ft with 2 Turns (QC): 2 Does the Pt use WC or Scooter?: Yes Wheel 50 feet with 2 turns (QC: 3 Type: Manual Wheel 150 feet: 3 Type: Manual PT Plan Problem List Problem List: Activity Tolerance, Functional Strength, Safety, Balance, Gait, Transfer, Bed Mobility, ROM Treatment/Plan Treatment Plan: Continue Plan of Care Treatment Plan: Bed Mobility, Education, Functional Activity Iveth, Functional Strength, Group Therapy, Gait, Safety, Therapeutic Exercise, Transfers Treatment Duration: Aug 27, 2021 Frequency: 6 times per week Patient and/or Family Agrees t: Yes Safety Risks/Education Patient Education: Gait Training, Transfer Techniques, Correct Positioning, Safety Issues Teaching Recipient: Patient Teaching Methods: Demonstration, Discussion Response to Teaching: Reinforcement Needed Time/GCodes Time In: 1116 Time Out: 1129 Total Billed Treatment Time: 13 Total Billed Treatment 1 visit GT [id number] GASCA PT Jul 10, 2021 11:34
--- NOTE | 2021-07-10 13:58 | Occupational Ther Daily Note ---
OT Current Status-Daily Note Subjective Pt laying in bed sleeping, easily awoken for therapy. Mental Status/Objective Patient Orientation: Person, Place, Situation ADL-Treatment Therapy Code Descriptions/Definitions Functional [place] Measure: 0=Not Assessed/NA 4=Minimal Assistance 1=Total Assistance 5=Supervision or Setup 2=Maximal Assistance 6=Modified [place] 3=Moderate Assistance 7=Complete IndependenceSCALE: Activities may be completed with or without assistive devices. 2-Ezpkyqreub-tewybin completes the activity by him/herself with no assistance from a helper. 5-Set-up or Clean-up Assistance-helper sets up or cleans up; patient completes activity. [place] assists only prior to or following the activity. 4-Supervision or Touching Assistance-helper provides verbal cues and/or touching/steadying and/or contact guard assistance as patient completes activity. Assistance may be provided throughout the activity or intermittently. 3-Partial/Moderate Assistance-helper does LESS THAN HALF the effort. [place] lifts, holds or supports trunk or limbs, but provides less than half the effort. 2-Substantial/Maximal Assistance-helper does MORE THAN HALF the effort. [place] lifts or holds trunk or limbs and provides more than half the effort. 4-Mcabjtsrk-aafqjx does ALL the effort. Patient does none of the effort to complete the activity. Or, the assistance of 2 or more helpers is required for the patient to complete the activity. If activity was not attempted, code reason: 7-Patient Refused. 9-Not Applicable-not attempted and the patient did not perform the activity before the current illness, exacerbation or injury. 10-Not Attempted due to Environmental Limitations-(lack of equipment, weather restraints, etc.). 88-Not Attempted due to Medical Conditions or Safety Concerns. Other Treatment Pt laying in bed, agreeable to OT Tx. Pt repositioned onto her back, then completed BUE exercises, x10 reps each of the following exercises: shoulder flexion, elbow flexion/extension, and finger flexion/extension. Pt able to recall 1/3 exercises, requiring cues to recall the other 2 exercises. Post tx, pt in bed, call light in reach and all needs met, at bedside. Education OT Patient Education: Correct positioning, Energy conservation, Modified ADL techniques, Progress toward Goal/Update tx plan, Purpose of tx/functional activities, Rehab process Teaching Recipient: Patient Teaching Methods: Discussion Response to Teaching: Verbalize Understanding OT Alf Goals Alf Goals Time Frame: Jul 25, 2021 Eating (QC): 3 Oral Hygiene (QC): 3 Toileting Hygiene (QC): 2 Shower/Bathe Self (QC): 2 Upper Body Dressing (QC): 3 Lower Body Dressing (QC): 2 On/Off Footwear (QC): 2 Additional Goals: 1-Demonstrate ADL Tasks, 2-Verbalize Understanding, 3-Impro veStrength/Iveth 1=Demonstrate adherence to instructed precautions during ADL tasks. 2=Patient will verbalize/demonstrate understanding of assistive devices/modifications for ADL. 3=Patient will improve strength/tolerance for activity to enable patient to perform ADL's. OT Education/Plan Problem List/Assessment Assessment: Decreased Activ Tolerance, Decreased UE Strength, Impaired Funct Balance, Impaired I ADL's, Impaired Self-Care Skills Pt would benefit from skilled OT services in order to increase BUE Strength and activity tolerance and increase safety and independence with ADLs Discharge Recommendations Plan/Recommendations: Continue POC Treatment Plan/Plan of Care Patient would benefit from OT for education, treatment and training to promote independence in ADL's, mobility, safety and/or upper extremity function for ADL's. Plan of Care: ADL Retraining, Functional Mobility, UE Funct Exercise/Act Treatment Duration: Jul 25, 2021 Frequency: 3 times per week (3-5 times a week) Estimated Hrs Per Day: .25 hour per day Rehab Potential: Guarded Time/GCodes Start Time: 13:25 Stop Time: 13:40 Total Time Billed (hr/min): 15 Billed Treatment Time 1, EX MOISES MCDONOUGH OT Jul 10, 2021 13:58
[2021-07-10 15:34] VITALS: BP 109/72
--- NOTE | 2021-07-10 18:15 | Progress Note - Hospitalist ---
Subjective HPI/CC On Admission Date Seen by Provider: Jul 10, 2021 Time Seen by Provider: 10:30 pneumonia, shortness of breath Subjective/Events-last exam Dixie is doing "pretty good" this morning. She has been up out of bed to use bathroom. No syncope or seizures since yesterday morning. Denies shortness of br eath, cough, congestion, chest pain. Only pain is in her mouth due to oral thrush. She and her are waiting for home health to get approved by insurance. Review of Systems HEENT: No Head Aches Pulmonary: No Dyspnea, No Cough Cardiovascular: No: Chest Pain Gastrointestinal: No: Abdominal Pain Neurological: No: Seizures Focused Exam Time of Focused Exam: 19:00 Objective Exam Vital Signs Vital Signs Date Time Temp Pulse Resp B/P (MAP) Pulse Ox O2 Delivery O2 Flow Rate FiO2 07/10/21 15:34 36.6 80 20 109/72 (84) 94 Room Air 07/08/21 11:00 1.00 07/04/21 08:40 36 Capillary Refill : Less Than 3 Seconds General Appearance: No Apparent Distress Neck: Normal Inspection, Supple Respiratory: Lungs Clear, Normal Breath Sounds, No Accessory Muscle Use Cardiovascular: Regular Rate, Rhythm, No Murmur Gastrointestinal: Normal Bowel Sounds, Non Tender, Soft Extremity: No Pedal Edema Neurologic/Psychiatric: Normal Mood/Affect Results/Procedures Lab Laboratory Tests 07/10/21 07:15 Patient resulted labs reviewed. Imaging: Reviewed Imaging Report Assessment/Plan Assessment and Plan Assess & Plan/Chief Complaint Pneumonia, shortness of breath, asthma, COPD exacerbation, sepsis * Right lobe basilar pneumonia * Intubated 06/24, extubated 07/02 * Elevated d-dimer on presentation, no evidence of PE on CTA. H/o of PE in past * ECHO 06/27: EF 65-70% * No growth on blood, urine, and sputum cultures * Sepsis resolved. WBC count improving. 13.2 on 07/09 * Plan: Continue Duoneb, Prednisone, and Aztreonam. Transition to oral antibiotics on discharge. Seizure disorder * reports seizures every third day at home * Unspecified quality/type of seizure * Plan: Continue Levitiracetam, Topiramate, depakote, clonazepam V-Tac Episodes, syncopal episodes, DVT prophylaxis * Cardiology consulted, no signs of ischemic changes on EKG * Seizures 07/06, 07/07, 07/08 * Plan: Continue lovenox for anticoagulation and DVT prophylaxis. Oral Thrush * Continue Oral Nystatin Elevated BUN * As of today, 07/07 levels were 36. Levels were WNL until yesterday 07/06 * Possibly due to dehydration * Plan: Oral hydration as tolerated. Weakness, dysphagia * Swallow assessment 07/03 showed reduced transit. Patient is improving. * MOVIE EDITOR/PT/OT following. Assistance when transferring. Hypertension * Continue carvedilol and losartan Diabetes, type II * Hold insulin if patient is not eating. When PO intake improves, continue basal/bolus + sliding scale insulin Depression * Continue Citalopram GERD * Continue Pantoprazole Time spent with patient (mins): 10 Diagnosis/Problems Diagnosis/Problems (1) Sepsis Onset Date: ~ 07/24/2020 Status: Resolved Assessment & Plan: Plan: Continue Aztreonam. Monitor vital signs. Daily CBC and CMP. Qualifiers: Qualified Codes: A41.9 - Sepsis, unspecified organism; R65.20 - Severe sepsis without septic shock; J96.00 - Acute respiratory failure, unspecified whether with hypoxia or hypercapnia Resolution Date/Time: 07/02/21 @ 17:41 (2) Seizures Onset Date: Unknown Status: Chronic Assessment & Plan: Plan: Continue Levitiracetam, topiramate, depakote sprinkles, and clonazepam. (3) COPD exacerbation Onset Date: ~ 07/24/2020 Status: Resolved Assessment & Plan: Continue Duoneb and Prednisone Resolution Date/Time: 07/02/21 @ 17:44 (4) Acute respiratory failure Status: Resolved Qualifiers: Qualified Codes: J96.01 - Acute respiratory failure with hypoxia; J96.02 - Acute respiratory failure with hypercapnia Resolution Date/Time: 07/02/21 @ 17:47 (5) Right lower lobe pneumonia Onset Date: ~ 07/24/2020 Status: Acute Assessment & Plan: Plan: Continue Duoneb, Prednisone, and Aztreonam Qualifiers: Qualified Codes: J18.9 - Pneumonia, unspecified organism (6) Ventricular tachycardia Onset Date: Unknown Status: Acute Assessment & Plan: Plan: Defer to cardiology. (7) HTN (hypertension) Onset Date: Unknown Status: Chronic Assessment & Plan: Plan: Continue treatment with carvedilol and losartan. Qualifiers: Qualified Codes: I10 - Essential (primary) hypertension (8) DVT prophylaxis Status: Acute Assessment & Plan: Subcutaneous Lovenox Clinical Quality Measures Urinary Catheter-Non SCIP Pts: Reason for Catheter Continuanc: Ventilator CELINE FLORES Jul 10, 2021 18:15
[2021-07-10] MEDS: DIVALPROX SPRINKLE 125 MG (DEPAKOTE) CAP PO SCH (20:58)
[2021-07-10] MEDS: clonazePAM 0.5 MG (KlonoPIN) TAB PO SCH (20:58)
[2021-07-10] MEDS: HYDROcodone/APAP 5 MG/325 MG (LORTAB) TAB PO PRN (21:02)
[2021-07-11 00:40] VITALS: BP 117/76
[2021-07-11] MEDS: RT-ALBUTEROL/IPRATROPIUM 3 ML (DUONEB) VIAL INH SCH ×3 (03:04→11:28)
[2021-07-11 05:43] LABS: ALBUMIN 3.3 GM/DL (3.2-4.5); POTASSIUM 3.4 MMOL/L (3.6-5.0)
[2021-07-11 05:44] LABS: CALCIUM 8.8 MG/DL (8.5-10.1)
[2021-07-11 05:47] LABS: BILIRUBIN,TOTAL 0.5 MG/DL (0.1-1.0)
[2021-07-11 05:49] LABS: CREATININE SERUM 0.59 MG/DL (0.60-1.30)
[2021-07-11] MEDS: inSUlin ASPART (NovoLOG) 1 UNIT/0.01 ML (CHARGE PER UNIT) SC SCH ×2 (06:08→11:30)
[2021-07-11] MEDS: predniSONE 20 MG TAB PO SCH (06:24)
[2021-07-11] MEDS: METOCLOPRAMIDE 5 MG (REGLAN) TAB PO SCH (06:24)
[2021-07-11 07:43] VITALS: BP 134/82
[2021-07-11] MEDS: PANTOPRAZOLE 40 MG (PROTONIX) TAB PO SCH (08:23)
[2021-07-11] MEDS: toPIRamate 100 MG (TOPAMAX) TAB PO SCH (08:23)
[2021-07-11] MEDS: LOSARTAN 25 MG (COZAAR) TAB PO SCH (08:23)
[2021-07-11] MEDS: toPIRamate 25 MG (TOPAMAX) TAB PO SCH (08:24)
[2021-07-11] MEDS: ENOXAPARIN 40 MG/0.4 ML (LOVENOX) SYR SC SCH (08:24)
[2021-07-11] MEDS ORDERED: PRD20T PO (10:15)
[2021-07-11] MEDS ORDERED: LEVE10006 PO (10:15)
[2021-07-11] MEDS ORDERED: CLON1PAT33 TD (10:15)
[2021-07-11] MEDS ORDERED: CARV12.53 PO (10:15)
--- NOTE | 2021-07-11 10:15 | Discharge Summary ---
Discharge Summary Reconcile Patient Problems Problems Reviewed?: Yes Instructions for Patient Assessment/Instructions Severe debility from prolonged hospitalization: PT/OT Physician to follow Patient: [facility] Discharge Diet for Home: No Restrictions Hospital Course Date of Admission: Jun 24, 2021 at 20:20 Admission Diagnosis : Family Physician/Provider: Raquel Self Aprn Date of Discharge: 07/10/21 Discharge Diagnosis: Covid PNA Acute on Chronic Respiratory Failure COPD Exacerbation Arrythemia Oral Thrush HTN IDDM Seizure disorder Debility Labs and Pending Lab Test: Laboratory Tests 07/09/21 20:33: Glucometer 165H 07/10/21 05:22: Glucometer 97 07/10/21 07:15: White Blood Count 9.7, Red Blood Count 5.19H, Hemoglobin 15.0, Hematocrit 46, Mean Corpuscular Volume 89, Mean Corpuscular Hemoglobin 29, Mean Corpuscular Hemoglobin Concent 32, Red Cell Distribution Width 14.5, Platelet Count 226, Mean Platelet Volume 12.3H, Immature Granulocyte % (Auto) 1, Neutrophils (%) (Auto) 66, Lymphocytes (%) (Auto) 21, Monocytes (%) (Auto) 10, Eosinophils (%) (Auto) 2, Basophils (%) (Auto) 0, Neutrophils # (Auto) 6.4, Lymphocytes # (Auto) 2.0, Monocytes # (Auto) 1.0, Eosinophils # (Auto) 0.2, Basophils # (Auto) 0.0, Immature Granulocyte # (Auto) 0.1, Percent Immature Platelet Fraction 15.8H, Sodium Level 142, Potassium Level 3.8, Chloride Level 111H, Carbon Dioxide Level 20L, Anion Gap 11, Blood Urea Nitrogen 25H, Creatinine 0.55L, Estimat Glomerular Filtration Rate 116, BUN/Creatinine Ratio 45, Glucose Level 98, Calcium Level 9.0, Corrected Calcium 9.6, Total Bilirubin 0.6, Aspartate Amino Transf (AST/SGOT) 54H, Alanine Aminotransferase (ALT/SGPT) 170H, Alkaline Phosphatase 193H, Total Creatine Kinase 19L, Total Protein 6.0L, Albumin 3.2, Smear Scan YES 07/10/21 10:25: Glucometer 255H Microbiology 06/28/21 Gram Stain - Final, Complete 06/28/21 Sputum Culture - Final, Complete No growth 06/24/21 Urine Culture - Final, Complete NO GROWTH 06/24/21 Blood Culture - Final, Complete No growth Home Meds Active Reported Metoclopramide HCl 5 Mg Tablet 5 Mg PO BIDAC LAST FILLED 09-10-2020 #120/60 DAY SUPPLY [Thc] Chew 1 Ea PO BID Topiramate 50 Mg Tablet 50 Mg PO BID TAKES 100MG +50MG TO EQUAL 150MG LAST FILLED 10-09-2020 #60/30 DAY SUPPLY Depakote (Divalproex Sodium) 500 Mg Tablet.dr 500 Mg PO HS LAST FILLED 10-23-2020 #90/30 DAY SUPPLY Divalproex Sodium 500 Mg Tablet.dr 1,000 Mg PO DAILY TAKES 2 (500MG) TABS LAST FILLED 10-23-2020 #90/30 DAY SUPPLY Guanfacine HCl ER (Guanfacine HCl) 2 Mg Tab.er.24h 2 Mg PO DAILY FILLED 01-14-2021 #30/30 DAY SUPPLY Clonazepam 0.5 Mg Tablet 0.5 Mg PO HS LAST FILLED 01-14-2021 #60/60 DAY SUPPLY Hydrocodone-Acetamin 10-325 mg (Hydrocodone/Acetaminophen) 1 Each Tablet 1 Ea PO TID Iprat-Albut 0.5-3(2.5) mg/3 ml (Ipratropium/Albuterol Sulfate) 3 Ml Ampul.neb 3 Ml NEB TID LAST FILLED 02-21-2021 #60 VIALS/20 DAY SUPPLY Brovana (Arformoterol Tartrate) 15 Mcg/2 Ml Vial.neb 2 Ml NEB TID LAST FILLED 03-03-2021 #60/20 DAY SUPPLY Losartan Potassium 25 Mg Tablet 25 Mg PO DAILY LAST FILLED 03-04-2021 #90/90 DAY SUPPLY Escitalopram Oxalate 20 Mg Tablet 20 Mg PO DAILY FILLED 03-24-2021 #30/30 DAY SUPPLY Proair Hfa (Albuterol Sulfate) 1 Puff Puff 2 Puff INH TID PRN Pantoprazole Sodium 40 Mg Tablet.dr 40 Mg PO DAILY LAST FILLED 01-17-2021 #30/30 DAY SUPPLY Topiramate 100 Mg Tablet 100 Mg PO BID LAST FILLED 10-10-2020 #60/30 DAY SUPPLY TAKES 100MG +50MG TO EQUAL 150MG Patient Allergies: Coded Allergies: Penicillins (Verified Allergy, Severe, Anaphylaxis, 06/24/21) erythromycin base (Verified Allergy, Unknown, 06/24/21) New Medications: Carvedilol (Carvedilol) 12.5 Mg Tablet 12.5 MG PO BID, #60 TAB Clonidine (Clonidine TTS 1 Patch) 1 Each Patch.tdwk 0.1 MG TD Q7D@09, #4 PATCH Levetiracetam (Levetiracetam) 1,000 Mg Tablet 1000 MG PO BID, #60 TAB Prednisone (Prednisone) 20 Mg Tab 20 MG PO DAILY@0700, #7 TAB Continued Medications: Albuterol Sulfate (Proair Hfa) 1 Puff Puff 2 PUFF INH TID PRN for SHORTNESS OF BREATH, EA Arformoterol Tartrate (Brovana) 15 Mcg/2 Ml Vial.neb 2 ML NEB TID, EA LAST FILLED 03-03-2021 #60/20 DAY SUPPLY Clonazepam (Clonazepam) 0.5 Mg Tablet 0.5 MG PO HS, TAB LAST FILLED 01-14-2021 #60/60 DAY SUPPLY Divalproex Sodium (Divalproex Sodium) 500 Mg Tablet.dr 1000 MG PO DAILY, TAB TAKES 2 (500MG) TABS LAST FILLED 10-23-2020 #90/30 DAY SUPPLY Divalproex Sodium (Depakote) 500 Mg Tablet.dr 500 MG PO HS, TAB LAST FILLED 10-23-2020 #90/30 DAY SUPPLY Escitalopram Oxalate (Escitalopram Oxalate) 20 Mg Tablet 20 MG PO DAILY, TAB FILLED 03-24-2021 #30/30 DAY SUPPLY Guanfacine HCl (Guanfacine HCl ER) 2 Mg Tab.er.24h 2 MG PO DAILY, TAB FILLED 01-14-2021 #30/30 DAY SUPPLY Hydrocodone/Acetaminophen (Hydrocodone-Acetamin 10-325 mg) 1 Each Tablet 1 EA PO TID, TAB Ipratropium/Albuterol Sulfate (Iprat-Albut 0.5-3(2.5) mg/3 ml) 3 Ml Ampul.neb 3 ML NEB TID, EA LAST FILLED 02-21-2021 #60 VIALS/20 DAY SUPPLY Losartan Potassium (Losartan Potassium) 25 Mg Tablet 25 MG PO DAILY, TAB LAST FILLED 03-04-2021 #90/90 DAY SUPPLY Metoclopramide HCl (Metoclopramide HCl) 5 Mg Tablet 5 MG PO BIDAC, TAB LAST FILLED 09-10-2020 #120/60 DAY SUPPLY Pantoprazole Sodium (Pantoprazole Sodium) 40 Mg Tablet.dr 40 MG PO DAILY, TAB LAST FILLED 01-17-2021 #30/30 DAY SUPPLY [Thc] () CHEW 1 EA PO BID, EA Topiramate (Topiramate) 100 Mg Tablet 100 MG PO BID, TAB LAST FILLED 10-10-2020 #60/30 DAY SUPPLY TAKES 100MG +50MG TO EQUAL 150MG Topiramate (Topiramate) 50 Mg Tablet 50 MG PO BID, TAB TAKES 100MG +50MG TO EQUAL 150MG LAST FILLED 10-09-2020 #60/30 DAY SUPPLY Home Health Need/Face to Face Date of Face to Face: Jul 10, 2021 Clinical Findings: Generalized weakness and fatigue, Instability, Muscle weakness I have seen Pt xhgz-wd-xhbi: Yes Discharged To: Home Diagnosis/Conditions: See Above Patient is Homebound due to: [place] fall risk due to instabilty, Muscle weakness Homebound Status Due to the above stated illness, injury or surgical procedure (medical condition or diagnosis) and associated clinical findings, the patient is homebound because of his/her inability to leave home except with aid of a supportive device and/or person AND leaving the home requires a considerable and taxing effort or is medically contraindicated. Pt req the following assistanc: Aid of another person Home Health Nursing Orders Home Health Services Order: Nursing Services, Sow Farm Manager-Evaluate & Treat, Physical Therapy-Evaluate & Treat Home Health Infusion Therapy Line Start Date: Jun 27, 2021 Therapy Orders Therapy Orders: OT (must have SN or PT order), PT to assess for OT Therapy Specific Orders: Eval assistive deivces, Teach enviro modifications/safety, Increase strength/endurance Certify Stmt I certify that this patient is under my care and that I, a nurse practitioner or a physician; a student assistant working with me, had a face to face encounter that - meets the physician face to face encounter requirements with this patient as dated. Discharge Physical Exam General: Alert, Oriented X3, Cooperative, No Acute Distress HEENT: Mucous Memb Moist/Petty Lungs: Clear to Auscultation, Normal Air Movement Heart: Regular Rate, No Murmurs Abdomen: Normal Bowel Sounds, Soft, No Tenderness, No Masses Extremities: No Edema, No Tenderness/Swelling Skin: No Rashes Neuro: Strength at 5/5 X4 Ext, Sensation Intact, Cranial Nerves 3-12 NL Psych/Mental Status: Mental Status NL, Mood NL CAMILLE ORR MD Jul 10, 2021 17:51
[2021-07-11 11:24] VITALS: BP 121/77
--- NOTE | 2021-07-11 11:51 | Physical Therapy Daily Note ---
PT Daily Note-Current Subjective Pt in bed upon arrival and agrees to PT. Doesn't report any pain. present. Pain Numeric Pain Scale: 0-No Pain Mental Status Patient Orientation: Normal For Age Attachments: Carias Catheter Transfers SCALE: Activities may be completed with or without assistive devices. 3-Rrfvshdpvd-qbefuwr completes the activity by him/herself with no assistance from a helper. 5-Set-up or Clean-up Assistance-helper sets up or cleans up; patient completes activity. [place] assists only prior to or following the activity. 4-Supervision or Touching Assistance-helper provides verbal cues and/or touching/steadying and/or contact guard assistance as patient completes activity. Assistance may be provided throughout the activity or intermittently. 3-Partial/Moderate Assistance-helper does LESS THAN HALF the effort. [place] lifts, holds or supports trunk or limbs, but provides less than half the effort. 2-Substantial/Maximal Assistance-helper does MORE THAN HALF the effort. [place] lifts or holds trunk or limbs and provides more than half the effort. 4-Cxjtwmepq-zohgmd does ALL the effort. Patient does none of the effort to complete the activity. Or, the assistance of 2 or more helpers is required for the patient to complete the activity. If activity was not attempted, code reason: 7-Patient Refused. 9-Not Applicable-not attempted and the patient did not perform the activity before the current illness, exacerbation or injury. 10-Not Attempted due to Environmental Limitations-(lack of equipment, weather restraints, etc.). 88-Not Attempted due to Medical Conditions or Safety Concerns. Sit to Lying (QC): 5 Sit to Stand (QC): 4 Weight Bearing Right Lower Extremity: Right Full Weight Bearing Left Lower Extremity: Left Full Weight Bearing Patient is cleared to bear full weight through BLEs, however is unable to do so at this time. Gait Training Does the Patient Walk?: Yes Distance: 100' Walk 10 feet (QC): 4 Walk 50 ft with 2 Turns(QC): 4 Gait Assistive Device: FWW Ambulates w/ very slow gait pattern Exercises Standing: Sit to Stand Standing Reps: 4 Treatments Pt lying in bed upon arrival and agrees to PT then then sits ups to EOB then pt performs sit to stand. Pt then amb 100' out into rivero and then back to room and TFs to back to bed. Call light nearby and all needs met. Assessment Current Status: Good Progress Pt requires skilled verbal cues about body position during ambulation and hand and foot placement. Pt amb slowly and forward flexed posture. PT Short Term Goals Short Term Goals Time Frame: Jul 17, 2021 Roll Left & Right: 3 Sit to lyin Lying to sitting on side of be: 3 Sit to stand: 3 Chair/tpd-fe-wrjlu transfer: 3 Toilet transfer: 3 Wheel 50ft w/2 turns: 2 Wheel 150 feet: 2 PT Insurance Sales Specialist Goals Insurance Sales Specialist Goals PT Insurance Sales Specialist Goals Time Frame: Aug 01, 2021 Roll Left & Right (QC): 4 Sit to Lying (QC): 4 Lying-Sitting on Side/Bed(QC): 4 Sit to Stand (QC): 4 Chair/Kzj-mq-Hfndn Xfer(QC): 4 Toilet Transfer (QC): 4 Car Transfer (QC): 4 Does the Patient Walk: Yes Walk 10 feet (QC): 2 Walk 50ft with 2 Turns (QC): 2 Does the Pt use WC or Scooter?: Yes Wheel 50 feet with 2 turns (QC: 3 Type: Manual Wheel 150 feet: 3 Type: Manual PT Plan Problem List Problem List: Activity Tolerance, Functional Strength Treatment/Plan Treatment Plan: Continue Plan of Care Treatment Plan: Bed Mobility, Education, Functional Activity Iveth, Functional Strength, Group Therapy, Gait, Safety, Therapeutic Exercise, Transfers Treatment Duration: Aug 27, 2021 Frequency: 6 times per week Patient and/or Family Agrees t: Yes Safety Risks/Education Patient Education: Gait Training, Correct Positioning Teaching Recipient: Patient Teaching Methods: Discussion Response to Teaching: Return Demonstration Time/GCodes Time In: 924 Time Out: 936 Total Billed Treatment Time: 12 Total Billed Treatment 1, GT KARELY SIM MED ADMIN Jul 11, 2021 11:51
--- NOTE | 2021-07-11 11:59 | Occ Therapy Progress Note ---
Therapy Progress Note OT visited with pt's , pt currently sleeping. Pt's indicates pt is discharging home today with home health. requests OT to let pt rest in order for her to save her energy for the drive home. OT will attempt again next available date if pt is still admitted to hospital. 1, visit 1135 MOISES MCDONOUGH OT Jul 11, 2021 11:59
== END 2021-07-11 13:00 | disposition home health service (06) | DRG 870 ==
LOC: EDUNIT# 16:08 → ER 16:13 → ICU 20:20 → CSD 06-27 07:12 → ICU 06-27 07:12 → 4TH 07-05 14:24
PROVIDERS: ADMIT Family Medicine; ATTEND Family Medicine
PROC: 5A1955Z Respiratory Ventilation, Greater than 96 Consecutive Hours (ICD-10-PCS; principal; 2021-06-24)
PROC: 0BH17EZ Insertion of Endotracheal Airway into Trachea, Via Natural or Artificial Opening (ICD-10-PCS; 2021-06-24)
PROC: 5A09357 Assistance with Respiratory Ventilation, Less than 24 Consecutive Hours, Continuous Positive Airway Pressure (ICD-10-PCS; 2021-07-02)
DX: A41.9 Sepsis, unspecified organism (principal); J18.9 Pneumonia, unspecified organism; J96.21 Acute and chronic respiratory failure with hypoxia; J96.22 Acute and chronic respiratory failure with hypercapnia; J44.0 Chronic obstructive pulmonary disease with (acute) lower respiratory infection; J44.1 Chronic obstructive pulmonary disease with (acute) exacerbation; B37.0 Candidal stomatitis; I47.2 Ventricular tachycardia; G40.909 Epilepsy, unspecified, not intractable, without status epilepticus; I10 Essential (primary) hypertension; F17.210 Nicotine dependence, cigarettes, uncomplicated; Z88.0 Allergy status to penicillin; Z88.1 Allergy status to other antibiotic agents; G43.909 Migraine, unspecified, not intractable, without status migrainosus; Z86.711 Personal history of pulmonary embolism; Z20.822 Contact with and (suspected) exposure to COVID-19; F41.9 Anxiety disorder, unspecified; F32.A Depression, unspecified; Z91.19 Patient's noncompliance with other medical treatment and regimen; F12.90 Cannabis use, unspecified, uncomplicated; R13.10 Dysphagia, unspecified; E11.65 Type 2 diabetes mellitus with hyperglycemia; R74.01 Elevation of levels of liver transaminase levels
CPT/HCPCS: 31500; 36415; 36569; 70450; 71045; 71275; 74018; 74175; 76705; 76937; 80048; 80053; 80164; 80306; 80320; 81000; 82550; 82805; 82947; 83605; 83690; 83735; 83880; 84100; 84145; 84478; 84484; 85007; 85025; 85027; 85379; 85610; 85730; 86141; 87040; 87070; 87081; 87088; 87205; 87636; 93005; 93041; 93306; 94002; 94003; 94640; 94660; 94760; 94799; 96361; 96365; 96367; 96372; 96375; 96376; 99291

== ENCOUNTER 2021-10-01 14:59 | Inpatient (IN) | payer MEDICARE ==
[~2021-10-01] VITALS: Ht 157 cm; Wt 77.1 kg
[~2021-10-01 14:59] MED LIST changes: +ARFO15VI3 NEB; +CARV12.53 PO; +CLON0.5T4 PO; +CLON1PAT33 TD; +DIVA-76 PO; +DIVA500T PO; +ESCI20TA39 PO; -ETOMIDATE IV SOLN 20 MG/10 ML VIAL IV ONE; +GUAN2TAB25 PO; +HYDR-3820 PO; +IPRA3AMP31 NEB; +LEVE10006 PO; +LOSA25TA41 PO; +METO5TAB2 PO; +PANT40TA52 PO; +PRD20T PO; -ROCURONIUM 10 MG/ML 5 ML SYRINGE IV ONE; +RT-ALBUINH INH; +THC PO; +TOPI100T11 PO; +TOPI50TA13 PO
--- NOTE | 2021-10-01 15:14 | ED General ---
General Stated Complaint: TACHYCARDIA Source of Information: Patient, EMS Exam Limitations: No Limitations History of Present Illness Date Seen by Provider: Oct 01, 2021 Time Seen by Provider: 14:49 Initial Comments Patient to the ER by EMS from the clinic across the street with chief complaint for the last 3 4 days been having progressively worsening productive cough green sputum tachycardia chills and malaise. She just recently had a 3-week hospitalization and has been intubated twice in the past 6 months for pneumonia/COPD. She does not wear oxygen at baseline. She is being evaluated outpatient for nocturnal oxygen. She is not having any nausea vomiting diarrhea or chills. 2 days ago at a clinic in [facility] she had a Covid and influenza swab that were negative. She used to smoke about a pack of cigarettes per day. She has slowed down since her recent illnesses. She is not having any chest pain. Allergies and Home Medications Allergies Coded Allergies: Penicillins (Verified Allergy, Severe, Anaphylaxis, 06/24/21) erythromycin base (Verified Allergy, Unknown, 06/24/21) Patient Home Medication List Home Medication List Reviewed: Yes Albuterol Sulfate (Proair Hfa) 1 Puff Puff, 2 PUFF INH TID PRN for SHORTNESS OF BREATH, (Reported) Entered as Reported by: JEFFREY VILLATORO on 06/25/21 1321 Arformoterol Tartrate (Brovana) 15 Mcg/2 Ml Vial.neb, 2 ML NEB TID, (Reported) Entered as Reported by: JEFFREY VILLATORO on 06/25/21 1321 Carvedilol (Carvedilol) 12.5 Mg Tablet, 12.5 MG PO BID Prescribed by: CAMILLE ORR on 07/11/21 1015 Clonazepam (Clonazepam) 0.5 Mg Tablet, 0.5 MG PO HS, (Reported) Entered as Reported by: JEFFREY VILLATORO on 06/25/21 1321 Clonidine (Clonidine TTS 1 Patch) 1 Each Patch.tdwk, 0.1 MG TD Q7D@09 Prescribed by: CAMILLE ORR on 07/11/21 1015 Divalproex Sodium (Divalproex Sodium) 500 Mg Tablet.dr, 1,000 MG PO DAILY, (Reported) Entered as Reported by: JEFFREY VILLATORO on 06/25/21 1321 Divalproex Sodium (Depakote) 500 Mg Tablet.dr, 500 MG PO HS, (Reported) Entered as Reported by: JEFFREY VILLATORO on 06/25/21 132 Escitalopram Oxalate (Escitalopram Oxalate) 20 Mg Tablet, 20 MG PO DAILY, (Reported) Entered as Reported by: JEFFREY VILLATORO on 06/25/211320 Guanfacine HCl (Guanfacine HCl ER) 2 Mg Tab.er.24h, 2 MG PO DAILY, (Reported) Entered as Reported by: JEFFREY VILLATORO on 06/25/21 132 Hydrocodone/Acetaminophen (Hydrocodone-Acetamin 10-325 mg) 1 Each Tablet, 1 EA PO TID, (Reported) Entered as Reported by: JEFFREY VILLATORO on 06/25/21 132 Ipratropium/Albuterol Sulfate (Iprat-Albut 0.5-3(2.5) mg/3 ml) 3 Ml Ampul.neb, 3 ML NEB TID, (Reported) Entered as Reported by: JEFFREY VILLATORO on 06/25/21 132 Levetiracetam (Levetiracetam) 1,000 Mg Tablet, 1,000 MG PO BID Prescribed by: CAMILLE ORR on 07/11/21 1015 Losartan Potassium (Losartan Potassium) 25 Mg Tablet, 25 MG PO DAILY, (Reported) Entered as Reported by: JEFFREY VILLATORO on 06/25/21 132 Metoclopramide HCl (Metoclopramide HCl) 5 Mg Tablet, 5 MG PO BIDAC, (Reported) Entered as Reported by: JEFFREY VILLATORO on 06/25/21 132 Pantoprazole Sodium (Pantoprazole Sodium) 40 Mg Tablet.dr, 40 MG PO DAILY, (Reported) Entered as Reported by: JEFFREY VILLATORO on 06/25/21 132 Prednisone (Prednisone) 20 Mg Tab, 20 MG PO DAILY@0700 Prescribed by: ACMILLE ORR on 07/11/21 1015 Topiramate (Topiramate) 100 Mg Tablet, 100 MG PO BID, (Reported) Entered as Reported by: JEFFREY VILLATORO on 06/25/21 132 Topiramate (Topiramate) 50 Mg Tablet, 50 MG PO BID, (Reported) Entered as Reported by: JEFFREY VILLATORO on 06/25/21 1321 [Thc] CHEW, 1 EA PO BID, (Reported) Entered as Reported by: JEFFREY VILLATORO on 06/25/21 1322 Review of Systems Review of Systems Constitutional: No chills; dizziness; No fever; malaise, weakness EENTM: No ear pain, No eye pain Respiratory: cough, phlegm, short of breath Cardiovascular: No chest pain, No palpitations Gastrointestinal: No abdominal pain, No nausea, No vomiting Genitourinary: No discharge, No dysuria Musculoskeletal: No joint swelling All Other Systems Reviewed Negative Unless Noted: Yes Past Xflljsi-Sazbrv-Shbzay Hx Patient Social History Tobacco Use?: No Use of E-Cig and/or Vaping dev: No Substance use?: No Past Medical History Surgery/Hospitalization HX: HYSTERECTOMY, NECK SURGERY, GALLBLADDER (POSSIBLY), RIGHT KNEE SURGERY, COPD, SEIZURE DISORDER, DVT, HTN, SYMPATHETIC DYSTROPHY OF RIGHT ARM Surgeries: Yes Hysterectomy Respiratory: Yes Pulmonary Embolism Cardiac: Yes Neurological: Yes (Reflex sympathetic dystrophy of the right arm) Headaches /Migraines, Seizure Disorder Genitourinary: No Gastrointestinal: Yes (Dysphagia) Musculoskeletal: No Endocrine: No HEENT: No Cancer: No Psychosocial: Yes (History of polysubstance abuse) Anxiety, Depression Physical Exam-Suspected Sepsis Physical Exam Vital Signs Vital Signs - First Documented 10/01/21 10/01/21 15:00 15:15 Temp 37.7 Pulse 120 Resp 25 B/P (MAP) 184/114 (137) Pulse Ox 93 O2 Delivery Nasal Cannula O2 Flow Rate 2.00 Capillary Refill : Height, Weight, BMI Height: '" Weight: lbs. oz. kg; 38.37 BMI Method: General Appearance: Anxious, Mild Distress Eyes: Bilateral Eye Normal Inspection, Bilateral Eye PERRL, Bilateral Eye EOMI HEENT: PERRL/EOMI, TMs Normal, Normal ENT Inspection, Pharynx Normal, Moist Mucous Membranes Neck: Full Range of Motion, Normal Inspection Respiratory: No Accessory Muscle Use, Decreased Breath Sounds, Respiratory Distress (Mild to moderate on 2 L oxygen with 25 breaths/min.) Cardiovascular: Regular Rate, Rhythm, No Edema, Normal Peripheral Pulses Extremity: Normal Capillary Refill, Normal Inspection, Pedal Edema (Bilateral 2+ pitting edema with compression hose on) Neurologic/Psychiatric: Alert, Oriented x3, No Motor/Sensory Deficits Skin: normal color, warm/dry Lymphatic: No Adenopathy Focused Exam Sepsis Stage: Sepsis Possible Source: Pulmonary Lactate Level 10/01/21 15:10: Lactic Acid Level 1.01 Time of Focused Exam: 16:32 Respiratory: No Accessory Muscle Use, Decreased Breath Sounds, Respiratory Distress (25 breaths/min on 2 L with oxygen saturation in the mid 90s.) Cardiovascular: Regular Rate, Rhythm (99), Other (Bilateral pedal edema 2+ pitting with MARIEL hose on) Capillary Refill: Less Than 3 Seconds Peripheral Pulses: 2+ Radial Pulses (R), 2+ Radial Pulses (L) Skin: normal color, warm/dry Lactic Acid Level Laboratory Tests Test 10/01/21 15:10 Lactic Acid Level 1.01 MMOL/L (0.50-2.00) Within 3hrs of presentation: Admin fluids, Admin 30ml/kg IBW due to BMI>30, Admin ABX, Blood cultures prior to ABX's, Focus exam, Lactate level Procedures/Interventions Date of ETT Placement: Jun 24, 2021 Time of ETT Placement: 1949 Progress/Results/Core Measures Suspected Sepsis SIRS Temperature: Pulse: Respiratory Rate: Laboratory Tests 10/01/21 15:10: White Blood Count 16.3H Blood Pressure / Mean: 10/01/21 15:10: Lactic Acid Level 1.01 Laboratory Tests 10/01/21 15:10: Creatinine 0.60, INR Comment 1.0, Platelet Count 371, Total Bilirubin 0.6 Results/Orders Lab Results Laboratory Tests Test 10/01/21 15:05 10/01/21 15:10 10/01/21 15:14 Range/Units Blood Gas Puncture Site R RADIAL Blood Gas Patient Temperature 37.7 Arterial Blood pH 7.44 H 7.37-7.43 Arterial Blood Partial Pressure CO2 36 35-45 MMHG Arterial Blood Partial Pressure O2 65 L 79-93 MMHG Arterial Blood HCO3 24 23-27 MMOL/L Arterial Blood Total CO2 25.0 21.0-31.0 MMOL/L Arterial Blood Oxygen Saturation 94 94-100 % Arterial Blood Base Excess 0.5 -2.5-2.5 MMOL/L Jim Test NA Blood Gas Ventilator Setting NO Blood Gas Inspired Oxygen 2L White Blood Count 16.3 H 4.3-11.0 10^3/uL Red Blood Count 5.28 H 3.80-5.11 10^6/uL Hemoglobin 14.3 11.5-16.0 g/dL Hematocrit 44 35-52 % Mean Corpuscular Volume 84 80-99 fL Mean Corpuscular Hemoglobin 27 25-34 pg Mean Corpuscular Hemoglobin Concent 32 32-36 g/dL Red Cell Distribution Width 15.3 H 10.0-14.5 % Platelet Count 371 130-400 10^3/uL Mean Platelet Volume 10.0 9.0-12.2 fL Immature Granulocyte % (Auto) 2 % Neutrophils (%) (Auto) 86 H 42-75 % Lymphocytes (%) (Auto) 6 L 12-44 % Monocytes (%) (Auto) 7 0-12 % Eosinophils (%) (Auto) 0 0-10 % Basophils (%) (Auto) 0 0-10 % Neutrophils # (Auto) 14.0 H 1.8-7.8 10^3/uL Lymphocytes # (Auto) 0.9 L 1.0-4.0 10^3/uL Monocytes # (Auto) 1.1 H 0.0-1.0 10^3/uL Eosinophils # (Auto) 0.0 0.0-0.3 10^3/uL Basophils # (Auto) 0.0 0.0-0.1 10^3/uL Immature Granulocyte # (Auto) 0.3 H 0.0-0.1 10^3/uL Neutrophils % (Manual) 89 % Lymphocytes % (Manual) 4 % Monocytes % (Manual) 7 % Blood Morphology Comment NORMAL Prothrombin Time 13.6 12.2-14.7 SEC INR Comment 1.0 0.8-1.4 Activated Partial Thromboplast Time 28 24-35 SEC D-Dimer 1.83 H 0.00-0.49 UG/ML Sodium Level 134 L 135-145 MMOL/L Potassium Level 3.2 L 3.6-5.0 MMOL/L Chloride Level 100 98-107 MMOL/L Carbon Dioxide Level 21 21-32 MMOL/L Anion Gap 13 5-14 MMOL/L Blood Urea Nitrogen 7 7-18 MG/DL Creatinine 0.60 0.60-1.30 MG/DL Estimat Glomerular Filtration Rate 107 BUN/Creatinine Ratio 12 Glucose Level 101 70-105 MG/DL Lactic Acid Level 1.01 0.50-2.00 MMOL/L Calcium Level 9.4 8.5-10.1 MG/DL Corrected Calcium 9.6 8.5-10.1 MG/DL Total Bilirubin 0.6 0.1-1.0 MG/DL Aspartate Amino Transf (AST/SGOT) 20 5-34 U/L Alanine Aminotransferase (ALT/SGPT) 24 0-55 U/L Alkaline Phosphatase 136 40-136 U/L Troponin I < 0.028 <0.028 NG/ML C-Reactive Protein High Sensitivity 6.56 H 0.00-0.50 MG/DL Total Protein 7.8 6.4-8.2 GM/DL Albumin 3.7 3.2-4.5 GM/DL Procalcitonin 0.02 <0.10 NG/ML Influenza Type A (RT-PCR) Not Detected Not Detecte Influenza Type B (RT-PCR) Not Detected Not Detecte SARS-CoV-2 RNA (RT-PCR) Not Detected Not Detecte My Orders Orders - SYLWIA HATCH Cbc With Automated Diff (10/01/21 15:10) Comprehensive Metabolic Panel (10/01/21 15:10) Blood Culture (10/01/21 15:10) Sputum Culture (10/01/21 15:10) Urinalysis (10/01/21 15:10) Urine Culture (10/01/21 15:10) Protime With Inr (10/01/21 15:10) Partial Thromboplastin Time (10/01/21 15:10) Chest 1 View, Ap/Pa Only (10/01/21 15:10) Ed Iv/Invasive Line Start (10/01/21 15:10) Ed Iv/Invasive Line Start (10/01/21 15:10) Ekg Tracing (10/01/21 15:10) Troponin I Bradford (10/01/21 15:10) Vital Signs Adult Sepsis Patie Q15M (10/01/21 15:10) O2 (10/01/21 15:10) Remove Rings In Anticipation O (10/01/21 15:10) Lactic Acid Analyzer (10/01/21 15:10) Influenza A And B By Pcr (10/01/21 15:10) Cefepime Injection (Maxipime Injection) (10/01/21 15:15) Vancomycin Injection (Vancomycin Injecti (10/01/21 15:15) Covid 19 Inhouse Test (10/01/21 15:10) Continuous Ekg Monitoring (10/01/21 15:10) Procalcitonin (Pct) (10/01/21 15:10) Hs C Reactive Protein (10/01/21 15:10) Fibrin Degradation Products (10/01/21 15:10) Manual Differential (10/01/21 15:10) Arterial Blood Gas (10/01/21 15:05) Bnp Bradford (10/01/21 16:26) Medications Given in ED Current Medications Medications Dose Ordered Sig/Mary Route Start Time Stop Time Status Last Admin Dose Admin Cefepime HCl 1000 mg/Sodium Chloride 50 ml @ 100 mls/hr ONCE ONCE IV 10/01/21 15:15 10/01/21 15:44 DC 10/01/21 15:36 100 MLS/HR Vancomycin HCl 1500 mg/Sodium Chloride 500 ml @ 257 mls/hr ONCE ONCE IV 10/01/21 15:15 10/01/21 17:11 10/01/21 16:09 257 MLS/HR Vital Signs/I&O 10/01/21 10/01/21 15:00 15:15 Temp 37.7 Pulse 120 Resp 25 B/P (MAP) 184/114 (137) Pulse Ox 93 93 O2 Delivery Nasal Cannula Nasal Cannula O2 Flow Rate 2.00 2.00 Capillary Refill : Progress Note : Time: 16:29 Progress Note Septic work-up. Appears to be an infiltrate in the right lung most consistent with pneumonia. COVID and influenza are negative. CRP is elevated however procalcitonin is not so she should probably respond to IV antibiotics given her recent history of intubation and multiple hospitalizations for pneumonia. She should be reasonable for the floor we will go ahead and cover her with cefepime and vancomycin. We will give her a liter of fluids. We are not going to give her a full round of fluids because we are using a ideal body weight and giving her 20 mL/kg and with her significant edema and pulmonary vascular congestion noted on chest x-ray would not want to worsen her work of breathing. Will reassess after the first liter of fluids. ECG Initial ECG Impression Date: Oct 01, 2021 Initial ECG Impression Time: 15:09 Initial ECG Rate: 111 Initial ECG Rhythm: S.Tach Initial ECG Intervals: Normal Initial ECG Impression: Normal Comment Sinus tachycardia without clinically relevant ST elevation or depression. Diagnostic Imaging Diagonstic Imaging: Xray Plain Films/CT/US/NM/MRI: chest Comments [facility], [facility]. [place], [place] NAME: SESIE CHARLSE [facility] REC#: [id number] PT STATUS: REG ER : 1965 PHYSICIAN: SYLWIA HATCH MD ADMIT DATE: 10/01/21/ER Draft Date of Exam:10/01/21 CHEST 1 VIEW, AP/PA ONLY INDICATION: Shortness of breath and cough. TECHNIQUE: Frontal chest obtained at 03:23 p.m. FINDINGS: Heart and mediastinal silhouette are normal in appearance. There is mild central vascular prominence which has increased compared to the prior study. There is some right perihilar atelectasis versus infiltrate. There is no pneumothorax or pleural fluid. IMPRESSION: Mild central vascular prominence, increased compared to the prior study. There is some mild right perihilar infiltrate versus atelectasis. Follow-up is recommended. Dictated on workstation # [id number] Dict: 10/01/21 1532 Trans: 10/01/21 1535 [id number] Interpreted by: ANA LAO MD Electronically signed by: Reviewed: Reviewed by Me Departure Communication (Admissions) Time/Spoke to Admitting Phy: 16:45 Discussed the case with Dr. Perla and she agrees to admit the patient to the floor on IV fluids antibiotics and oxygen. Impression Primary Impression: Pneumonia Qualified Codes: J18.9 - Pneumonia, unspecified organism Additional Impressions: Sepsis Qualified Codes: A41.9 - Sepsis, unspecified organism; R65.20 - Severe sepsis without septic shock; J96.01 - Acute respiratory failure with hypoxia Acute respiratory failure with hypoxemia Disposition: ADMITTED INPATIENT Condition: Stable Admissions Decision to Admit Reason: Admit from ER (General) Decision to Admit/Date: Oct 01, 2021 Time/Decision to Admit Time: 16:30 Departure-Patient Inst. Referrals: FRANCESCO BROWNLEE [facility] (PCP/Family) Primary Care Physician SYLWIA HATCH Oct 01, 2021 15:14
[2021-10-01] MEDS ORDERED: VANCOMYCIN INJECTION 1,500 MG in NS IV 500 ML 500 ML IV ONE (15:15)
[2021-10-01] MEDS ORDERED: CEFEPIME INJECTION 1,000 MG in NS (IVPB) 50 ML IV ONE (15:15)
[2021-10-01 15:24] LABS: BASOPHILS % (AUTO) 0 % (0-10); EOSINOPHILS % (AUTO) 0 % (0-10); HEMATOCRIT 44 % (35-52); HEMOGLOBIN 14.3 g/dL (11.5-16.0); LYMPHOCYTES # (AUTO) 0.9 10^3/uL (1.0-4.0); LYMPHOCYTES % (AUTO) 6 % (12-44); MEAN CORPUSCULAR HEMOGLOBIN 27 pg (25-34); MEAN CORPUSCULAR HGB CONC 32 g/dL (32-36); MEAN CORPUSCULAR VOLUME 84 fL (80-99); MONOCYTES # (AUTO) 1.1 10^3/uL (0.0-1.0); MONOCYTES % (AUTO) 7 % (0-12); NEUTROPHILS % (AUTO) 86 % (42-75); PLATELET COUNT 371 10^3/uL (130-400); WHITE BLOOD COUNT 16.3 10^3/uL (4.3-11.0)
[2021-10-01] MEDS ORDERED: VANCOMYCIN 1000 MG/VIAL ONE (15:30)
[2021-10-01 15:31] LABS: ALBUMIN 3.7 GM/DL (3.2-4.5)
[2021-10-01 15:32] LABS: CHLORIDE 100 MMOL/L (98-107); POTASSIUM 3.2 MMOL/L (3.6-5.0); SODIUM 134 MMOL/L (135-145)
[2021-10-01 15:33] LABS: CALCIUM 9.4 MG/DL (8.5-10.1)
[2021-10-01 15:34] LABS: GLUCOSE 101 MG/DL (70-105); TOTAL PROTEIN 7.8 GM/DL (6.4-8.2)
[2021-10-01 15:35] LABS: CARBON DIOXIDE 21 MMOL/L (21-32)
--- NOTE | 2021-10-01 15:35 | Diagnostic Imaging Report ---
INDICATION: Shortness of breath and cough. TECHNIQUE: Frontal chest obtained at 03:23 p.m. FINDINGS: Heart and mediastinal silhouette are normal in appearance. There is mild central vascular prominence which has increased compared to the prior study. There is some right perihilar atelectasis versus infiltrate. There is no pneumothorax or pleural fluid. IMPRESSION: Mild central vascular prominence, increased compared to the prior study. There is some mild right perihilar infiltrate versus atelectasis. Follow-up is recommended. Dictated by: Dictated on workstation # [id number]
[2021-10-01 15:36] LABS: BILIRUBIN,TOTAL 0.6 MG/DL (0.1-1.0)
[2021-10-01 15:38] LABS: ALKALINE PHOSPHATASE 136 U/L (40-136); GFR ESTIMATED 107
[2021-10-01 15:39] LABS: BUN/CREATININE RATIO 12
[2021-10-01 15:40] LABS: FIBRIN DEGRADATION PRODUCTS 1.83 UG/ML (0.00-0.49); PROTHROMBIN TIME PATIENT 13.6 SEC (12.2-14.7)
[2021-10-01 15:41] LABS: ALANINE AMINOTRANSFERASE 24 U/L (0-55)
[2021-10-01 15:49] LABS: LYMPHOCYTES % (MANUAL) 4 %; MONOCYTES % (MANUAL) 7 %; NEUTROPHILS % (MANUAL) 89 %; RBC MORPH NORMAL
[2021-10-01 15:50] LABS: ABG BASE EXCESS 0.5 MMOL/L (-2.5-2.5); ABG OXYGEN SATURATION 94 % (94-100); ABG PCO2 36 MMHG (35-45); ABG PH 7.44 (7.37-7.43); ABG PO2 65 MMHG (79-93); INSPIRED O2 2L; PATIENT TEMP 37.7; VENTILATOR NO
[2021-10-01] MEDS ORDERED: ACETAMINOPHEN 500 MG TAB (TYLENOL) PO ONE (17:00)
[2021-10-01 17:06] LABS: BILIRUBIN,URINE NEGATIVE (NEGATIVE); CLARITY,URINE CLEAR; COLOR,URINE YELLOW; GLUCOSE, URINE (UA) NEGATIVE (NEGATIVE); KETONES,URINE 2+ (NEGATIVE); LEUKOCYTE ESTERASE ,URINE NEGATIVE (NEGATIVE); NITRITE,URINE NEGATIVE (NEGATIVE); PROTEIN,URINE NEGATIVE (NEGATIVE)
[2021-10-01 17:19] LABS: BACTERIA,URINE NEGATIVE /HPF
[2021-10-01 18:01] VITALS: BP 160/90
[2021-10-01] MEDS ORDERED: LOSARTAN 25 MG (COZAAR) TAB PO NR (18:30)
[2021-10-01] MEDS ORDERED: ONDANSETRON 4 MG/2 ML (SDV) Z0FRAN IV PRN (18:45)
[2021-10-01] MEDS ORDERED: CATHETER FLUSH 10 ML SYR IVP PRN (18:45)
[2021-10-01] MEDS ORDERED: ACETAMINOPHEN 325 MG TABLET PO PRN (18:45)
[2021-10-01] MEDS ORDERED: LACTATED RINGERS 1,000 ML IV SCH (18:45)
[2021-10-01 19:29] VITALS: BP 158/95
[2021-10-01] MEDS: CEFEPIME 1,000 MG/NS 50 ML IVPB IV SCH ×2 (21:12)
[2021-10-01] MEDS: inSUlin ASPART (NovoLOG) 1 UNIT/0.01 ML (CHARGE PER UNIT) SC SCH (21:13)
[2021-10-01 23:49] VITALS: BP 142/86
[2021-10-02] MEDS: CEFEPIME 1,000 MG/NS 50 ML IVPB IV SCH ×8 (03:42→21:11)
[2021-10-02 04:05] VITALS: BP 154/91
[2021-10-02] MEDS: VANCOMYCIN 1 GM/NS 250 ML IVPB IV SCH ×4 (04:29→16:57)
[2021-10-02 06:04] LABS: BASOPHILS # (AUTO) 0.1 10^3/uL (0.0-0.1); BASOPHILS % (AUTO) 0 % (0-10); EOSINOPHILS # (AUTO) 0.1 10^3/uL (0.0-0.3); EOSINOPHILS % (AUTO) 1 % (0-10); HEMATOCRIT 45 % (35-52); HEMOGLOBIN 14.4 g/dL (11.5-16.0); LYMPHOCYTES # (AUTO) 0.9 10^3/uL (1.0-4.0); LYMPHOCYTES % (AUTO) 7 % (12-44); MEAN CORPUSCULAR HEMOGLOBIN 27 pg (25-34); MEAN CORPUSCULAR HGB CONC 32 g/dL (32-36); MEAN CORPUSCULAR VOLUME 86 fL (80-99); MEAN PLATELET VOLUME 10.2 fL (9.0-12.2); MONOCYTES # (AUTO) 1.2 10^3/uL (0.0-1.0); MONOCYTES % (AUTO) 9 % (0-12); NEUTROPHILS # (AUTO) 10.8 10^3/uL (1.8-7.8); NEUTROPHILS % (AUTO) 82 % (42-75); PLATELET COUNT 342 10^3/uL (130-400); WHITE BLOOD COUNT 13.2 10^3/uL (4.3-11.0)
[2021-10-02 06:18] LABS: POTASSIUM 3.6 MMOL/L (3.6-5.0)
[2021-10-02 06:20] LABS: CALCIUM 9.4 MG/DL (8.5-10.1)
[2021-10-02 06:24] LABS: CREATININE SERUM 0.63 MG/DL (0.60-1.30)
[2021-10-02] MEDS: RT-ALBUTEROL/IPRATROPIUM 3 ML (DUONEB) VIAL INH SCH ×3 (07:22→21:46)
[2021-10-02] MEDS: inSUlin ASPART (NovoLOG) 1 UNIT/0.01 ML (CHARGE PER UNIT) SC SCH ×4 (07:30→21:16)
--- NOTE | 2021-10-02 07:31 | Diagnostic Imaging Report ---
INDICATION: Shortness of air, cough. TECHNIQUE: Single view chest 4:42 AM. CORRELATION STUDY: 10/01/2021 FINDINGS: Heart size and mediastinum are stable. Minimal infiltrate with suggestion of air bronchograms in the right lung base medially. Probable small right pleural effusion. IMPRESSION: 1. Suspect infiltrate of the medial right lung base along with small right pleural effusion. Dictated by: Dictated on workstation # [id number]
[2021-10-02] MEDS ORDERED: RT-ALBUTEROL HFA 8.5 GM INHALER IH SCH (08:00)
[2021-10-02 08:06] VITALS: BP 168/85
[2021-10-02] MEDS: LOSARTAN 25 MG (COZAAR) TAB PO SCH (09:03)
[2021-10-02] MEDS: predniSONE 20 MG TAB PO SCH (11:32)
[2021-10-02 11:45] VITALS: BP 148/64
[2021-10-02] MEDS ORDERED: DEXT30SU5 PO (12:39)
[2021-10-02] MEDS ORDERED: CLON0.5T4 PO (12:39)
[2021-10-02] MEDS ORDERED: BUDE10.2 IH (12:39)
[2021-10-02] MEDS ORDERED: LEVE10006 PO (12:39)
[2021-10-02] MEDS ORDERED: GUAN2TAB25 PO (12:39)
[2021-10-02] MEDS ORDERED: CARV12.53 PO (12:39)
[2021-10-02] MEDS ORDERED: ATEN25TA PO (12:39)
--- NOTE | 2021-10-02 12:51 | History & Physical ---
SERAFIN SHI III MED STUDENT 10/02/21 1251: HPI History of Present Illness: Pt is a 55yo female w/ pmhx of HTN, asthma, COPD, Seizure disorder, and RSD who presented to the ED on 10/01 w/ concern for acute COPD exacerbation w/ possible sepsis. Notes that for the past 3-4 days she has had increased SOB w/ increased inhaler use, increased production of thick green sputum, chills, and malaise. Believed it was a head cold and went to be evaluated in clinic but was directed to the ED for further care. States that she was admitted for about 3 weeks in june for an pna w/ aspiration requiring intubation and sedation. Reports bilateral pitting edema and orthopnea that has been present since this june admission. Reports most recent seizure activity was last , which she describes as full body shaking. Source: patient Exam Limitations: no limitations Date seen by provider: Oct 02, 2021 Time Seen by Provider: 11:00 Attending Physician Yessi Pascual MD PCP Raquel Self Aprn Consult Date of Admission Oct 01, 2021 at 16:53 Home Medications Home Medications Reviewed patient Home Medication Reconciliation performed by pharmacy medication reconciliations on site wastewater systems technician and/or nursing. Patients Allergies have been reviewed. Allergies Coded Allergies: Penicillins (Verified Allergy, Severe, Anaphylaxis, 06/24/21) erythromycin base (Verified Allergy, Unknown, 06/24/21) [id number] Hx Patient Social History Employed/Student: unemployed (disability because of RSD) Smoking Status: Current Everyday Smoker (reported to have stopped on wednesday, has been 1ppd since age 15) Recent Hopitalizations: Yes (june, pna) Alcohol Use?: No (denies) Substance type: Other Tobacco type used: Cigarettes Have you traveled recently?: No Immunizations Up To Date Influenza Vaccine Up-to-Date: Yes; Up-to-Date Past Medical History Hysterectomy Knee Surgery Cervical Fusion Dysphasia Asthma COPD HTN Migraines Seizure d/o PE Anxiety Depression Review of Systems ([facility]) Constitutional: chills, diaphoresis, fever, malaise, weakness EENTM: no symptoms reported Respiratory: cough, dyspnea on exertion, orthopnea, phlegm, short of breath, wheezing Cardiovascular: No chest pain; edema; No syncope Gastrointestinal: no symptoms reported Genitourinary: no symptoms reported : No Musculoskeletal: no symptoms reported Skin: no symptoms reported Psychiatric/Neurological: Seizure (last reported seizure on 09/25/2021) Reviewed Test Results Reviewed Test Results Lab 10/02/21 10/02/21 10/02/21 10/02/21 04:05 07:23 08:00 08:06 Temp 36.9 36.6 Pulse 79 85 Resp 18 18 B/P (MAP) 154/91 (112) 168/85 (112) Pulse Ox 97 92 O2 Delivery Nasal Cannula Nasal Cannula Nasal Cannula Nasal Cannula O2 Flow Rate 3.50 3.00 3.50 3.50 FiO2 95 10/02/21 11:45 Temp 36.7 Pulse 68 Resp 18 B/P (MAP) 148/64 (92) Pulse Ox 98 O2 Delivery Nasal Cannula O2 Flow Rate 3.50 10/02/21 00:00 Intake Total 1430 ml Balance 1430 ml Laboratory Tests Test 10/01/21 15:05 10/01/21 15:10 10/01/21 15:14 10/01/21 16:55 Range/Units Blood Gas Puncture Site R RADIAL Blood Gas Patient Temperature 37.7 Arterial Blood pH 7.44 H 7.37-7.43 Arterial Blood Partial Pressure CO2 36 35-45 MMHG Arterial Blood Partial Pressure O2 65 L 79-93 MMHG Arterial Blood HCO3 24 23-27 MMOL/L Arterial Blood Total CO2 25.0 21.0-31.0 MMOL/L Arterial Blood Oxygen Saturation 94 94-100 % Arterial Blood Base Excess 0.5 -2.5-2.5 MMOL/L Jim Test NA Blood Gas Ventilator Setting NO Blood Gas Inspired Oxygen 2L White Blood Count 16.3 H 4.3-11.0 10^3/uL Red Blood Count 5.28 H 3.80-5.11 10^6/uL Hemoglobin 14.3 11.5-16.0 g/dL Hematocrit 44 35-52 % Mean Corpuscular Volume 84 80-99 fL Mean Corpuscular Hemoglobin 27 25-34 pg Mean Corpuscular Hemoglobin Concent 32 32-36 g/dL Red Cell Distribution Width 15.3 H 10.0-14.5 % Platelet Count 371 130-400 10^3/uL Mean Platelet Volume 10.0 9.0-12.2 fL Immature Granulocyte % (Auto) 2 % Neutrophils (%) (Auto) 86 H 42-75 % Lymphocytes (%) (Auto) 6 L 12-44 % Monocytes (%) (Auto) 7 0-12 % Eosinophils (%) (Auto) 0 0-10 % Basophils (%) (Auto) 0 0-10 % Neutrophils # (Auto) 14.0 H 1.8-7.8 10^3/uL Lymphocytes # (Auto) 0.9 L 1.0-4.0 10^3/uL Monocytes # (Auto) 1.1 H 0.0-1.0 10^3/uL Eosinophils # (Auto) 0.0 0.0-0.3 10^3/uL Basophils # (Auto) 0.0 0.0-0.1 10^3/uL Immature Granulocyte # (Auto) 0.3 H 0.0-0.1 10^3/uL Neutrophils % (Manual) 89 % Lymphocytes % (Manual) 4 % Monocytes % (Manual) 7 % Blood Morphology Comment NORMAL Prothrombin Time 13.6 12.2-14.7 SEC INR Comment 1.0 0.8-1.4 Activated Partial Thromboplast Time 28 24-35 SEC D-Dimer 1.83 H 0.00-0.49 UG/ML Sodium Level 134 L 135-145 MMOL/L Potassium Level 3.2 L 3.6-5.0 MMOL/L Chloride Level 100 98-107 MMOL/L Carbon Dioxide Level 21 21-32 MMOL/L Anion Gap 13 5-14 MMOL/L Blood Urea Nitrogen 7 7-18 MG/DL Creatinine 0.60 0.60-1.30 MG/DL Estimat Glomerular Filtration Rate 107 BUN/Creatinine Ratio 12 Glucose Level 101 70-105 MG/DL Lactic Acid Level 1.01 0.50-2.00 MMOL/L Calcium Level 9.4 8.5-10.1 MG/DL Corrected Calcium 9.6 8.5-10.1 MG/DL Total Bilirubin 0.6 0.1-1.0 MG/DL Aspartate Amino Transf (AST/SGOT) 20 5-34 U/L Alanine Aminotransferase (ALT/SGPT) 24 0-55 U/L Alkaline Phosphatase 136 40-136 U/L Troponin I < 0.028 <0.028 NG/ML C-Reactive Protein High Sensitivity 6.56 H 0.00-0.50 MG/DL B-Type Natriuretic Peptide 16.4 <100.0 PG/ML Total Protein 7.8 6.4-8.2 GM/DL Albumin 3.7 3.2-4.5 GM/DL Procalcitonin 0.02 <0.10 NG/ML Influenza Type A (RT-PCR) Not Detected Not Detecte Influenza Type B (RT-PCR) Not Detected Not Detecte SARS-CoV-2 RNA (RT-PCR) Not Detected Not Detecte Urine Color YELLOW Urine Clarity CLEAR Urine pH 7.0 5-9 Urine Specific Hallie 1.020 1.016-1.022 Urine Protein NEGATIVE NEGATIVE Urine Glucose (UA) NEGATIVE NEGATIVE Urine Ketones 2+ H NEGATIVE Urine Nitrite NEGATIVE NEGATIVE Urine Bilirubin NEGATIVE NEGATIVE Urine Urobilinogen 0.2 < = 1.0 MG/DL Urine Leukocyte Esterase NEGATIVE NEGATIVE Urine RBC (Auto) NEGATIVE NEGATIVE Urine RBC NONE /HPF Urine WBC NONE /HPF Urine Crystals NONE /LPF Urine Bacteria NEGATIVE /HPF Urine Casts NONE /LPF Urine Mucus SMALL H /LPF Urine Culture Indicated NO Test 10/01/21 20:10 10/02/21 05:45 10/02/21 11:03 Range/Units Glucometer 129 H 114 H 70-110 MG/DL White Blood Count 13.2 H 4.3-11.0 10^3/uL Red Blood Count 5.26 H 3.80-5.11 10^6/uL Hemoglobin 14.4 11.5-16.0 g/dL Hematocrit 45 35-52 % Mean Corpuscular Volume 86 80-99 fL Mean Corpuscular Hemoglobin 27 25-34 pg Mean Corpuscular Hemoglobin Concent 32 32-36 g/dL Red Cell Distribution Width 15.3 H 10.0-14.5 % Platelet Count 342 130-400 10^3/uL Mean Platelet Volume 10.2 9.0-12.2 fL Immature Granulocyte % (Auto) 0 % Neutrophils (%) (Auto) 82 H 42-75 % Lymphocytes (%) (Auto) 7 L 12-44 % Monocytes (%) (Auto) 9 0-12 % Eosinophils (%) (Auto) 1 0-10 % Basophils (%) (Auto) 0 0-10 % Neutrophils # (Auto) 10.8 H 1.8-7.8 10^3/uL Lymphocytes # (Auto) 0.9 L 1.0-4.0 10^3/uL Monocytes # (Auto) 1.2 H 0.0-1.0 10^3/uL Eosinophils # (Auto) 0.1 0.0-0.3 10^3/uL Basophils # (Auto) 0.1 0.0-0.1 10^3/uL Immature Granulocyte # (Auto) 0.1 0.0-0.1 10^3/uL Sodium Level 136 135-145 MMOL/L Potassium Level 3.6 3.6-5.0 MMOL/L Chloride Level 104 98-107 MMOL/L Carbon Dioxide Level 20 L 21-32 MMOL/L Anion Gap 12 5-14 MMOL/L Blood Urea Nitrogen 7 7-18 MG/DL Creatinine 0.63 0.60-1.30 MG/DL Estimat Glomerular Filtration Rate 106 BUN/Creatinine Ratio 11 Glucose Level 99 70-105 MG/DL Calcium Level 9.4 8.5-10.1 MG/DL Radiology Date of Exam:10/02/21 CHEST 1 VIEW, AP/PA ONLY INDICATION: Shortness of air, cough. TECHNIQUE: Single view chest 4:42 AM. CORRELATION STUDY: 10/01/2021 FINDINGS: Heart size and mediastinum are stable. Minimal infiltrate with suggestion of air bronchograms in the right lung base medially. Probable small right pleural effusion. IMPRESSION: 1. Suspect infiltrate of the medial right lung base along with small right pleural effusion. Physical Exam-([facility]) Physical Exam Vital Signs VS - Last 72 Hours, by Label 10/01/21 10/01/21 10/01/21 10/01/21 15:00 15:00 15:15 17:03 Temp 37.7 Pulse 120 110 Resp 25 20 B/P (MAP) 184/114 (137) 178/102 Pulse Ox 93 93 95 O2 Delivery Nasal Cannula Nasal Cannula Nasal Cannula Nasal Cannula O2 Flow Rate 2.00 3.00 2.00 3.00 10/01/21 10/01/21 10/01/21 10/01/21 18:00 18:01 18:40 19:20 Temp 38.0 Pulse 109 Resp 18 B/P (MAP) 160/90 (113) Pulse Ox 92 95 O2 Delivery Nasal Cannula Nasal Cannula Nasal Cannula Nasal Cannula O2 Flow Rate 3.50 3.50 3.50 10/01/21 10/01/21 10/01/21 10/02/21 19:29 20:20 23:49 04:05 Temp 37.8 37.7 36.9 36.9 Pulse 100 120 78 79 Resp 19 18 18 B/P (MAP) 158/95 (116) 142/86 (104) 154/91 (112) Pulse Ox 95 98 97 O2 Delivery Nasal Cannula Nasal Cannula Nasal Cannula O2 Flow Rate 3.50 3.50 3.50 10/02/21 10/02/21 10/02/21 10/02/21 07:23 08:00 08:06 11:45 Temp 36.6 36.7 Pulse 85 68 Resp 18 18 B/P (MAP) 168/85 (112) 148/64 (92) Pulse Ox 92 98 O2 Delivery Nasal Cannula Nasal Cannula Nasal Cannula Nasal Cannula O2 Flow Rate 3.00 3.50 3.50 3.50 FiO2 95 Capillary Refill : Less Than 3 Seconds General Appearance: WD/WN, no apparent distress, obese Eyes: Bilateral Eye Normal Inspection, Bilateral Eye PERRL, Bilateral Eye EOMI HEENT: PERRL/EOMI, pharynx normal Neck: non-tender, full range of motion, supple, normal inspection Respiratory: chest non-tender, no respiratory distress, no accessory muscle use, wheezing (wheezing in all lung arcos on exam this AM, on 3L supplemental O2) Cardiovascular: normal peripheral pulses, regular rate, rhythm, no gallop, no JVD, no murmur Peripheral Pulses: 2+ Dorsalis Pedis (R), 2+ Left Dors-Pedis (L), 2+ Radial Pu lses (R), 2+ Radial Pulses (L) Gastrointestinal: normal bowel sounds, non tender, soft Rectal: deferred Back: normal inspection, no CVA tenderness Extremities: normal range of motion, non-tender, no calf tenderness, normal capillary refill, pedal edema (1+ pitting edema in bilateral distal lower extremities to ankle) Neurologic/Psychiatric: barn boss II-XII nml as tested, alert, normal mood/affect, oriented x 3 Skin: normal color, warm/dry Lymphatic: no adenopathy Assessment/Plan Assessment/Plan Admission Dx Pna Acute COPD exacerbation Sepsis Admission Status: Inpatient Order (span 2 midnights) Reason for Inpatient Admission: Pna, sepsis, COPD exacerbation (1) Pneumonia Status: Acute Assessment & Plan: Elevated white count on admission of 16.3, decreased to 13.2 on 10/02. Admission CXR revealed R middle lung infiltrate. Started on broad spectrum vanc and cefepime in the ED. Plan to continue broad spectrum abx for total of 48hours w/ de-escalation following improvement in leukocytosis. Qualifiers: Qualified Codes: J18.9 - Pneumonia, unspecified organism (2) Sepsis Status: Acute Assessment & Plan: Temp of 38 on admission to ED w/ leukocytosis w/ source of possible infection meeting sirs criteria for sepsis. Started on vanc/cefepime in the ED. Afebrile since admission. Leukocytosis decreased to 13.2 on 10/02 following initiation of broad spec abx. 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 Started on duonebs w/ albuterol inhaler prn in the ED. Will start 50mg PO prednisone on 10/02 for a total of 5 days. Pt notes that she does not require O2 during the day at home but was recently found to require supplemental O2 while sleeping. Will assess need for O2 need when awake w/ RT. Titrate supplemental O2 as able, O2 goal >88% (4) Acute respiratory failure Status: Acute Assessment & Plan: Likely acute on chronic resp failure given hx of COPD and Asthma. Requiring 3L via NC to maintain sats in the 90. Will continue w/ inhaler treatment, add on oral prednisone 50mg and titrate O2 as able. Qualifiers: Qualified Codes: J96.01 - Acute respiratory failure with hypoxia (5) Seizures Onset Date: Unknown Status: Chronic Assessment & Plan: States last seizure was 09/25/2021. Describes a full body seizure. 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 Will reconcile medication and resume WINDOW SYSTEMS ADMINISTRATOR meds (6) HTN (hypertension) Onset Date: Unknown Status: Chronic Assessment & Plan: Notes hx of HTN. WINDOW SYSTEMS ADMINISTRATOR losartan and carvedilol. Will resume WINDOW SYSTEMS ADMINISTRATOR meds (7) Elevated d-dimer Status: Acute Assessment & Plan: Most recent d-dimer value seen during previous admission was in 5. D-dimer value during this admission of 1.83. SOB more likely resulting from acute pna and COPD exacerbation vs an acute PE. If symptoms worsen despite breathing treatments and abx coverage, will likely purse CT chest YESSI PASCUAL MD 10/02/21 1700: Home Medications Allergies Coded Allergies: Penicillins (Verified Allergy, Severe, Anaphylaxis, 06/24/21) erythromycin base (Verified Allergy, Unknown, 06/24/21) Physical Exam-([facility]) Physical Exam General Appearance: no apparent distress Respiratory: no respiratory distress, wheezing (diffuse inspiratory and expiratory) Cardiovascular: regular rate, rhythm, no murmur Gastrointestinal: normal bowel sounds, non tender, soft Extremities: pedal edema (trace) Neurologic/Psychiatric: alert, normal mood/affect Skin: warm/dry Assessment/Plan Assessment/Plan Admission Status: Inpatient Order (span 2 midnights) Reason for Inpatient Admission: Pneumonia with sepsis Supervisory-Addendum Brief Verification & Attestation Participated in pt care: history, MDM, physical Personally performed: exam, history, MDM Care discussed with: Medical Student Procedures: n/a I personally saw and examined patient and repeated the history. See my exam for my physical exam findings, I did not repeat the entire exam documented by the medical student, but performed my own exam. I directed the plan of care as documented by the medical student. SERAFIN SHI III MED STUDENT Oct 02, 2021 12:51 YESSI PASCUAL MD Oct 02, 2021 17:00
[2021-10-02 15:56] VITALS: BP 157/71
[2021-10-02] MEDS ORDERED: VANCOMYCIN 1 GM/NS 250 ML IVPB IV SCH ×2 (16:00)
[2021-10-02] MEDS ORDERED: clonazePAM 0.5 MG (KlonoPIN) TAB PO PRN (16:00)
[2021-10-02] MEDS: ENOXAPARIN 40 MG/0.4 ML (LOVENOX) SYR SQ SCH (16:58)
[2021-10-02 19:20] VITALS: BP 176/84
[2021-10-02] MEDS ORDERED: NON-FORMULARY MEDICATION 1 EA EA (Budesonide/Formoterol Fumarate (Symbicort 160-4.5 Mcg In IH SCH (21:00)
[2021-10-02] MEDS ORDERED: NON-FORMULARY MEDICATION 1 EA EA (Topiramate 50 MG) PO SCH (21:00)
[2021-10-02] MEDS: toPIRamate 100 MG (TOPAMAX) TAB PO SCH (21:10)
[2021-10-02] MEDS: DIVALPROEX 500 MG DELAYED RELEASE (DEPAKOTE) TAB PO SCH (21:11)
[2021-10-02] MEDS: toPIRamate 25 MG (TOPAMAX) TAB PO SCH (21:11)
[2021-10-02] MEDS: RT--FLUTICASONE/SALMETEROL 232-14 (AIRDUO RespiCLICK) IH SCH (21:48)
[2021-10-03] VITALS (17 sets, daily range): BP systolic 130–178; BP diastolic 63–104
[2021-10-03] MEDS: CEFEPIME 1,000 MG/NS 50 ML IVPB IV SCH ×8 (04:16→21:15)
[2021-10-03] MEDS: VANCOMYCIN 1 GM/NS 250 ML IVPB IV SCH ×4 (04:53→16:36)
[2021-10-03 05:44] LABS: BASOPHILS # (AUTO) 0.1 10^3/uL (0.0-0.1); BASOPHILS % (AUTO) 0 % (0-10); EOSINOPHILS # (AUTO) 0.1 10^3/uL (0.0-0.3); EOSINOPHILS % (AUTO) 1 % (0-10); HEMATOCRIT 39 % (35-52); HEMOGLOBIN 12.3 g/dL (11.5-16.0); LYMPHOCYTES # (AUTO) 1.6 10^3/uL (1.0-4.0); LYMPHOCYTES % (AUTO) 12 % (12-44); MEAN CORPUSCULAR HEMOGLOBIN 27 pg (25-34); MEAN CORPUSCULAR HGB CONC 32 g/dL (32-36); MEAN CORPUSCULAR VOLUME 86 fL (80-99); MEAN PLATELET VOLUME 10.5 fL (9.0-12.2); MONOCYTES # (AUTO) 1.3 10^3/uL (0.0-1.0); MONOCYTES % (AUTO) 10 % (0-12); NEUTROPHILS # (AUTO) 10.9 10^3/uL (1.8-7.8); NEUTROPHILS % (AUTO) 77 % (42-75); PLATELET COUNT 321 10^3/uL (130-400); WHITE BLOOD COUNT 14.1 10^3/uL (4.3-11.0)
[2021-10-03 05:55] LABS: POTASSIUM 3.7 MMOL/L (3.6-5.0)
[2021-10-03 05:56] LABS: CALCIUM 9.1 MG/DL (8.5-10.1)
[2021-10-03 06:01] LABS: CREATININE SERUM 0.58 MG/DL (0.60-1.30)
[2021-10-03] MEDS: inSUlin ASPART (NovoLOG) 1 UNIT/0.01 ML (CHARGE PER UNIT) SC SCH ×4 (06:03→21:15)
[2021-10-03] MEDS ORDERED: LORazepam INJ 2 MG/ML (ATIVAN) VIAL ONE ×2 (06:21→06:31)
[2021-10-03] MEDS ORDERED: LORazepam INJ 2 MG/ML (ATIVAN) VIAL IVP ONE ×2 (06:30→06:45)
[2021-10-03] MEDS: RT--FLUTICASONE/SALMETEROL 232-14 (AIRDUO RespiCLICK) IH SCH ×3 (06:49→20:35)
[2021-10-03] MEDS: RT-ALBUTEROL/IPRATROPIUM 3 ML (DUONEB) VIAL INH SCH ×3 (06:49→20:35)
[2021-10-03] MEDS ORDERED: ATENOLOL 50 MG (TENORMIN) TAB PO SCH (09:00)
[2021-10-03] MEDS ORDERED: ATENOLOL 25 MG PO SCH (09:00)
[2021-10-03] MEDS ORDERED: GUANFACINE HCL 2 MG PO SCH (09:00)
[2021-10-03] MEDS ORDERED: NON-FORMULARY MEDICATION 1 EA EA (Escitalopram Oxalate 20 MG) PO SCH (09:00)
--- NOTE | 2021-10-03 09:04 | Progress Note ---
Subjective Subjective/Events-last exam Received call about 6:30 this morning, patient with normal vital signs and no respiratory distress but unresponsive, concern for possible seizure activity as she was then intermittently sitting up, trying to get out of bed but not responding appropriately. She was given 1 mg IV ativan and she then did start to speak more normally for a while, but continued to have intermittent abnormal responsiveness, she received another 2 mg of IV ativan, and is now in apparent deep sleep, opens eyes and moves head to sternal rub and loud voice, but eyes roll back and she closes her eyes again. No abnormal movements noted, and eyes appear normal when eyelids are opened. Focused Exam Lactate Level 10/01/21 15:10: Lactic Acid Level 1.01 Time of Focused Exam: 16:32 Objective Exam Last Set of Vital Signs Vital Signs Date Time Temp Pulse Resp B/P (MAP) Pulse Ox O2 Delivery O2 Flow Rate FiO2 10/03/21 08:31 36.6 85 20 155/77 (103) 93 Nasal Cannula 3.00 10/02/21 07:23 95 Capillary Refill : Less Than 3 Seconds I&O Intake and Output 10/03/21 00:00 Intake Total 4360 ml Balance 4360 ml Intake Oral 3710 ml IV Total 650 ml # Voids 13 # Bowel Movements 3 General: Other (somnolent, difficult to arouse) Lungs: Other (wheezing, ronchi) Abdomen: Normal Bowel Sounds, Soft Extremities: No Edema Psych/Mental Status: Other (rolls eyes open to sternal rub, keeps eyes open briefly) Results/Procedures Lab Laboratory Tests 10/02/21 11:03: Glucometer 114H 10/02/21 15:59: Glucometer 146H 10/02/21 20:27: Glucometer 123H 10/03/21 05:30: White Blood Count 14.1H, Red Blood Count 4.53, Hemoglobin 12.3, Hematocrit 39, Mean Corpuscular Volume 86, Mean Corpuscular Hemoglobin 27, Mean Corpuscular Hemoglobin Concent 32, Red Cell Distribution Width 15.3H, Platelet Count 321, Mean Platelet Volume 10.5, Immature Granulocyte % (Auto) 1, Neutrophils (%) (Auto) 77H, Lymphocytes (%) (Auto) 12, Monocytes (%) (Auto) 10, Eosinophils (%) (Auto) 1, Basophils (%) (Auto) 0, Neutrophils # (Auto) 10.9H, Lymphocytes # (Auto) 1.6, Monocytes # (Auto) 1.3H, Eosinophils # (Auto) 0.1, Basophils # (Auto) 0.1, Immature Granulocyte # (Auto) 0.1, Sodium Level 137, Potassium Level 3.7, Chloride Level 107, Carbon Dioxide Level 20L, Anion Gap 10, Blood Urea Nitrogen 8, Creatinine 0.58L, Estimat Glomerular Filtration Rate 108, BUN/Creatinine Ratio 14, Glucose Level 102, Calcium Level 9.1 10/03/21 06:07: Glucometer 103 Microbiology 10/01/21 Urine Culture - Final, Complete NO GROWTH 10/01/21 Blood Culture - Preliminary, Resulted No growth Radiology Date of Exam:10/02/21 CHEST 1 VIEW, AP/PA ONLY INDICATION: Shortness of air, cough. TECHNIQUE: Single view chest 4:42 AM. CORRELATION STUDY: 10/01/2021 FINDINGS: Heart size and mediastinum are stable. Minimal infiltrate with suggestion of air bronchograms in the right lung base medially. Probable small right pleural effusion. IMPRESSION: 1. Suspect infiltrate of the medial right lung base along with small right pleural effusion. Assessment/Plan Assessment/Plan (1) Seizures Onset Date: Unknown Status: Chronic Assessment & Plan: States last seizure was 09/25/2021. Describes a full body s eizure. 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 Will reconcile medication and resume ROBOTIC MAINTENANCE TECHNICIAN meds 3/4- acute seizure activity this morning, now minimally responsive, unclear if continued seizure activity versus somnolence from ativan and post-ictal. Given Keppra 1000 mg IV this morning since she was not alert enough for her PO meds. Transfer to ICU and STAT CT ordered. (2) Pneumonia Status: Acute Assessment & Plan: Elevated white count on admission of 16.3, decreased to 13.2 on 10/02. Admission CXR revealed R middle lung infiltrate. Started on broad spectrum vanc and cefepime in the ED. Plan to continue broad spectrum abx for total of 48hours w/ de-escalation following improvement in leukocytosis. Qualifiers: Qualified Codes: J18.9 - Pneumonia, unspecified organism (3) Sepsis Status: Acute Assessment & Plan: Temp of 38 on admission to ED w/ leukocytosis w/ source of possible infection meeting sirs criteria for sepsis. Started on vanc/cefepime in the ED. Afebrile since admission. Leukocytosis decreased to 13.2 on 10/02 following initiation of broad spec abx. Will continue to monitor w/ daily CBC and monitoring for signs of worsening infection Qualifiers: Qualified Codes: A41.9 - Sepsis, unspecified organism (4) COPD exacerbation Status: Acute Assessment & Plan: Notes an increase in ROBOTIC MAINTENANCE TECHNICIAN inhaler use 3-4 days prior to presenting to ED on 10/01. Started on duonebs w/ albuterol inhaler prn in the ED. Will start 50mg PO prednisone on 10/02 for a total of 5 days. Pt notes that she does not require O2 during the day at home but was recently found to require supplemental O2 while sleeping. Will assess need for O2 need when awake w/ RT. Titrate supplemental O2 as able, O2 goal >88% (5) Acute respiratory failure Status: Acute Assessment & Plan: Likely acute on chronic resp failure given hx of COPD and Asthma. Requiring 3L via NC to maintain sats in the 90. Will continue w/ inhaler treatment, add on oral prednisone 50mg and titrate O2 as able. Qualifiers: Qualified Codes: J96.01 - Acute respiratory failure with hypoxia (6) HTN (hypertension) Onset Date: Unknown Status: Chronic Assessment & Plan: Notes hx of HTN. 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 Will resume ROBOTIC MAINTENANCE TECHNICIAN meds (7) Elevated d-dimer Status: Acute Assessment & Plan: Most recent d-dimer value seen during previous admission was above 5. D-dimer value during this admission of 1.83. SOB more likely resulting from acute pna and COPD exacerbation vs an acute PE. If symptoms worsen despite breathing treatments and abx coverage, will likely purse CT chest (8) DVT prophylaxis Status: Acute Assessment & Plan: Enoxaparin HANSA PASCUAL MD Oct 03, 2021 09:04
--- NOTE | 2021-10-03 09:37 | Diagnostic Imaging Report ---
INDICATION: Seizure. TECHNIQUE: Routine noncontrast enhanced axial images were obtained from the skull base to the vertex. Auto Exposure Controls were utilized during the CT exam to meet ALARA standards for radiation dose reduction COMPARISON: 06/24/2021. FINDINGS: The ventricles and cortical sulci are stable in size and contour. There is no midline shift or mass-effect. No acute intra-axial hemorrhage is seen. There are no abnormal areas of increased or decreased density to suggest acute hemorrhage or edema. No extra-axial masses or collections are present. The bony calvarium is intact. The visualized paranasal sinuses moderate scattered mucosal thickening. An air-fluid level is also seen within the left maxillary sinus. The mastoid air cells are clear. IMPRESSION: 1. No acute intracranial abnormality. No CT evidence of mass, acute infarct or intracranial hemorrhage. 2. Paranasal sinus disease. Clinical correlation for acute sinusitis is recommended. Dictated by: Dictated on workstation # [id number]
[2021-10-03 09:55] LABS: ABG BASE EXCESS -0.2 MMOL/L (-2.5-2.5); ABG OXYGEN SATURATION 95 % (94-100); ABG PCO2 43 MMHG (35-45); ABG PH 7.38 (7.37-7.43); ABG PO2 71 MMHG (79-93); ABG TCO2 25.8 MMOL/L (21.0-31.0)
[2021-10-03 09:56] LABS: INSPIRED O2 2; PATIENT TEMP 36.5; VENTILATOR NO
[2021-10-03] MEDS: predniSONE 20 MG TAB PO SCH (11:30)
[2021-10-03] MEDS: LOSARTAN 25 MG (COZAAR) TAB PO SCH (11:30)
[2021-10-03] MEDS: DIVALPROEX 500 MG DELAYED RELEASE (DEPAKOTE) TAB PO SCH ×2 (11:30→21:14)
[2021-10-03] MEDS: ATENOLOL 50 MG (TENORMIN) TAB PO SCH (11:31)
[2021-10-03] MEDS: toPIRamate 25 MG (TOPAMAX) TAB PO SCH ×2 (11:31→21:14)
[2021-10-03] MEDS: toPIRamate 100 MG (TOPAMAX) TAB PO SCH ×2 (11:31→21:14)
[2021-10-03] MEDS: PANTOPRAZOLE 40 MG (PROTONIX) TAB PO SCH (11:31)
--- NOTE | 2021-10-03 12:20 | Tele-ICU Consult ---
History of Present Illness History of Present Illness Date Seen by Provider: Oct 03, 2021 Time Seen by Provider: 12:19 Date of Admission 10/01/21 History of Present Illness She is a 55-year-old female with past medical history of COPD and seizure disorder apparently was admitted in June 2021 with pneumonia and intubated she was in the hospital for a couple of weeks and discharged. Apparently she has been having progressively worsening cough find green sputum production associated with shortness of breath. She also has some chills and malaise. She is diagnosed with pneumonia and possibly COPD exacerbation and admitted to medical floor. Last night apparently she developed multiple seizures requiring IV Ativan and she became somnolent. She had a CT of the brain done which she did not show any acute changes. She is admitted to the intensive care unit for close monitoring. After admission we have done a arterial blood gas which is in the acceptable range. Chest x-ray showed very suggestive of right middle lobe pneumonia. She is given Keppra. She was on a Depakote and also on a prednisone 50 mg daily presumably due to COPD exacerbation. Currently she is unable to provide any history due to decrease in mental status. Allergies and Home Medications Allergies Coded Allergies: Penicillins (Verified Allergy, Severe, Anaphylaxis, 06/24/21) erythromycin base (Verified Allergy, Unknown, 06/24/21) Home Medications Albuterol Sulfate 1 Puff Puff, 2 PUFF INH TID PRN for SHORTNESS OF BREATH, (Reported) Atenolol 25 Mg Tablet, 25 MG PO DAILY, (Reported) Budesonide/Formoterol Fumarate 10.2 Gm Hfa.aer.ad, 2 PUFF IH BID, (Reported) Carvedilol 12.5 Mg Tablet, 12.5 MG PO BID, (Reported) LAST FILLED 07-11-2021 #90/30 DAY SUPPLY Clonazepam 0.5 Mg Tablet, 0.5 MG PO HS PRN for SLEEP, (Reported) Dextromethorphan Polistirex 30 Mg/5 Ml Annalise.er.12h, 30 MG PO Q12H PRN for COUGH, (Reported) Divalproex Sodium 500 Mg Tablet.dr, 1,000 MG PO DAILY, (Reported) TAKES 2 (500MG) TABS LAST FILLED #90/30 DAY SUPPLY Divalproex Sodium 500 Mg Tablet.dr, 500 MG PO HS, (Reported) LAST FILLED LAST FILLED #90/30 DAY SUPPLY Escitalopram Oxalate 20 Mg Tablet, 20 MG PO DAILY, (Reported) FILLED 07-21-2021 #30/30 DAY SUPPLY Guanfacine HCl 2 Mg Tab.er.24h, 2 MG PO DAILY, (Reported) Hydrocodone/Acetaminophen 1 Each Tablet, 1 EA PO TID, (Reported) Ipratropium/Albuterol Sulfate 3 Ml Ampul.neb, 3 ML NEB TID PRN for SHORTNESS OF BREATH, (Reported) Levetiracetam 1,000 Mg Tablet, 1,000 MG PO BID, (Reported) LAST FILLED 07-11-2021 #90/30 DAY SUPPLY Losartan Potassium 25 Mg Tablet, 25 MG PO DAILY, (Reported) Pantoprazole Sodium 40 Mg Tablet.dr, 40 MG PO DAILY, (Reported) LAST FILLED 07-18-2021 #30/30 DAY SUPPLY Topiramate 100 Mg Tablet, 100 MG PO BID, (Reported) LAST FILLED 10-10-2020 #60/30 DAY SUPPLY TAKES 100MG +50MG TO EQUAL 150MG Topiramate 50 Mg Tablet, 50 MG PO BID, (Reported) TAKES 100MG +50MG TO EQUAL 150MG LAST FILLED 07-21-2021 #60/30 DAY SUPPLY Past Medical/Social/Family Hx Patient Social History Employed/Student: unemployed (disability because of RSD) Tobacco Use?: Yes Tobacco type used: Cigarettes Smoking Status: Current Everyday Smoker (reported to have stopped on wednesday, has been 1ppd since age 15) Smokeless Tobacco Frequency: Never a User Use of E-Cig and/or Vaping dev: Yes E-Cig and/or Vaping Freq: Never a User Substance use?: Yes Substance type: Other CBD GUMMIES Substance frequency: Several times a month Alcohol Use?: No (denies) Alcohol type: Beer Alcohol Frequency: Several times a month Pt stated abuse/neglect: No Immunizations Up To Date Influenza Vaccine Up-to-Date: Yes; Up-to-Date Tetanus Booster (TDap): Less Than 5 Years Hepatitis A: No Hepatitis B: No TB Skin Test: None Current Status status: No status: No Advance Directives: No Communicates: Does Not Communicate Primary Language: Khmer Preferred Spoken Language: Khmer Is interpretation needed?: No Sensory deficits: Vision impairment Implanted or Applied Medical D: Orthopedic hardware Past Medical History Hysterectomy Knee Surgery Cervical Fusion Dysphasia Asthma COPD HTN Migraines Seizure d/o PE Anxiety Depression Review of Systems Constitutional: see HPI, chills Other ROS PER RN Focused Exam Lactate Level 10/01/21 15:10: Lactic Acid Level 1.01 Height, Weight, BMI Height: '" Weight: lbs. oz. kg; 31.27 BMI Method: Time of Focused Exam: 16:32 Exam Exam Patient acknowledged, consented, and participated in this virtual visit which wa s conducted using real time audio/video Vital Signs Date Time Temp Pulse Resp B/P (MAP) Pulse Ox O2 Delivery O2 Flow Rate FiO2 10/03/21 12:00 82 26 143/87 (105) 95 Nasal Cannula 3.00 10/03/21 11:55 94 Nasal Cannula 2.00 10/03/21 11:00 81 27 165/85 (111) 95 Nasal Cannula 3.00 10/03/21 10:30 96 Nasal Cannula 2.00 10/03/21 10:00 80 26 143/75 (97) 96 Nasal Cannula 3.00 10/03/21 09:05 98 Nasal Cannula 2.00 10/03/21 09:00 84 31 144/87 (106) 95 Nasal Cannula 3.00 10/03/21 08:31 36.6 85 20 155/77 (103) 93 Nasal Cannula 3.00 10/03/21 08:00 93 Nasal Cannula 3.00 10/03/21 07:00 104 10/03/21 06:49 92 Nasal Cannula 3.00 10/03/21 04:00 36.2 70 17 130/63 (85) 98 Nasal Cannula 3.00 10/03/21 00:00 36.6 62 18 142/73 (96) 97 Nasal Cannula 3.00 10/02/21 21:48 97 Nasal Cannula 3.00 10/02/21 21:46 97 Nasal Cannula 3.00 10/02/21 19:56 Nasal Cannula 3.00 10/02/21 19:20 36.8 106 20 176/84 (114) 97 Nasal Cannula 3.00 10/02/21 15:56 36.9 77 20 157/71 (99) 95 Nasal Cannula 3.00 10/02/21 15:44 98 Nasal Cannula 3.50 10/02/21 15:38 98 Nasal Cannula 3.00 I & O 3/4/22 06:59 Intake Total 4210 ml Balance 4210 ml Height & Weight Height: '" Weight: lbs. oz. kg; 31.27 BMI Method: General Appearance: Anxious, Mild Distress HEENT: PERRL/EOMI, TMs Normal, Normal ENT Inspection, Pharynx Normal, Moist Mucous Membranes Neck: Full Range of Motion, Normal Inspection Respiratory: No Accessory Muscle Use, Decreased Breath Sounds, Respiratory Distress (25 breaths/min on 2 L with oxygen saturation in the mid 90s.) Cardiovascular: Regular Rate, Rhythm (99), Other (Bilateral pedal edema 2+ pitting with MARIEL hose on) Capillary Refill: Less Than 3 Seconds Peripheral Pulses: 2+ Dorsalis Pedis (R), 2+ Left Dors-Pedis (L), 2+ Radial Pulses (R), 2+ Radial Pulses (L) Gastrointestinal: normal bowel sounds, non tender, soft Extremity: Normal Capillary Refill, Normal Inspection, Pedal Edema (Bilateral 2+ pitting edema with compression hose on) Neurologic/Psychiatric: Alert, Oriented x3, No Motor/Sensory Deficits Lymphatic: No Adenopathy Other comments PE PER RN Results Lab Laboratory Tests 10/01/21 15:10 10/02/21 05:45 10/03/21 05:30 Assessment/Plan Assessment/Plan 1. Breakthrough seizures probably due to infection 2. Pneumonia recurrent. 3. Metabolic encephalopathy 4. COPD with mild exacerbation. Recommendations 1. Continue oxygen via nasal cannula 2. IV Keppra as patient unable to swallow pills at this time 3. We will discontinue prednisone and start on IV Solu-Medrol as she is unable to swallow 4. DVT prophylaxis and ulcer prophylaxis. 5. Antibiotics per primary care. 6. Bronchodilators 7..I would suggest a neurology consultation if one is available. Critical Care: Critically Ill Patient Time spent with patient (mins): 35 TAE RANDOLPH MD Oct 03, 2021 12:20
[2021-10-03] MEDS ORDERED: METHYLPREDNISOLONE SOD SUCC IV SCH ×3 (12:30)
[2021-10-03] MEDS ORDERED: [UNRECOGNIZED DRUG - OTHER] IV SCH ×3 (12:30)
[2021-10-03] MEDS: methylPREDNISolone 125 MG (Solu-MEDROL) VIAL IV SCH (14:06)
[2021-10-03] MEDS: ENOXAPARIN 40 MG/0.4 ML (LOVENOX) SYR SQ SCH (16:35)
[2021-10-03] MEDS ORDERED: LORazepam INJ 2 MG/ML (ATIVAN) VIAL IVP PRN (17:45)
[2021-10-04] VITALS (15 sets, daily range): BP systolic 128–164; BP diastolic 65–107
[2021-10-04] MEDS: VANCOMYCIN 1 GM/NS 250 ML IVPB IV SCH ×2 (05:17)
[2021-10-04] MEDS: CEFEPIME 1,000 MG/NS 50 ML IVPB IV SCH ×8 (05:17→21:04)
[2021-10-04 05:30] LABS: BASOPHILS % (AUTO) 0 % (0-10); EOSINOPHILS % (AUTO) 0 % (0-10); HEMATOCRIT 42 % (35-52); HEMOGLOBIN 13.2 g/dL (11.5-16.0); LYMPHOCYTES # (AUTO) 1.5 10^3/uL (1.0-4.0); LYMPHOCYTES % (AUTO) 11 % (12-44); MEAN CORPUSCULAR HEMOGLOBIN 27 pg (25-34); MEAN CORPUSCULAR HGB CONC 31 g/dL (32-36); MEAN CORPUSCULAR VOLUME 86 fL (80-99); MEAN PLATELET VOLUME 10.5 fL (9.0-12.2); MONOCYTES # (AUTO) 1.3 10^3/uL (0.0-1.0); MONOCYTES % (AUTO) 10 % (0-12); NEUTROPHILS # (AUTO) 10.3 10^3/uL (1.8-7.8); NEUTROPHILS % (AUTO) 78 % (42-75); PLATELET COUNT 402 10^3/uL (130-400); WHITE BLOOD COUNT 13.2 10^3/uL (4.3-11.0)
[2021-10-04 05:49] LABS: CALCIUM 9.4 MG/DL (8.5-10.1)
[2021-10-04 05:54] LABS: CREATININE SERUM 0.67 MG/DL (0.60-1.30)
--- NOTE | 2021-10-04 05:58 | Progress Note - Hospitalist ---
Subjective HPI/CC On Admission Date Seen by Provider: Oct 04, 2021 Time Seen by Provider: 11:30 Subjective/Events-last exam Patient doing very well No longer confused Sedation noted Reviewed seizure meds No more seizures Transfer to floor Focused Exam Lactate Level Time of Focused Exam: 16:32 Objective Exam Vital Signs Vital Signs Date Time Temp Pulse Resp B/P (MAP) Pulse Ox O2 Delivery O2 Flow Rate FiO2 10/05/21 03:47 36.4 59 18 173/92 (119) 96 Room Air 10/04/21 08:22 28 10/04/21 08:11 2.00 Capillary Refill : Less Than 3 Seconds General Appearance: No Apparent Distress, WD/WN, Chronically ill Respiratory: Lungs Clear, Normal Breath Sounds Cardiovascular: Regular Rate, Rhythm Neurologic/Psychiatric: Alert, Oriented x3, Depressed Affect Results/Procedures Lab Laboratory Tests 10/05/21 05:22 Patient resulted labs reviewed. Assessment/Plan Assessment and Plan Assess & Plan/Chief Complaint Assessment: Status epilepticus now with no active seizures Pneumonia Acute respiratory failure Hypoxia requiring supplemental oxygen Sedation Plan: Seizure meds Moved to floor Reviewed all meds during transfer process Critical Care Critically Ill Patient ARABELLAMARY CRUZ Oct 04, 2021 05:58
[2021-10-04] MEDS: inSUlin ASPART (NovoLOG) 1 UNIT/0.01 ML (CHARGE PER UNIT) SC SCH ×4 (07:24→20:25)
--- NOTE | 2021-10-04 07:45 | Diagnostic Imaging Report ---
Indication: Dyspnea, follow-up pneumonia. Comparison: 10/02/2021. Discussion: Single portable upright view of the chest was obtained. Worsening infiltrate within the right middle lobe consistent with worsening pneumonia. Normal heart size. There may be some patchy infiltrate within the lingula. No pleural fluid or pneumothorax. No osseous abnormality. Impression: 1. Worsening pneumonia. Dictated by: Dictated on workstation # [id number]
[2021-10-04] MEDS: RT-ALBUTEROL/IPRATROPIUM 3 ML (DUONEB) VIAL INH SCH ×4 (08:11→21:09)
[2021-10-04] MEDS: DIVALPROEX 500 MG DELAYED RELEASE (DEPAKOTE) TAB PO SCH ×2 (08:18→21:01)
[2021-10-04] MEDS: methylPREDNISolone 125 MG (Solu-MEDROL) VIAL IV SCH (08:19)
[2021-10-04] MEDS: ATENOLOL 50 MG (TENORMIN) TAB PO SCH (08:19)
[2021-10-04] MEDS: PANTOPRAZOLE 40 MG (PROTONIX) TAB PO SCH (08:19)
[2021-10-04] MEDS: RT--FLUTICASONE/SALMETEROL 232-14 (AIRDUO RespiCLICK) IH SCH ×2 (08:19→21:10)
[2021-10-04] MEDS: LOSARTAN 25 MG (COZAAR) TAB PO SCH (08:19)
[2021-10-04] MEDS: toPIRamate 100 MG (TOPAMAX) TAB PO SCH ×2 (08:22→21:01)
[2021-10-04] MEDS: toPIRamate 25 MG (TOPAMAX) TAB PO SCH ×2 (08:35→21:01)
--- NOTE | 2021-10-04 09:35 | Tele-ICU Progress Note ---
Subjective Date Seen by a Provider: Oct 04, 2021 Time Seen by a Provider: 08:35 Subjective/Events-last exam This virtual visit was conducted using real time audio/video. Thank you for asking us to see this patient for respiratory insufficiency due to recurrent pna, AECOPD. Recent events: Feels much better, out of bed. PE: VSS. O2 95% sat on RA HEENT: No obvious masses, adenopathy or JVD. Chest: clear to auscultation, diminished. CV: RRR S1 S2 No murmur or added sounds. Abd: Non-tender. Bowel sounds Y. : Unremarkable. Carias Y. GRIND OPERATOR/psychiatric: Grossly intact. No obvious focal findings. Extremities: 1+ edema. Capillary refill < 3 seconds. Skin: unremarkable. Results: Elevated BG 119, WCC 13.2 but decreasing. B.38/43/71 on 2 LPM. CXR: Hyperinflated, worsening RML pna.. Available chart/ vitals / labs / images reviewed. Video assessment done using teleICU camera, rest of exam as per RN. A/P: Respiratory insufficiency: Continue present management with Airduo, medrol. Monitor for increasing oxygenation needs and/or need for intubation. Critical Care: critically ill patient. Cont. IV ABX, keppra, Cozaar, Cored, Depakote, Topamax, Celexa, Abeytas., SSI, Lovenox. Consider transfer to floor. Discussed with ART Tatum. Asked RN to reach out to eICU if any questions or concerns later. Time spent with patient/coordination of care with other health professionals (mins): 20 Sepsis Event Evaluation Height, Weight, BMI Height: '" Weight: lbs. oz. kg; 31.27 BMI Method: Focused Exam Lactate Level 10/01/21 15:10: Lactic Acid Level 1.01 Time of Focused Exam: 16:32 Exam Exam Patient acknowledged, consented, and participated in this virtual visit which was conducted using real time audio/video Vital Signs Date Time Temp Pulse Resp B/P (MAP) Pulse Ox O2 Delivery O2 Flow Rate FiO2 10/04/21 09:00 71 17 158/97 (117) 95 Room Air 10/04/21 08:50 Room Air 10/04/21 08:40 95 Room Air 10/04/21 08:22 36.2 65 98 28 10/04/21 08:11 98 Nasal Cannula 2.00 10/04/21 08:00 57 21 148/107 (121) 98 Nasal Cannula 3.00 10/04/21 07:21 36.2 10/04/21 07:00 64 10/04/21 07:00 67 21 139/83 (101) 98 Nasal Cannula 3.00 10/04/21 06:00 72 22 128/65 (86) 99 Nasal Cannula 3.00 10/04/21 05:00 73 24 136/77 (96) 97 Nasal Cannula 3.00 10/04/21 04:00 97 Nasal Cannula 2.00 10/04/21 04:00 75 25 128/76 (93) 97 Nasal Cannula 3.00 10/04/21 03:00 74 29 133/72 (92) 97 Nasal Cannula 3.00 10/04/21 02:00 76 22 140/87 (104) 96 Nasal Cannula 3.00 10/04/21 01:00 80 10/04/21 01:00 97 26 153/86 (108) 94 Nasal Cannula 3.00 10/04/21 00:00 82 28 158/90 (112) 96 Nasal Cannula 3.00 10/04/21 00:00 36.4 10/03/21 23:00 92 27 142/79 (100) 94 Nasal Cannula 3.00 10/03/21 22:00 82 27 158/93 (114) 96 Nasal Cannula 3.00 10/03/21 21:00 92 24 139/103 (115) 96 Nasal Cannula 3.00 10/03/21 20:36 94 Nasal Cannula 2.00 10/03/21 20:35 95 Nasal Cannula 2.00 10/03/21 20:00 92 26 178/104 (128) 95 Nasal Cannula 3.00 10/03/21 20:00 97 Nasal Cannula 2.00 10/03/21 19:15 36.6 10/03/21 19:00 92 10/03/21 19:00 92 17 161/95 (117) 96 Nasal Cannula 3.00 10/03/21 18:00 86 32 95 Nasal Cannula 3.00 10/03/21 17:09 94 Nasal Cannula 2.00 10/03/21 17:00 92 31 158/95 (116) 94 Nasal Cannula 3.00 10/03/21 16:00 88 33 169/99 (122) 96 Nasal Cannula 3.00 10/03/21 16:00 97 Nasal Cannula 2.00 10/03/21 15:48 36.6 10/03/21 15:00 84 25 158/95 (116) 96 Nasal Cannula 3.00 10/03/21 14:00 84 29 154/84 (107) 96 Nasal Cannula 3.00 10/03/21 13:00 85 30 152/81 (104) 94 Nasal Cannula 3.00 10/03/21 13:00 84 10/03/21 12:00 82 26 143/87 (105) 95 Nasal Cannula 3.00 10/03/21 12:00 36.5 10/03/21 11:55 94 Nasal Cannula 2.00 10/03/21 11:00 81 27 165/85 (111) 95 Nasal Cannula 3.00 10/03/21 10:30 96 Nasal Cannula 2.00 10/03/21 10:00 80 26 143/75 (97) 96 Nasal Cannula 3.00 I & O 10/04/21 06:59 Intake Total 1467.5 ml Output Total 900 ml Balance 567.5 ml Height & Weight Height: '" Weight: lbs. oz. kg; 31.27 BMI Method: General Appearance: Anxious, Mild Distress HEENT: PERRL/EOMI, TMs Normal, Normal ENT Inspection, Pharynx Normal, Moist Mucous Membranes Neck: Full Range of Motion, Normal Inspection Respiratory: No Accessory Muscle Use, Decreased Breath Sounds, Respiratory Distress (25 breaths/min on 2 L with oxygen saturation in the mid 90s.) Cardiovascular: Regular Rate, Rhythm (99), Other (Bilateral pedal edema 2+ pitting with MARIEL hose on) Capillary Refill: Less Than 3 Seconds Peripheral Pulses: 2+ Dorsalis Pedis (R), 2+ Left Dors-Pedis (L), 2+ Radial Pulses (R), 2+ Radial Pulses (L) Gastrointestinal: normal bowel sounds, non tender, soft Extremity: Normal Capillary Refill, Normal Inspection, Pedal Edema (Bilateral 2+ pitting edema with compression hose on) Neurologic/Psychiatric: Alert, Oriented x3, No Motor/Sensory Deficits Lymphatic: No Adenopathy Results Lab Laboratory Tests 10/03/21 05:30 10/04/21 05:21 Assessment/Plan Assessment/Plan See free text. Critical Care: Critically Ill Patient JCARLOS YOUNG MD Oct 04, 2021 09:34
[2021-10-04] MEDS ORDERED: RT-ALBUTEROL/IPRATROPIUM 3 ML (DUONEB) VIAL INH PRN (10:00)
[2021-10-04] MEDS: ENOXAPARIN 40 MG/0.4 ML (LOVENOX) SYR SQ SCH (16:29)
[2021-10-05] VITALS (7 sets, daily range): BP systolic 135–173; BP diastolic 84–92
[2021-10-05] MEDS: RT-ALBUTEROL/IPRATROPIUM 3 ML (DUONEB) VIAL INH SCH ×4 (02:15→21:14)
[2021-10-05] MEDS: CEFEPIME 1,000 MG/NS 50 ML IVPB IV SCH ×8 (03:18→21:39)
[2021-10-05 05:38] LABS: BASOPHILS # (AUTO) 0.1 10^3/uL (0.0-0.1); BASOPHILS % (AUTO) 0 % (0-10); EOSINOPHILS % (AUTO) 0 % (0-10); HEMATOCRIT 42 % (35-52); LYMPHOCYTES # (AUTO) 2.5 10^3/uL (1.0-4.0); LYMPHOCYTES % (AUTO) 20 % (12-44); MEAN CORPUSCULAR HEMOGLOBIN 27 pg (25-34); MEAN CORPUSCULAR HGB CONC 31 g/dL (32-36); MEAN CORPUSCULAR VOLUME 86 fL (80-99); MEAN PLATELET VOLUME 10.4 fL (9.0-12.2); MONOCYTES # (AUTO) 1.2 10^3/uL (0.0-1.0); MONOCYTES % (AUTO) 10 % (0-12); NEUTROPHILS # (AUTO) 8.4 10^3/uL (1.8-7.8); NEUTROPHILS % (AUTO) 69 % (42-75); PLATELET COUNT 413 10^3/uL (130-400); WHITE BLOOD COUNT 12.1 10^3/uL (4.3-11.0)
[2021-10-05] MEDS: inSUlin ASPART (NovoLOG) 1 UNIT/0.01 ML (CHARGE PER UNIT) SC SCH ×4 (05:40→20:20)
[2021-10-05 05:51] LABS: ALBUMIN 3.2 GM/DL (3.2-4.5); POTASSIUM 3.8 MMOL/L (3.6-5.0)
[2021-10-05 05:52] LABS: CALCIUM 9.4 MG/DL (8.5-10.1)
[2021-10-05 05:53] LABS: TOTAL PROTEIN 6.8 GM/DL (6.4-8.2)
[2021-10-05 05:57] LABS: CREATININE SERUM 0.71 MG/DL (0.60-1.30)
[2021-10-05 06:33] LABS: BILIRUBIN,TOTAL 0.2 MG/DL (0.1-1.0)
[2021-10-05] MEDS: RT--FLUTICASONE/SALMETEROL 232-14 (AIRDUO RespiCLICK) IH SCH ×2 (07:17→21:14)
--- NOTE | 2021-10-05 07:30 | Progress Note - Hospitalist ---
Subjective HPI/CC On Admission Date Seen by Provider: Oct 05, 2021 Time Seen by Provider: 12:00 Subjective/Events-last exam Patient about the same Sleeping most of the time No seizures Check meds and labs was here visiting Review of Systems General: Fatigue Focused Exam Time of Focused Exam: 16:32 Objective Exam Vital Signs Vital Signs Date Time Temp Pulse Resp B/P (MAP) Pulse Ox O2 Delivery O2 Flow Rate FiO2 10/05/21 15:22 35.8 63 18 150/90 (110) 94 Room Air 10/05/21 10:49 21 10/04/21 08:11 2.00 Capillary Refill : Less Than 3 Seconds General Appearance: No Apparent Distress, WD/WN, Chronically ill Respiratory: Lungs Clear, Normal Breath Sounds Cardiovascular: Regular Rate, Rhythm Neurologic/Psychiatric: Alert, Other (Same) Results/Procedures Lab Laboratory Tests 10/05/21 05:22 Patient resulted labs reviewed. Assessment/Plan Assessment and Plan Assess & Plan/Chief Complaint Assessment: Status epilepticus now with no active seizures Pneumonia Acute respiratory failure Hypoxia requiring supplemental oxygen Sedation Plan: Seizure meds Moved to floor Reviewed all meds during transfer process 10/05/2021: Supportive care Monitor closely Critical Care Critically Ill Patient MARY BELL DO Oct 05, 2021 07:30
[2021-10-05] MEDS: LOSARTAN 25 MG (COZAAR) TAB PO SCH (08:27)
[2021-10-05] MEDS: PANTOPRAZOLE 40 MG (PROTONIX) TAB PO SCH (08:27)
[2021-10-05] MEDS: toPIRamate 100 MG (TOPAMAX) TAB PO SCH ×2 (08:27→20:10)
[2021-10-05] MEDS: methylPREDNISolone 125 MG (Solu-MEDROL) VIAL IV SCH (08:27)
[2021-10-05] MEDS: ATENOLOL 50 MG (TENORMIN) TAB PO SCH (08:28)
[2021-10-05] MEDS: toPIRamate 25 MG (TOPAMAX) TAB PO SCH ×2 (08:28→20:10)
[2021-10-05] MEDS: DIVALPROEX 500 MG DELAYED RELEASE (DEPAKOTE) TAB PO SCH ×2 (08:28→20:10)
[2021-10-05] MEDS: ENOXAPARIN 40 MG/0.4 ML (LOVENOX) SYR SQ SCH (16:32)
[2021-10-06] MEDS: RT-ALBUTEROL/IPRATROPIUM 3 ML (DUONEB) VIAL INH SCH ×2 (02:21→09:08)
[2021-10-06] MEDS: CEFEPIME 1,000 MG/NS 50 ML IVPB IV SCH ×4 (03:57→09:14)
[2021-10-06 04:04] VITALS: BP 171/94
[2021-10-06] MEDS: inSUlin ASPART (NovoLOG) 1 UNIT/0.01 ML (CHARGE PER UNIT) SC SCH ×2 (05:29→11:14)
[2021-10-06 06:28] LABS: BASOPHILS % (AUTO) 0 % (0-10); EOSINOPHILS % (AUTO) 0 % (0-10); HEMATOCRIT 45 % (35-52); LYMPHOCYTES # (AUTO) 1.2 10^3/uL (1.0-4.0); LYMPHOCYTES % (AUTO) 10 % (12-44); MEAN CORPUSCULAR HEMOGLOBIN 27 pg (25-34); MEAN CORPUSCULAR HGB CONC 32 g/dL (32-36); MEAN CORPUSCULAR VOLUME 86 fL (80-99); MEAN PLATELET VOLUME 10.3 fL (9.0-12.2); MONOCYTES # (AUTO) 0.5 10^3/uL (0.0-1.0); MONOCYTES % (AUTO) 4 % (0-12); NEUTROPHILS # (AUTO) 10.2 10^3/uL (1.8-7.8); NEUTROPHILS % (AUTO) 85 % (42-75); PLATELET COUNT 478 10^3/uL (130-400)
[2021-10-06 06:39] LABS: ALBUMIN 3.4 GM/DL (3.2-4.5); POTASSIUM 3.9 MMOL/L (3.6-5.0)
[2021-10-06 06:40] LABS: CALCIUM 9.4 MG/DL (8.5-10.1)
[2021-10-06 06:41] LABS: TOTAL PROTEIN 7.1 GM/DL (6.4-8.2)
[2021-10-06 06:43] LABS: BILIRUBIN,TOTAL 0.2 MG/DL (0.1-1.0)
[2021-10-06 06:45] LABS: CREATININE SERUM 0.69 MG/DL (0.60-1.30)
[2021-10-06 06:55] LABS: VALPROIC ACID 56.9 UG/ML (50.0-100.0)
[2021-10-06 08:36] VITALS: BP 165/75
[2021-10-06] MEDS: PANTOPRAZOLE 40 MG (PROTONIX) TAB PO SCH (09:12)
[2021-10-06] MEDS: toPIRamate 100 MG (TOPAMAX) TAB PO SCH (09:12)
[2021-10-06] MEDS: LOSARTAN 25 MG (COZAAR) TAB PO SCH (09:12)
[2021-10-06] MEDS: DIVALPROEX 500 MG DELAYED RELEASE (DEPAKOTE) TAB PO SCH (09:12)
[2021-10-06] MEDS: toPIRamate 25 MG (TOPAMAX) TAB PO SCH (09:13)
[2021-10-06] MEDS: ATENOLOL 50 MG (TENORMIN) TAB PO SCH (09:13)
[2021-10-06] MEDS: methylPREDNISolone 125 MG (Solu-MEDROL) VIAL IV SCH (09:13)
[2021-10-06] MEDS: RT--FLUTICASONE/SALMETEROL 232-14 (AIRDUO RespiCLICK) IH SCH (09:20)
[2021-10-06] MEDS ORDERED: PRED10TA22 PO (10:18)
[2021-10-06] MEDS ORDERED: CEFD300C3 PO (10:18)
--- NOTE | 2021-10-06 10:18 | Discharge Summary ---
Discharge Summary Hospital Course Was the Problem List Reviewed?: Yes Problems/Dx: (1) Acute respiratory failure Status: Acute Qualifiers: Qualified Codes: J96.01 - Acute respiratory failure with hypoxia (2) COPD exacerbation Status: Acute (3) Sepsis Status: Acute Qualifiers: Qualified Codes: A41.9 - Sepsis, unspecified organism (4) Acute respiratory failure with hypoxemia Status: Acute (5) Pneumonia Status: Acute Qualifiers: Qualified Codes: J18.9 - Pneumonia, unspecified organism (6) Seizures Status: Chronic (7) HTN (hypertension) Status: Chronic Hospital Course Date of Admission: Oct 01, 2021 at 16:53 Admission Diagnosis : Family Physician/Provider: Raquel Self Aprn Date of Discharge: 10/06/21 Discharge Diagnosis: Acute respiratory failure, pneumonia, status epilepticus Hospital Course: Pt had an uneventful 6 day hospital course after she was admitted for Sepsis and Pneumonia with acute on chronic respiratory failure and did have status epilepticus requiring ICU stay. She was transferred down to the floor. Medication was managed. No longer having any seizures. PT and OT assessed her to be ready for discharge. Prescriptions sent in to [facility] Home O2 evaluation had already been done by her PCP and that was arranged for delivery today. Labs and Pending Lab Test: Laboratory Tests 10/05/21 10:53: Glucometer 113H 10/05/21 15:14: Glucometer 111H 10/05/21 20:18: Glucometer 146H 10/06/21 05:26: Glucometer 119H 10/06/21 05:55: White Blood Count 12.0H, Red Blood Count 5.20H, Hemoglobin 14.0, Hematocrit 45, Mean Corpuscular Volume 86, Mean Corpuscular Hemoglobin 27, Mean Corpuscular Hemoglobin Concent 32, Red Cell Distribution Width 15.1H, Platelet Count 478H, Mean Platelet Volume 10.3, Immature Granulocyte % (Auto) 1, Neutrophils (%) (Auto) 85H, Lymphocytes (%) (Auto) 10L, Monocytes (%) (Auto) 4, Eosinophils (%) (Auto) 0, Basophils (%) (Auto) 0, Neutrophils # (Auto) 10.2H, Lymphocytes # (Auto) 1.2, Monocytes # (Auto) 0.5, Eosinophils # (Auto) 0.0, Basophils # (Auto) 0.0, Immature Granulocyte # (Auto) 0.1, Sodium Level 137, Potassium Level 3.9, Chloride Level 108H, Carbon Dioxide Level 18L, Anion Gap 11, Blood Urea Nitrogen 10, Creatinine 0.69, Estimat Glomerular Filtration Rate 104, BUN/Creatinine Ratio 14, Glucose Level 122H, Calcium Level 9.4, Corrected Calcium 9.9, Total Bilirubin 0.2, Aspartate Amino Transf (AST/SGOT) 8, Alanine Aminotransferase (ALT/SGPT) 13, Alkaline Phosphatase 125, Total Protein 7.1, Albumin 3.4, Valproic Acid (Depakene) Level 56.9 Microbiology 10/01/21 Gram Stain - Final, Complete 10/01/21 Sputum Culture - Final, Complete Usual upper respiratory lynette 10/01/21 Urine Culture - Final, Complete NO GROWTH 10/01/21 Blood Culture - Preliminary, Resulted No growth Home Meds Active Reported Delsym (Dextromethorphan Polistirex) 30 Mg/5 Ml Annalise.er.12h 30 Mg PO Q12H PRN Clonazepam 0.5 Mg Tablet 0.5 Mg PO HS PRN Symbicort 160-4.5 Mcg Inhaler (Budesonide/Formoterol Fumarate) 10.2 Gm Hfa.aer.ad 2 Puff IH BID Atenolol 25 Mg Tablet 25 Mg PO DAILY Guanfacine HCl ER (Guanfacine HCl) 2 Mg Tab.er.24h 2 Mg PO DAILY Levetiracetam 1,000 Mg Tablet 1,000 Mg PO BID LAST FILLED 07-11-2021 #90/30 DAY SUPPLY Carvedilol 12.5 Mg Tablet 12.5 Mg PO BID LAST FILLED 07-11-2021 #90/30 DAY SUPPLY Topiramate 50 Mg Tablet 50 Mg PO BID TAKES 100MG +50MG TO EQUAL 150MG LAST FILLED 07-21-2021 #60/30 DAY SUPPLY Depakote (Divalproex Sodium) 500 Mg Tablet.dr 500 Mg PO HS LAST FILLED LAST FILLED #90/30 DAY SUPPLY Divalproex Sodium 500 Mg Tablet.dr 1,000 Mg PO DAILY TAKES 2 (500MG) TABS LAST FILLED #90/30 DAY SUPPLY Hydrocodone-Acetamin 10-325 mg (Hydrocodone/Acetaminophen) 1 Each Tablet 1 Ea PO TID Iprat-Albut 0.5-3(2.5) mg/3 ml (Ipratropium/Albuterol Sulfate) 3 Ml Ampul.neb 3 Ml NEB TID PRN Losartan Potassium 25 Mg Tablet 25 Mg PO DAILY Escitalopram Oxalate 20 Mg Tablet 20 Mg PO DAILY FILLED 07-21-2021 #30/30 DAY SUPPLY Proair Hfa (Albuterol Sulfate) 1 Puff Puff 2 Puff INH TID PRN Pantoprazole Sodium 40 Mg Tablet.dr 40 Mg PO DAILY LAST FILLED 07-18-2021 #30/30 DAY SUPPLY Topiramate 100 Mg Tablet 100 Mg PO BID LAST FILLED 10-10-2020 #60/30 DAY SUPPLY TAKES 100MG +50MG TO EQUAL 150MG Assessment/Pt Instructions PCP in 1 week Discharge Planning: <30 minutes discharge planning Discharge Physical Examination Vital Signs Vital Signs Date Time Temp Pulse Resp B/P (MAP) Pulse Ox O2 Delivery O2 Flow Rate FiO2 10/06/21 08:36 36.7 54 18 165/75 (105) 94 Room Air 10/05/21 10:49 21 10/04/21 08:11 2.00 General Appearance: No Apparent Distress, WD/WN, Chronically ill Allergies: Coded Allergies: Penicillins (Verified Allergy, Severe, Anaphylaxis, 06/24/21) erythromycin base (Verified Allergy, Unknown, 06/24/21) Discharge Summary Date of Admission Oct 01, 2021 at 16:53 Date of Discharge Discharge Date: Oct 06, 2021 Discharge Diagnosis Assessment: Status epilepticus now with no active seizures Pneumonia Acute respiratory failure Hypoxia requiring supplemental oxygen Sedation Plan: Seizure meds Moved to floor Reviewed all meds during transfer process 10/05/2021: Supportive care Monitor closely MARY BELL DO Oct 06, 2021 10:18
[2021-10-06 11:44] VITALS: BP 167/93
[2021-10-06 12:33] VITALS: BP 167/93
--- NOTE | 2021-10-06 13:37 | Physician Query Clarification ---
Physician Query-General Query to Physician: Clinical Validation Clarification : Naty Rowland Sepsis has been documented in the medical record on the H and P and a progress note. After study, do you consider Sepsis a clinically valid diagnosis? If not clinically valid, please document "Sepsis, ruled out" on the progress notes and/or discharge summary. 1. No, Sepsis not clinically valid/ruled out 2. Yes, Sepsis is a clinically valid diagnosis 3. Other, with explanation of the clinical findings 4. Clinically undetermined, no explanation for the clinical findings Additional information: Vital Signs: HR 79, RR 18, BP 154/91, SpO2 97% sat on 3.5 L T 36.9, WBC 16.3, Lactic acid 1.01 Treatment: ER: Cefepime IV, vancomycin IV, Patient was given 600 MLS IV total from IV medications on day of admission Please remember a lack of response to the above will prompt a phone page by CDI/coding staff. In responding to this query, please exercise your independent professional judgment. The purpose of this communication is to more accurately reflect the complexity of your patients condition. The fact that a question is asked does not imply that any particular answer is desired or expected. Thank you for timely response to this clarification. Aaliyah Beavers MSN, RN Clinical Senior Compliance Officer PH [email or web address] PHYSICIAN RESPONSE: Based on the clinical findings in the record, please respond to the query above on this document as an addendum. Physician Response: Physician Response 2 If you have questions please contact: International Operations Manager: Ext: Thank you for your time and cooperation. Clinical Senior Compliance Officer/International Operations Manager This is a permanent part of the medical record AALIYAH BEAVERS Oct 06, 2021 13:37 MARY ROWLAND DO Oct 06, 2021 15:00
== END 2021-10-06 12:33 | disposition home or self-care (01) | DRG 871 ==
LOC: EDUNIT# 14:59 → ER 15:00 → 4TH 16:53 → ICU 10-03 09:09 → 4TH 10-04 11:15
PROVIDERS: ADMIT Family Medicine; ATTEND Internal Medicine
PROC: 8E0ZXY6 Isolation (ICD-10-PCS; principal; 2021-10-01)
DX: A41.9 Sepsis, unspecified organism (principal); J18.9 Pneumonia, unspecified organism; J96.01 Acute respiratory failure with hypoxia; G93.41 Metabolic encephalopathy; J44.0 Chronic obstructive pulmonary disease with (acute) lower respiratory infection; J44.1 Chronic obstructive pulmonary disease with (acute) exacerbation; G90.511 Complex regional pain syndrome I of right upper limb; G40.901 Epilepsy, unspecified, not intractable, with status epilepticus; Z20.822 Contact with and (suspected) exposure to COVID-19; I10 Essential (primary) hypertension; F17.210 Nicotine dependence, cigarettes, uncomplicated; H54.7 Unspecified visual loss; Z86.718 Personal history of other venous thrombosis and embolism; Z86.711 Personal history of pulmonary embolism; Z79.52 Long term (current) use of systemic steroids; Z88.1 Allergy status to other antibiotic agents; Z88.0 Allergy status to penicillin
CPT/HCPCS: 36415; 70450; 71045; 80048; 80053; 80164; 81000; 82805; 82947; 83605; 83880; 84145; 84484; 85007; 85025; 85027; 85379; 85610; 85730; 86141; 87040; 87070; 87088; 87205; 87449; 87636; 93005; 94640; 94664; 94760

== ENCOUNTER 2023-04-12 14:28 | Outpatient (CLI) | payer MEDICARE ==
[~2023-04-12] VITALS: Ht 157.5 cm; Wt 65.3 kg
[~2023-04-12 14:28] MED LIST changes: +ALBU8.5H6 INH; +ATEN25TA PO; +BUDE10.2 IH; +CEFD300C3 PO; +DEXT30SU5 PO; +PRED10TA22 PO; -RT-ALBUINH INH; +TOPI-241 PO; -TOPI50TA13 PO
[2023-04-12] MEDS ORDERED: SUCR1TAB36 PO (15:03)
[2023-04-12] MEDS ORDERED: ONDA8TAB13 SL (15:03)
[2023-04-12] MEDS ORDERED: VNL37.5T PO (15:03)
[2023-04-12] MEDS ORDERED: DIVA500T PO (15:03)
[2023-04-12] MEDS ORDERED: LORA-404 SL (15:03)
[2023-04-12] MEDS ORDERED: BUSP15TA60 PO (15:03)
[2023-04-12] MEDS ORDERED: ACHD5005 PO (15:03)
[2023-04-13] MEDS ORDERED: SUCR1TAB36 PO (13:21)
[2023-04-13] MEDS ORDERED: PANT40TA2 PO (13:21)
== END 2023-04-12 15:20 | disposition home or self-care (01) ==
LOC: PREOP 14:28
PROVIDERS: ATTEND Surgery
DX: Z01.818 Encounter for other preprocedural examination (principal)

== ENCOUNTER 2023-04-13 11:44 | Day surgery (SDC) | payer MEDICARE, MEDICAID ==
[~2023-04-13] VITALS: Ht 157.5 cm; Wt 65.3 kg
[~2023-04-13 11:44] MED LIST changes: +ACHD5005 PO; +BUSP15TA60 PO; +LORA-404 SL; +ONDA8TAB13 SL; +SUCR1TAB36 PO; +VNL37.5T PO
[2023-04-13] MEDS ORDERED: LACTATED RINGERS 1,000 ML 1,000 ML IV STA (11:52)
[2023-04-13] MEDS ORDERED: HURRICAINE EXT TUBE (BENZOCAINE) XX PRN (12:00)
[2023-04-13] MEDS ORDERED: MIDAZOLAM INJ 2 MG/2 ML VIAL ONE (13:06)
--- NOTE | 2023-04-13 13:07 | Progress Note-Pre Operative ---
Pre-Operative Progress Note Date H&P Reviewed: Apr 13, 2023 Time H&P Reviewed: 13:06 History & Physical: H&P Reviewed, Patient Examed, No changes noted Pre-Operative Diagnosis: GERD and epigastric pain RAYNA WEATHERS DO Apr 13, 2023 13:07
[2023-04-13] MEDS ORDERED: SUCR1TAB36 PO (13:21)
[2023-04-13] MEDS ORDERED: PANT40TA2 PO (13:21)
--- NOTE | 2023-04-13 13:22 | Discharge Inst-Simple/Standard ---
Discharge Inst-Standard Discharge Medications New, Converted or Re-Newed RX: Transmitted to Pharmacy Patient Instructions/Follow Up Plan of Care/Instructions/FU: 2 weeks giuliana Activity as Tolerated: Yes Discharge Diet: Regular Diet (gastritis diet) RAYNA WEATHERS DO Apr 13, 2023 13:22
[2023-04-13 13:25] VITALS: BP 157/87
--- NOTE | 2023-04-13 13:25 | Progress Note-Post Operative ---
Post-Operative Progess Note Surgeon (s)/Endodontics Dentist (s) Surgeon RAYNA WEATHERS DO Endodontics Dentist: na Pre-Operative Diagnosis GERD and epigastric pain Post-Operative Diagnosis small hiatal hernia, duodenitis, gastritis Procedure & Operative Findings Date of Procedure 04/13/23 Procedure Performed/Findings egd c biopsies Anesthesia Type per lan engineer Estimated Blood Loss Estimated blood loss (mL): none Specimens/Packing Specimens Removed duodenum, antrum, body, ge RAYNA WEATHERS DO Apr 13, 2023 13:25
--- NOTE | 2023-04-13 13:28 | Anesthesia-General Post-Op ---
MAC Patient Condition Mental Status/LOC: Same as Preop Cardiovascular: Satisfactory Nausea/Vomiting: Absent Respiratory: Satisfactory Pain: Controlled Complications: Absent Post Op Complications Complications None Follow Up Care/Instructions Patient Instructions None needed. Anesthesiology Discharge Order Discharge Order Patient is doing well, no complaints, stable vital signs, no apparent adverse anesthesia problems. No complications reported per nursing. FIDENCIO RAY CRNA Apr 13, 2023 13:28
[2023-04-13 13:30] VITALS: BP 153/94
[2023-04-13 13:35] VITALS: BP 166/100
[2023-04-13 14:40] VITALS: BP 166/100
--- NOTE | 2023-04-13 21:34 | OPERATIVE REPORT ---
DATE OF SERVICE: 04/13/2023 PREOPERATIVE DIAGNOSES: Gastroesophageal reflux disease and epigastric pain. POSTOPERATIVE DIAGNOSES: Small hiatal hernia, duodenitis, gastritis. PROCEDURES: EGD with biopsies. SURGEON: Rayna Tate DO ANESTHESIA: Per FILLING SEPARATOR. ESTIMATED BLOOD LOSS: None. COMPLICATIONS: None. INDICATIONS: The patient is a 57-year-old female with GERD and epigastric/esophagus pain. She understands risks and benefits of procedure and wished to proceed. Consent was signed in chart. DESCRIPTION OF PROCEDURE: The patient was taken to the endoscopy suite, placed in the left lateral recumbent position. Timeout was performed. Scope was inserted in the mouth, down the esophagus, stomach, into the duodenum without difficulty. No polyps, masses or ulcerations in the duodenum, but there was area of erythematous changes consistent with duodenitis. Biopsy of the area was obtained. Scope was slowly retracted back into stomach, where it was further insufflated. Gastritis appearance of the stomach, biopsy of the antrum and body were obtained. Scope was retroflexed noting a small hiatal hernia, no other pathology. Scope was returned to its normal position, slowly withdrawn until distal esophagus. Biopsy of GE junction was obtained. Likely some erythematous changes consistent with reflux esophagitis. No polyps, masses or ulcerations. Scope was slowly retracted back until completely removed. The patient tolerated the procedure well without complications, taken to recovery room in stable condition. RECOMMENDATIONS: The patient is to be on Protonix and Carafate. We will await biopsy results. She will follow up in 2 weeks. Job ID: [id number] DocumentID: [id number] Dictated Date: 04/13/2023 13:28:00 Financial Reporting Manager Date: 04/13/2023 21:32:00 Dictated By: RAYNA TATE DO
== END 2023-04-13 14:40 | disposition home or self-care (01) ==
LOC: ENDO 11:44
PROVIDERS: ATTEND Surgery
DX: K29.50 Unspecified chronic gastritis without bleeding (principal); B96.81 Helicobacter pylori [H. pylori] as the cause of diseases classified elsewhere; K29.80 Duodenitis without bleeding; K44.9 Diaphragmatic hernia without obstruction or gangrene; K21.00 Gastro-esophageal reflux disease with esophagitis, without bleeding; C34.90 Malignant neoplasm of unspecified part of unspecified bronchus or lung; Z87.891 Personal history of nicotine dependence; Z79.899 Other long term (current) drug therapy; Z28.310 Unvaccinated for COVID-19